=== PATIENT | female | born 1975 | race Caucasian/White ===

== ENCOUNTER 2018-08-19 15:42 | Emergency (ER) | payer SELFPAY ==
[2018-08-19 15:43] VITALS: BP 151/100; PULSE 71; RESP 18; TEMP 36.4; O2SAT 100; BMI 47.5
--- NOTE | 2018-08-19 16:13 | ED.VISSUMM ---
- ER Visit Summary Date of Service: 08/19/18 Chief Complaint: Left knee pain and chronic right ankle pain History of Present Illness: The patient is a 43 F no significant past medical history. Currently on no medications. Patient recently moved about a month ago from [place] to [place] she now lives in the [facility]. She states she tripped injuring her left knee about 2 weeks ago. She had a prior meniscal tear and thinks it is the same. He had a prior scope on her left knee done years ago. She also complains of chronic right ankle pain on the lateral malleolus is been going on for months to even a year along with her. She denies any recent fall or trauma on the right ankle. He attempted to go to follow start some clinic today and they told her they did not take walk-ins. Currently she is uninsured and did not think she get in with a local orthopedic physician. Physical Examination: Vital signs are stable. Afebrile. Middle-age female no acute distress. HEENT exam unremarkable. Neck nontender. Lungs clear to auscultation bilaterally. Heart regular rhythm no murmur. Abdomen soft nontender. Obese. Moving all 4 extremities. Neurovascular intact. Left hip, left ankle and foot nontender neurovascular intact. Full range of motion in the left lower extremity. The left knee she has mild joint line tenderness. There is no effusion or significant swelling. No redness or warmth. No signs of septic joint. The ACL, PCL, MCL and LCL are all intact. Quadriceps patella and inferior patella tendon are both intact. Right hip and knee are nontender with full range of motion. She has normal dorsi and plantar flexion of the right ankle. There is mild swelling to the right lateral malleolus. No gross bony deformity. Dorsi and plantar flexion is intact. No effusion. DP pulse intact. Right foot neurovascularly intact. Achilles tendon is intact. Neurologic exam is unremarkable. Test Results: Patient and I discussed she really does not need x-rays at this time. This is a chronic right ankle problem that she needs to see the international sales manager physician for. The left knee if it is a meniscal tear she would need an MRI. I do not feel there is any acute bony abnormality and I do not feel any pain x-rays will be of benefit. Patient is comfortable with that plan. Emergency Department Course and Treatment: Follow-up with outpatient either orthopedics or pie crust mixer of the right ankle. Treatment Plan: Naprosyn for pain. Ice and elevate. Follow-up with local orthopedic surgeon. Also pie crust mixer if needed. Disposition: Discharge Impression: Left knee pain of uncertain etiology History of prior left knee meniscal tear with prior surgery Acute on chronic right lateral ankle pain of uncertain etiology history of degenerative joint disease This note was generated with [employer] dictation software. It may contain incorrect words, spelling, and punctuation that were not noted in review of the chart prior to signing ED Disposition - Plan for ED Patient: Chief Complaint: Lower Extremity Injury Referrals: NOT,DEFINED [Primary Care Provider] -
--- NOTE | 2018-08-19 16:17 | ED.DEP ---
ED Disposition - Plan for ED Patient: Disposition: Home or Assisted Living Chief Complaint: Lower Extremity Injury Instructions: ED Meniscal Injury Knee Poss Prescriptions: Naproxen [Naprosyn] 500 mg PO BID PRN PRN #20 tab PRN Reason: Pain Referrals: Will Painting DO [STAFF PHYSICIAN] - 1-2 Weeks Additional Instructions: Ice and elevate both the right ankle and left knee. Activity as tolerated. Naprosyn for pain and inflammation. On follow-up with local orthopedic surgeon to evaluate your left knee for possible meniscal tear and/or also evaluate your right ankle which could also be seen by a local hospice care consultant.
--- NOTE | 2018-08-19 16:18 | ED.DCSUM_ITS ---
- ER Visit Summary Date of Service: 08/19/18 Chief Complaint: Left knee pain and chronic right ankle pain History of Present Illness: The patient is a 43 F no significant past medical history. Currently on no medications. Patient recently moved about a month ago from [place] to [place] she now lives in the [facility]. She states she tripped injuring her left knee about 2 weeks ago. She had a prior meniscal tear and thinks it is the same. He had a prior scope on her left knee done years ago. She also complains of chronic right ankle pain on the lateral malleolus is been going on for months to even a year along with her. She denies any recent fall or trauma on the right ankle. He attempted to go to follow start some clinic today and they told her they did not take walk-ins. Currently she is uninsured and did not think she get in with a local orthopedic physician. Physical Examination: Vital signs are stable. Afebrile. Middle-age female no acute distress. HEENT exam unremarkable. Neck nontender. Lungs clear to auscultation bilaterally. Heart regular rhythm no murmur. Abdomen soft nontender. Obese. Moving all 4 extremities. Neurovascular intact. Left hip, left ankle and foot nontender neurovascular intact. Full range of motion in the left lower extremity. The left knee she has mild joint line tenderness. There is no effusion or significant swelling. No redness or warmth. No signs of septic joint. The ACL, PCL, MCL and LCL are all intact. Quadriceps patella and inferior patella tendon are both intact. Right hip and knee are nontender with full range of motion. She has normal dorsi and plantar flexion of the right ankle. There is mild swelling to the right lateral malleolus. No gross bony deformity. Dorsi and plantar flexion is intact. No effusion. DP pulse intact. Right foot neurovascularly intact. Achilles tendon is intact. Neurologic exam is unremarkable. Test Results: Patient and I discussed she really does not need x-rays at this time. This is a chronic right ankle problem that she needs to see the rotor pilot physician for. The left knee if it is a meniscal tear she would need an MRI. I do not feel there is any acute bony abnormality and I do not feel any pain x-rays will be of benefit. Patient is comfortable with that plan. Emergency Department Course and Treatment: Follow-up with outpatient either orthopedics or teenage program director of the right ankle. Treatment Plan: Naprosyn for pain. Ice and elevate. Follow-up with local orthopedic surgeon. Also teenage program director if needed. Disposition: Discharge Impression: Left knee pain of uncertain etiology History of prior left knee meniscal tear with prior surgery Acute on chronic right lateral ankle pain of uncertain etiology history of degenerative joint disease This note was generated with [employer] dictation software. It may contain incorrect words, spelling, and punctuation that were not noted in review of the chart pr ior to signing ED Disposition - Plan for ED Patient: Chief Complaint: Lower Extremity Injury Referrals: NOT,DEFINED [Primary Care Provider] -
[2018-08-19 16:35] VITALS: PULSE 76; RESP 17; O2SAT 97
== END 2018-08-19 16:35 | disposition home or self-care (01) ==
PROVIDERS: Emergency Provider Emergency Medicine
DX: M25.562 Pain in left knee (principal); Z87.828 Personal history of other (healed) physical injury and trauma; Z98.890 Other specified postprocedural states; M25.571 Pain in right ankle and joints of right foot; G89.29 Other chronic pain
CPT/HCPCS: 99282

== ENCOUNTER → 2018-11-21 08:49 | Outpatient (CLI) | payer SELFPAY ==
--- NOTE | 2018-11-21 08:59 | RAD_ITS ---
HISTORY: PAIN COMPARISON: None FINDINGS: XR Knee Complete 4 Views with weightbearing No fracture or acute disease. Degenerative arthritis with mild narrowing of the tibiofemoral medial compartment. The lateral compartment and patellofemoral joint space appear preserved. No bony erosions. Mild spurring of the anterior patella. No joint effusion. RAD/Knee 4 or More Views IMPRESSION: 1. Mild osteoarthritis, medial compartment, left knee. 2. No acute disease. at 0413 Reported and signed by: Dejuan Cope MD Electronically Signed: Dejuan Cope, at 4:12 EST Tel , Service support ,
--- NOTE | 2018-11-21 08:59 | RAD_ITS ---
HISTORY: PAIN COMPARISON: None FINDINGS: XR right Knee Complete 4 Views with weightbearing Large body habitus. No fracture or acute disease. Joint spaces appear preserved. No bony erosions. No joint effusion. RAD/Knee 4 or More Views IMPRESSION: Negative exam. No significant arthritis, right knee. at 0416 Reported and signed by: Dejuan Cope MD Electronically Signed: Dejuan Cope, at 4:14 EST Tel , Service support ,
== END ==
PROVIDERS: Referring Provider Physician Assistant; Visit Provider Physician Assistant
DX: M25.561 Pain in right knee (principal); M25.562 Pain in left knee
CPT/HCPCS: 73564

== ENCOUNTER 2019-01-03 08:30 | Outpatient (RCR) | payer OTHER, SELFPAY ==
--- NOTE | 2018-12-11 12:47 | HP.PTEVAL_ITS ---
Patient's Visit Information AMELIA DAVENPORT is a 43 year old F referred to Physical Therapy by RAHEL Roman with a diagnosis of BILATERAL PATELLAFEMORAL SYNDROME,POSSIBLE LEFT MENISCUS DERRANGEMENT. Date of Evaluation: 12/11/18 Physical Therapist: Rancho José PT, Cert MDT, OCS - Visit Plan Frequency: 2x /Week Duration: 4 Weeks Plan: ROM,PRES'S QUADS/HAMS/HIP,NUSTEP,MODALITIES - Subjective Findings: This 43 y/o female presents to physical therapy bilateral patefemoral syndrome,possible left meniscus. Patient fell going up stairs at churh landed on right knee heard a pop but has had progressive left knee pain for several months.Patient had h/o left kne arthroscopic menisectomy 2007. Seen DR x-rays. Patient aggravated stairs,unable squat/kneeling,progressive walking and standing increase symptoms. Patient uses knee brace. Patient clicking popping left knee. Denies parathesia/tingling. Patient symptoms interupt sleeping. Patient pain affects QOL and function. VOCATION: [employer]. SOCIAL: lives with sister - Pain Left Knee Pain Intensity (Out of 10): 9 Pain Intensity Range: 10 Right Knee Pain Intensity (Out of 10): 5 Pain Intensity Range: 10 - Objective POSTURE: mild foward posture knee valgus. GAIT: antalgic gait left -right side with decrease stance time. PALAPTION: tender medial-lateral joint line. EDEMA: mild edema knee. AROM: 0-110 supine knee flexion. MMT: quads/hams 4- /5,hip flexion 4-/5,hip abd 3+/5,hip extension 4-/5. QUAD SET : lateral deviation. STAIRS: alternate. PROPRIOCEPTION: poor - Special Tests R Knee Candy - Meniscus: Negative R Knee Apley - Meniscus: Positive R Knee Stefan - ACL: Negative R Knee Anterior Drawer - ACL: Negative R Knee Patellar Apprehension - PFS: Positive R Knee Patellar Grind - PFS: Positive R Knee Medial Patellar Plica - Plica Syndrome: Negative L Knee Candy - Meniscus: Positive L Knee Stefan - ACL: Negative L Knee Valgus - MCL: Negative L Knee Varus - LCL: Negative L Knee Patellar Apprehension - PFS: Positive L Knee Patellar Grind - PFS: Positive L Knee Medial Patellar Plica - Plica Syndrome: Negative - Goals Goal 1:: Indeoendant with HEP Goal Time Frame: 4-6 Weeks Goal 2:: Decrease knee pain by 50% or greater to improve function with ADL'S Goal Time Frame: 4-6 Weeks Goal 3:: Increase AROM by 5 degrees to improve function with stairs Goal Time Frame: 4-6 Weeks Goal 4:: Patient increase strength quads/hams/hip 4/5 to improve function. Goal Time Frame: 4-6 Weeks Goal 5:: Patient to improve LFES score by 5-10points to improve QOL. - Rehabilitation Potential Physical Therapy Diagnosis: This patient has bilateral knee pain with patellafemoral syndrome and h/o left menisectomy 2008 with decrease ROM,strength,gait and function thus beinfit from skilled PT Rehabilitation Potential: Good - Anticipated Interventions Patient/Client Instruction: Educate patient on: Condition, Plan of Care For the Purpose of:: To decrease pain, To increase ROM, To improve muscle performance and motor function, To improve ability to perform ADL's, To increase tolerance to activity/condition/position, To improve ability of physical actions for home/community/work/leisure, To improve gait and locomotor functions, To improve health of tissue, To decrease soft tissue restriction, To increase flexibility/ROM, To reduce risk of recurrence, To improve ability to perform tasks related to life management Therapeutic Exercise to Include: Strength training, Active ROM Comment: HIP/KNEE For the Purpose of:: To decrease pain, To increase ROM, To increase oxygenation perfusion, To improve ability to perform ADL's, To increase tolerance to activity/condition/position, To improve ability of physical actions for home/community/work/leisure, To improve health of tissue, To decrease soft tissue restriction, To increase flexibility/ROM, To improve endurance, To impr ove ability to perform tasks related to life management TENS: Yes IF ES: Yes Cryotherapy (ice pack, ice massage): Yes Thermo therapy (hot pack): Yes Ultrasound (thermal/non thermal): Yes For the Purpose of:: To decrease pain, To increase ROM, To improve health of tissue, To decrease soft tissue restriction, To reduce risk of recurrence, To improve ability to perform tasks related to life management Thank you for the opportunity to evaluate your patient. For Medicare and Medicare HMO plans, please review the plan of care and approve it. It will need to be FAXED BACK to us at [phone] for Medicare purposes. For Medicare only, by signing this I certify the plan of care. Please let me know if there are questions or concerns regarding this plan of care. Physician Signature: Date:
--- NOTE | 2019-05-14 15:55 | HP.PTDCNRP_ITS ---
HP - Discharge Summary (1) - Patient Information AMELIA DAVENPORT was seen in my office for initial evaluation on 12/11/18. The following Plan of Care was established for this patient: Initial Frequency: 2x /Week Initial Duration: 4 Weeks - Anticipated Interventions Patient/Client Instruction: Educate patient on: Condition, Plan of Care For the Purpose of:: To decrease pain, To increase ROM, To improve muscle pe rformance and motor function, To improve ability to perform ADL's, To increase tolerance to activity/condition/position, To improve ability of physical actions for home/community/work/leisure, To improve gait and locomotor functions, To improve health of tissue, To decrease soft tissue restriction, To increase flexibility/ROM, To reduce risk of recurrence, To improve ability to perform tasks related to life management Therapeutic Exercise to Include: Strength training, Active ROM For the Purpose of:: To decrease pain, To increase ROM, To increase oxygenation perfusion, To improve ability to perform ADL's, To increase tolerance to activity/condition/position, To improve ability of physical actions for home/community/work/leisure, To improve health of tissue, To decrease soft tissue restriction, To increase flexibility/ROM, To improve endurance, To improve ability to perform tasks related to life management TENS: Yes IF ES: Yes Cryotherapy (ice pack, ice massage): Yes Thermo therapy (hot pack): Yes Ultrasound (thermal/non thermal): Yes For the Purpose of:: To decrease pain, To increase ROM, To improve health of tissue, To decrease soft tissue restriction, To reduce risk of recurrence, To improve ability to perform tasks related to life management This patient was last seen in our office 01/13/19. Pertinent comments regarding their Physical therapy will appear below: Patient seen for PT for bilateral patella femoral syndome with possible,left knee meniscus tear. Pateint seen for 7 visits for ROM ,grade PRE'S quad/hams/hip ,nustep,modalties. Patienr reported min improvement with left knee pain. Pateint occassionally felt clicking in left knee. Patient wasnt seen for last visit for recheck. Thus is d/c ,recommend possible MRI per MD. At this point I will be discontinuing this patient from physical therapy. I would be happy to see this patient again in the future if found appropriate by the physician. Thank you! Rancho José, PT, Cert MDT, OCS
== END 2019-01-03 19:00 | disposition home or self-care (01) ==
LOC: PT 08:30
PROVIDERS: Referring Provider Physician Assistant; Visit Provider Physician Assistant
DX: M22.2X1 Patellofemoral disorders, right knee (principal); M22.2X2 Patellofemoral disorders, left knee
CPT/HCPCS: 97014; 97035; 97110; 97162; G0283

== ENCOUNTER → 2019-06-02 | Outpatient (CLI) | payer BC, SELFPAY ==
[2019-05-12 10:11] VITALS: BMI 47.5
--- NOTE | 2019-06-02 16:39 | MRI_ITS ---
HISTORY:fall 6 mons ago, c/o pain entire knee, popping,clicking MRI EXAMINATION OF THELeft KNEE COMPARISON: Radiographs left knee obtained on November 21, 2018 TECHNIQUE: Sagittal proton-density, fat-suppressed T2, coronal proton density and fat-suppressed T2 and thin section coronal T2 and axial fat-suppressed T2 # of images including paperwork:198 FINDINGS: Bones: No acute fracture or dislocation. Minimal subchondral edema and subchondral cyst formation is seen at the medial tibia. There are marginal osteophytes seen at the medial lateral compartments of the knee with joint space narrowing as well as a patellofemoral joint Ligaments and tendons: The anterior cruciate ligament is not visualized suspect for a chronic complete tear. The posterior cruciate ligament is mildly bowed The lateral collateral ligament demonstrates abnormal signal at its proximal attachment suggesting partial tear. The iliotibial band and the biceps femoris tendon are intact. The superficial portion of the medial collateral ligament is intact. There is a tear of the deep medial meniscal femoral portion. The popliteus tendon is intact Extensor mechanism: The quadriceps tendon and patellar tendon are intact. The medial lateral retinaculum are intact Knee joint: There is a small joint effusion. There is also a popliteal cyst as well as fluid within the semimembranosus tibial collateral ligament bursa. There is a small amount of fluid within the medial collateral ligament bursa. Suspect mild synovitis also Medial compartment: The middle one third of the medial meniscus is displaced medially. There is blunting of the free edge of the middle one third. A horizontal tear seen extending from the middle one third of the posterior one third with a complex tear and large radial tear involving the posterior third. Diffuse articular cartilage thinning at the medial compartment Lateral compartment: No evidence of a meniscal tear. No full-thickness articular cartilage loss Patellofemoral articulation: Subchondral cyst formation is seen at the lateral facet of the patella with near full thickness versus full-thickness overlying articular cartilage loss. This is seen at the superior aspect of the patella. The trochlear cartilage is thinned inferiorly but no full-thickness loss noted MRI/Lower Ext Joint Only (Routine) IMPRESSION: Osteoarthritis Complex tear of the medial meniscus with horizontal tear of the middle one third extending to the posterior one third and large radial tear at the posterior one third. The middle one third is displaced medially There is fluid in the medial collateral ligament bursa Joint effusion with suspected synovitis Popliteal cyst Fluid and the semimembranosus medial collateral ligament bursa Chronic ACL third Intrasubstance tear of the biceps lateral collateral ligament at its femoral attachment at 2114 Reported and signed by: Karley Coleman DO Electronically Signed: Karley Coleman DO at 21:12 EDT Tel , Service support ,
== END | disposition home or self-care (01) ==
LOC: MRI 16:38
PROVIDERS: Referring Provider Physician Assistant; Visit Provider Physician Assistant
DX: M23.92 Unspecified internal derangement of left knee (principal); M25.562 Pain in left knee
CPT/HCPCS: 73721

== ENCOUNTER 2019-06-19 06:44 | Day surgery (SDC) | payer BC, SELFPAY ==
[2019-06-09 07:55] VITALS: BMI 47.5
[2019-06-19] VITALS (7 sets, daily range): BP systolic 137–169; BP diastolic 79–112; PULSE 80–94; RESP 16–18; TEMP 36.1–36.7; O2SAT 92–100; BMI 51.5
[2019-06-19] MEDS: Lactated Ringers 1,000 ML 100 ML IV (07:47)
[2019-06-19] MEDS: Epinephrine (1 mg/ml) 1 MG/ML VIAL (08:14)
[2019-06-19] MEDS: Bupiv/Epi 0.5% Mpf 30 ML Vial (08:14)
--- NOTE | 2019-06-19 08:23 | HP.PCM_ITS ---
History and Physical Date of Admission: 06/19/19 Intake Vital Signs 06/09/19 Body Mass Index (BMI) 47.5 06/06/19 Body Mass Index (BMI) 47.5 Intake Visit Reasons: MRI results - KNEE Allergies Sulfa (Sulfonamide Antibiotics) Allergy (Verified 08/19/18 15:46) Unknown azithromycin [From Zithromax Z-Matt] Adverse Reaction (Verified 08/19/18 15:46) Rash bupropion [From Wellbutrin] Adverse Reaction (Verified 08/19/18 15:46) Rash celecoxib [From Celebrex] Adverse Reaction (Verified 08/19/18 15:46) Rash loratadine [From Claritin] Adverse Reaction (Verified 08/19/18 15:46) Rash PFSH Surgical History (Updated 11/21/18 @ 08:32 by Michelle Howell) History of left knee surgery (Acute) History of tubal ligation (Acute) Family History (Updated 11/21/18 @ 08:34 by Michelle Howell) Aunt Hypertension CVA (cerebral vascular accident) Father Heart disease Diabetes Cancer Parkinsons disease Aunt Myocardial infarction Social History (Updated 06/11/19 @ 11:01 by Vikas Alvarez DO) Smoking Status: Never smoker second hand exposure: Yes alcohol intake: never HPI MRI results - KNEE: Details: Parts of this documentation were recorded by a scribe, this document ation accurately reflects the service provided and the decisions made by me, Vikas Alvarez DO 06/09/19 1856. AMELIA DAVENPORT is a 44 year old F here today for F/U after having right knee MRI completed. Patient still c/o generalized left knee pain. Does have painful mechanical symptoms. Denies numbness, tingling or other associated symptoms. States the pain has become more intense. Denies use of blood thinners. ROS Const Reports system reviewed and no additional complaints, except as docu Eyes Reports system reviewed and no additional complaints, except as docu ENT Reports system reviewed and no additional complaints, except as docu Card Reports system reviewed and no additional complaints, except as docu Resp Reports system reviewed and no additional complaints, except as docu GI Reports system reviewed and no additional complaints, except as docu Musc Reports system reviewed and no additional complaints, except as docu, Reports as per HPI Skin/Breast Reports system reviewed and no additional complaints, except as docu Neuro Yes system reviewed and no additional complaints, except as docu Psych Reports system reviewed and no additional complaints, except as docu Endo Reports system reviewed and no additional complaints, except as docu Lan/Lymph Reports system reviewed and no additional complaints, except as docu Aller/Immun Reports system reviewed and no additional complaints, except as docu Ortho Exam Left Knee Skin/Wound: No ecchymosis, No erythema, No swelling Homans Sign: No Knee ROM: Yes ROM-Extension -20 to 0, Yes ROM-Flexion 0-140 (symmetric) Examination: Yes med jt line tenderness, Yes Lat jt line tenderness, No TTP inf pole patella, Yes Pain with flexion, Yes Candy's Test (Minor discomfort. No clicking/catching), No TTP Patellar tendon, No TTP Tibial tubercle, No TTP Pes Anserine Stability: NML: Anterior Drawer, NML: Posterior Drawer, NML: Valgus 30 (Discomfort but no laxity), NML: Varus 30 (Discomfort but no laxity) Apprehension with Lateral Translation: No Patella Grind: Yes KNEE: No acute abnormalities on inspection. No ecchymosis/bruising, erythema, or other skin changes. There is no evident generalized or localized swelling or effusion noted. Patient does have full range of motion symmetric to the right knee. She does have normal strength against resistance. She is reproduced with tenderness on palpation of the medial lateral joint line. She has some minor discomfort on both of these joint lines with Candy's test. Her ACL and PCL appear intact without any laxity or discomfort. She does not have any laxity of the collateral ligaments at the same time does have discomfort with varus and valgus stress. Supplemental Info 06/02/2019 MRI left knee: Complex tear medial meniscus with large radial component joint effusion chronic ACL tear , near full-thickness cartilage loss lateral patellar facet, diffuse cartilage thinning medial compartment 11/21/2018 x-ray left knee: Moderate patellofemoral spurring mild to moderate medial joint space narrowing. Assessment & Plan Problems 1. Acute medial meniscus tear of left knee, subsequent encounter S83.242D Plan Patient educated that she has a large medial meniscus tear of her left knee. Patient educated that she also has cartilage wear of the knee cap. Patient educated that option includes a partial medial meniscectomy with chondroplasty. Educated that she will be sore post op for about 4-6 weeks. Patient educated on some weight lose. Patient educated that she can have this surgery if she wishes. Reviewed the pre-operative plans with the patient. Risks and benefits of the procedure were fully explained, including but not limited to infection, neurovascular injury, continued pain, arthritis, stiffness, need for further surgery, re-injury, DVT, PE, general risks of anesthesia, and loss of limb or life. The patient understands all the risks and does wish to proceed with written consent. Patient educated to stop the use of Aleve and Ibuprofen. Follow up 2 weeks post op or sooner if pain, swelling, numbness or associated symptoms, or concerns develop. All questions answered. Patient in agreement of plan. Coding Level of Care Code Off vis,est,level 3 Diagnoses Acute medial meniscus tear of left knee, subsequent encounter S83.242D ??Encounter type: subsequent encounter I have re-examined the patient. There are no clinical changes since date of exam
[2019-06-19] MEDS: Cefazolin 2 GM in 0.9% Normal Saline 100 ML IV (08:26)
[2019-06-19] MEDS: MethylPREDNISolone Acetate 80 MG/ML Vial (09:10)
[2019-06-19] MEDS: Bupivacaine 0.5% PF 10 ML VIAL (09:10)
[2019-06-19] MEDS: Morphine 4 MG/ML Syringe (09:10)
--- NOTE | 2019-06-19 09:27 | PCM.DC.ORTHO ---
Discharge Diet: No Restrictions Discharge Activity: Return to Normal Activity Weight Bearing Status: Weight bearing as tolerated Call your doctor if you observe: Fever of 101 or Higher, Shortness of breath, Chest pain Additional Instructions: Ice and elevate next 72 hours .keep dressing on clean and dry for 48 hours then may remove begin showering daily but do not submerge in tub or pool. After shower may apply Band-Aids . Encourage knee range of motion weightbearing as tolerated, use crutches until confident in knee then may discontinue. No strenuous activity. When not ambulating keep iced and elevated next 72 hours. Allergies/Adverse Reactions: Allergies Sulfa (Sulfonamide Antibiotics) Allergy (Verified 06/19/19 07:36) Unknown azithromycin [From Zithromax Z-Matt] Adverse Reaction (Verified 06/19/19 07:36) Rash bupropion [From Wellbutrin] Adverse Reaction (Verified 06/19/19 07:36) Rash celecoxib [From Celebrex] Adverse Reaction (Verified 06/19/19 07:36) Rash loratadine [From Claritin] Adverse Reaction (Verified 06/19/19 07:36) Rash Medications to take at Discharge Naproxen [Naprosyn] 500 mg PO BID PRN PRN #20 tab 08/19/18 esomeprazole magnesium 40 mg capsule,delayed release 40 mg PO DAILY 11/21/18 folic acid 1 mg tablet 1 mg PO DAILY 11/21/18 ibuprofen 200 mg tablet 200 mg PO TID-QID PRN 11/21/18 multivitamin tablet 1 tab PO DAILY 11/21/18 Biotin 1 mg PO DAILY 06/16/19 Cholecalciferol (VIT D3) [Vitamin D] 1,000 unit PO DAILY 06/16/19 Magnesium 250 mg PO DAILY 06/16/19 Multivit-Min/Folic Acid/Biotin [Hair, Skin & Nails Caplet] 1 ea PO DAILY 06/16/19 Hydrocodone/Acetaminophen [[place] 5-325 Tablet] 1 each PO Q4H PRN PRN 5 Days #40 tablet 06/19/19 The following prescriptions were given: Hydrocodone/Acetaminophen [[place] 5-325 Tablet] 1 each PO Q4H PRN PRN 5 Days #40 tablet PRN Reason: Pain Transmission Status: Sent to [facility] Primary Care Physician: Care Physician,No Primary [Primary Care Provider] - Test Results: Test results from this visit will be discussed in further detail at your follow-up appointment, if applicable. Please Follow Up With: Vikas Alvarez DO - 2 weeks
--- NOTE | 2019-06-19 09:29 | OP.PCM_ITS ---
Report of Operation Date of Procedure: 06/19/19 Description of Surgical Findings:: Preop diagnosis: Left knee complex medial meniscus tear DJD bursal ACL tear Postoperative diagnosis: Same + loose body Procedure: Knee arthroscopic partial medial meniscectomy and chondroplasty removal of loose body Anesthesia: General Estimated blood loss: 5 mL Tourniquet time: 25 minutes 300 mmHg Complications: none Indication for procedure: This is a 44-year-old obese female with history of knee arthroscopy who had injury to left knee and sustained medial meniscus tear MRI showing. The patient did wish to proceed with an elective arthroscopic surgery to attempt to alleviate the symptoms. Risk benefits and alternatives of the procedure were reviewed including risk of bleeding infection nerve artery tissue damage need for further surgery continued pain and expected postoperative course. Procedure: The patient was met in the preoperative holding area. The operative extremity was identified by both patient and physician and family and marked. Patient was brought back to the operating room on a wheeled cart and transferred to the operating table in the supine position. Anesthesia was started. A well- padded tourniquet was placed on the operative extremity. A lower extremity leg hill was secured to the operative extremity. The contralateral extremity was well-padded and the end of the bed was flexed to 90 degrees. The patient was prepped and draped in the usual sterile fashion. A timeout was called to ensure the proper patient, procedure, and extremity were being contemplated. 0.5% Marcaine with epinephrine was injected into the planned incisional areas under the skin only. An Esmarch was used to exsanguinate the extremity and the tourniquet was inflated. An 11 blade scalpel was used to make a stab incision in the anterior lateral portal. The arthroscope was inserted into the intercondylar notch and inflow and outflow tubes were attached. Arthroscopic visualization began. The medial compartment was entered. An 18-gauge spinal needle was used to establish the placement for anterior medial portal. An 11 blade scalpel was used to make a stab incision. Blunt probe was inserted followed by a meniscal probe. Posterior horn and root meniscal tearing grade 3 cartilage wear throughout the medial femoral condyle loose cartilage flaps that required chondroplasty the ACL was partially torn with loose body partially fixed in the anterior joint recess this was removed. The lateral compartment was entered free of meniscal or cartilage pathology The arthroscope was switched to the medial portal to complete the procedure. The medial and lateral gutters were inspected and were free of loose bodies. The patellofemoral joint was inspected grade 2 with some areas of grade 3 cartilage wear. There was good patellar tracking. The knee was thoroughly irrigated and drained. An intra- articular injection with 5 cc 0.5% Marcaine plain 4 mg of morphine and 40 mg of Depo-Medrol was injected intra-articularly. The arthroscope was removed the portals were closed with 3-0 nylon arthroscopic stitches. Followed by Xeroform 4 x 4's ABDs web roll and an Samir wrap. The tourniquet was let down and the drapes were removed. All counts were correct. The patient was brought back to the PACU in stable condition.
[2019-06-19] MEDS: HYDROcodone Bitartrate/Apap 5/325 Tablet PO (10:52)
== END 2019-06-19 11:16 | disposition hospice, home (50) ==
LOC: SDC 06:46 → AC 06:47
PROVIDERS: Referring Provider Orthopaedic Surgery; Visit Provider Orthopaedic Surgery
PROC: (CPT 29870; principal; 2019-06-19 08:00)
DX: S83.232A Complex tear of medial meniscus, current injury, left knee, initial encounter (principal); M17.12 Unilateral primary osteoarthritis, left knee; S83.512A Sprain of anterior cruciate ligament of left knee, initial encounter; M94.262 Chondromalacia, left knee; X58.XXXA Exposure to other specified factors, initial encounter; Y93.9 Activity, unspecified; Y92.9 Unspecified place or not applicable; E66.9 Obesity, unspecified; Z68.42 Body mass index [BMI] 45.0-49.9, adult; M41.9 Scoliosis, unspecified; K21.9 Gastro-esophageal reflux disease without esophagitis; Z87.891 Personal history of nicotine dependence
CPT/HCPCS: 29881; J7120; J2405

== ENCOUNTER → 2019-07-29 14:17 | Outpatient (CLI) | payer BC, SELFPAY ==
[2019-07-28 09:46] VITALS: BMI 51.5
[2019-07-29 16:00] LABS: Absolute Lymphocyte Count 2.21 X10^3/uL (0.83-4.51); Absolute Neutrophil Count 8.4 X10^3/uL (2.0-7.7); Basophil# 0.05 X10^3/uL; Basophil% 0.4 % (0-1); Eosinophil# 0.06 X10^3/uL; Eosinophils% 0.5 % (0-5); Hematocrit 41.4 % (37-47); Lymphocyte # 2.21 X10^3/ul (4.0); Lymphocyte % 19.2 % (19-41); Mean Corp Hgb Conc 31.4 g/dL (32-36); Mean Corpuscular Hgb 29.4 pg (27.0-32.0); Mean Corpuscular Volume 93.7 fL (81-99); Monocyte# 0.74 X10^3/uL; Monocyte% 6.4 % (0-10); NRBC Flagged by Analyzer 0 % (0-5); Neutrophil # 8.38 X10^3/uL (2.7-7.7); Neutrophil % 72.6 % (47-70); Platelet Count 348 K/mm3 (150-450); RBC Distribution Width CV 12.1 % (11.6-14.6); RBC Distribution Width SD 41.9 fl (35.1-43.9); Red Blood Count 4.42 M/mm3 (4.2-5.4); White Blood Count 11.5 K/mm3 (4.4-11.0)
[2019-07-29 16:24] LABS: Vitamin D,25 Hydroxy 28.6 ng/mL (29.95-100.01)
[2019-07-29 16:42] LABS: ALB/GLOB Ratio 1.1 RATIO (0.9-2.4); AST(SGOT) 35 U/L (15-37); Alanine Aminotransfer ALT/SGPT 71 U/L (13-56); Alkaline Phosphatase 155 U/L (45-117); Anion Gap 11 (5-15); BUN 14 mg/dL (7-18); BUN/Creat Ratio 16.5 RATIO (10-20); Calcium,Total 9.1 mg/dL (8.5-10.1); Chloride 106 mmol/L (98-107); Cholesterol 175 mg/dL (200); Creatinine, Serum 0.85 mg/dL (0.55-1.02); EST Glomerular Filtration Rate 77 mL/min (>60); Est Glom Filt Rate - Afr Amer 93 mL/min (>60); Globulin 3.6 g/dL (2.2-4.2); Glucose 147 mg/dL (74-106); High Density Lipoprotein 53 mg/dL; Magnesium 2.1 mg/dL (1.6-2.6); Potassium 3.7 mmol/L (3.5-5.1); Protein, Total 7.6 g/dL (6.4-8.2); Sodium Level 145 mmol/L (136-145); Thyroid Stim Hormone (TSH) 1.93 uIU/mL (0.358-3.74); Triglycerides 156 mg/dL; Very Low Density Lipoprotein 31 mg/dL (5-40)
[2019-07-30 09:51] LABS: GGTP 78 U/L (5-55)
[2019-07-30 10:07] LABS: Hemoglobin A1c 7.1 % (4.2-6.3)
[2019-07-30 10:48] LABS: Hepatitis B Surface Antibody Non-Reactive; Hepatitis B Surface Antigen Non-Reactive (Nonreactive); Hepatitis C Antibody Non-Reactive (Nonreactive)
== END ==
LOC: MFPLAB 14:18
PROVIDERS: Family Provider Family Medicine; PCP Family Medicine; Referring Provider Family Medicine; Visit Provider Family Medicine
DX: R73.09 Other abnormal glucose (principal); R94.5 Abnormal results of liver function studies; R74.8 Abnormal levels of other serum enzymes; E55.9 Vitamin D deficiency, unspecified; E66.01 Morbid (severe) obesity due to excess calories; E83.42 Hypomagnesemia; E53.8 Deficiency of other specified B group vitamins
CPT/HCPCS: 36415; 80053; 80061; 82306; 82746; 82977; 83036; 83735; 84443; 85025; 86706; 86803; 87340

== ENCOUNTER 2019-08-29 09:00 | Outpatient (RCR) | payer BC, SELFPAY ==
[2019-07-02 07:48] VITALS: BMI 51.5
--- NOTE | 2019-07-08 07:42 | HP.PTEVAL_ITS ---
Patient's Visit Information AMELIA DAVENPORT is a 44 year old F referred to Physical Therapy by Vikas Alvarez DO with a diagnosis of L knee partial menisectomy/chondroplasty. Date of Evaluation: 07/07/19 Physical Therapist: Ayan Husain DPT - Visit Plan Frequency: 3x /Week Duration: 4-6 Weeks Plan: Start with quad/HS/glute med isometrics progressing with SLRs. Add in progressing knee ROM. May use ice/TENS for symptom management. In 10 days progress to more functional exercises, avoid deep squating and high steps ups. Progress as tolerated. Pt. hopeful to return to work on 07/28/19. 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 - Subjective Findings: Pt. is here today for her initial evaluation with diagnosis of L knee partial menisectomy/chondroplasty. DOS 8.22.19. Pt. reports that she believes she initially hurt her knee when she was living in [place] ~1 year ago. She reprots having a mild set back with having slight infection, now on antibiotics. Pt. has two anterior port holes, good healing, improved redness. Pt. works in [place] at [employer], which she works 10 hour shifts 5 days a week, with ~95% of her time is spent on her feet. Pt. is having some difficulty with sleep secondary to pain. Pt. reports increased pain with walking and iwth stair negotiation. Pt. denies NT, she is no longer having fever or chills. Pt. has not been doing exercises, but reports she did not have any to do. Pt. is hopeful to get back to work and recreational activties without limitations. She did have a previous L kne surgery years ago. - Pain L knee Pain Intensity (Out of 10): 2 Pain Intensity Range: 1, 5 - Objective POSTURE: Pt. is over wt. Pt. has slight increase in B knee valgus postioning in stance with slight lack of TKE on L knee during stance with R sided wt. shifting. PALAPTION: Pt. has 2 anterior port holes with good healing. Pt. slight redness, but improved from the pictures she showed me of previous. Negative homans sign. NEURO: pt. has normal sensation and DTR bilaterally. ROM: L knee 0-5-105deg mild increase in symptoms at end ranges, but empty end feel. Pt. has tight HS bilaterally. MMT: SLR on LLE ~8deg extensor lag with, decent quad set. LLE- ankle 5/5 throughout; HS 4+/5; hip- flexion 4/5, abd 4/5, ext 4/5. GAIT: Pt. ambulates with decreased R step length with L lateral lean during L stance phase. Pt. lacks slight TKE on LLE during stance phase and decreased knee flexion during swing phase. STAIRS: Step to pattern noted, loading RLE only. - Goals Goal 1:: Pt. to be I with HEP. Goal Time Frame: 4-6 Weeks Goal 2:: Pt. to have L knee ROM to 0-0-125deg without increase in symptoms. Goal Time Frame: 4-6 Weeks Goal 3:: Pt. to ambulate unlimited distances with 0-1/10 pain allowing increased community mobility. Goal Time Frame: 4-6 Weeks Goal 4:: Pt. to sleep throughout the night without increase in symptoms. Goal Time Frame: 4-6 Weeks Goal 5:: Pt. to have increased LLE strength by 1/2 grade throughout effected musculature. Goal Time Frame: 4-6 Weeks Goal 6:: Pt. to negotiate steps with 1 HR with reciprocal pattern without increase in symptoms. Goal Time Frame: 4-6 Weeks - Rehabilitation Potential Physical Therapy Diagnosis: Pt. has signs and symptoms consisnt with post surgical L knee menisectomy. Pt. has subsequent hypomobility, weakness and difficulty with walking. Pt. would benefit from PT with focus on ROM and estabilishing increased strength in order to get back to work and recreational activities without limitations. Rehabilitation Potential: Good - Anticipated Interventions Patient/Client Instruction: Educate patient on: Condition, Plan of Care, Risk Factors, Benefits of Fitness Program For the Purpose of:: To foster healthy habits, To improve decision making, To facilitate caregiver knowledge, To improve self management, To prevent re- injury, To improve ability to perform tasks related to life management, To improve tolerance to ADL's Therapeutic Exercise to Include: Strength training, Power training, Endurance training, Balance training, Postural training, Flexibilty training, Gait and locomotor training, Passive ROM, Active ROM, Dynamic Lumbar Stabilization For the Purpose of:: To decrease pain, To decrease swelling/inflammation, To increase ROM, To improve nutrient delivery to tissue, To increase oxygenation perfusion, To improve muscle performance and motor function, To improve ability to perform ADL's, To improve gait and locomotor functions, To improve health of tissue, To decrease soft tissue restriction, To increase flexibility/ROM, To improve endurance, To improve balance, To improve safety with gait TENS: Yes Cryotherapy (ice pack, ice massage): Yes For the Purpose of:: To decrease pain, To decrease swelling/inflammation, To increase ROM Thank you for the opportunity to evaluate your patient. For Medicare and Medicare HMO plans, please review the plan of care and approve it. It will need to be FAXED BACK to us at [phone] for Medicare purposes. For Medicare only, by signing this I certify the plan of care. Please let me know if there are questions or concerns regarding this plan of care. Physician Signature: Date:
== END 2019-08-29 17:00 | disposition home or self-care (01) ==
LOC: PT 09:00
PROVIDERS: Referring Provider Orthopaedic Surgery; Visit Provider Orthopaedic Surgery
DX: Z98.890 Other specified postprocedural states (principal)
CPT/HCPCS: 97014; 97110; 97161; G0283

== ENCOUNTER 2019-09-02 08:05 | Day surgery (SDC) | payer BC, SELFPAY ==
--- NOTE | 2019-08-19 04:15 | HP_ITS ---
Intake Vital Signs 08/19/19 Body Mass Index (BMI) 51.5 08/19/19 Height 5 ft 2 in 08/19/19 Weight: 285 lb 08/19/19 Body Mass Index (BMI) 52.1 08/19/19 Blood Pressure 138/87 H 08/19/19 Blood Pressure Location Rt brachial 08/19/19 Blood Pressure Position Sitting 08/19/19 Respiratory Rate 20 H 08/19/19 Pulse Rate 74 08/19/19 Pulse Source Monitor 08/19/19 Temperature 98.0 F 08/19/19 Temperature Source Oral 08/19/19 Pulse Ox 97 08/19/19 Oxygen Delivery Method room air Intake Visit Reasons: GERD/EGD Consult Ore Washer Required: No Is patient in pain?: No Allergies Sulfa (Sulfonamide Antibiotics) Allergy (Verified 08/19/19 14:24) Unknown azithromycin [From Zithromax Z-Matt] Adverse Reaction (Verified 08/19/19 14:24) Rash bupropion [From Wellbutrin] Adverse Reaction (Verified 08/19/19 14:24) Rash celecoxib [From Celebrex] Adverse Reaction (Verified 08/19/19 14:24) Rash loratadine [From Claritin] Adverse Reaction (Verified 08/19/19 14:24) Rash Medications Naproxen [Naprosyn] 500 mg PO BID PRN PRN #20 tab 08/19/18 [Rx Confirmed 08/19/19] folic acid 1 mg tablet 1 mg PO DAILY 11/21/18 [History Confirmed 08/19/19] ibuprofen 200 mg tablet 200 mg PO TID-QID PRN 11/21/18 [History Confirmed 08/19/19] multivitamin tablet 1 tab PO DAILY 11/21/18 [History Confirmed 08/19/19] Biotin 1 mg PO DAILY 06/16/19 [History Confirmed 08/19/19] Cholecalciferol (VIT D3) [Vitamin D] 1,000 unit PO DAILY 06/16/19 [History Confirmed 08/19/19] Magnesium 250 mg PO DAILY 06/16/19 [History Confirmed 08/19/19] famotidine 20 mg tablet 20 mg PO DAILY 08/19/19 [History Confirmed 08/19/19] melatonin 5 mg capsule mg PO DAILY cap 08/19/19 [History Confirmed 08/19/19] prazosin 1 mg capsule 1 mg PO QHS 08/19/19 [History Confirmed 08/19/19] sertraline 100 mg tablet 100 mg PO DAILY 08/19/19 [History Confirmed 08/19/19] [facility] Medical History (Updated 08/19/19 @ 16:13 by Travis Glez MD) Morbid obesity with body mass index (BMI) greater than or equal to 50 (Acute) GERD (gastroesophageal reflux disease) (Acute) Anxiety and depression (Acute) Arthritis (Acute) Dysphagia (Acute) GERD (gastroesophageal reflux disease) (Acute) History of back problems (Acute) Obesity (Acute) Surgical History History of left knee surgery (Acute) History of tubal ligation (Acute) Family History Aunt Hypertension CVA (cerebral vascular accident) Father Heart disease Diabetes Cancer Parkinsons disease Aunt Myocardial infarction Social History (Updated 08/19/19 @ 16:15 by Travis Glez MD) Smoking Status: Former smoker second hand exposure: Yes alcohol intake: never HPI HPI HPI: AMELIA DAVENPORT, is a 44 F who presents to the office today for HPI HPI Surgical H&P: Yes HPI: AMELIA DAVENPORT, is a 44 F who presents to the office today for surgical consultation regarding chronic gastroesophageal reflux disease and heartburn. The patient is referred by Dr. Fabricio Harry and a written surgical consult and recommendations will return to him. 44-year-old female. She states that for 15 to 20 years she has had intractable gastroesophageal reflux disease heartburn. She states initially as she was living in [place] all that time. That she was prescribed acid reducing medication but eventually could not afford the prescription so she then changed to [id number]-muzmvgd medicine. Dr Fabricio Harry has her listed as taking Pepcid but the patient seems completely unclear as to what medication she was actually taking [id number]. She thinks that she had an upper and lower endoscopy possibly 15 years ago. She complains the symptoms as a hot water brash retrosternally and burning of the throat. This will occur if she is not taking her medications. She just recently had left knee surgery performed arthroscopically per .. 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. She has been doing that for the past month. Body weight is approximately 285 pounds with a BMI of 51.5. She denies bright red blood per rectum or melena. Because of the knee problem she has been recently on naproxen 2 sgjf-qqy-tuljevr tablets twice daily. She denies current tobacco use but she was exposed to secondhand smoke while living in [place] because she lives with her sister. She has not had any abdominal surgery other than a NovaSure. Other surgery includes simple tonsillectomy adenoidectomy. Additionally states that she does not sleep well. She does not recall ever having been evaluated for sleep apnea ROS General General: Yes weight change and fatigue; no appetite, colon cancer, breast cancer or weakness HEENT HEENT: Yes difficulty swallowing and eye surgery; no eye injury, swollen glands or hoarseness Endo Endocrine: No thyroid disease, diabetes mellitus, thyroid cancer, Hair loss, heat intolerance or cold intolerance Skin Skin: Yes rash; no changing moles Breast Breast: No left breast lump, right breast lump, nipple discharge, breast pain, abnormal mammogram, abnormal US or breast enlargement Musc Musculoskeletal: Yes back problems and arthritis; no rheumatoid arthritis, gout or joint pain Cardio Cardiovascular: No murmur, pacemaker, heart disease, atrial fibrillation, high blood pressure, heart attack, heart stent, palpitations, shortness of breat with exertion or chest pain Psych Psychiatric: Yes depression and anxiety; no hearing voices Resp Respiratory: Yes shortness of breath, No sleep apnea, No cough, No COPD, No asthma, No emphysema, No wheezing Gastro Gastrointestinal: No abdominal pain, No nausea or vomiting, No diarrhea, No constipation, No blood in stool, Yes acid reflux, Yes hemorrhoids, No ulcers, No gallbladder problem, No black,tarry stools Lan Hematologic: No blood thinners, No blood disorders, No bleeding, No anemia, No blood clots Neuro Neurologic: No system reviewed and no additional complaints, except as docu, No as per HPI, No abnormal walking, No abnormal hearing, No abnormal movements, No abnormal speech, No behavioral changes, No burning sensations, No confusion, No seizure-like activity, No unsteadiness, No dizziness, No localized weakness, No frequent falls, No headache(s), No lack of coordination, No loss of vision, No memory loss, No numbness, No other visual disturbances, No radiating pain, No restless legs, No sensory deficit, No fainting, No tingling, No tremor(s), No weakness, No other Exam Const General: comfortable, no acute distress Nutritional Appearance: obese morbidly obese Orientation: alert, awake, oriented x3 HENMT Head: normal to inspection Chest Breast Palpation: No nipple discharge Resp Auscultation: clear to auscultation bilaterally Other: Diminished respiratory excursion, difficult to detect breath sounds in the bases Cardio Rate: regular rate Rhythm: regular rhythm Heart Sounds: no murmurs GI Other: Notably overweight. I cannot detect any internal organs, nontender, normal bowel sounds Extrem Other: Large bilateral lower extremities, recent arthroscopy sites left knee, diffuse bilateral lower extremity nonpitting swelling Psych Affect: normal affect Assessment & Plan Problems 1. Gastroesophageal reflux disease, esophagitis presence not specified K21.9 2. Morbid obesity with body mass index (BMI) greater than or equal to 50 E66.01 Plan I am recommending the patient a esophagogastroduodenoscopy for careful inspection of the duodenum stomach and esophagus. The patient has had long-term reflux disease and is at risk for the sequelae of chronic reflux with possible ulceration or stenosis or Lobo's. I have described the technique, benefits, risks and alternatives. Because of her sleep problems she may well indeed have sleep apnea. I will propose that we perform this upper endoscopy with monitored anesthesia care. I did briefly discuss with her the potential for future surgical treatment options for her reflux. Her BMI of 51.5 precludes typical approach. She would have the option of eventually losing weight with diet and exercise versus consulting with bariatric surgery for a combined reflux and weight reduction surgery like gastric bypass. She has had an opportunity to ask and have questions answered. I appreciate the opportunity of assisting with her surgical care. We will schedule and proceed with an upper endoscopy as noted. CC: Dr Fabricio Glez M.D., F.A.C.S. Coding Level of Care Code 79364 Diagnoses Gastroesophageal reflux disease, esophagitis presence not specified K21.9 ??Esophagitis presence: esophagitis presence not specified Morbid obesity with body mass index (BMI) greater than or equal to 50 E66.01 08/19/19 9417 <Electronically signed by Travis weaver MD> Date _ Travis CARLOS I have re-examined the patient. There are no clinical changes since date of exam.
[2019-08-19 14:32] VITALS: BMI 51.5
[2019-09-02] VITALS (7 sets, daily range): BP systolic 101–131; BP diastolic 56–109; PULSE 71–91; RESP 16–18; TEMP 36.1–36.6; O2SAT 96–98; BMI 51.7
[2019-09-02] MEDS: Lactated Ringers 1,000 ML 100 ML IV (09:02)
--- NOTE | 2019-09-02 09:15 | IMM_PTH ---
PATIENT: AMELIA DAVENPORT LOC: EN U#:[id number] AGE/SX: 44/F ROOM: RE09/02/[address]: Dr. Travis Glez MD : 1975 BED: DIS: 09/02/2019 SPEC #: [id number] RECD: 09/02/19 13:05 STATUS: GIA REAfia #: [id number] ZAINAB: 09/02/19 09:[address]: Travis Glez DEPT: IMMUNOHISTOCHEMISTRY RECD BY: Madhavi Martinez ENTERED: 09/02/19 13:05 SP TYPE: IMMUNO OTHR DR: Dr. Fabricio Harry MD Tissues: A - Stomach, NOS Procedures: H Pylori (initial) PHYSICIAN & INSTITUTION [place] [id number] SPECIMEN INFORMATION: Tissue Source: A - Antrum biopsy Clinical Info: GERD, esophagitis Specimen Number: [id number] CPT code: 05777 METHODOLOGY: Deparaffinized sections of prefer/formalin-fixed tissue or PAP/DQ stained slides are incubated with monoclonal/polyclonal antibodies/oligonucleotide probes. Localization is made via biotin free immunoperoxidase method. Appropriate controls are performed and reacted as expected. Results on target cell population are indicated in the following table: RESULTS: ANTIBODY / CLONE RESULT Block A H Pylori (polyclonal) negative These tests were developed and their performance characteristics determined by [facility]. They may not have been cleared or approved by the U.S. Food and Drug Administration. The FDA has determined that such clearance or approval is not necessary. INTERPRETATION: A. Antrum biopsy: Negative for Helicobacter pylori organisms. AM:aparna 09/03/19
--- NOTE | 2019-09-02 09:15 | EGD_PTH ---
PATIENT: AMELIA DAVENPORT LOC: EN U#:[id number] AGE/SX: 44/F ROOM: RE09/02/[address]: Dr. Travis Glez MD : 1975 BED: DIS: 09/02/2019 SPEC #: [id number] RECD: 09/02/19 11:35 STATUS: GIA ALDAIR #: [id number] ZAINAB: 09/02/19 09:[address]: Travis Glez DEPT: SURGICAL PATHOLOGY RECD BY: Umesh Eldridge ENTERED: 09/02/19 13:08 SP TYPE: EGD BIOPSY OT DR: Dr. Fabricio Harry MD Tissues: A - Gastric mucous membrane B - Gastric mucous membrane C - Esophageal mucous membrane D - Esophageal mucous membrane Procedures: Special Stain Group II Surgery Specimen Level IV Alcian Blue/PAS (control) [place]ER [place] [place] DIAGNOSIS: GERD, esophagitis TISSUE SUBMITTED: A - Antrum biopsy for H. pylori and histo, B - EG junction biopsy, C - Mid esophagus biopsy, D - Distal esophagus biopsy MICROSCOPIC DIAGNOSIS A. Gastric antrum, biopsy: Mild chronic gastritis. See comment. B. Gastroesophageal junction, biopsy: Consistent with reflux. Mild chronic inflammation. No evidence of intestinal metaplasia. See comment. C. Mid esophagus, biopsy: Strips of benign squamous mucosa. No evidence of inflammation. D. Distal esophagus, biopsy: Fragments of benign junctional mucosa with mild chronic inflammation. AM:aparna 09/03/19 COMMENT A. The results of immunohistochemistry for Helicobacter pylori will be reported separately ([id number]). B. Alcian blue/PAS stain with matched control supports the above diagnosis. MICROSCOPIC DESCRIPTION Slides are reviewed. GROSS DESCRIPTION A - Received in fixative is one container labeled with the patient's name and designated antral biopsy. The specimen consists of one irregular fragment of light contreras soft tissue that measures 0.3 x 0.3 x 0.1 cm. The specimen is totally submitted in one cassette. B - Received in fixative is one container labeled with the patient's name and designated EG junction biopsy. The specimen consists of multiple irregular fragments of light contreras soft tissue that in aggregate measure 0.5 x 0.5 x 0.1 cm. The specimen is totally submitted in one cassette. C - Received in fixative is one container labeled with the patient's name and designated mid esophagus biopsy. The specimen consists of multiple irregular fragments of light contreras soft tissue that in aggregate measure 1 x 0.3 x 0.1 cm. The specimen is totally submitted in one cassette. D - Received in fixative is one container labeled with the patient's name and designated distal esophagus biopsy. The specimen consists of one irregular fragment of light contreras soft tissue that measures 0.8 x 0.4 x 0.1 cm. The specimen is totally submitted in one cassette. / SJ:rg 09/02/19 TC:3 CPT: 69602 x4, 65316
[2019-09-02 09:21] LABS: Bedside Glucose 183 mg/dL (70-110)
--- NOTE | 2019-09-02 10:16 | OP.ENDO_ITS ---
09/02/2019 Fabricio Harry [address] [place] [address] Re : Upper GI endoscopy procedure for Larissa Guevara Dear Dr. Harry This procedure was performed on Monday, September 02, 2019. My impressions and recommendations are as follows: Impressions : - Esophageal mucosal changes suspicious for eosinophilic esophagitis. Biopsied mid and distal esophagus - Z-line variable, 38 cm from the incisors. Biopsied. - Small hiatal hernia. - Erythematous mucosa in the antrum. Biopsied. - Normal examined duodenum. Recommendations : - Discharge patient to home. - Resume previous diet. - Continue present medications. - Telephone my office for pathology results in 1 week. My findings are described in the full procedure note, which is enclosed. If I can be of further assistance, please feel free to contact me at Doctor phone number(s): Work: . Sincerely, Travis Glez MD 09/02/2019 10:16:15 AM This report has been signed electronically.
== END 2019-09-02 11:27 | disposition home or self-care (01) ==
LOC: EN 08:06 → AC 08:07
PROVIDERS: Family Provider Family Medicine; PCP Family Medicine; Referring Provider Family Medicine; Visit Provider Surgery
PROC: 0DJ08ZZ Inspection of Upper Intestinal Tract, Via Natural or Artificial Opening Endoscopic (ICD-10-PCS; CPT 43235; principal; 2019-09-02 09:10)
DX: K29.50 Unspecified chronic gastritis without bleeding (principal); K44.9 Diaphragmatic hernia without obstruction or gangrene; E66.01 Morbid (severe) obesity due to excess calories; Z68.43 Body mass index [BMI] 50.0-59.9, adult; K21.9 Gastro-esophageal reflux disease without esophagitis; F41.9 Anxiety disorder, unspecified; F32.9 Major depressive disorder, single episode, unspecified; M19.90 Unspecified osteoarthritis, unspecified site; Z79.84 Long term (current) use of oral hypoglycemic drugs; Z79.899 Other long term (current) drug therapy; Z87.891 Personal history of nicotine dependence
CPT/HCPCS: 43239; 82962; 88305; 88313; 88342; J7120; J2405

== ENCOUNTER → 2019-12-02 13:36 | Outpatient (CLI) | payer BC, SELFPAY ==
[2019-12-01 07:51] VITALS: BMI 51.7
[2019-12-02 15:40] LABS: Hemoglobin A1c 8.3 % (4.2-6.3)
[2019-12-02 15:43] LABS: Vitamin D,25 Hydroxy 34.2 ng/mL (29.95-100.01)
[2019-12-02 16:11] LABS: AST(SGOT) 28 U/L (15-37); Alanine Aminotransfer ALT/SGPT 43 U/L (13-56); Albumin, Serum 3.7 g/dL (3.2-5.0); Alkaline Phosphatase 154 U/L (45-117); Anion Gap 6 (5-15); BUN 9 mg/dL (7-18); BUN/Creat Ratio 12.3 RATIO (10-20); Calcium,Total 9.6 mg/dL (8.5-10.1); Chloride 104 mmol/L (98-107); Cholesterol 129 mg/dL (200); Creatinine, Serum 0.73 mg/dL (0.55-1.02); EST Glomerular Filtration Rate 91 mL/min (>60); Est Glom Filt Rate - Afr Amer 110 mL/min (>60); Globulin 3.7 g/dL (2.2-4.2); Glucose 167 mg/dL (74-106); High Density Lipoprotein 42 mg/dL; Potassium 3.6 mmol/L (3.5-5.1); Protein, Total 7.4 g/dL (6.4-8.2); Sodium Level 139 mmol/L (136-145); Triglycerides 203 mg/dL; Very Low Density Lipoprotein 41 mg/dL (5-40)
[2019-12-02 16:36] LABS: Microalbumin,Random Urine 15.6 mg/L (NO RANGE EST.); Microalbumin:Creatinine Ratio 17.1 mg/g CRE (<30 mg/g CRE)
== END ==
LOC: MFPLAB 13:37
PROVIDERS: PCP Family Medicine; Referring Provider Family Medicine; Visit Provider Family Medicine
DX: R94.5 Abnormal results of liver function studies (principal); E53.8 Deficiency of other specified B group vitamins; E11.9 Type 2 diabetes mellitus without complications; E55.9 Vitamin D deficiency, unspecified; E83.42 Hypomagnesemia
CPT/HCPCS: 36415; 80053; 80061; 82043; 82306; 82570; 82746; 83036; 83735

== ENCOUNTER → 2020-01-09 09:45 | Outpatient (CLI) | payer BC, SELFPAY ==
[2019-12-01 07:51] VITALS: BMI 51.7
--- NOTE | 2020-01-09 09:48 | US_ITS ---
STUDY: ABDOMINAL ULTRASOUND - RIGHT UPPER QUADRANT REASON FOR VISIT: Female, 44 years old RUQ PAIN 1-2 MONTHS TECHNIQUE: Ultrasound evaluation of the right upper quadrant was performed with real-time and static sainz-scale imaging. TECHNICAL QUALITY: Adequate. COMPARISON: None. FINDINGS: Liver: The liver measures 19.9 cm. There is increased echogenicity consistent with fatty infiltration. The bile ducts are within normal limits. There is hepatic color flow. The direction of portal flow is hepatopetal. There is no demonstrated mass lesion. Gallbladder: Normal distended gallbladder. The gallbladder wall measures 1.9 mm. There is a negative sonographic Coronado''s sign. There is no pericholecystic fluid. There are no gallstones. Common Bile Duct (C.B.D.): The common bile duct measures 2. mm. Pancreas: Normal size of the head, body and tail of the pancreas. There is normal echogenicity of the pancreas. There is no demonstrated pancreatic mass or cyst. Right Kidney: Normal size of the right kidney. The right kidney measures 10.6 x 6.1 x 4.3 cm. Normal renal cortex. The right cortex measures 1.2 cm. There is no demonstrated renal mass or cyst. There is no right hydronephrosis. US/Abdomen Limited IMPRESSION: Enlarged fatty infiltrated liver. No evidence of cholelithiasis or ultrasound evidence of cholecystitis. No evidence of hydronephrosis. Electronically Signed: Karley Justin MD at 17:59 EDT Tel , Service support ,
== END ==
LOC: US 09:46
PROVIDERS: PCP Family Medicine; Referring Provider Family Medicine; Visit Provider Family Medicine
DX: R10.11 Right upper quadrant pain (principal)
CPT/HCPCS: 76705

== ENCOUNTER → 2020-05-20 08:16 | Outpatient (CLI) | payer BC, SELFPAY ==
[2019-12-01 07:51] VITALS: BMI 51.7
[2020-05-20 10:12] LABS: Vitamin D,25 Hydroxy 55.9 ng/mL
[2020-05-20 10:22] LABS: Microalbumin:Creatinine Ratio 20.3 mg/g CRE (<30 mg/g CRE)
[2020-05-20 10:50] LABS: ALB/GLOB Ratio 0.9 RATIO (0.9-2.4); AST(SGOT) 11 U/L (15-37); Alanine Aminotransfer ALT/SGPT 33 U/L (13-56); Albumin, Serum 3.6 g/dL (3.2-5.0); Alkaline Phosphatase 181 U/L (45-117); Anion Gap 5 (5-15); BUN 14 mg/dL (7-18); BUN/Creat Ratio 20.4 RATIO (10-20); Calcium,Total 8.9 mg/dL (8.5-10.1); Chloride 103 mmol/L (98-107); Creatinine, Serum 0.68 mg/dL (0.55-1.02); EST Glomerular Filtration Rate 98 mL/min (>60); Est Glom Filt Rate - Afr Amer 118 mL/min (>60); Globulin 3.9 g/dL (2.2-4.2); Glucose 178 mg/dL (74-106); Magnesium 2.2 mg/dL (1.6-2.6); Potassium 3.6 mmol/L (3.5-5.1); Protein, Total 7.5 g/dL (6.4-8.2); Sodium Level 138 mmol/L (136-145)
== END ==
LOC: MFPLAB 08:17
PROVIDERS: PCP Family Medicine; Referring Provider Family Medicine; Visit Provider Family Medicine
DX: E55.9 Vitamin D deficiency, unspecified (principal); E53.8 Deficiency of other specified B group vitamins; E11.9 Type 2 diabetes mellitus without complications
CPT/HCPCS: 36415; 80053; 82043; 82306; 82570; 82746; 83036; 83735

== ENCOUNTER → 2020-06-21 14:38 | Outpatient (CLI) | payer BC, SELFPAY ==
[2020-06-21 08:02] VITALS: BMI 51.7
--- NOTE | 2020-06-21 14:39 | RAD_ITS ---
STUDY: X-RAY - LEFT KNEE REASON FOR EXAM: Female, 45 years old. CHRONIC PAIN TECHNIQUE: 4 view(s) of the knee. COMPARISON: None. FINDINGS: Normal visualized distal femur. Normal visualized proximal tibia and fibula. Normal proximal tibiofibular articulation. There is severe degenerative arthrosis of the medial femorotibial compartment with severe joint space narrowing. Normal lateral femorotibial compartment. There is mild degenerative arthrosis of the patellofemoral articulation. The soft tissue structures are unremarkable. RAD/Knee 4 or More Views IMPRESSION: Degenerative arthrosis. Electronically Signed: Paulo Delaney, at 15:03 EDT , Service support ,
== END ==
LOC: HPRAD 14:38
PROVIDERS: PCP Family Medicine; Referring Provider Orthopaedic Surgery; Visit Provider Orthopaedic Surgery
DX: M25.562 Pain in left knee (principal)
CPT/HCPCS: 73564

== ENCOUNTER → 2020-07-09 10:20 | Outpatient (CLI) | payer BC, SELFPAY ==
[2020-06-21 08:02] VITALS: BMI 51.7
--- NOTE | 2020-07-09 10:30 | MRI_ITS ---
STUDY: MRI RIGHT ANKLE WITHOUT CONTRAST REASON FOR EXAM: Right ankle pain, osteoarthritis, sprain 15 years ago. TECHNIQUE: Standardized fat and water weighted pulse sequences were obtained in all 3 orthogonal planes. COMPARISON: None. FINDINGS: There is mild edema in the lateral subcutis adipose space of the distal lower leg. There is a very small volume of fluid in the distal posterior tibialis tendon sheath (inversion recovery sagittal image 17). The posterior tibialis tendon is morphologically normal. Normal flexor digitorum longus tendon. Normal flexor hallucis longus tendon. There is a small volume of fluid in the retromalleolar and submalleolar peroneal tendon sheath (inversion recovery sagittal image 5). There is flattening of the retromalleolar peroneus brevis tendon without discrete tendon tear. The peroneus longus tendon is morphologically normal. Normal tibialis anterior tendon. Normal extensor hallucis longus tendon. Normal extensor digitorum longus tendons. Normal Achilles tendon and teno-osseous insertion. Normal plantar fascia. There is a small plantar calcaneal enthesophyte. Normal intrinsic muscles of the rearfoot. Normal distal tibiofibular syndesmotic ligamentous complex. There is thickening of the anterior talofibular ligament consistent with scarring and a small ossification in the ligament (T2 axial image 14). Normal posterior talofibular and calcaneofibular ligaments. Normal subtalar ligaments and sinus tarsi. Normal deltoid ligamentous complexes. Normal plantar calcaneonavicular (spring) ligament. Normal tibiotalar articulation. Normal talar dome. There is arthrosis of the posterior subtalar articulation with chondral thinning and subchondral cystic change (T1 sagittal images 12-14). There is bone edema the calcaneus, talus, navicular and proximal cuboid (inversion recovery sagittal images 7-15), a stress phenomenon. There is an os trigonum with mild bone edema (inversion recovery sagittal image 10). There is a very small talonavicular joint effusion (inversion recovery sagittal image 11). Normal calcaneocuboid articulation. Normal navicular-cuneiform articulations. MRI/Lower Ext Joint Only (Routine) IMPRESSION: Arthrosis of the posterior subtalar articulation. Bone edema of the talus, calcaneus, navicular and cuboid, a stress phenomenon. Scarring of the anterior talofibular ligament. Mild peroneal tenosynovitis. Very mild posterior tibialis tenosynovitis. Os trigonum with mild bone edema. Very small talonavicular joint effusion. Electronically Signed: William Luke MD at 11:51 EDT Tel , Service support ,
== END ==
LOC: MRI 10:22
PROVIDERS: PCP Family Medicine; Referring Provider Podiatrist Foot & Ankle Surgery; Visit Provider Podiatrist Foot & Ankle Surgery
DX: M19.071 Primary osteoarthritis, right ankle and foot (principal); M25.571 Pain in right ankle and joints of right foot
CPT/HCPCS: 73721

== ENCOUNTER → 2020-09-28 11:37 | Outpatient (CLI) | payer BC, SELFPAY ==
[2020-06-21 08:02] VITALS: BMI 51.7
[2020-09-28 16:28] LABS: AST(SGOT) 19 U/L (15-37); Alanine Aminotransfer ALT/SGPT 38 U/L (13-56); Albumin, Serum 3.8 g/dL (3.2-5.0); Alkaline Phosphatase 136 U/L (45-117); Anion Gap 3 (5-15); BUN 9 mg/dL (7-18); BUN/Creat Ratio 13.6 RATIO (10-20); Calcium,Total 9.1 mg/dL (8.5-10.1); Chloride 104 mmol/L (98-107); Cholesterol 121 mg/dL (200); Creatinine, Serum 0.66 mg/dL (0.55-1.02); EST Glomerular Filtration Rate 101 mL/min (>60); Est Glom Filt Rate - Afr Amer 122 mL/min (>60); Globulin 3.9 g/dL (2.2-4.2); Glucose 109 mg/dL (74-106); High Density Lipoprotein 50 mg/dL; Potassium 3.6 mmol/L (3.5-5.1); Protein, Total 7.7 g/dL (6.4-8.2); Sodium Level 139 mmol/L (136-145); Triglycerides 185 mg/dL; Very Low Density Lipoprotein 37 mg/dL (5-40)
== END ==
PROVIDERS: PCP Family Medicine; Visit Provider Family Medicine
DX: E11.9 Type 2 diabetes mellitus without complications (principal); E55.9 Vitamin D deficiency, unspecified
CPT/HCPCS: 36415; 80053; 80061; 82306; 83036

== ENCOUNTER → 2021-02-01 10:54 | Outpatient (CLI) | payer BC, SELFPAY ==
[2020-10-04 13:41] VITALS: BMI 50.5
[2021-02-01 12:22] LABS: AST(SGOT) 18 U/L (15-37); Alanine Aminotransfer ALT/SGPT 40 U/L (13-56); Albumin, Serum 3.7 g/dL (3.2-5.0); Alkaline Phosphatase 147 U/L (45-117); Anion Gap 1 (5-15); BUN 11 mg/dL (7-18); BUN/Creat Ratio 13.6 RATIO (10-20); Calcium,Total 9.3 mg/dL (8.5-10.1); Chloride 105 mmol/L (98-107); Cholesterol 114 mg/dL (200); Creatinine, Serum 0.81 mg/dL (0.55-1.02); EST Glomerular Filtration Rate 80 mL/min (>60); Est Glom Filt Rate - Afr Amer 97 mL/min (>60); Globulin 3.7 g/dL (2.2-4.2); Glucose 129 mg/dL (74-106); High Density Lipoprotein 47 mg/dL; Potassium 3.7 mmol/L (3.5-5.1); Protein, Total 7.4 g/dL (6.4-8.2); Sodium Level 140 mmol/L (136-145); Triglycerides 133 mg/dL; Very Low Density Lipoprotein 27 mg/dL (5-40)
[2021-02-01 12:23] LABS: Vitamin D,25 Hydroxy 42.9 ng/mL
[2021-02-01 12:41] LABS: Hemoglobin A1c 6.4 % (3.8-5.6)
[2021-02-01 13:00] LABS: Microalbumin,Random Urine 20.8 mg/L (NO RANGE EST.)
== END ==
PROVIDERS: PCP Family Medicine; Visit Provider Family Medicine
DX: E11.9 Type 2 diabetes mellitus without complications (principal); E55.9 Vitamin D deficiency, unspecified
CPT/HCPCS: 36415; 80053; 80061; 82043; 82306; 82570; 83036

== ENCOUNTER → 2021-05-31 08:03 | Outpatient (CLI) | payer BC, SELFPAY ==
[2020-10-04 13:41] VITALS: BMI 50.5
[2021-05-31 10:07] LABS: Absolute Lymphocyte Count 1.78 X10^3/uL (0.83-4.51); Absolute Neutrophil Count 6.2 X10^3/uL (2.0-7.7); Basophil# 0.06 X10^3/uL; Basophil% 0.7 % (0-1); Eosinophil# 0.26 X10^3/uL; Eosinophils% 2.9 % (0-5); Hematocrit 42.6 % (37-47); Hemoglobin 13.5 g/dL (12.0-15.0); Lymphocyte # 1.78 X10^3/ul (0.83-4.51); Lymphocyte % 20.1 % (19-41); Mean Corp Hgb Conc 31.7 g/dL (32-36); Mean Corpuscular Hgb 29.3 pg (27.0-32.0); Mean Corpuscular Volume 92.6 fL (81-99); Mean Platelet Vol. 11.1 fl (6.2-12.0); Monocyte# 0.52 X10^3/uL; Monocyte% 5.9 % (0-10); NRBC Flagged by Analyzer 0 % (0-5); Neutrophil # 6.17 X10^3/uL (2.7-7.7); Neutrophil % 69.5 % (47-70); Platelet Count 376 K/mm3 (150-450); RBC Distribution Width CV 12.6 % (11.6-14.6); RBC Distribution Width SD 42.6 fl (35.1-43.9); White Blood Count 8.9 K/mm3 (4.4-11.0)
[2021-05-31 10:23] LABS: Hemoglobin A1c 7.7 % (3.8-5.6)
[2021-05-31 10:49] LABS: ALB/GLOB Ratio 1.1 RATIO (0.9-2.4); AST(SGOT) 17 U/L (15-37); Alanine Aminotransfer ALT/SGPT 34 U/L (13-56); Alkaline Phosphatase 167 U/L (45-117); Anion Gap 9 (5-15); BUN 12 mg/dL (7-18); BUN/Creat Ratio 16.6 RATIO (10-20); Calcium,Total 9.1 mg/dL (8.5-10.1); Chloride 102 mmol/L (98-107); Cholesterol 163 mg/dL (200); Creatinine, Serum 0.72 mg/dL (0.55-1.02); EST Glomerular Filtration Rate 91 mL/min (>60); Est Glom Filt Rate - Afr Amer 110 mL/min (>60); Globulin 3.8 g/dL (2.2-4.2); Glucose 241 mg/dL (74-106); High Density Lipoprotein 51 mg/dL; Potassium 3.6 mmol/L (3.5-5.1); Protein, Total 7.8 g/dL (6.4-8.2); Sodium Level 139 mmol/L (136-145); Triglycerides 225 mg/dL; Very Low Density Lipoprotein 45 mg/dL (5-40)
[2021-05-31 11:04] LABS: Microalbumin:Creatinine Ratio 14.4 mg/g CRE (<30 mg/g CRE)
== END ==
LOC: MFPLAB 08:05
PROVIDERS: PCP Family Medicine; Referring Provider Family Medicine; Visit Provider Family Medicine
DX: E11.9 Type 2 diabetes mellitus without complications (principal); E55.9 Vitamin D deficiency, unspecified
CPT/HCPCS: 36415; 80053; 80061; 82043; 82306; 82570; 83036; 85025

== ENCOUNTER 2021-07-22 05:41 | Day surgery (SDC) | payer BC, SELFPAY ==
[2020-10-04 13:41] VITALS: BMI 50.5
[2021-07-22] VITALS (12 sets, daily range): BP systolic 112–144; BP diastolic 68–78; PULSE 72–90; RESP 14–16; TEMP 36.3–36.8; O2SAT 90–99; BMI 49.7
--- NOTE | 2021-07-22 | BON_PTH ---
PATIENT: AMELIA DAVENPORT LOC: [facility] U#:[id number] AGE/SX: 46/F ROOM: RE07/22/[address]: Dr. Eloisa Greenwood DPM : 1975 BED: DIS: 07/22/2021 SPEC #: [id number] RECD: 07/22/21 13:09 STATUS: GIA REQ #: [id number] ZAINAB: 07/22/21 00:[address]: Eloisa Greenwood DEPT: SURGICAL PATHOLOGY RECD BY: Davis Cardoza ENTERED: 07/22/21 13:09 SP TYPE: Bone OTHR DR: Dr. Fabricio Harry MD Tissues: Bone of foot, NOS Procedures: Decalcification bone/plaque Surgery Specimen Level III HEADER OPERATION: Right foot subtalar joint fusion with internal fixation PRE-OP DIAGNOSIS: Peroneal tendonitis; synovitis and tenosynovitis right ankle; arthritis right subtalar joint TISSUE SUBMITTED: Accessory bone right foot MICROSCOPIC DIAGNOSIS Accessory bone, right foot, excision: Bone with focal reparative and reactive change consistent with accessory bone. AM:aparna 07/27/2021 MICROSCOPIC DESCRIPTION Slides are reviewed. GROSS DESCRIPTION Received in fixative is one container labeled with the patient's name and designated accessory bone right foot. The specimen consists of a piece of bone measuring 2 x 1.2 x 0.7 cm. The specimen is sectioned and submitted entirely in one cassette after decalcification. / MIGUEL:aparna 07/22/21 TC:5 CPT: 29294, 97155
--- NOTE | 2021-07-22 06:03 | EKG12_ITS ---
Test Reason : PRE-OP Blood Pressure : / mmHG Vent. Rate : 074 BPM Atrial Rate : 074 BPM P-R Int : 194 ms QRS Dur : 084 ms QT Int : 412 ms P-R-T Axes : 064 051 040 degrees QTc Int : 457 ms Normal sinus rhythm Normal ECG No previous ECGs available Confirmed by MARILIA CARLOS, TARAN ([id number]), legal editor PARAG EDWARDS ([id number]) on 07/27/2021 11:20:24 AM Referred By: Eloisa Greenwood Confirmed By:TARAN CAPELLAN MD
[2021-07-22 06:28] LABS: Absolute Lymphocyte Count 1.34 X10^3/uL (0.83-4.51); Absolute Neutrophil Count 5.1 X10^3/uL (2.0-7.7); Basophil# 0.04 X10^3/uL; Basophil% 0.6 % (0-1); Eosinophil# 0.24 X10^3/uL; Eosinophils% 3.4 % (0-5); Hematocrit 41.8 % (37-47); Hemoglobin 13.3 g/dL (12.0-15.0); Lymphocyte # 1.34 X10^3/ul (0.83-4.51); Lymphocyte % 18.8 % (19-41); Mean Corp Hgb Conc 31.8 g/dL (32-36); Mean Corpuscular Hgb 29.2 pg (27.0-32.0); Mean Corpuscular Volume 91.9 fL (81-99); Mean Platelet Vol. 10.3 fl (6.2-12.0); Monocyte# 0.36 X10^3/uL; NRBC Flagged by Analyzer 0 % (0-5); Neutrophil # 5.13 X10^3/uL (2.7-7.7); Neutrophil % 71.8 % (47-70); Platelet Count 337 K/mm3 (150-450); RBC Distribution Width CV 11.9 % (11.6-14.6); RBC Distribution Width SD 40.1 fl (35.1-43.9); Red Blood Count 4.55 M/mm3 (4.2-5.4); White Blood Count 7.1 K/mm3 (4.4-11.0)
[2021-07-22] MEDS: Lactated Ringers 1,000 ML 100 ML IV ×2 (06:32→10:40)
[2021-07-22 06:41] LABS: Bedside Glucose 239 mg/dL (70-110)
[2021-07-22 06:58] LABS: ALB/GLOB Ratio 0.9 RATIO (0.9-2.4); AST(SGOT) 27 U/L (15-37); Alanine Aminotransfer ALT/SGPT 39 U/L (13-56); Albumin, Serum 3.5 g/dL (3.2-5.0); Alkaline Phosphatase 161 U/L (45-117); Anion Gap 6 (5-15); BUN 9 mg/dL (7-18); BUN/Creat Ratio 13.7 RATIO (10-20); Calcium,Total 8.9 mg/dL (8.5-10.1); Chloride 105 mmol/L (98-107); Creatinine, Serum 0.66 mg/dL (0.55-1.02); EST Glomerular Filtration Rate 102 mL/min (>60); Est Glom Filt Rate - Afr Amer 123 mL/min (>60); Estimated Creatinine Clearance 82.45 ml/min; Glucose 247 mg/dL (74-106); Potassium 3.5 mmol/L (3.5-5.1); Protein, Total 7.5 g/dL (6.4-8.2); Sodium Level 139 mmol/L (136-145)
--- NOTE | 2021-07-22 07:24 | RAD_ITS ---
STUDY: X-RAY - RIGHT FOOT CLINICAL: Female, 46 years old. Intraoperative digital documentation images of ORIF of subtalar joint. TECHNIQUE: 7 intraoperative digital documentation view(s) of the foot. COMPARISON: None. FINDINGS: 7 intraoperative digital documentation views show placement of 2 cancellous screws through the subtalar joint. The soft tissue structures are unremarkable. RAD/Foot 2 Views IMPRESSION: Intraoperative digital documentation views as described. Electronically Signed: Wil Art MD at 9:46 EDT , Service support ,
[2021-07-22 08:33] LABS: Vitamin D,25 Hydroxy 76.2 ng/mL
[2021-07-22] MEDS: Lidocaine 1% /Epi 1:100 (50ml) 50 ML VIAL (09:33)
[2021-07-22] MEDS: Bupivacaine Mpf 0.5% 30 ML VIAL (09:34)
--- NOTE | 2021-07-22 09:53 | OP.PCM_ITS ---
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 Right subtalar joint arthritis 2. Right os trigonum symptomatic 3. Right peroneal tenosynovitis Post-Operative Diagnosis: 1. Right subtalar joint arthritis 2. Right os trigonum symptomatic 3. Right peroneal tenosynovitis (longus more than brevis) Surgery/Procedure Performed:: 1. Right subtalar joint arthrodesis with internal fixation 2. Excision of os trigonum right 3. Peroneal tendon tenosynovectomy (longus and brevis) Description of Surgical Findings:: Hemostasis: Well-padded pneumatic right thigh tourniquet, 350 mmHg, 90 minutes Materials: 4-0 nylon, 2-0 and 3-0 Vicryl, two 7.0 Arthrex FT compression screws, cancellous bone chips Complications: None Specimen: Os trigonum accessory bone right foot The patient tolerated the procedure and anesthesia well. The patient was transported to the PACU with vital signs stable and vascular status intact to the surgical limb. To ice and elevate for pain and inflammation management. Postoperative x-rays were reviewed prior to leaving the operating room. Deformity correction at arthrodesis site is in improved position with hardware (screws) thin desired trajectory and position. No acute injuries noted. Excision of os trigonum is also noted. Improvement of the forefoot and hindfoot relationship is also noted. Postoperative orders were entered electronically. Surgeon: Eloisa Greenwood co founder and chief strategy officer: None (Ming Lyn DPM, PGY3) Type of Anesthesia: General/Regional and Local (Preoperative: One-to-one mixture of 1% lidocaine plain and 0.5% Marcaine plain administered in typical right high ankle block fashion, 19 cc. Postoperative same mixture administered and local infiltrative manner, 10 cc) Specimen's removed: Accessory bone right foot Drains: None Estimated Blood Loss (mL): < 100 mL Description of Procedure: Indications: This 46-year-old female with significant past medical history of diabetes GERD, anxiety, depression, obesity right lateral hindfoot pain is chronic progressive over the past several years. Denies recent traumatic accident. She has tried [id number] bracing, rest, activity modification custom bracing, injections, therapy. She has failed conservative care and her pain is affecting her ability to perform her daily activities and work functions. She elects to proceed with surgical intervention. Her neurovascular status is intact. Clinically, she has pain on palpation that is reproducible nature to the sinus tarsi, along peroneal tendons, and also with passive inversion and eversion of the hindfoot. She does not have any laxity with anterior drawer test. She also has pain to the posterior ankle palpation and with resisted and passive range of motion of hallux. She reports exacerbation when descending stairs and while walking on uneven surfaces. The spain block test reveals a slight varus hindfoot position that is resolved when the forefoot is hanging medially off of the [place] block. X-rays demonstrate degeneration and reduced posterior subtalar joint facet, large os trigonum, and stairstep deformity of the metatarsals. Her calcaneus is also in rectus to slight varus position in stance radiographically. MRI was also performed previously which demonstrated arthritis of the posterior facet of the subtalar joint, bone marrow edema to the talus, calcaneus and other hindfoot bones. She has an os trigonum with surrounding inflammation. There is also tenosynovitis of both peroneal tendons and at the ankle level. The preoperative indications, planned procedure, possible benefits, risks, complications, and anticipated healing time and management were discussed in detail with patient. She understands and elects to proceed with surgery at this time. No guarantees were made. She understands risks and complications may include but are not limited to the following: pain, swelling, scarring, non or delayed healing, over or under correction, chronic pain syndrome, hardware failure, need for further surgery, allergic reactions, blood clots, loss of limb, function, life. The patient also understands there is an inherent risk with being in the hospital and undergoing a procedure during the time of COVID- 19 pandemic. The patient understands precautions are being taken to prevent transmission. This patient understands the benefits and risks of having a procedure at this time versus waiting in which the benefits are reasonable at this time. I answered all of his questions. The informed surgical consent and surgical limbs were signed. Procedure in detail: The patient was transferred to the operating room via cart and placed on the operating table in the supine position. Final verification the patient, surgery, limb designation was performed via the time out procedure. IV antibiotics were administered preoperative as ordered. A bump was placed to allow good exposure to the surgical foot. Well-padded pneumatic right thigh tourniquet was placed. General anesthesia was initiated by the anesthesia team. I administered the local preoperative anesthetic block as noted. The right lower extremity was prepped and draped in the usual aseptic manner. Next, an Esmarch bandage was used to exsanguinate the right lower extremity and the tourniquet was inflated at this time. Surgery proceeded in the following manner: Attention was next directed to the lateral aspect of the hindfoot in which a curvilinear incision was made proximal posterior to the fibula extending to the dorsal lateral foot. Care was taken at this point and throughout the remainder of the surgery to identify, protect, and retract all neurovascular structures. Blunt dissection was performed down to the subtalar joint. The subtalar joint w as exposed and the posterior and middle facets were well visualized. The peroneal tendons were also carefully protected and retracted. The joint surface of the posterior facet of the subtalar joint was denuded with instrumentation and the subchondral bone was further prepared with fish scaling, bur debridement, and drilling to optimize bleeding and healing. Cancellous bone chips were applied to the arthrodesis site. During this process it is noted adjacent tissues were impeding the mobilization of the subtalar joint and the os trigonum was directly visualized posterior aspect of this facet. This was carefully mobilized with a freer elevator and removed in total. This was sent to pathology. The hallux was next moved and the flexor hallucis longus tendon was directly visualized in the deep wound bed without any tenosynovitis or visualized defect. Mobilization of the subtalar joint was improved and thus reduction was achieved better. Next the peroneal tendons were also visualized and there was a moderate amount of tenosynovitis along the peroneus longus tendon which was excised. There was minimal tenosynovitis along the peroneus brevis tendon which was also excised. No tears were noted and the peroneal tendons remaining appeared healthy and white. Saline irrigation was performed. Temporary fixation was next applied across the subtalar joint with the hindfoot in the desired corrected neutral to slight valgus position. Proper position was confirmed with flouroscopy images including ankle (ap, lateral) and foot (ap, lateral, calcaneal axial) views. Next, internal fixation was applied across the subtalar joint and good compression was achieved. Proper AO fixation technique was utilized with the placement of two FT compression screws. Compression was directly visutalized. The hardware was stable and the deformity reduction was noted clinically and radiographically. Next, her posterior leg flexibility was evaluated for equinus with the Silverskold test now that the hindfoot position was corrected. She had about 10 degrees of ankle joint dorsiflexion with the knee flexed and extended. Additional posterior tendon lengthening was not deemed necessary at this time. Next, the foot was evaluated to see if forefoot varus needed to be addressed as suggested by her preoperative clinical [place] block test or if this was inherently addressed with the subtalar joint arthrodesis medial hindfoot position and removal of the communicationg accessory bone. The metatarsal heads and heel demonstrated a tripod weightbearing position and plantarflexion of the medial column was not deemed necessary. Saline irrigation was performed and deep closure was next laced with Vicryl suture. The tourniquet was deflated at this time and brisk capillary refill time was noted to all digits of the right foot and there was no pulsatile bleeding noted. Minimal electrocauterization was required for hemostasis control and addition pressure was applied. The skin was reapproximated with horizontal and simple suture techniques. Brisk capillary refill time to the right lower extremity was noted at the end of the surgery and there was no evidence of pulsatile bleeding. Hemostasis was controlled. A dressing consisting of Betadine soaked Adaptic, gauze, abdominal pads, Kerlix, and webril were applied. A well-padded posterior mold was placed with the foot in a neutral position. After procedure: The patient tolerated the procedure and anesthesia well. She was transported to the PACU with vital signs stable and vascular status intact to the right extremity. Postoperative x-rays were obtained and reviewed as noted previously. She was advised to ice and elevate for pain and inflammation management. A pain medication prescription was provided and she was advised on safe and proper use. She was advised to maintain strict nonweightbearing status to the right lower extremity and to use a walker or knee roller for assistance. She was advised to keep her dressing clean, dry, and intact until follow-up next week. She will be discharged home later today. Additional postoperative orders were entered electronically. Grafts/Implants Used: Arthrex FT compression screws and cancellous bone chips Complications None Admit VTE Documentation VTE Present on Admission: No VTE Mechan Device Prophylaxis: SCD's VTE Pharm Prophylaxis ordered?: No Reason prophylaxis not ordered:: Procedure Not Indicated
--- NOTE | 2021-07-22 09:56 | EX.PCM.DISCH ---
Discharge Instructions Procedure Other (right foot subtalar joint arthrodesis with internal fixation, excision of os trigonum bone, tenosynovectomy of peroneal tendon) Diet Discharge Diet: Carb Control Diet Activity Discharge Activity: May Shower (only perform if shower bag and use of shower chair), Use Walker and - (use knee roller) Ice area for (Minutes): 15 Weight Bearing Status: No weight bearing Keep extremity elevated above heart level: Right Leg Dressing / Incision Call your doctor if your incision/area has: Continuous Slow Oozing, Sudden Increased Bleeding, Increased Pain/ Swelling, Increased Redness, Foul Smelling Discharge and Swelling at the incision site Call your doctor if you observe: Fever of 101 or Higher, Chest pain, Calf discomfort and Uncontrolled pain Change Dressing in: do not change dressing Cleanse incision/area with: Keep Dressing Clean & Dry Follow Up Care Please Follow Up With: Eloisa Greenwood DPM When: [facility]. Call [phone] sooner if questions or concerns. Test Results: Test results from this visit will be discussed in further detail at your follow-up appointment, if applicable. Discharge Plan Admission Attending Provider: Eloisa Greenwood Primary Care Provider: Fabricio Harry Discharge Orders/Prescriptions Prescriptions: New oxycodone-acetaminophen [Endocet] 7.5-325 mg tablet 1 tab PO Q6H PRN (Reason: pain) 7 Days Qty: 28 RF: 0 No Action multivitamin tablet 1 tab PO DAILY RF: 0 prazosin 1 mg capsule 1 mg PO QHS RF: 0 meloxicam 15 mg tablet 15 mg PO DAILY RF: 0 cinnamon bark [Cinnamon] 500 mg capsule 500 mg PO DAILY RF: 0 venlafaxine 75 mg capsule,extended release 24hr 75 mg PO DAILY RF: 0 pravastatin 40 MG tablet 40 mg PO QHS RF: 0 famotidine 20 MG tablet 20 mg PO DAILY RF: 0 melatonin 5 mg tablet 20 mg PO QHS RF: 0 cholecalciferol (vitamin D3) [Vitamin D3] 50 mcg (2,000 unit) Capsule 50 mcg PO DAILY RF: 0 Tradjenta 5 mg tablet 5 mg PO DAILY RF: 0 Jardiance 10 mg tablet 10 mg PO DAILY RF: 0 omeprazole 40 mg capsule,delayed release(DR/EC) 40 mg PO DAILY RF: 0 Referrals / Follow Up: Fabricio Harry MD [Primary Care Provider] - Disposition Disposition (needs filled in before D/C Order can be placed): Home, Self Care
[2021-07-22 10:11] LABS: Bedside Glucose 307 mg/dL (70-110)
--- NOTE | 2021-07-22 10:15 | RAD_ITS ---
STUDY: X-RAY - RIGHT FOOT CLINICAL: Female, 46 years old. Follow-up after subtalar joint arthrodesis. TECHNIQUE: 3 view(s) of the foot through casting material. COMPARISON: None. FINDINGS: Osteopenia. Subtalar joint arthrodesis identified. No complicating features. Superior calcaneal spur. Osteoarthritic changes of the midfoot and MTP and IP joints. The soft tissue structures are unremarkable. RAD/Foot min 3 Views IMPRESSION: Uncomplicated subtalar arthrodesis. Electronically Signed: Wil Art MD at 10:30 EDT , Service support ,
== END 2021-07-22 12:45 | disposition home or self-care (01) ==
LOC: SDC 05:43 → AC 05:44
PROVIDERS: PCP Family Medicine; Referring Provider Podiatrist; Visit Provider Podiatrist
PROC: (CPT 27626; principal; 2021-07-22 07:15)
DX: M65.871 Other synovitis and tenosynovitis, right ankle and foot (principal); M19.071 Primary osteoarthritis, right ankle and foot; Q68.8 Other specified congenital musculoskeletal deformities; M76.71 Peroneal tendinitis, right leg; E11.9 Type 2 diabetes mellitus without complications; E66.01 Morbid (severe) obesity due to excess calories; Z68.43 Body mass index [BMI] 50.0-59.9, adult; F32.9 Major depressive disorder, single episode, unspecified; K21.9 Gastro-esophageal reflux disease without esophagitis; E78.00 Pure hypercholesterolemia, unspecified; F43.10 Post-traumatic stress disorder, unspecified; M41.9 Scoliosis, unspecified; Z79.899 Other long term (current) drug therapy
CPT/HCPCS: 01480; 27626; 28120; 28725; 73620; 73630; 76000; 80053; 82306; 82962; 85025; 88304; 88311; 93005; C1713; J7120; J2405

== ENCOUNTER 2021-07-31 13:44 | Emergency (ER) | payer BC, SELFPAY ==
[2021-07-31 13:45] VITALS: BP 135/76; PULSE 96; RESP 16; TEMP 36.6; O2SAT 99; BMI 49.7
--- NOTE | 2021-07-31 14:05 | RAD_ITS ---
EXAM: XR RIGHT ANKLE COMPLETE, 3 OR MORE VIEWS : 1975 CLINICAL INDICATION: trauma post operative TECHNIQUE: Frontal, lateral and oblique views of the right ankle. This report was created using [employer] report generation technology. COMPARISON: None. FINDINGS: BONES/JOINTS: There are orthopedic screws from a fusion of the talus and calcaneus. No acute fracture. No subluxation. Normal alignment. Preservation of the joint space. No sclerotic or destructive changes observed. SOFT TISSUES: There is soft tissue swelling over the medial and lateral malleolus. No radiopaque foreign body. RAD/Ankle min 3 Views IMPRESSION: Orthopedic screws in stable position. There is soft tissue swelling. There is no acute abnormality. at 1445 Reported and signed by: German Craven MD Electronically Signed: German Craven MD at 14:44 EDT Tel , Service support ,
--- NOTE | 2021-07-31 15:26 | EDS_ITS ---
HPI History of Present Illness Chief Complaint: Lower Extremity Injury Informant: patient Onset/Context/Timing Onset: Today Current Severity: Mild Maximum Severity: Moderate Narrative Narrative: Patient presents with increased right ankle pain after a fall. Patient had right ankle surgery on July 22. She is supposed to be nonweightbearing. Today she fell and has increased pain to the right ankle. Dr. Greenwood did call in and ask us to check an x-ray. Patient is requesting something for pain stating that she only has 2 pills left. [facility] Medical History Anxiety and depression Arthritis Blackout Dysphagia Easy bruising Former smoker GERD (gastroesophageal reflux disease) GERD (gastroesophageal reflux disease) High cholesterol History of back problems History of stress test Morbid obesity with body mass index (BMI) greater than or equal to 50 Obesity PTSD (post-traumatic stress disorder) Scoliosis Shortness of breath on exertion Wears glasses Home Medications multivitamin 1 tab PO DAILY 11/21/18 [History Last Taken 06/14/19] prazosin 1 mg capsule 1 mg PO QHS 08/19/19 [History Last Taken Unknown] famotidine 20 mg PO DAILY 09/02/19 [History Last Taken Unknown] pravastatin 40 mg PO QHS 09/02/19 [History Last Taken Unknown] cinnamon bark 500 mg capsule 500 mg PO DAILY 10/04/20 [History Last Taken Unknown] melatonin 5 mg tablet 20 mg PO QHS tab 10/04/20 [History Last Taken Unknown] meloxicam 15 mg tablet 15 mg PO DAILY tab 10/04/20 [History Last Taken Unknown] venlafaxine 75 mg capsule,extended release 24 hr 75 mg PO DAILY cap 10/04/20 [History Last Taken Unknown] cholecalciferol (vitamin D3) [Vitamin D3] 50 mcg PO DAILY 07/15/21 [History Last Taken Unknown] empagliflozin [Jardiance] 10 mg PO DAILY 07/15/21 [History Last Taken Unknown] linagliptin [Tradjenta] 5 mg PO DAILY 07/15/21 [History Last Taken Unknown] omeprazole 40 mg PO DAILY 07/15/21 [History Last Taken Unknown] oxycodone-acetaminophen [Endocet] 1 tab PO Q6H PRN 7 Days #28 tab 07/20/21 [Rx Last Taken Unknown] oxycodone-acetaminophen [Endocet] 1 tab PO Q6H PRN 7 Days #28 tab 07/30/21 [Rx Last Taken Unknown] Allergy/AdvReac Type Severity Reaction Status Date / Time Sulfa (Sulfonamide Allergy Unknown Verified 07/31/21 13:46 Antibiotics) azithromycin AdvReac Rash Verified 07/31/21 13:46 [From Zithromax Z-Matt] bupropion [From Wellbutrin] AdvReac Rash Verified 07/31/21 13:46 celecoxib [From Celebrex] AdvReac Rash Verified 07/31/21 13:46 diclofenac [From Voltaren] AdvReac Rash Verified 07/31/21 13:46 loratadine [From Claritin] AdvReac Rash Verified 07/31/21 13:46 Family History Aunt Hypertension CVA (cerebral vascular accident) Father Heart disease Diabetes Cancer Parkinsons disease Aunt Myocardial infarction Surgical History History of colonoscopy History of left knee surgery History of tubal ligation Social History Smoking Status: Former smoker second hand exposure: Yes alcohol intake: never ROS ROS ED Constitutional Constitutional ED: Denies chills or fever(s) Eyes Eyes: Denies change in vision ENT ENT ED: Denies sore throat Cardiovascular Cardiovascular: Denies chest pain Respiratory/Chest Respiratory/Chest: Denies cough or dyspnea Gastrointestinal Gastrointestinal: Denies abdominal pain, diarrhea, nausea or vomiting Genitourinary Genitourinary ED: Denies dysuria Musculoskeletal Musculoskeletal: Reports arthralgias; Denies back pain Integumentary Denies rash Neurologic Neurologic: Denies headache(s) Allergic/Immunologic Allergic/Immunologic ED: Denies urticaria EXAM Physical Exam Const Vital Signs: 07/31/21 13:45 Temperature 97.8 F Temperature Source Temporal Pulse Rate 96 Respiratory Rate 16 Blood Pressure 135/76 H Blood Pressure Mean 95 Pulse Ox 99 Oxygen Delivery Method Room Air Positive obese Nutritional Appearance: obese Eyes PERRL and EOMs intact bilaterally Neck supple Chest Wall inspection of chest normal and palpation of chest normal Resp normal respiratory effort and clear to auscultation bilaterally Cardio regular rate and regular rhythm Extremity Extremity Narrative: Right lower extremity in posterior splint. Samir wrap is removed. Splint material is intact. Splint reapplied. Patient has good cap refill and sensation distally following splint application. Mild soft tissue tenderness noted with palpation throughout the right thigh and knee. Neuro oriented x3 Sensorium / Orientation: alert Skin no rashes or lesions noted MDM MDM MDM Narrative Medical decision making narrative: Right ankle x-ray obtained. Radiography Diagnostic Testing: Radiology Impression Ankle X-Ray 07/31/21 14:05 IMPRESSION: Orthopedic screws in stable position. There is soft tissue swelling. There is no acute abnormality. at 1445 Reported and signed by: German Craven MD Electronically Signed: German Craven MD at 14:44 EDT Tel , Service support , Treatment and Re-Evaluation Comments:: X-ray reveals typical postop changes with no acute findings. I spoke with Dr. Greenwood. Patient is to keep her scheduled follow-up appointment this week. Dr. Greenwood did send a refill of her pain medication to the pharmacy yesterday for her. This is waiting to be picked up. Discharge Plan Triage Chief Complaint: Lower Extremity Injury ED Provider: Shena Hackett Dx/Rx/DC Orders Clinical Impression: Fall, Contusion of ankle, right Instructions: ED Contusion, Lower Extremity Prescriptions: No Action multivitamin tablet 1 tab PO DAILY RF: 0 prazosin 1 mg capsule 1 mg PO QHS RF: 0 meloxicam 15 mg tablet 15 mg PO DAILY RF: 0 cinnamon bark [Cinnamon] 500 mg capsule 500 mg PO DAILY RF: 0 venlafaxine 75 mg capsule,extended release 24hr 75 mg PO DAILY RF: 0 pravastatin 40 MG tablet 40 mg PO QHS RF: 0 famotidine 20 MG tablet 20 mg PO DAILY RF: 0 melatonin 5 mg tablet 20 mg PO QHS RF: 0 cholecalciferol (vitamin D3) [Vitamin D3] 50 mcg (2,000 unit) Capsule 50 mcg PO DAILY RF: 0 Tradjenta 5 mg tablet 5 mg PO DAILY RF: 0 Jardiance 10 mg tablet 10 mg PO DAILY RF: 0 omeprazole 40 mg capsule,delayed release(DR/EC) 40 mg PO DAILY RF: 0 oxycodone-acetaminophen [Endocet] 7.5-325 mg tablet 1 tab PO Q6H PRN (Reason: pain) 7 Days Qty: 28 RF: 0 oxycodone-acetaminophen [Endocet] 7.5-325 mg tablet 1 tab PO Q6H PRN (Reason: pain) 7 Days Qty: 28 RF: 0 Primary Care Provider: Fabricio Harry Referrals: Eloisa Greenwood DPM [STAFF PHYSICIAN] - Keep Sanjay appointment Fabricio Harry MD [Primary Care Provider] - Disposition Disposition: Home, Self Care
[2021-07-31 15:34] VITALS: BP 148/75; PULSE 69; RESP 15; O2SAT 98
[2021-07-31] MEDS: oxyCODONE 5 MG Tablet PO (15:34)
== END 2021-07-31 15:40 | disposition home or self-care (01) ==
PROVIDERS: Emergency Provider Emergency Medicine; PCP Family Medicine
DX: S90.01XA Contusion of right ankle, initial encounter (principal); W19.XXXA Unspecified fall, initial encounter; Y93.9 Activity, unspecified; Y92.9 Unspecified place or not applicable; E66.01 Morbid (severe) obesity due to excess calories; Z68.42 Body mass index [BMI] 45.0-49.9, adult; E78.00 Pure hypercholesterolemia, unspecified; F32.A Depression, unspecified; F43.10 Post-traumatic stress disorder, unspecified; K21.9 Gastro-esophageal reflux disease without esophagitis; M41.9 Scoliosis, unspecified; M19.90 Unspecified osteoarthritis, unspecified site; Z79.84 Long term (current) use of oral hypoglycemic drugs; Z79.899 Other long term (current) drug therapy; Z87.891 Personal history of nicotine dependence
CPT/HCPCS: 73610; 99283

== ENCOUNTER → 2021-08-08 | Outpatient (CLI) | payer BC, SELFPAY ==
[2021-08-08 19:33] LABS: M R Staph aureus DNA By PCR Negative (Negative); Probe Check PASS; Staph aureus DNA By PCR NEGATIVE (Negative)
== END | disposition home or self-care (01) ==
LOC: LABSPEC 08-16 16:38
PROVIDERS: PCP Family Medicine; Referring Provider Podiatrist; Visit Provider Podiatrist
DX: L03.90 Cellulitis, unspecified (principal)
CPT/HCPCS: 87070; 87075; 87077; 87186; 87205; 87640

== ENCOUNTER 2021-09-02 13:26 | Inpatient (IN) | payer BC, SELFPAY ==
--- NOTE | 2021-09-02 13:19 | PCS.PANDOC ---
PANDEMIC DOCUMENTATION INITIATED: Date: 06/13/2021 Time: 190
[2021-09-02 13:20] VITALS: BP 156/88; PULSE 88; RESP 16; TEMP 37.1; O2SAT 97; BMI 48.7
--- NOTE | 2021-09-02 13:36 | ART_ITS ---
Reason For Study: Ulcer Procedure A bilateral lower extremity continuous wave Doppler with analog waveform analysis,segmental pressures,and ankle brachial indexes without exercise. Left Segmental Pressures Left posterior tibial artery = 173mmHg. Left dorsalis pedis artery = 151mmHg. Left digit = 153 mmHg. The left dorsalis pedis waveforms are triphasic. The left posterior tibial artery waveforms are triphasic. Right Segmental Pressures Right brachial= 154mmHg. Right posterior tibial artery = 166mmHg. Right dorsalis pedis artery = 152mmHg. Right digit = 143 mmHg. The right dorsalis pedis waveforms are triphasic. The right posterior tibial artery waveforms are triphasic. Indices The right ankle brachial index by the dorsalis pedis is 0.99. The right ankle brachial index by the posterior tibial artery is 1.08. The right digital-brachial index is 0.93. The left ankle brachial index by the dorsalis pedis is 0.98. The left ankle brachial index by the posterior tibial artery is 1.12. The left digital-brachial index is 0.99. VL/Lower Ext Art Exam w/o Exercis Interpretation Summary Triphasic Doppler waveforms are noted at ankle level bilaterally. Pulse-volume recordings appear satisfactory at all levels bilaterally. Resting ankle-brachial indices are norm al bilaterally. Digital-brachial indices are normal bilaterally. There is no evidence of significant arterial occlusive disease in the lower ext remities bilaterally. Ordering Physician: Eloisa Greenwood Referring Physician: Fabricio Harry Performed By: Jayna Montgomery RVT
--- NOTE | 2021-09-02 13:46 | HP.PCM_ITS ---
[facility] - General General Date of Admission: 09/02/21 Chief Complaint: right foot infection, falling [facility] Narrative AMELIA DAVENPORT, is a 46 F with significant past medical history of diabetes, GERD, depression, and morbid obesity was admitted for right foot infection. She had surgery performed on 07-22-21 including arthrodesis of the subtalar joint and removal of an accessory painful bone. She fell at home and soiled her surgical splint with fecal matter about one month ago. She was seen in the ER and acute injuries were ruled out. She then developed cellulitis and was started on an oral antibiotic, Augmentin. Since that time, she has failed to follow-up as ad vised for approximately one month. This did not resolve her infectious condition in outpatient setting and she was unable to care properly for herself at home. Additional antibiotics and care were recommended and she was unable to do so. Help with facility placement was offered / encouraged, however she did not proceed due to her desire to care for her cats. She has also lost her anticipated support network to return to clinic, obtain antibiotics, or maintain a nonweightbearing status. She reports her surgical site was looking much better the past couple of weeks each time she was contacted via phone. However, she was seen in clinic earlier today with new purulence, worsening pain, and swelling. [facility] Medical History (Updated 09/02/21 @ 13:[address] Eloisa Greenwood, FAWAD) Anxiety Anxiety and depression Arthritis Blackout Depression Diabetes Dysphagia Easy bruising Former smoker GERD (gastroesophageal reflux disease) GERD (gastroesophageal reflux disease) High cholesterol History of back problems History of stress test Morbid obesity with body mass index (BMI) greater than or equal to 50 Obesity PTSD (post-traumatic stress disorder) Scoliosis Shortness of breath on exertion Wears glasses Home Medications multivitamin 1 tab PO DAILY 11/21/18 [History Last Taken 06/14/19] prazosin 1 mg capsule 2 mg PO QHS 08/19/19 [History Last Taken 08/31/21] famotidine 20 mg PO DAILY 09/02/19 [History Last Taken Unknown] pravastatin 40 mg PO QHS 09/02/19 [History Last Taken 08/31/21] cinnamon bark 500 mg capsule 500 mg PO DAILY 10/04/20 [History Last Taken Unknown] melatonin 5 mg tablet 20 mg PO QHS tab 10/04/20 [History Last Taken Unknown] meloxicam 15 mg tablet 15 mg PO DAILY tab 10/04/20 [History Last Taken 08/31/21] venlafaxine 75 mg capsule,extended release 24 hr 75 mg PO DAILY cap 10/04/20 [History Last Taken Unknown] cholecalciferol (vitamin D3) [Vitamin D3] 50 mcg PO DAILY 07/15/21 [History Last Taken 08/31/21] empagliflozin [Jardiance] 10 mg PO DAILY 07/15/21 [History Last Taken 08/31/21] linagliptin [Tradjenta] 10 mg PO DAILY 07/15/21 [History Last Taken 08/31/21] omeprazole 40 mg PO DAILY 07/15/21 [History Last Taken Unknown] oxycodone-acetaminophen [Endocet] 1 tab PO Q6H PRN 7 Days #28 tab 07/20/21 [Rx Last Taken Unknown] oxycodone-acetaminophen [Endocet] 1 tab PO Q6H PRN 7 Days #28 tab 07/30/21 [Rx Last Taken Unknown] amoxicillin-pot clavulanate [Augmentin] 1 tab PO BID 7 Days #14 tab 08/08/21 [Rx Last Taken Unknown] oxycodone-acetaminophen [Endocet] 1 tab PO Q6H PRN 7 Days #28 tab 08/08/21 [Rx Last Taken Unknown] Allergy/AdvReac Type Severity Reaction Status Date / Time Sulfa (Sulfonamide Allergy Itching, Verified 09/02/21 13:20 Antibiotics) RASH azithromycin AdvReac Rash Verified 07/31/21 13:46 [From Zithromax Z-Matt] bupropion [From Wellbutrin] AdvReac Rash Verified 07/31/21 13:46 celecoxib [From Celebrex] AdvReac Rash Verified 07/31/21 13:46 diclofenac [From Voltaren] AdvReac Rash Verified 07/31/21 13:46 loratadine [From Claritin] AdvReac Rash Verified 07/31/21 13:46 Family History Aunt Hypertension CVA (cerebral vascular accident) Father Heart disease Diabetes Cancer Parkinsons disease Aunt Myocardial infarction Surgical History History of colonoscopy History of left knee surgery History of tubal ligation Social History Smoking Status: Former smoker second hand exposure: Yes alcohol intake: never ROS Constitutional Constitutional: Reports frequent falls; Denies chills, fatigue or fever(s) Cardiovascular Cardiovascular: Reports leg edema; Denies claudication, nausea or vomiting Respiratory/Chest Respiratory/Chest: Denies cough or dyspnea Gastrointestinal Gastrointestinal: Reports constipation and diarrhea; Denies nausea Musculoskeletal Musculoskeletal: Denies numbness Integumentary Integumentary: Reports skin pain and skin ulcer; Denies unusual bruising Neurologic Neurologic: Denies paresthesias Psychiatric Psychiatric: Reports anxiety Allergic/Immunologic Allergic/Immunologic: Denies wheezing Physical Exam Const alert and oriented x3 General Appearance: cooperative and anxious HEENT normocephalic and moist oral mucous membranes Eyes EOMs intact bilaterally Neck full ROM Chest Chest: symmetrical chest wall rise Resp clear to auscultation bilaterally Auscultation: Negative for wheezes Cardio regular rate and regular rhythm Extremity normal capillary refill Extremity Narrative: Palpable DP PT pulse. Hair to foot right. Edema to hindfoot. Compartments remain soft. There is no fluctuance or bogginess on palpation. Her plantar posterior heel incision is very painful to touch and upon suture removal there was 4 cc of purulence expressed with the remaining hyper granular base and excessive peripheral callus. The lateral hindfoot incision upon suture removal did have granular fibrous base at the central aspect which has delayed healing. There is no odor however there is faint adjacent erythema and increased edema in this purulence which supports infection diagnosis. No probing directly to bone however there is deep tissue exposed/probable. Active range of motion digits and ankle noted with pain to the surgical site. Negative Shazia and Martínez sign bilateral Skin no petechiae Neuro Sensory Exam: extremities light-touch: normal Psych cooperative Psych Narrative: upset and tearful Mood & Affect: depressed Assessment & Plan Assessment/Plan (1) Diabetes: (2) Cellulitis of right lower limb: (3) Walking difficulty due to ankle and foot: (4) Morbid obesity with body mass index (BMI) greater than or equal to 50: PLAN: She was admitted for infection management of the right lower extremity. She had semi recent surgical intervention on 07-22-21. She has failed to appropriately care for herself at home including missing multiple postoperative follow-ups, wound care compliance, maintaining a nonweightbearing status, and concurrent lack of infection resolution with oral antibiotics. She was able to make it to the clinical setting today with a friend and had her sutures removed. Upon removal of the sutures, there was copious purulent drainage was noted from the plantar heel. She is very resistant to get admitted and to ask for help because she is caring for multiple cats at home. She is able to ask a different friend for help and has presented for infection management and facility placement. Culture was obtained in the clinical setting and sent for aerobic, anaerobic, and MRSA PCR. Prior multi organism growth was noted from culture several weeks ago. She was started on IV Unasyn. She was taking previous oral Augmentin and additional antibiotics were recommended however she was not able to proceed forward with fully completing these recommendations. Additional labs were ordered today including CBC, CMP, ESR, CRP. Surgical intervention is not planned at this time. Additional purulence was not noted after office debridement and irrigation. Three right foot x-rays were obtained while at [facility] which did not demonstrate soft tissue emphysema, acute fracture dislocation, or foreign body. There is evidence of os trigonum excision and subtalar joint arthrodesis without osseous bridging at the arthrodesis site confirmed. There is no rosamaria fragmentation or visualized osseous destruction. The hardware maintains its initial position without visualized loosening or failure. To change dressing daily with Dakin wet-to-dry. The dressing was reapplied in the clinical setting already today. To maintain a strict nonweightbearing status. To use assistive device. I recommend she continues to work with physical and occupational therapy. She has struggled with this. She has fallen also at home. Her uncontrolled diabetes is noted and I will request hospitalist medical management. Additional input would be appreciated. Discussed case with Dr. Ag. I recommend retirement facility placement due to inability to care for self at home, gait impairment, recurrent falls, and infection status. Please do not hesitate to call if you have any questions. Eloisa Greenwood DPM, [facility]
[2021-09-02 14:22] LABS: Erythrocyte Sedimentation Rate 45 mm/hr (0-30)
--- NOTE | 2021-09-02 14:46 | PN.HOSP_ITS ---
Documented by User: CHANNING Weinstein 09/02/21 15:16 Subjective Subjective Patient seen and examined. Patient sitting in bed eating lunch and watching TV, no distress noted. Objective Data Objective Data Vital Signs: Vital Signs Temp Pulse Resp BP Pulse Ox 98.8 F 88 16 156/88 H 97 09/02/21 13:20 09/02/21 13:20 09/02/21 13:20 09/02/21 13:20 09/02/21 13:20 Oxygen Delivery Method Room Air Weight: 266 lb 8.622 oz Body Mass Index (BMI) 48.7 Lab / Micro Data Result Diagrams: 09/02/21 16:18 09/02/21 14:05 Labs: Laboratory Results - last 24 hr 09/02/21 14:05: ESR 45 H 09/02/21 14:05: C-React Prot Ext Range 19.70 H Physical Exam Const alert, oriented x3 and no apparent distress HEENT head/scalp atraumatic Head and Scalp: normocephalic Eyes conjunctivae normal and no scleral icterus Neck full ROM and supple Resp normal respiratory effort, normal air movement and clear to auscultation bilaterally Effort and Inspection: able to speak in complete sentences and symmetric chest movement Cardio regular rate, regular rhythm, S1 normal heart sound, S2 normal heart sound and peripheral pulses 2+ throughout GI normal to inspection, nondistended, normoactive bowel sounds, soft to palpation and non-tender Extremity normal to inspection, full ROM and no clubbing, cyanosis or edema Peripheral Pulses: Yes pulses 2+ throughout Skin no rashes or lesions noted and skin turgor normal Wounds: wounds noted Wound Narrative: Right heel wound not visualized, dressing intact Neuro oriented x3, moves all extremities, no focal motor deficits and no sensory deficits noted Speech: speech normal Psych affect normal Assessment & Plan Assessment/Plan (1) Diabetes: QUALIFIERS: Diabetes mellitus complication status: with other specified complication Diabetes mellitus street cleaner insulin use: without care home use Diabetes mellitus type: type 2 Qualified Code(s): E11.69 - Type 2 diabetes mellitus with other specified complication (2) Morbid obesity with body mass index (BMI) greater than or equal to 50: (3) Cellulitis of right lower limb: PLAN: 1. Cellulitis right lower limb -Patient underwent a surgical intervention on 07/22/2021. Patient has been noncompliant with wound care compliance, follow-ups, following nonweightbearing status. -Patient has daily dressing changes with Dakin solution wet-to-dry ordered to right heel wound and will be managed per Dr. Greenwood. Wound culture performed by Dr. French in office today. -Nonweightbearing -PT and OT to follow -Continue IV Unasyn -Will obtain CBC, CMP, magnesium as well as blood cultures x2. 2. Diabetes mellitus type 2 -Patient is prescribed Tradjenta and Jardiance however patient states that she has not been taking the Jardiance due to it causing recurrent yeast infections and that her Plays with her Tradjenta bottle because it makes a funny noise and she does not know where it is. Patient also states that she is noncompliant with blood sugar checks and has not checked her blood sugar for at least a couple days -Will hold p.o. antidiabetic medications at this time -AC at bedtime blood sugars with sliding scale insulin ordered -Hemoglobin A1c 9.6 3. Morbid obesity BMI 45.0-49.9 -Encourage lifestyle modifications including diet and exercise and adherence to diabetic regimen Patient is noncompliant with medication regimen and is unable to tell us what medication she is supposed to be taking and what dosages and how frequent. At this time we will hold off on whole home medications until they can be verified. DVT prophylaxis-SCDs This patient was seen by CHANNING Weinstein under the supervision of Dr. Ag. Documented by User: Dr. Pattie Ag MD 09/02/21 17:03 Objective Data Lab / Micro Data Result Diagrams: 09/02/21 16:18 09/02/21 14:05
[2021-09-02 15:05] LABS: Hemoglobin A1c 9.6 % (3.8-5.6)
[2021-09-02 16:01] LABS: ALB/GLOB Ratio 0.8 RATIO (0.9-2.4); AST(SGOT) 12 U/L (15-37); Alanine Aminotransfer ALT/SGPT 25 U/L (13-56); Albumin, Serum 3.1 g/dL (3.2-5.0); Alkaline Phosphatase 152 U/L (45-117); Anion Gap 7 (5-15); BUN 10 mg/dL (7-18); BUN/Creat Ratio 14.1 RATIO (10-20); Chloride 105 mmol/L (98-107); Creatinine, Serum 0.71 mg/dL (0.55-1.02); EST Glomerular Filtration Rate 93 mL/min (>60); Est Glom Filt Rate - Afr Amer 113 mL/min (>60); Estimated Creatinine Clearance 76.64 ml/min; Glucose 240 mg/dL (74-106); Magnesium 1.8 mg/dL (1.6-2.6); Potassium 3.6 mmol/L (3.5-5.1); Protein, Total 7.1 g/dL (6.4-8.2); Sodium Level 140 mmol/L (136-145)
[2021-09-02] MEDS: oxyCODONE 5 MG Tablet PO ×2 (16:18→23:09)
[2021-09-02 16:38] LABS: Absolute Lymphocyte Count 1.58 X10^3/uL (0.83-4.51); Absolute Neutrophil Count 7.3 X10^3/uL (2.0-7.7); Basophil# 0.06 X10^3/uL; Basophil% 0.6 % (0-1); Eosinophil# 0.29 X10^3/uL; Eosinophils% 2.9 % (0-5); Hematocrit 39.4 % (37-47); Hemoglobin 12.3 g/dL (12.0-15.0); Lymphocyte # 1.58 X10^3/ul (0.83-4.51); Lymphocyte % 15.9 % (19-41); Mean Corp Hgb Conc 31.2 g/dL (32-36); Mean Corpuscular Hgb 27.7 pg (27.0-32.0); Mean Corpuscular Volume 88.7 fL (81-99); Mean Platelet Vol. 10.1 fl (6.2-12.0); Monocyte# 0.66 X10^3/uL; Monocyte% 6.7 % (0-10); NRBC Flagged by Analyzer 0 % (0-5); Neutrophil # 7.27 X10^3/uL (2.7-7.7); Neutrophil % 73.3 % (47-70); Platelet Count 475 K/mm3 (150-450); RBC Distribution Width SD 41.3 fl (35.1-43.9); Red Blood Count 4.44 M/mm3 (4.2-5.4); White Blood Count 9.9 K/mm3 (4.4-11.0)
[2021-09-02] MEDS: Juven (unflavored) Packet 1 PACKET PO (16:54)
[2021-09-02] MEDS: Insulin Lispro 100 UNIT/ML INSULN.PEN SC ×2 (16:54→23:26)
--- NOTE | 2021-09-02 17:19 | PCM.RX.CS ---
Consult Pharmacy has been consulted to manage selected antiobiotic: Vancomycin Suspected Infection: Skin/Soft tissue Labs: Sodium 140 mmol/L (136-145) 09/02/21 14:05 Potassium 3.6 mmol/L (3.5-5.1) 09/02/21 14:05 Chloride 105 mmol/L (98-107) 09/02/21 14:05 Carbon Dioxide 28.0 mmol/L (21.0-32.0) 09/02/21 14:05 Anion Gap 7 (5-15) 09/02/21 14:05 BUN 10 mg/dL (7-18) 09/02/21 14:05 Creatinine 0.71 mg/dL (0.55-1.02) 09/02/21 14:05 Est GFR (MDRD) Af Amer 113 mL/min (>60) 09/02/21 14:05 Est GFR (MDRD) Non-Af 93 mL/min (>60) 09/02/21 14:05 BUN/Creatinine Ratio 14.1 RATIO (10-20) 09/02/21 14:05 Glucose 240 mg/dL (74-106) H 09/02/21 14:05 Pharmacy Plan for Drug Dosing: NEW START IV VANCOMYCIN Consulting Physician: LOS TORRES Indication: CELLULITIS Goal Trough: 15-20 MG/DL SrCr: 0.71 MG/DL (09/02) CrCl: 76.6 ML/MIN Comments: GIVEN 2000MG LOADING DOSE 09/02 @ 1642 Vancomycin Dose: START 1750MG Q12H (09/03 @ 0500) PER POLICY AND GET A TROUGH PRIOR TO 4TH TOTAL DOSE OF REGIMEN. Pending Level: 09/04 @ 5390 Pharmacy Service will continue to monitor and adjust dosing as required.
[2021-09-02 17:41] LABS: Bedside Glucose 281 mg/dL (70-110)
[2021-09-02] MEDS: DiphenhydrAMINE 50 MG/ML Syringe IV (18:44)
--- NOTE | 2021-09-02 18:59 | PCM.HOSP.N ---
Hospitalist Note Patient notes onset of redness following initiation of IV vancomycin. This was discontinued and patient was administered IV Solu-Medrol. She did initially complain of feeling as though her mouth may be swollen but evaluation of the patient yielded unchanged oropharynx with no concern for airway involvement. Patient speech was appropriate. Upon re-discussion she said she felt fine as far swelling, no specific tongue swelling, only pruritus.
--- NOTE | 2021-09-02 19:43 | NURSING ---
1830-PT C/O ITCHING AND FEELING LIKE LIP IS SWELLING. LS-CTA, NO RASH NOTED. VANCOMYCIN INFUSING, MED STOPPED. INFORMED ALFONSO TORRES NP- RECEIVED ORDER FOR BENADRYL, REGLAN AND SOLUMEDROL. ALFONSO STATES SHE WILL HAVE DR JACKSON COME EVALUATE PT. DR JACKSON PHONES THIS NURSE AND ORDERS ONLY BENADRYL TO BE GIVEN. REGLAN AND SOLUMEDROL D/C'D. DR JACKSON CAME TO FLOOR AND EVALUATED PT. BENADRYL GIVEN. DR JACKSON D/C'D VANCOMYCIN. 1900-PT STATES BENADRYL IS HELPING THE ITCHING. WILL CONTINUE TO MONITOR.
[2021-09-02 23:00] VITALS: BP 132/80; PULSE 88; RESP 18; TEMP 36.7; O2SAT 97
[2021-09-02] MEDS: Doxazosin 1 MG Tablet 1.5 MG PO (23:22)
[2021-09-02] MEDS: Pravastatin 40 MG Tablet PO (23:23)
[2021-09-03] MEDS: 0.9% Saline Lock 10 ML Syringe IV ×6 (00:49→22:56)
[2021-09-03 00:56] LABS: Bedside Glucose 241 mg/dL (70-110)
[2021-09-03 02:12] VITALS: BP 122/64; PULSE 85; RESP 18; TEMP 36.7; O2SAT 95
[2021-09-03] MEDS: oxyCODONE 5 MG Tablet PO ×4 (04:12→23:08)
[2021-09-03 06:22] LABS: Absolute Lymphocyte Count 1.58 X10^3/uL (0.83-4.51); Absolute Neutrophil Count 4.6 X10^3/uL (2.0-7.7); Basophil# 0.06 X10^3/uL; Basophil% 0.8 % (0-1); Eosinophil# 0.41 X10^3/uL; Eosinophils% 5.7 % (0-5); Hematocrit 35.4 % (37-47); Lymphocyte # 1.58 X10^3/ul (0.83-4.51); Lymphocyte % 22.1 % (19-41); Mean Corp Hgb Conc 31.1 g/dL (32-36); Mean Corpuscular Hgb 27.8 pg (27.0-32.0); Mean Corpuscular Volume 89.4 fL (81-99); Mean Platelet Vol. 10.1 fl (6.2-12.0); Monocyte# 0.51 X10^3/uL; Monocyte% 7.1 % (0-10); NRBC Flagged by Analyzer 0 % (0-5); Neutrophil # 4.57 X10^3/uL (2.7-7.7); Neutrophil % 63.9 % (47-70); Platelet Count 394 K/mm3 (150-450); RBC Distribution Width CV 13.2 % (11.6-14.6); RBC Distribution Width SD 42.5 fl (35.1-43.9); Red Blood Count 3.96 M/mm3 (4.2-5.4); White Blood Count 7.2 K/mm3 (4.4-11.0)
[2021-09-03 06:50] LABS: ALB/GLOB Ratio 0.8 RATIO (0.9-2.4); AST(SGOT) 12 U/L (15-37); Alanine Aminotransfer ALT/SGPT 21 U/L (13-56); Albumin, Serum 2.8 g/dL (3.2-5.0); Alkaline Phosphatase 136 U/L (45-117); Anion Gap 7 (5-15); BUN 13 mg/dL (7-18); BUN/Creat Ratio 20.5 RATIO (10-20); Calcium,Total 8.5 mg/dL (8.5-10.1); Chloride 104 mmol/L (98-107); Creatinine, Serum 0.63 mg/dL (0.55-1.02); EST Glomerular Filtration Rate 106 mL/min (>60); Est Glom Filt Rate - Afr Amer 129 mL/min (>60); Estimated Creatinine Clearance 86.37 ml/min; Globulin 3.7 g/dL (2.2-4.2); Glucose 225 mg/dL (74-106); Potassium 3.6 mmol/L (3.5-5.1); Protein, Total 6.5 g/dL (6.4-8.2); Sodium Level 139 mmol/L (136-145)
[2021-09-03] MEDS: Insulin Lispro 100 UNIT/ML INSULN.PEN SC ×4 (06:52→22:53)
[2021-09-03 07:50] VITALS: BP 134/74; PULSE 80; RESP 16; TEMP 36.7; O2SAT 96
--- NOTE | 2021-09-03 09:02 | PN_ITS ---
Subjective Subjective This 46-year-old female with now uncontrolled diabetes was seen bedside for right foot infection. She had surgery about a month and a half ago for painful arthritis and symptomatic accessory bone. She has been able to care for herself at home. She denies fever, chill, nausea, vomiting this morning. She has foot itching. She denies chest pain, shortness of breath or calf pain. She reports she has a yeast infection. Objective Data Objective Data Vital Signs: Vital Signs Temp Pulse Resp BP Pulse Ox 98.1 F 80 16 134/74 H 96 09/03/21 07:50 09/03/21 07:50 09/03/21 07:50 09/03/21 07:50 09/03/21 07:50 Oxygen Delivery Method Room Air Weight: 120.9 kg Body Mass Index (BMI) 48.7 Intake & Output: Intake and Output for Last 24 Hours 09/01/21 09/02/21 09/03/21 23:59 23:59 23:59 Intake Total 749 / 749 224 / 224 Balance 749 / 749 224 / 224 Lab / Micro Data Result Diagrams: 09/03/21 05:41 09/03/21 05:41 Labs: Laboratory Results - last 24 hr 09/02/21 14:05: ESR 45 H 09/02/21 14:05: C-React Prot Ext Range 19.70 H 09/02/21 14:05: Hemoglobin A1c 9.6 H 09/02/21 14:05: Sodium 140, Potassium 3.6, Chloride 105, Carbon Dioxide 28.0, Anion Gap 7, BUN 10, Creatinine 0.71, Estim Creat Clear Calc 76.64, Est GFR (MDRD) Af Amer 113, Est GFR (MDRD) Non-Af 93, BUN/Creatinine Ratio 14.1, Glucose 240 H, Calcium 9.0, Magnesium 1.8, Total Bilirubin 0.70, AST 12 L, ALT 25, Alkaline Phosphatase 152 H, Total Protein 7.1, Albumin 3.1 L, Globulin 4.0, Albumin/Globulin Ratio 0.8 L 09/02/21 16:18: WBC 9.9, RBC 4.44, Hgb 12.3, Hct 39.4, MCV 88.7, MCH 27.7, MCHC 31.2 L, RDW Std Deviation 41.3, RDW Coeff of Juliet 13.0, Plt Count 475 H, MPV 10.1, Immature Gran % (Auto) 0.600, Neut % (Auto) 73.3 H, Lymph % (Auto) 15.9 L, [place] % (Auto) 6.7, Eos % (Auto) 2.9, Baso % (Auto) 0.6, Absolute Neuts (auto) 7.3, Absolute Lymphs (auto) 1.58, Nucleated RBC % 0 09/02/21 16:47: POC Glucose 281 H 09/02/21 23:25: POC Glucose 241 H 09/03/21 05:41: WBC 7.2, RBC 3.96 L, Hgb 11.0 L, Hct 35.4 L, MCV 89.4, MCH 27.8, MCHC 31.1 L, RDW Std Deviation 42.5, RDW Coeff of Juliet 13.2, Plt Count 394, MPV 10.1, Immature Gran % (Auto) 0.400, Neut % (Auto) 63.9, Lymph % (Auto) 22.1, Mon o % (Auto) 7.1, Eos % (Auto) 5.7 H, Baso % (Auto) 0.8, Absolute Neuts (auto) 4.6, Absolute Lymphs (auto) 1.58, Nucleated RBC % 0 09/03/21 05:41: Sodium 139, Potassium 3.6, Chloride 104, Carbon Dioxide 28.0, Anion Gap 7, BUN 13, Creatinine 0.63, Estim Creat Clear Calc 86.37, Est GFR (MDRD) Af Amer 129, Est GFR (MDRD) Non-Af 106, BUN/Creatinine Ratio 20.5 H, Glucose 225 H, Calcium 8.5, Total Bilirubin 0.60, AST 12 L, ALT 21, Alkaline Phosphatase 136 H, Total Protein 6.5, Albumin 2.8 L, Globulin 3.7, Albumin/Globulin Ratio 0.8 L Physical Exam Const alert and oriented x3 General Appearance: cooperative Extremity normal capillary refill Extremity Narrative: Palpable DP PT pulse. Hair to foot right. Edema to hindfoot decreasing. Compartments remain soft. There is no fluctuance or bogginess on palpation. Her plantar posterior heel incision is very painful to touch and there is resolution of purulent drainage on expression today. The lateral hindfoot incision has two small areas of granular tissue without purulence on expression. There is no odor and erythema has also resolved. No probing directly to bone. Active range of motion digits and ankle noted with pain to the surgical site. Negative Shazia and Martínez sign bilateral Neuro Sensory Exam: extremities light-touch: normal Assessment & Plan Assessment/Plan (1) Diabetes: QUALIFIERS: Diabetes mellitus complication status: with other specified complication Diabetes mellitus superintendent container terminal insulin use: without penitentiary use Diabetes mellitus type: type 2 Qualified Code(s): E11.69 - Type 2 diabetes mellitus with other specified complication (2) Cellulitis of right lower limb: (3) Walking difficulty due to ankle and foot: (4) Morbid obesity with body mass index (BMI) greater than or equal to 50: PLAN: She was admitted for infection management of the right lower extremity. She had semi recent surgical intervention on 07-22-21. She has failed to appropriately care for herself at home including missing multiple postoperative follow-ups, wound care compliance, maintaining a nonweightbearing status, and concurrent lack of infection resolution with oral antibiotics. Culture was obtained in the clinical setting and sent for aerobic, anaerobic, and MRSA PCR on 09/02. She was started on IV Unasyn. She had a dose of vancymycin with reaction. MRSA PCR is negative so vanc can be discontinued. Other cultures from yesterday pending. Blood cultures neg so far. Labs reviewed with WBC 7.2, ESR 45, CRP 17.9. Concern is the adjacent hardware at this site. Prior multi organism growth was noted from culture on 08/08 (proteus, Klebsiella, enterococcus faecalis, strep anginosus, bacteroides fragilis, anaerobic cocci, and prevotella). Three right foot x-rays were obtained while at the [facility] on [facility]/02 which did not demonstrate soft tissue emphysema, acute fracture disl ocation, or foreign body. There is evidence of os trigonum excision and subtalar joint arthrodesis without osseous bridging at the arthrodesis site confirmed. There is no rosamaria fragmentation or visualized osseous destruction. The hardware maintains its initial position without visualized loosening or failure. Non invasive vascular studies with normal waveforms and ABIs. To change dressing daily with Dakin wet-to-dry. The dressing was reapplied this morning. Purulence and erythema resolved. Surgical debridement, drainage, or hardware removal is not planned at this time. To maintain a strict nonweightbearing status. To use assistive device. I recommend she continues to work with physical and occupational therapy. She has fallen also at home. Her uncontrolled diabetes is noted. Her A1C has significantly increased from 7 range to now 9.6%. Medical management per hospitalist is appreciated. DVT prophylaxis with SCDs. I recommend senior living facility placement due to inability to care for self at home, gait impairment, recurrent falls, and infection status. Social work pending. Please do not hesitate to call if you have any questions. Eloisa Greenwood DPM, FACFAS [facility]
[2021-09-03] MEDS: Juven (unflavored) Packet 1 PACKET PO ×2 (09:35→17:00)
[2021-09-03] MEDS: Meloxicam 15 MG Tablet PO (09:36)
[2021-09-03] MEDS: Multivitamins,Therapeutic Tablet 1 TABLET PO (09:37)
[2021-09-03] MEDS: Venlafaxine XR 75 MG Capsule PO (09:37)
[2021-09-03] MEDS: Cholecalciferol (VIT D3) 25 MCG TABLET (1,000 UNITS) 50 MCG PO (09:37)
[2021-09-03] MEDS: Pantoprazole Sodium 40 MG Tablet PO (09:37)
[2021-09-03 11:35] LABS: Bedside Glucose 224 mg/dL (70-110)
--- NOTE | 2021-09-03 11:41 | PCM.PN.HOSP ---
Documented by User: sAhley Stokes NP-C 09/03/21 11:58 Subjective Subjective Patient seen and examined. Patient reports right foot pain 5 out of 10. Patient states that pain medication regimen has been effective at controlling pain and making it tolerable. Objective Data Objective Data Vital Signs: Vital Signs Temp Pulse Resp BP Pulse Ox 98.1 F 80 16 134/74 H 96 09/03/21 07:50 09/03/21 07:50 09/03/21 07:50 09/03/21 07:50 09/03/21 07:50 Oxygen Delivery Method Room Air Weight: 266 lb 8.622 oz Body Mass Index (BMI) 48.7 Intake & Output: Intake and Output for Last 24 Hours 09/01/21 09/02/21 09/03/21 23:59 23:59 23:59 Intake Total 749 / 749 224 / 224 Balance 749 / 749 224 / 224 Lab / Micro Data Result Diagrams: 09/03/21 05:41 09/03/21 05:41 Labs: Laboratory Results - last 24 hr 09/02/21 14:05: ESR 45 H 09/02/21 14:05: C-React Prot Ext Range 19.70 H 09/02/21 14:05: Hemoglobin A1c 9.6 H 09/02/21 14:05: Sodium 140, Potassium 3.6, Chloride 105, Carbon Dioxide 28.0, Anion Gap 7, BUN 10, Creatinine 0.71, Estim Creat Clear Calc 76.64, Est GFR (MDRD) Af Amer 113, Est GFR (MDRD) Non-Af 93, BUN/Creatinine Ratio 14.1, Glucose 240 H, Calcium 9.0, Magnesium 1.8, Total Bilirubin 0.70, AST 12 L, ALT 25, Alkaline Phosphatase 152 H, Total Protein 7.1, Albumin 3.1 L, Globulin 4.0, Albumin/Globulin Ratio 0.8 L 09/02/21 16:18: WBC 9.9, RBC 4.44, Hgb 12.3, Hct 39.4, MCV 88.7, MCH 27.7, MCHC 31.2 L, RDW Std Deviation 41.3, RDW Coeff of Juliet 13.0, Plt Count 475 H, MPV 10.1, Immature Gran % (Auto) 0.600, Neut % (Auto) 73.3 H, Lymph % (Auto) 15.9 L, [place] % (Auto) 6.7, Eos % (Auto) 2.9, Baso % (Auto) 0.6, Absolute Neuts (auto) 7.3, Absolute Lymphs (auto) 1.58, Nucleated RBC % 0 09/02/21 16:47: POC Glucose 281 H 09/02/21 23:25: POC Glucose 241 H 09/03/21 05:41: WBC 7.2, RBC 3.96 L, Hgb 11.0 L, Hct 35.4 L, MCV 89.4, MCH 27.8, MCHC 31.1 L, RDW Std Deviation 42.5, RDW Coeff of Juliet 13.2, Plt Count 394, MPV 10.1, Immature Gran % (Auto) 0.400, Neut % (Auto) 63.9, Lymph % (Auto) 22.1, [place] % (Auto) 7.1, Eos % (Auto) 5.7 H, Baso % (Auto) 0.8, Absolute Neuts (auto) 4.6, Absolute Lymphs (auto) 1.58, Nucleated RBC % 0 09/03/21 05:41: Sodium 139, Potassium 3.6, Chloride 104, Carbon Dioxide 28.0, Anion Gap 7, BUN 13, Creatinine 0.63, Estim Creat Clear Calc 86.37, Est GFR (MDRD) Af Amer 129, Est GFR (MDRD) Non-Af 106, BUN/Creatinine Ratio 20.5 H, Glucose 225 H, Calcium 8.5, Total Bilirubin 0.60, AST 12 L, ALT 21, Alkaline Phosphatase 136 H, Total Protein 6.5, Albumin 2.8 L, Globulin 3.7, Albumin/Globulin Ratio 0.8 L 09/03/21 06:50: POC Glucose 224 H Physical Exam Const alert, oriented x3 and no apparent distress HEENT head/scalp atraumatic Head and Scalp: normocephalic Eyes conjunctivae normal and no scleral icterus Neck full ROM and supple Resp normal respiratory effort, normal air movement and clear to auscultation bilaterally Effort and Inspection: able to speak in complete sentences and symmetric chest movement Cardio regular rate, regular rhythm, S1 normal heart sound, S2 normal heart sound and peripheral pulses 2+ throughout GI normal to inspection, nondistended, normoactive bowel sounds, soft to palpation and non-tender Extremity normal to inspection, full ROM and no clubbing, cyanosis or edema Skin no rashes or lesions noted and skin turgor normal Skin Narrative: Right heel wound not visualized, dressing intact. Wounds: wounds noted Wound Narrative: Right heel wound not visualized, dressing intact Neuro oriented x3, moves all extremities, no focal motor deficits and no sensory deficits noted Speech: speech normal Psych affect normal Assessment & Plan Assessment/Plan (1) Cellulitis of right lower limb: (2) Diabetes: QUALIFIERS: Diabetes mellitus complication status: with other specified complication Diabetes mellitus director long term care insulin use: without retirement use Diabetes mellitus type: type 2 Qualified Code(s): E11.69 - Type 2 diabetes mellitus with other specified complication (3) Yeast infection of the vagina: PLAN: 1. Cellulitis right lower limb -Patient underwent a surgical intervention on 07/22/2021. Patient has been noncompliant with wound care compliance, follow-ups, following nonweightbearing status. -Patient has daily dressing changes with Dakin solution wet-to-dry ordered to right heel wound and will be managed per Dr. Greenwood. Wound culture performed by Dr. French in office today. -Nonweightbearing -PT and OT to follow -Continue IV Unasyn -Will obtain CBC, CMP, magnesium as well as blood cultures x2. 2. Diabetes mellitus type 2 -Patient is prescribed Tradjenta and Jardiance however patient states that she has not been taking the Jardiance due to it causing recurrent yeast infections and that her Plays with her Tradjenta bottle because it makes a funny noise and she does not know where it is. Patient also states that she is noncompliant with blood sugar checks and has not checked her blood sugar for at least a couple days -Will hold p.o. antidiabetic medications at this time -AC at bedtime blood sugars with sliding scale insulin ordered -Hemoglobin A1c 9.6 3. Morbid obesity BMI 45.0-49.9 -Encourage lifestyle modifications including diet and exercise and adherence to diabetic regimen 4. Yeast infection of the vagina -Likely secondary to use of Jardiance -miconazole 2% QHS x7 days ordered Patient is noncompliant with medication regimen and is unable to tell us what medication she is supposed to be taking and what dosages and how frequent. At this time we will hold off on whole home medications until they can be verified. Discharge planning-recommendation from toggle press operator for patient to discharge to SNF due to noncompliance and inability to take care of herself at home. DVT prophylaxis-SCDs This patient was seen by Ashley Stokes NP-C under the supervision of Dr. Ag. Documented by User: Dr. Bryant Bernstein MD 09/03/21 14:16 Subjective Subjective Seen and examined. Patient complain of right foot pain. Dressing is being changed by toggle press operator Dr. Greenwood. Patient complain of vaginal itching suggestive of vaginal candidiasis. Patient never had vaginal candidiasis but started after she was started on Jardiance by PCP which is discontinued. Objective Data Lab / Micro Data Result Diagrams: 09/03/21 05:41 09/03/21 05:41 Physical Exam Narrative General: Alert, Oriented x3, Cooperative HEENT: Atraumatic, PERRLA, EOMI, Normocephalic Oral: No Gingival or Mucosal Lesions/ Ulcerations Neck: Supple, No JVD, Negative Carotid Bruits Lungs: Air entry diminished in bilateral lung bases. No crepitation/rhonchi Cardiovascular: Regular rate, Regular Rhythm, Normal S1, Normal S2, No murmurs Abdomen: Bowel Sounds Present, Soft, Non Tender, Non-Distended : No renal angle tenderness. No suprapubic tenderness. Extremities: No edema, Capillary Refill Less than 3 Seconds Skin: Right foot: Reevaluation of purulent drainage. Lateral hindfoot has 2 small areas of ulcers with granular tissue. Musculoskeletal: No Tenderness to Palpation of Joints or Extremities Neurological: Cranial nerves II-XII grossly intact, DTR 2+/4 and Symmetrical, Neuro grossly intact Psych/Mental Status: Normal Affect, Appropriate. Assessment & Plan Assessment/Plan (1) Cellulitis of right lower limb: PLAN: This patient was seen in conjunction with ESVIN Ramirez. I have independently interviewed and examined the patient and reviewed pertinent history, examination findings, laboratory and plan of management. I have reviewed the note and agree with the documented findings with the few additional points. In brief, patient is admitted for cellulitis of right foot with recent surgical intervention on 07/22/2021. The purulence found in surgical wound resolved with granular tissue. Discussed with toggle press operator. MRSA PCR negative so vancomycin is discontinued. ESR 45, CRP 70.9. Multiple prior microorganism growth including Proteus Klebsiella Enterococcus faecalis and strep pendulous, Bacteroides fragilis and anaerobic cocci. Patient also complained of vaginal candidiasis with itching probably due to empagliflozin which is discontinued. On topical miconazole. I have discussed my assessment with ESVIN Ramirez and orders have been reviewed.
[2021-09-03 12:06] LABS: Bedside Glucose 320 mg/dL (70-110)
--- NOTE | 2021-09-03 13:00 | CASEMGMT ---
RN TATIANA PIPELINE DISPATCHER CM to room to meet with patient for initial transition planning/care coordination assessment. ALICIA SIMPSON introduced self and role at [facility]. Pt voices understanding and consents to assessment at this time. Pt sitting up in chair in room in no distress at this time. Pt is A/O at this time and answers all questions appropriately. Care providers, pharmacy, and demographics verified/updated at this time. PCP: Dr Fabricio Harry Specialists: Dr Greenwood-ligia Preferred Pharmacy: [facility] Retail Insurance: [employer] Prescription Benefit: Yes Living Will/HPOA: Pt does not currently have LW/HCPOA and would like to talk w/SW to complete. Paulo GUSMAN, made aware. LNOK: 2 adult children. Son: Fabricio Guevara (lives in [place]) Daughter: Virgen Ibarra (lives in [facility] Sister, Janice (lives in [place]) Living Arrangements: Lives alone in mobile home w/7 steps total to enter. Has 4 cats. Friend, Randy, has a smith to pt's home and is helping to take care of them while pt is away. Randy was also helping w/QOD drsg changes. She had someone arranged to stay w/her after her surgery 21/05 but states they backed out and it has been difficult for her to care for herself. She has been sponge-bathing in her kitchen, orders meals thru [employer] and orders supplies on-line. Pt manages her own medications. Transportation: Pt unable to drive since surgery in June. Friend, Randy, helps at times. DME: has the following DME: crutches, walker, functioning glucometer w/supplies, knee scooter. She has a shower chair but her shower is too small for it to fit in. Pt would like medical alert information--same provided at this time. Pt states no need for further DME at this time. HHC/SNF: No hx of either. Pt states she did not initially want to go to a SNF but she feels it would be best for her at this time, as she has been having difficulty caring for self at home. She is agreeable to SNF and states would like to go to one near [place], if possible. Paulo GUSMAN, made aware. PLAN: SW to meet w/pt for SNF placement and AD. Augustus ROSA RN, CM
[2021-09-03] MEDS: Miconazole-7 Nitrate Cream 1 APPLIC VAGINAL ×2 (14:34→22:50)
[2021-09-03 14:35] VITALS: BP 143/69; PULSE 85; RESP 16; TEMP 36.9; O2SAT 95
--- NOTE | 2021-09-03 16:15 | NURSING ---
Addendum entered by Rima Branch 09/04/21 18:10: reviewed documentation by Rayo Harris, student RN Original Note: reviewed documentation by Rayo Harris, student RN
[2021-09-03 17:10] LABS: Bedside Glucose 218 mg/dL (70-110)
--- NOTE | 2021-09-03 19:30 | CASEMGMT ---
SOCIAL WORK Referral Source: CM Reason for Consult: Anticipate SNF and patient wishes to complete Advanced Directives Met with patient in room. Patient provided with list for SNFs in [facility] and [facility] to review. SW to follow up Sunday. Advanced Directives completed with patient. Patient named son, Fabricio Guevara as HPOA. Copy of forms added to chart, originals given to patient. Plan: SW to follow up Sunday, anticipate SNF Laura Short, WATERPROOFING MACHINE OPERATOR, AUTOMAT CAR ATTENDANT
--- NOTE | 2021-09-03 19:36 | NURSING ---
Patient requests four side rails to be up.
[2021-09-03 22:36] VITALS: BP 131/77; PULSE 86; RESP 18; TEMP 36.5; O2SAT 95
[2021-09-03] MEDS: Doxazosin 1 MG Tablet 1.5 MG PO (22:43)
[2021-09-03] MEDS: Pravastatin 40 MG Tablet PO (22:44)
[2021-09-03 23:16] LABS: Bedside Glucose 236 mg/dL (70-110)
[2021-09-04 04:54] VITALS: BP 114/69; PULSE 74; RESP 18; TEMP 36.6; O2SAT 96
[2021-09-04] MEDS: Insulin Lispro 100 UNIT/ML INSULN.PEN SC ×4 (06:47→22:54)
[2021-09-04 06:59] LABS: Absolute Lymphocyte Count 1.22 X10^3/uL (0.83-4.51); Absolute Neutrophil Count 3.9 X10^3/uL (2.0-7.7); Basophil# 0.04 X10^3/uL; Basophil% 0.7 % (0-1); Eosinophil# 0.36 X10^3/uL; Hematocrit 37.2 % (37-47); Hemoglobin 11.1 g/dL (12.0-15.0); Lymphocyte # 1.22 X10^3/ul (0.83-4.51); Lymphocyte % 20.4 % (19-41); Mean Corp Hgb Conc 29.8 g/dL (32-36); Mean Corpuscular Hgb 27.1 pg (27.0-32.0); Mean Corpuscular Volume 90.7 fL (81-99); Mean Platelet Vol. 10.4 fl (6.2-12.0); Monocyte# 0.43 X10^3/uL; Monocyte% 7.2 % (0-10); NRBC Flagged by Analyzer 0 % (0-5); Neutrophil # 3.88 X10^3/uL (2.7-7.7); Platelet Count 378 K/mm3 (150-450); RBC Distribution Width CV 13.1 % (11.6-14.6); RBC Distribution Width SD 42.5 fl (35.1-43.9)
[2021-09-04 07:01] LABS: Bedside Glucose 203 mg/dL (70-110)
[2021-09-04 07:18] LABS: Anion Gap 7 (5-15); BUN 16 mg/dL (7-18); BUN/Creat Ratio 24.9 RATIO (10-20); Calcium,Total 8.8 mg/dL (8.5-10.1); Chloride 104 mmol/L (98-107); Creatinine, Serum 0.64 mg/dL (0.55-1.02); EST Glomerular Filtration Rate 105 mL/min (>60); Est Glom Filt Rate - Afr Amer 127 mL/min (>60); Estimated Creatinine Clearance 85.02 ml/min; Glucose 197 mg/dL (74-106); Potassium 3.7 mmol/L (3.5-5.1); Sodium Level 140 mmol/L (136-145)
--- NOTE | 2021-09-04 08:15 | PCM.PROGNOTE ---
Subjective Subjective This 46-year-old female with now uncontrolled diabetes was seen bedside for right foot infection. She had surgery about a month and a half ago for painful arthritis and symptomatic accessory bone. She has been able to care for herself at home. She denies fever, chill, nausea, vomiting, chest pain, shortness of breath, calf pain. Her pain is mainly localized to the bottom back of her heel and has been decreasing since she has been able to stay off of it in the hospital. She is amendable to go for long-term facility placement and admits she is unable to properly take care of herself at home. Objective Data Objective Data Vital Signs: Vital Signs Temp Pulse Resp BP Pulse Ox 97.9 F 74 18 114/69 96 09/04/21 04:54 09/04/21 04:54 09/04/21 04:54 09/04/21 04:54 09/04/21 04:54 Oxygen Delivery Method Room Air Weight: 120.9 kg Body Mass Index (BMI) 48.7 Intake & Output: Intake and Output for Last 24 Hours 09/02/21 09/03/21 09/04/21 23:59 23:59 22:59 Intake Total 749 / 749 1148 / 1260 224 / 224 Balance 749 / 749 1148 / 1260 224 / 224 Lab / Micro Data Result Diagrams: 09/04/21 06:46 09/04/21 06:46 Labs: Laboratory Results - last 24 hr 09/03/21 06:50: POC Glucose 224 H 09/03/21 11:54: POC Glucose 320 H 09/03/21 16:56: POC Glucose 218 H 09/03/21 22:52: POC Glucose 236 H 09/04/21 06:44: POC Glucose 203 H 09/04/21 06:46: WBC 6.0, RBC 4.10 L, Hgb 11.1 L, Hct 37.2, MCV 90.7, MCH 27.1, MCHC 29.8 L, RDW Std Deviation 42.5, RDW Coeff of Juliet 13.1, Plt Count 378, MPV 10.4, Immature Gran % (Auto) 0.700, Neut % (Auto) 65.0, Lymph % (Auto) 20.4, [place] % (Auto) 7.2, Eos % (Auto) 6.0 H, Baso % (Auto) 0.7, Absolute Neuts (auto) 3.9, Absolute Lymphs (auto) 1.22, Nucleated RBC % 0 09/04/21 06:46: Sodium 140, Potassium 3.7, Chloride 104, Carbon Dioxide 29.0, Anion Gap 7, BUN 16, Creatinine 0.64, Estim Creat Clear Calc 85.02, Est GFR (MDRD) Af Amer 127, Est GFR (MDRD) Non-Af 105, BUN/Creatinine Ratio 24.9 H, Glucose 197 H, Calcium 8.8 Physical Exam Const alert and oriented x3 General Appearance: cooperative Extremity normal capillary refill Extremity Narrative: Palpable DP and PT pulse. Hair to foot right. Edema to hindfoot decreased. Compartments remain soft. There is no fluctuance or bogginess on palpation. Her plantar posterior heel incision is very painful to touch and there is resolution of purulent drainage on expression today. Ulcer measures 2.7 x 0.8 x 1.3 cm. There is deep probing in near proximity to the hindfoot screws placed. She is able to tolerate this type of evaluation better today. The lateral hindfoot incision has two small areas of granular tissue without purulence on expression. There is no odor and erythema has also resolved. Active range of motion digits and ankle noted with pain to the surgical site. 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 She had semi recent surgical intervention on 07-22-21. She has failed to appropriately care for herself at home including missing multiple postoperative follow-ups, wound care compliance, maintaining a nonweightbearing status, and concurrent lack of infection resolution with oral antibiotics. Culture was obtained in the clinical setting and sent for aerobic, anaerobic, and MRSA PCR on 09/02. She was started on IV Unasyn. She had a dose of vancymycin with reaction. MRSA PCR is negative so vanc was discontinued. Other cultures from this admission have gram neg connor growth so far and the final is pending. Blood cultures neg so far. Labs reviewed with WBC 6.0, ESR 45, CRP 17.9. There is a moderate concern for the adjacent hardware at this site with probing communication and pain localized at this site. Prior multi organism growth was noted from culture on 08/08 (proteus, Klebsiella, enterococcus faecalis, strep anginosus, bacteroides fragilis, anaerobic cocci, and prevotella). The arthrodesis site is not healed or stable so I do not recommend removal at this time. Will consult with ID specialist in regards to longer antibiotic care for this suspected hardware infection. Three right foot x-rays were obtained while at the [facility] on 09/02 which did not demonstrate soft tissue emphysema, acute fracture dislocation, or foreign body. There is evidence of os trigonum excision and subtalar joint arthrodesis without osseous bridging at the arthrodesis site confirmed. There is no rosamaria fragmentation or visualized osseous destruction. The hardware maintains its initial position without visualized loosening or failure. To change dressing daily with Dakin wet-to-dry. The dressing was reapplied this morning. Purulence and erythema resolved. Surgical debridement, drainage, or hardware removal is not planned at this time. To maintain a strict nonweightbearing status. To use assistive device. I recommend she continues to work with physical and occupational therapy. She has fallen also at home. SNF placement was recommended. Surgical shoe to heel weightbear for occasional transfer will be ordered. Her uncontrolled diabetes is noted. Her A1C has significantly increased from 7 range to now 9.6%. Medical management per hospitalist is appreciated. It is noted she has not been able to take her medication or prepare appropriate foot at home to maintain ideal glucose levels. DVT prophylaxis with SCDs. I recommend long-term facility placement due to inability to care for self at home, gait impairment, recurrent falls, and infection status. Social work assistance is appreciated and SNF availability will be revisted on Sunday. Please do not hesitate to call if you have any questions. Will follow while in house. Full code status confirmed. Eloisa Greenwood DPM, [facility] [phone]
[2021-09-04] MEDS: Meloxicam 15 MG Tablet PO (08:21)
[2021-09-04] MEDS: Multivitamins,Therapeutic Tablet 1 TABLET PO (08:21)
[2021-09-04] MEDS: Juven (unflavored) Packet 1 PACKET PO ×2 (08:21→16:51)
[2021-09-04] MEDS: Venlafaxine XR 75 MG Capsule PO (08:22)
[2021-09-04] MEDS: Pantoprazole Sodium 40 MG Tablet PO (08:22)
[2021-09-04] MEDS: Cholecalciferol (VIT D3) 25 MCG TABLET (1,000 UNITS) 50 MCG PO (08:22)
[2021-09-04] MEDS: Docusate Sodium 100 MG Capsule 200 MG PO (08:25)
[2021-09-04 09:00] VITALS: BP 124/70; PULSE 92; RESP 16; TEMP 37.1; O2SAT 96
[2021-09-04 11:15] LABS: Bedside Glucose 249 mg/dL (70-110)
--- NOTE | 2021-09-04 12:08 | PCM.PN.HOSP ---
Documented by User: Ashley Stokes NP-C 09/04/21 12:12 Subjective Subjective Patient seen and examined. Patient states that she is having increased pain in her foot due to Dr. Greenwood on just changing the dressing to her foot. Patient states she has requested pain medication for the pain. Otherwise patient has no complaints at this time Objective Data Objective Data Vital Signs: Vital Signs Temp Pulse Resp BP Pulse Ox 98.7 F 92 16 124/70 H 96 09/04/21 09:00 09/04/21 09:00 09/04/21 09:00 09/04/21 09:00 09/04/21 09:00 Oxygen Delivery Method Room Air Weight: 266 lb 8.622 oz Body Mass Index (BMI) 48.7 Intake & Output: Intake and Output for Last 24 Hours 09/02/21 09/03/21 09/04/21 23:59 23:59 22:59 Intake Total 749 / 749 1148 / 1260 224 / 224 Balance 749 / 749 1148 / 1260 224 / 224 Lab / Micro Data Result Diagrams: 09/04/21 06:46 09/04/21 06:46 Labs: Laboratory Results - last 24 hr 09/03/21 16:56: POC Glucose 218 H 09/03/21 22:52: POC Glucose 236 H 09/04/21 06:44: POC Glucose 203 H 09/04/21 06:46: WBC 6.0, RBC 4.10 L, Hgb 11.1 L, Hct 37.2, MCV 90.7, MCH 27.1, MCHC 29.8 L, RDW Std Deviation 42.5, RDW Coeff of Juliet 13.1, Plt Count 378, MPV 10.4, Immature Gran % (Auto) 0.700, Neut % (Auto) 65.0, Lymph % (Auto) 20.4, [place] % (Auto) 7.2, Eos % (Auto) 6.0 H, Baso % (Auto) 0.7, Absolute Neuts (auto) 3.9, Absolute Lymphs (auto) 1.22, Nucleated RBC % 0 09/04/21 06:46: Sodium 140, Potassium 3.7, Chloride 104, Carbon Dioxide 29.0, Anion Gap 7, BUN 16, Creatinine 0.64, Estim Creat Clear Calc 85.02, Est GFR (MDRD) Af Amer 127, Est GFR (MDRD) Non-Af 105, BUN/Creatinine Ratio 24.9 H, Glucose 197 H, Calcium 8.8 09/04/21 11:08: POC Glucose 249 H Physical Exam Const alert, oriented x3 and no apparent distress HEENT head/scalp atraumatic Eyes conjunctivae normal and no scleral icterus Neck full ROM and supple Resp normal respiratory effort, normal air movement and clear to auscultation bilaterally Effort and Inspection: able to speak in complete sentences and symmetric chest movement Cardio regular rate, regular rhythm, S1 normal heart sound, S2 normal heart sound and peripheral pulses 2+ throughout GI normal to inspection, nondistended, normoactive bowel sounds, soft to palpation and non-tender Extremity normal to inspection, full ROM and no clubbing, cyanosis or edema Skin no rashes or lesions noted and skin turgor normal Wounds: wounds noted Neuro oriented x3, moves all extremities, no focal motor deficits and no sensory deficits noted Speech: speech normal Psych affect normal Assessment & Plan Assessment/Plan (1) Cellulitis of right lower limb: PLAN: 1. Cellulitis right lower limb -Patient underwent a surgical intervention on 07/22/2021. Patient has been noncompliant with wound care compliance, follow-ups, following nonweightbearing status. -Patient has daily dressing changes with Dakin solution wet-to-dry ordered to right heel wound and will be managed per Dr. Greenwood. -Wound culture pending -Nonweightbearing -PT and OT to follow -Continue IV Unasyn, to proximity to patient's hardware infectious disease will be consulted -Daily CBC ordered 2. Diabetes mellitus type 2 -Patient is prescribed Tradjenta and Jardiance however patient states that she has not been taking the Jardiance due to it causing recurrent yeast infections and that her Plays with her Tradjenta bottle because it makes a funny noise and she does not know where it is. Patient also states that she is noncompliant with blood sugar checks and has not checked her blood sugar for at least a couple days -Continue hold p.o. antidiabetic medications at this time -AC at bedtime blood sugars with sliding scale insulin ordered -Hemoglobin A1c 9.6 3. Morbid obesity BMI 45.0-49.9 -Encourage lifestyle modifications including diet and exercise and adherence to diabetic regimen 4. Yeast infection of the vagina -Likely secondary to use of Jardiance -miconazole 2% QHS x7 days ordered Patient is noncompliant with medication regimen and is unable to tell us what medication she is supposed to be taking and what dosages and how frequent. At this time we will hold off on whole home medications until they can be verified. Discharge planning-recommendation from final inspector motorcyles for patient to discharge to SNF due to noncompliance and inability to take care of herself at home. DVT prophylaxis-SCDs This patient was seen by Ashley Stokes NP-C under the supervision of Dr. Bernstein. Documented by User: Dr. Bryant Bernstein MD 09/04/21 14:29 Subjective Subjective Seen and examined. Patient right foot has been dressed by final inspector motorcyles. Vaginal itching is better. Objective Data Lab / Micro Data Result Diagrams: 09/04/21 06:46 09/04/21 06:46 Physical Exam Narrative General: Alert, Oriented x3, Cooperative HEENT: Atraumatic, PERRLA, EOMI, Normocephalic Oral: No Gingival or Mucosal Lesions/ Ulcerations Neck: Supple, No JVD, Negative Carotid Bruits Lungs: Air entry diminished in bilateral lung bases. No crepitation/rhonchi Cardiovascular: Regular rate, Regular Rhythm, Normal S1, Normal S2, No murmurs Abdomen: Bowel Sounds Present, Soft, Non Tender, Non-Distended : No renal angle tenderness. No suprapubic tenderness. Extremities: No edema, Capillary Refill Less than 3 Seconds Skin: Right foot: Surgical dressing is dry. No discharge or hematoma. Musculoskeletal: No Tenderness to Palpation of Joints or Extremities Neurological: Cranial nerves II-XII grossly intact, DT Assessment & Plan Assessment/Plan (1) Cellulitis of right lower limb: PLAN: This patient was seen in conjunction with ESVIN Ramirez. I have independently interviewed and examined the patient and reviewed pertinent history, examination findings, laboratory and plan of management. I have reviewed the note and agree with the documented findings with the few additional points. In brief, patient is admitted for cellulitis of right foot with recent surgical intervention on 07/22/2021. The purulence found in surgical wound resolved with granular tissue. Discussed with final inspector motorcyles. MRSA PCR negative so vancomycin is discontinued. IV Unasyn. ESR 45, CRP 70.9. Multiple prior microorganism growth including Proteus Klebsiella Enterococcus faecalis and strep pendulous, Bacteroides fragilis and anaerobic cocci. Patient also complained of vaginal candidiasis with itching probably due to empagliflozin which is discontinued. On topical miconazole. Diabetes mellitus type 2: Glucose average about 235- 250. Lantus increased to 20 units/mL twice daily and started on scheduled Humalog 10 subcutaneous 3 times daily AC along with sliding scale coverage I have discussed my assessment with ESVIN Ramirez and orders have been reviewed. Charges/Coding Visit Charges Inpatient E&M: 64180 Subs Hosp L2
[2021-09-04] MEDS: 0.9% Saline Lock 10 ML Syringe IV ×4 (12:16→23:02)
[2021-09-04] MEDS: oxyCODONE 5 MG Tablet PO (14:43)
[2021-09-04 16:56] LABS: Bedside Glucose 218 mg/dL (70-110)
[2021-09-04] MEDS: Insulin Lispro 100 UNIT/ML INSULN.PEN 10 UNIT SC (17:48)
[2021-09-04 22:47] VITALS: BP 131/63; PULSE 75; RESP 18; TEMP 36.5; O2SAT 96
[2021-09-04] MEDS: Doxazosin 1 MG Tablet 1.5 MG PO (22:50)
[2021-09-04] MEDS: Pravastatin 40 MG Tablet PO (22:50)
[2021-09-04] MEDS: Miconazole-7 Nitrate Cream 1 APPLIC VAGINAL (22:52)
[2021-09-04 23:46] LABS: Bedside Glucose 209 mg/dL (70-110)
[2021-09-05 05:14] VITALS: BP 105/59; PULSE 77; RESP 18; TEMP 36.5; O2SAT 97
--- NOTE | 2021-09-05 05:46 | NURSING ---
Attempted to call consult to Dr. Rodriguez's answering service. This RN was informed that they do not take consults from [place] over the weekend and to please call his office Sunday.
[2021-09-05 06:35] LABS: Absolute Lymphocyte Count 1.23 X10^3/uL (0.83-4.51); Absolute Neutrophil Count 3.5 X10^3/uL (2.0-7.7); Basophil# 0.03 X10^3/uL; Basophil% 0.5 % (0-1); Eosinophil# 0.34 X10^3/uL; Hematocrit 38.7 % (37-47); Hemoglobin 11.8 g/dL (12.0-15.0); Lymphocyte # 1.23 X10^3/ul (0.83-4.51); Lymphocyte % 21.6 % (19-41); Mean Corp Hgb Conc 30.5 g/dL (32-36); Mean Corpuscular Hgb 27.5 pg (27.0-32.0); Mean Corpuscular Volume 90.2 fL (81-99); Mean Platelet Vol. 10.2 fl (6.2-12.0); Monocyte# 0.57 X10^3/uL; NRBC Flagged by Analyzer 0 % (0-5); Neutrophil # 3.49 X10^3/uL (2.7-7.7); Neutrophil % 61.4 % (47-70); Platelet Count 399 K/mm3 (150-450); RBC Distribution Width CV 13.2 % (11.6-14.6); RBC Distribution Width SD 43.1 fl (35.1-43.9); Red Blood Count 4.29 M/mm3 (4.2-5.4); White Blood Count 5.7 K/mm3 (4.4-11.0)
[2021-09-05 06:54] LABS: Anion Gap 6 (5-15); BUN 19 mg/dL (7-18); BUN/Creat Ratio 29.6 RATIO (10-20); Calcium,Total 9.1 mg/dL (8.5-10.1); Chloride 104 mmol/L (98-107); Creatinine, Serum 0.64 mg/dL (0.55-1.02); EST Glomerular Filtration Rate 105 mL/min (>60); Est Glom Filt Rate - Afr Amer 127 mL/min (>60); Estimated Creatinine Clearance 85.02 ml/min; Glucose 184 mg/dL (74-106); Potassium 3.7 mmol/L (3.5-5.1); Sodium Level 140 mmol/L (136-145)
[2021-09-05 08:06] LABS: Bedside Glucose 225 mg/dL (70-110)
[2021-09-05 08:08] VITALS: BP 118/51; PULSE 89; RESP 18; TEMP 36.6; O2SAT 97
--- NOTE | 2021-09-05 08:10 | PCM.PROGNOTE ---
Subjective Subjective Patient was seen this morning for follow up on right foot. No overnight events. No fever, chills, nausea, vomiting. She relates to some pain to the right heel but otherwise appears to be doing well. Objective Data Objective Data Vital Signs: Vital Signs Temp Pulse Resp BP Pulse Ox 97.7 F L 77 18 105/59 L 97 09/05/21 05:14 09/05/21 05:14 09/05/21 05:14 09/05/21 05:14 09/05/21 05:14 Oxygen Delivery Method Room Air Weight: 120.9 kg Body Mass Index (BMI) 48.7 Intake & Output: Intake and Output for Last 24 Hours 09/04/21 09/04/21 09/05/21 00:59 23:59 23:59 Intake Total 224 / 224 Balance 224 / 224 Lab / Micro Data Result Diagrams: 09/05/21 05:40 09/05/21 05:40 Labs: Laboratory Results - last 24 hr 09/04/21 11:08: POC Glucose 249 H 09/04/21 16:52: POC Glucose 218 H 09/04/21 22:44: POC Glucose 209 H 09/05/21 05:40: WBC 5.7, RBC 4.29, Hgb 11.8 L, Hct 38.7, MCV 90.2, MCH 27.5, MCHC 30.5 L, RDW Std Deviation 43.1, RDW Coeff of Juliet 13.2, Plt Count 399, MPV 10.2, Immature Gran % (Auto) 0.500, Neut % (Auto) 61.4, Lymph % (Auto) 21.6, [place] % (Auto) 10.0, Eos % (Auto) 6.0 H, Baso % (Auto) 0.5, Absolute Neuts (auto) 3.5, Absolute Lymphs (auto) 1.23, Nucleated RBC % 0 09/05/21 05:40: Sodium 140, Potassium 3.7, Chloride 104, Carbon Dioxide 30.0, Anion Gap 6, BUN 19 H, Creatinine 0.64, Estim Creat Clear Calc 85.02, Est GFR (MDRD) Af Amer 127, Est GFR (MDRD) Non-Af 105, BUN/Creatinine Ratio 29.6 H, Glucose 184 H, Calcium 9.1 09/05/21 08:03: POC Glucose 225 H Radiography Diagnostic Testing: Radiology Impression Extremity Arterial Study 09/02/21 13:36 Interpretation Summary Triphasic Doppler waveforms are noted at ankle level bilaterally. Pulse-volume recordings appear satisfactory at all levels bilaterally. Resting ankle-brachial indices are normal bilaterally. Digital-brachial indices are normal bilaterally. There is no evidence of significant arterial occlusive disease in the lower extremities bilaterally. Ordering Physician: Eloisa Greenwood Referring Physician: Fabricio Harry Performed By: Jayna Montgomery RVT Physical Exam Const alert and oriented x3 General Appearance: cooperative HEENT normocephalic and moist oral mucous membranes Eyes EOMs intact bilaterally Neck full ROM Chest Chest: symmetrical chest wall rise Resp clear to auscultation bilaterally Auscultation: Negative for wheezes Cardio regular rate and regular rhythm Extremity normal capillary refill Extremity Narrative: Ulcer noted to the plantar posterior heel - there is no fluctuance or bogginess on palpation, there is no cellulitis, no maloder, no crepitus, the tissues are viable and granular with intact margins - the hardware is not visibly exposed, the ulcer appears to be down to the subcutanous tissue. There are no other open lesions noted to the right foot or ankle. There is some mild edema to the foot, calf is soft and supple, no complaints of calf pain with no calf edema noted. Skin no petechiae Neuro Sensory Exam: extremities light-touch: normal Psych cooperative Psych Narrative: Mood & Affect: depressed Assessment & Plan Assessment/Plan (1) Diabetes: QUALIFIERS: Diabetes mellitus complication status: with other specified complication Diabetes mellitus intermediate project manager insulin use: without shelter use Diabetes mellitus type: type 2 Qualified Code(s): E11.69 - Type 2 diabetes mellitus with other specified complication (2) Cellulitis of right lower limb: (3) Walking difficulty due to ankle and foot: (4) Morbid obesity with body mass index (BMI) greater than or equal to 50: PLAN: She was admitted for infection management of the right lower extremity. She had semi recent surgical intervention on 07-22-21. She has failed to appropriately care for herself at home including missing multiple postoperative follow-ups, wound care compliance, maintaining a nonweightbearing status, and concurrent lack of infection resolution with oral antibiotics. Culture was obtained and growing proteus - She is on IV Unasyn. Blood cultures neg so far. There has been clinical improvement to the heel/foot. The arthrodesis site is not healed or stable so hardware removal is not recommended at this time. ID consult placed to Dr. Rodriguez. Three right foot x-rays were obtained while at the [facility] clinic on 09/02 which did not demonstrate soft tissue emphysema, acute fracture dislocation, or foreign body. There is evidence of os trigonum excision and subtalar joint arthrodesis without osseous bridging at the arthrodesis site confirmed. There is no rosamaria fragmentation or visualized osseous destruction. The hardware maintains its initial position without visualized loosening or failure. To change dressing daily with Dakin wet-to-dry. The dressing was changed this morning. Purulence and erythema resolved. Surgical debridement, drainage, or hardware removal is not planned at this time. To maintain a strict nonweightbearing status. To use assistive device. I recommend she continues to work with physical and occupational therapy. She has fallen also at home. SNF placement was recommended. Her uncontrolled diabetes is noted. Her A1C has significantly increased from 7 range to now 9.6%. Medical management per hospitalist is appreciated. It is noted she has not been able to take her medication or prepare appropriate foot at home to maintain ideal glucose levels. DVT prophylaxis with SCDs. senior living facility placement is recommended due to inability to care for self at home, gait impairment, recurrent falls, and infection status. Social work assistance is appreciated and SNF availability. Please do not hesitate to call if you have any questions. Will follow while in house. Medicine team on consult - appreciate assistance.
[2021-09-05] MEDS: oxyCODONE 5 MG Tablet PO ×2 (08:22→19:56)
[2021-09-05] MEDS: Juven (unflavored) Packet 1 PACKET PO ×2 (08:22→17:18)
[2021-09-05] MEDS: Multivitamins,Therapeutic Tablet 1 TABLET PO (08:22)
[2021-09-05] MEDS: Cholecalciferol (VIT D3) 25 MCG TABLET (1,000 UNITS) 50 MCG PO (08:23)
[2021-09-05] MEDS: DAKIN'S SOL HALF STRENGTH (=0.25%) 1 APPLIC TOPICAL (08:23)
[2021-09-05] MEDS: Insulin Lispro 100 UNIT/ML INSULN.PEN 10 UNIT SC ×3 (08:24→17:27)
[2021-09-05] MEDS: Insulin Lispro 100 UNIT/ML INSULN.PEN SC ×4 (08:25→22:04)
[2021-09-05] MEDS: Pantoprazole Sodium 40 MG Tablet PO (08:31)
--- NOTE | 2021-09-05 09:20 | WOUNDNOTE ---
wound photo: right heel
--- NOTE | 2021-09-05 09:46 | PN.HOSP_ITS ---
Documented by User: Ashley Stokes NP-C 09/05/21 09:54 Subjective Subjective Patient seen and examined. Patient states that Dr. boudreaux was in this morning and change dressing so she is having increased back pain currently, nurse at bedside administering pain medication. Patient states otherwise she has no complaints at this time. Objective Data Objective Data Vital Signs: Vital Signs Temp Pulse Resp BP Pulse Ox 97.8 F 89 18 118/51 L 97 09/05/21 08:08 09/05/21 08:08 09/05/21 08:08 09/05/21 08:08 09/05/21 08:08 Oxygen Flow Rate (L/min) 98 Oxygen Delivery Method Room Air Weight: 266 lb 8.622 oz Body Mass Index (BMI) 48.7 Intake & Output: Intake and Output for Last 24 Hours 09/04/21 09/04/21 09/05/21 00:59 23:59 23:59 Intake Total 224 / 224 Balance 224 / 224 Lab / Micro Data Result Diagrams: 09/05/21 05:40 09/05/21 05:40 Labs: Laboratory Results - last 24 hr 09/04/21 11:08: POC Glucose 249 H 09/04/21 16:52: POC Glucose 218 H 09/04/21 22:44: POC Glucose 209 H 09/05/21 05:40: WBC 5.7, RBC 4.29, Hgb 11.8 L, Hct 38.7, MCV 90.2, MCH 27.5, MCHC 30.5 L, RDW Std Deviation 43.1, RDW Coeff of Juliet 13.2, Plt Count 399, MPV 10.2, Immature Gran % (Auto) 0.500, Neut % (Auto) 61.4, Lymph % (Auto) 21.6, [place] % (Auto) 10.0, Eos % (Auto) 6.0 H, Baso % (Auto) 0.5, Absolute Neuts (auto) 3.5, Absolute Lymphs (auto) 1.23, Nucleated RBC % 0 09/05/21 05:40: Sodium 140, Potassium 3.7, Chloride 104, Carbon Dioxide 30.0, Anion Gap 6, BUN 19 H, Creatinine 0.64, Estim Creat Clear Calc 85.02, Est GFR (MDRD) Af Amer 127, Est GFR (MDRD) Non-Af 105, BUN/Creatinine Ratio 29.6 H, Glucose 184 H, Calcium 9.1 09/05/21 08:03: POC Glucose 225 H Micro: Microbiology 09/02/21 16:18 Blood Culture (Wb) - Right Forearm Blood Culture - Preliminary No growth in 48 hours. 09/02/21 16:18 Blood Culture (Wb) - Anticubital Right Blood Culture - Preliminary No growth in 48 hours. Radiography Diagnostic Testing: Radiology Impression Extremity Arterial Study 09/02/21 13:36 Interpretation Summary Triphasic Doppler waveforms are noted at ankle level bilaterally. Pulse-volume recordings appear satisfactory at all levels bilaterally. Resting ankle-brachial indices are normal bilaterally. Digital-brachial indices are normal bilaterally. There is no evidence of significant arterial occlusive disease in the lower extremities bilaterally. Ordering Physician: Eloisa Greenwood Referring Physician: Fabricio Harry Performed By: Jayna Montgomery RVT Physical Exam Const alert, oriented x3 and no apparent distress HEENT head/scalp atraumatic Eyes conjunctivae normal and no scleral icterus Neck full ROM and supple Resp normal respiratory effort, normal air movement and clear to auscultation bilaterally Effort and Inspection: able to speak in complete sentences and symmetric chest movement Cardio regular rate, regular rhythm, S1 normal heart sound, S2 normal heart sound and peripheral pulses 2+ throughout GI normal to inspection, nondistended, normoactive bowel sounds, soft to palpation and non-tender Extremity normal to inspection, full ROM and no clubbing, cyanosis or edema Skin no rashes or lesions noted and skin turgor normal Wounds: wounds noted Neuro oriented x3, moves all extremities, no focal motor deficits and no sensory deficits noted Speech: speech normal Psych affect normal Assessment & Plan Assessment/Plan (1) Infected hardware in right lower extremity: (2) Yeast infection of the vagina: (3) Diabetes: QUALIFIERS: Diabetes mellitus complication status: with other specified complication Diabetes mellitus longterm insulin use: without buttermaker continuous churn use Diabetes mellitus type: type 2 Qualified Code(s): E11.69 - Type 2 diabetes mellitus with other specified complication (4) Morbid obesity with body mass index (BMI) greater than or equal to 50: PLAN: 1. Cellulitis right lower limb -Patient underwent a surgical intervention on 07/22/2021. Patient has been noncompliant with wound care compliance, follow-ups, following nonweightbearing status. -Patient has daily dressing changes with Dakin solution wet-to-dry ordered to right heel wound and will be managed per Dr. Greenwood. -Wound culture pending -Nonweightbearing -PT and OT to follow -Continue IV Unasyn, to proximity to patient's hardware infectious disease consulted -Daily CBC ordered 2. Diabetes mellitus type 2 -Patient is prescribed Tradjenta and Jardiance however patient states that she has not been taking the Jardiance due to it causing recurrent yeast infections and that her Plays with her Tradjenta bottle because it makes a funny noise and she does not know where it is. Patient also states that she is noncompliant with blood sugar checks and has not checked her blood sugar for at least a couple days -Continue hold p.o. antidiabetic medications at this time -AC at bedtime blood sugars with sliding scale insulin ordered, blood sugars improved from admission -Hemoglobin A1c 9.6 3. Morbid obesity BMI 45.0-49.9 -Encourage lifestyle modifications including diet and exercise and adherence to diabetic regimen 4. Yeast infection of the vagina -Likely secondary to use of Jardiance -miconazole 2% QHS x7 days ordered on 09/03/2021 Patient is noncompliant with medication regimen and is unable to tell us what medication she is supposed to be taking and what dosages and how frequent. At this time we will hold off on whole home medications until they can be verified. Discharge planning-recommendation from study coordinator for patient to discharge to SNF due to noncompliance and inability to take care of herself at home. DVT prophylaxis-SCDs This patient was seen by CHANNING Weinstein under the supervision of Dr. Bernstein. Documented by User: Dr. Bryant Bernstein MD 09/05/21 16:52 Subjective Subjective Patient was seen and dressing was done by study coordinator. She is pain in the back and the right foot. Objective Data Lab / Micro Data Result Diagrams: 09/05/21 05:40 09/05/21 05:40 Physical Exam Narrative General: Alert, Oriented x3, Cooperative HEENT: Atraumatic, PERRLA, EOMI, Normocephalic Oral: No Gingival or Mucosal Lesions/ Ulcerations Neck: Supple, No JVD, Negative Carotid Bruits Lungs: Air entry diminished in bilateral lung bases. No crepitation/rhonchi Cardiovascular: Regular rate, Regular Rhythm, Normal S1, Normal S2, No murmurs Abdomen: Bowel Sounds Present, Soft, Non Tender, Non-Distended : No renal angle tenderness. No suprapubic tenderness. Extremities: No edema, Capillary Refill Less than 3 Seconds Skin: Right foot: Surgical dressing is dry. No discharge or hematoma. Musculoskeletal: No Tenderness to Palpation of Joints or Extremities Neurological: Cranial nerves II-XII grossly intact, DT Assessment & Plan Assessment/Plan (1) Cellulitis of right lower limb: PLAN: This patient was seen in conjunction with ESVIN Ramirez. I have independently interviewed and examined the patient and reviewed pertinent history, examination findings, laboratory and plan of management. I have reviewed the note and agree with the documented findings with the few additional points. In brief, patient is admitted for cellulitis of right foot with recent surgical intervention on 07/22/2021. The purulence found in surgical wound resolved with granular tissue. Discussed with study coordinator. MRSA PCR negative so vancomycin is discontinued. IV Unasyn. ESR 45, CRP 70.9. Multiple prior microorganism growth including Proteus Klebsiella Enterococcus faecalis and strep pendulous, Bacteroides fragilis and anaerobic cocci. This time, wound culture shows Proteus. On Unasyn. PICC line is ordered by ID and plan for 6 weeks course of Unasyn and then possible suppressive course of p.o. antibiotic given suspected hardware infection. She is Covid vaccinated Patient also complained of vaginal candidiasis with itching probably due to empagliflozin which is discontinued. On topical miconazole. Diabetes mellitus type 2: Glucose is better controlled. Lantus 20 units/mL twice daily and started on scheduled Humalog 10 subcutaneous 3 times daily AC along with sliding scale coverage I have discussed my assessment with ESVIN Ramirez and orders have been reviewed. Charges/Coding Visit Charges Inpatient E&M: 82021 Subs Hosp L2
[2021-09-05] MEDS: Meloxicam 15 MG Tablet PO (10:03)
[2021-09-05] MEDS: Venlafaxine XR 75 MG Capsule PO (10:03)
[2021-09-05 12:20] LABS: Bedside Glucose 237 mg/dL (70-110)
--- NOTE | 2021-09-05 13:32 | CASEMGMT ---
Social Work Note SW in to speak with pt regarding SNF placement. SW introduced self and role at [facility]. SW spoke with pt regarding SNF options. Pt states preferred provider is [facility]. SW informed pt that this worker can call [facility] to check on bed availability but informed pt that [facility] is usually pretty full. UZMA asked pt if [facility] has a bed available if this worker could go ahead and fax referral to [facility] and pt gave this worker permission to do so. UZMA placed a call to [facility] and spoke with Christina in admissions. Christina states she is not sure about bed availability, request referral be sent. UZMA faxed referral to [facility]. Plan: [facility] pending acceptance and pre-cert Jayna Hernandes [employer] FINISH[employer], [employer]
--- NOTE | 2021-09-05 14:44 | PCM.CONS.GEN ---
Assessment & Plan Assessment/Plan (1) Infected hardware in right lower extremity: PLAN: Wound cx with proteus. Wound cx 08/08/21 with klebs, proteus, enterococcus, strep, and anaerobes. On unasyn here. Prior klebs was I to unasyn but may have represented surface contamination. She is covid vaccinated. will order picc and plan on 6 weeks total course of unasyn, then likely long supressive course of po abx given suspected hardware involvement. She is covid vaccinated. will follow, thank you (2) Diabetes: QUALIFIERS: Diabetes mellitus type: type 2 Diabetes mellitus [facility] insulin use: without petroleum terminal plant operator use Diabetes mellitus complication status: with other specified complication Qualified Code(s): E11.69 - Type 2 diabetes mellitus with other specified complication HPI Consult Data Date of Consult: 09/05/21 HPI Narrative HPI Narrative: AMELIA DAVENPORT, is a 46 F who had R foot surgery 07/22, complicated by poor followup afterwards, wound contamination, and fall. Worsened over several days, went to wound center with new pain/purulence/swelling. No fever or chills. Has completed covid series. On unasyn here, foot feeling better. Plan is for ECF. Full ROS performed and neg except as noted above. [facility] Medical History Anxiety Anxiety and depression Arthritis Blackout Depression Diabetes Dysphagia Easy bruising Former smoker GERD (gastroesophageal reflux disease) GERD (gastroesophageal reflux disease) High cholesterol History of back problems History of stress test Morbid obesity with body mass index (BMI) greater than or equal to 50 Obesity PTSD (post-traumatic stress disorder) Scoliosis Shortness of breath on exertion Wears glasses Home Medications multivitamin 1 tab PO DAILY 11/21/18 [History Last Taken 08/31/21] prazosin 1 mg capsule 2 mg PO QHS 08/19/19 [History Last Taken 08/31/21] famotidine 20 mg PO DAILY 09/02/19 [History Last Taken 08/31/21] pravastatin 40 mg PO QHS 09/02/19 [History Last Taken 08/31/21] cinnamon bark 500 mg capsule 500 mg PO DAILY 10/04/20 [History Last Taken 08/31/21] melatonin 5 mg tablet 20 mg PO QHS tab 10/04/20 [History Last Taken 08/31/21] meloxicam 15 mg tablet 15 mg PO DAILY tab 10/04/20 [History Last Taken 08/31/21] venlafaxine 75 mg capsule,extended release 24 hr 75 mg PO DAILY cap 10/04/20 [History Last Taken 08/31/21] cholecalciferol (vitamin D3) [Vitamin D3] 50 mcg PO DAILY 07/15/21 [History Last Taken 08/31/21] empagliflozin [Jardiance] 10 mg PO DAILY 07/15/21 [History Last Taken 08/31/21] linagliptin [Tradjenta] 10 mg PO DAILY 07/15/21 [History Last Taken 08/31/21] omeprazole 40 mg PO DAILY 07/15/21 [History Last Taken 09/01/21] Allergy/AdvReac Type Severity Reaction Status Date / Time azithromycin Allergy Rash Verified 09/02/21 15:47 [From Zithromax Z-Matt] bupropion [From Wellbutrin] Allergy Rash Verified 09/02/21 15:47 celecoxib [From Celebrex] Allergy Rash Verified 09/02/21 15:47 diclofenac [From Voltaren] Allergy Rash Verified 09/02/21 15:47 loratadine [From Claritin] Allergy Rash Verified 09/02/21 15:47 Sulfa (Sulfonamide Allergy Itching, Verified 09/02/21 13:20 Antibiotics) RASH Family History Aunt Hypertension CVA (cerebral vascular accident) Father Heart disease Diabetes Cancer Parkinsons disease Aunt Myocardial infarction Surgical History History of colonoscopy History of left knee surgery History of tubal ligation Social History Smoking Status: Former smoker second hand exposure: Yes alcohol intake: never Physical Exam Const alert, oriented x3 and no apparent distress General Appearance: cooperative Exam Limitations: no limitations HEENT head/scalp atraumatic Eyes PERRL and EOMs intact bilaterally Neck supple and No nodes Resp normal air movement and clear to auscultation bilaterally Cardio regular rate and regular rhythm GI normal to inspection, nondistended, normoactive bowel sounds Skin Skin Narrative: reviewed photo R foot Neuro CN's II-XII intact bilaterally Lab / Micro Data Result Diagrams: 09/05/21 05:40 09/05/21 05:40 Labs: Laboratory Results - last 24 hr 09/04/21 16:52: POC Glucose 218 H 09/04/21 22:44: POC Glucose 209 H 09/05/21 05:40: WBC 5.7, RBC 4.29, Hgb 11.8 L, Hct 38.7, MCV 90.2, MCH 27.5, MCHC 30.5 L, RDW Std Deviation 43.1, RDW Coeff of Juliet 13.2, Plt Count 399, MPV 10.2, Immature Gran % (Auto) 0.500, Neut % (Auto) 61.4, Lymph % (Auto) 21.6, [place] % (Auto) 10.0, Eos % (Auto) 6.0 H, Baso % (Auto) 0.5, Absolute Neuts (auto) 3.5, Absolute Lymphs (auto) 1.23, Nucleated RBC % 0 09/05/21 05:40: Sodium 140, Potassium 3.7, Chloride 104, Carbon Dioxide 30.0, Anion Gap 6, BUN 19 H, Creatinine 0.64, Estim Creat Clear Calc 85.02, Est GFR (MDRD) Af Amer 127, Est GFR (MDRD) Non-Af 105, BUN/Creatinine Ratio 29.6 H, Glucose 184 H, Calcium 9.1 09/05/21 08:03: POC Glucose 225 H 09/05/21 12:03: POC Glucose 237 H Micro: Microbiology 09/02/21 16:18 Blood Culture (Wb) - Right Forearm Blood Culture - Preliminary No growth in 48 hours. 09/02/21 16:18 Blood Culture (Wb) - Anticubital Right Blood Culture - Preliminary No growth in 48 hours. Radiology Impression Extremity Arterial Study 09/02/21 13:36 Interpretation Summary Triphasic Doppler waveforms are noted at ankle level bilaterally. Pulse-volume recordings appear satisfactory at all levels bilaterally. Resting ankle-brachial indices are normal bilaterally. Digital-brachial indices are normal bilaterally. There is no evidence of significant arterial occlusive disease in the lower extremities bilaterally. Ordering Physician: Eloisa Greenwood Referring Physician: Fabricio Harry Performed By: Jayna Montgomery RVT
--- NOTE | 2021-09-05 15:30 | CASEMGMT ---
Social Work Note SW received call from [facility] stating they are not able to accept pt due to no bed availability. SW in to speak with pt. Pt states she prefers to stay in [place], [facility] Pt states she has no preference between the two facilities, agreeable to this worker calling either facility to check on bed availability. UZMA placed a call to Laura at [facility] [place] and left message regarding referral. UZMA faxed referral to [facility] [place]. Plan: SNF pending acceptance and pre-cert Jayna Hernnades BIOMEDICAL ENGINEER, PROCESS IMPROVEMENT ANALYST
[2021-09-05 16:12] VITALS: BP 122/77; PULSE 85; RESP 18; TEMP 36.9; O2SAT 97
[2021-09-05 16:25] LABS: Bedside Glucose 155 mg/dL (70-110)
[2021-09-05] MEDS: 0.9% Saline Lock 10 ML Syringe IV ×2 (17:17→23:16)
[2021-09-05 20:42] VITALS: BP 123/64; PULSE 84; RESP 18; TEMP 36.7; O2SAT 97
--- NOTE | 2021-09-05 21:04 | NURSING ---
This RN assisted animal park code enforcement officer in obtaining H&P and allergy information for this pt as primary RN is assisting another pt at this time.
[2021-09-05] MEDS: Doxazosin 1 MG Tablet 1.5 MG PO (22:03)
[2021-09-05] MEDS: Pravastatin 40 MG Tablet PO (22:06)
[2021-09-05] MEDS: Miconazole-7 Nitrate Cream 1 APPLIC VAGINAL (22:07)
[2021-09-05 22:31] LABS: Bedside Glucose 156 mg/dL (70-110)
[2021-09-06 03:30] VITALS: BP 123/56; PULSE 93; RESP 18; TEMP 36.3; O2SAT 96
[2021-09-06 06:21] LABS: Absolute Lymphocyte Count 1.43 X10^3/uL (0.83-4.51); Absolute Neutrophil Count 3.6 X10^3/uL (2.0-7.7); Basophil# 0.05 X10^3/uL; Basophil% 0.8 % (0-1); Eosinophil# 0.36 X10^3/uL; Eosinophils% 5.9 % (0-5); Hematocrit 37.4 % (37-47); Hemoglobin 11.5 g/dL (12.0-15.0); Lymphocyte # 1.43 X10^3/ul (0.83-4.51); Lymphocyte % 23.4 % (19-41); Mean Corp Hgb Conc 30.7 g/dL (32-36); Mean Corpuscular Hgb 27.6 pg (27.0-32.0); Mean Corpuscular Volume 89.9 fL (81-99); Mean Platelet Vol. 9.9 fl (6.2-12.0); Monocyte# 0.62 X10^3/uL; Monocyte% 10.2 % (0-10); NRBC Flagged by Analyzer 0 % (0-5); Neutrophil # 3.59 X10^3/uL (2.7-7.7); Neutrophil % 58.9 % (47-70); Platelet Count 355 K/mm3 (150-450); RBC Distribution Width CV 13.2 % (11.6-14.6); RBC Distribution Width SD 43.3 fl (35.1-43.9); Red Blood Count 4.16 M/mm3 (4.2-5.4); White Blood Count 6.1 K/mm3 (4.4-11.0)
[2021-09-06 06:43] LABS: Anion Gap 6 (5-15); BUN 20 mg/dL (7-18); BUN/Creat Ratio 30.8 RATIO (10-20); Calcium,Total 8.8 mg/dL (8.5-10.1); Chloride 104 mmol/L (98-107); Creatinine, Serum 0.65 mg/dL (0.55-1.02); EST Glomerular Filtration Rate 103 mL/min (>60); Est Glom Filt Rate - Afr Amer 125 mL/min (>60); Estimated Creatinine Clearance 83.71 ml/min; Glucose 152 mg/dL (74-106); Potassium 3.8 mmol/L (3.5-5.1); Sodium Level 141 mmol/L (136-145)
--- NOTE | 2021-09-06 07:01 | PCM.PROGNOTE ---
Subjective Subjective Patient was seen this morning. She has no new complaints. She does not have any fever, chills, nausea or vomiting. No acute events. She is awaiting nursing facility placement. Objective Data Objective Data Vital Signs: Vital Signs Temp Pulse Resp BP Pulse Ox 97.4 F L 93 18 123/56 H 96 09/06/21 03:30 09/06/21 03:30 09/06/21 03:30 09/06/21 03:30 09/06/21 03:30 Oxygen Flow Rate (L/min) 98 Oxygen Delivery Method Room Air Weight: 120.9 kg Body Mass Index (BMI) 48.7 Intake & Output: Intake and Output for Last 24 Hours 09/04/21 09/05/21 09/06/21 23:59 23:59 23:59 Intake Total 1258 / 1258 724 / 724 Balance 1258 / 1258 724 / 724 Lab / Micro Data Result Diagrams: 09/06/21 05:54 09/06/21 05:54 Labs: Laboratory Results - last 24 hr 09/05/21 08:03: POC Glucose 225 H 09/05/21 12:03: POC Glucose 237 H 09/05/21 16:18: POC Glucose 155 H 09/05/21 22:01: POC Glucose 156 H 09/06/21 05:54: WBC 6.1, RBC 4.16 L, Hgb 11.5 L, Hct 37.4, MCV 89.9, MCH 27.6, MCHC 30.7 L, RDW Std Deviation 43.3, RDW Coeff of Juliet 13.2, Plt Count 355, MPV 9.9, Immature Gran % (Auto) 0.800, Neut % (Auto) 58.9, Lymph % (Auto) 23.4, [place] % (Auto) 10.2 H, Eos % (Auto) 5.9 H, Baso % (Auto) 0.8, Absolute Neuts (auto) 3.6, Absolute Lymphs (auto) 1.43, Nucleated RBC % 0 09/06/21 05:54: Sodium 141, Potassium 3.8, Chloride 104, Carbon Dioxide 31.0, Anion Gap 6, BUN 20 H, Creatinine 0.65, Estim Creat Clear Calc 83.71, Est GFR (MDRD) Af Amer 125, Est GFR (MDRD) Non-Af 103, BUN/Creatinine Ratio 30.8 H, Glucose 152 H, Calcium 8.8 Micro: Microbiology 09/02/21 16:18 Blood Culture (Wb) - Right Forearm Blood Culture - Preliminary No growth in 48 hours. 09/02/21 16:18 Blood Culture (Wb) - Anticubital Right Blood Culture - Preliminary No growth in 48 hours. Physical Exam Const alert and oriented x3 General Appearance: cooperative HEENT normocephalic and moist oral mucous membranes Eyes EOMs intact bilaterally Neck full ROM Chest Chest: symmetrical chest wall rise Resp clear to auscultation bilaterally Auscultation: Negative for wheezes Cardio regular rate and regular rhythm Extremity normal capillary refill Extremity Narrative: Ulcer noted to the plantar posterior heel - there is no fluctuance or bogginess on palpation, there is no cellulitis, no maloder, no crepitus, the tissues are viable and granular with intact margins - the ulcer is healing - the hardware is not visibly exposed, the ulcer appears to be down to the subcutaneous tissue. There are no other open lesions noted to the right foot or ankle. There is some mild edema to the foot, calf is soft and supple, no complaints of calf pain with no calf edema noted. Skin no petechiae Neuro Sensory Exam: extremities light-touch: normal Psych cooperative Psych Narrative: Mood & Affect: depressed Assessment & Plan Assessment/Plan (1) Diabetes: QUALIFIERS: Diabetes mellitus type: type 2 Diabetes mellitus superintendent terminal insulin use: without superintendent terminal use Diabetes mellitus complication status: with other specified complication Qualified Code(s): E11.69 - Type 2 diabetes mellitus with other specified complication (2) Cellulitis of right lower limb: (3) Walking difficulty due to ankle and foot: (4) Morbid obesity with body mass index (BMI) greater than or equal to 50: PLAN: She was admitted for infection management of the right lower extremity. She had semi recent surgical intervention on 07-22-21. She has failed to appropriately care for herself at home including missing multiple postoperative follow-ups, wound care compliance, maintaining a nonweightbearing status, and concurrent lack of infection resolution with oral antibiotics. Culture was obtained and growing proteus - She is on IV Unasyn. Blood cultures neg so far. There has been clinical improvement to the heel/foot. The arthrodesis site is not healed or stable so hardware removal is not recommended at this time. ID consult placed to Dr. Rodriguez - who saw patient yesterday - reviewed his note - appreciate assistance. Three right foot x-rays were obtained while at the [facility] on [facility]02 which did not demonstrate soft tissue emphysema, acute fracture dislocation, or foreign body. There is evidence of os trigonum excision and subtalar joint arthrodesis without osseous bridging at the arthrodesis site confirmed. There is no rosamaria fragmentation or visualized osseous destruction. The hardware maintains its initial position without visualized loosening or failure. To change dressing daily with Dakin wet-to-dry. The dressing was changed this morning. Purulence and erythema resolved. Surgical debridement, drainage, or hardware removal is not planned at this time. To maintain a strict nonweightbearing status. To use assistive device. I recommend she continues to work with physical and occupational therapy. She has fallen also at home. SNF placement was recommended. Her uncontrolled diabetes is noted. Her A1C has significantly increased from 7 range to now 9.6%. Medical management per hospitalist is appreciated. It is noted she has not been able to take her medication or prepare appropriate foot at home to maintain ideal glucose levels. DVT prophylaxis with SCDs. senior care facility placement is recommended due to inability to care for self at home, gait impairment, recurrent falls, and infection status. Social work assistance is appreciated and SNF availability. Please do not hesitate to call if you have any questions. Will follow while in house. Medicine team on consult - appreciate assistance.
[2021-09-06 07:43] VITALS: BP 106/63; PULSE 87; RESP 18; TEMP 36.8; O2SAT 94
[2021-09-06 07:46] LABS: Bedside Glucose 177 mg/dL (70-110)
[2021-09-06] MEDS: Juven (unflavored) Packet 1 PACKET PO ×2 (07:50→17:18)
[2021-09-06] MEDS: Insulin Lispro 100 UNIT/ML INSULN.PEN 10 UNIT SC ×3 (07:50→17:16)
[2021-09-06] MEDS: Cholecalciferol (VIT D3) 25 MCG TABLET (1,000 UNITS) 50 MCG PO (07:50)
[2021-09-06] MEDS: Multivitamins,Therapeutic Tablet 1 TABLET PO (07:50)
[2021-09-06] MEDS: Insulin Lispro 100 UNIT/ML INSULN.PEN SC ×2 (07:51→13:27)
--- NOTE | 2021-09-06 10:22 | PN.HOSP_ITS ---
Documented by User: CHANNING Weinstein 09/06/21 11:24 Subjective Subjective Patient seen and examined. Patient had PICC line inserted for extended antibiotics upon discharge. Patient has been seen by Dr. Jefferson and Dr. Rodriguez, awaiting SNF placement. Objective Data Objective Data Vital Signs: Vital Signs Temp Pulse Resp BP Pulse Ox 98.2 F 87 18 106/63 94 09/06/21 07:43 09/06/21 07:43 09/06/21 07:43 09/06/21 07:43 09/06/21 07:43 Oxygen Flow Rate (L/min) 98 Oxygen Delivery Method Room Air Weight: 266 lb 8.622 oz Body Mass Index (BMI) 48.7 Intake & Output: Intake and Output for Last 24 Hours 09/04/21 09/05/21 09/06/21 23:59 23:59 23:59 Intake Total 1258 / 1258 724 / 724 Balance 1258 / 1258 724 / 724 Lab / Micro Data Result Diagrams: 09/06/21 05:54 09/06/21 05:54 Labs: Laboratory Results - last 24 hr 09/05/21 12:03: POC Glucose 237 H 09/05/21 16:18: POC Glucose 155 H 09/05/21 22:01: POC Glucose 156 H 09/06/21 05:54: WBC 6.1, RBC 4.16 L, Hgb 11.5 L, Hct 37.4, MCV 89.9, MCH 27.6, MCHC 30.7 L, RDW Std Deviation 43.3, RDW Coeff of Juliet 13.2, Plt Count 355, MPV 9.9, Immature Gran % (Auto) 0.800, Neut % (Auto) 58.9, Lymph % (Auto) 23.4, [place] % (Auto) 10.2 H, Eos % (Auto) 5.9 H, Baso % (Auto) 0.8, Absolute Neuts (auto) 3.6, Absolute Lymphs (auto) 1.43, Nucleated RBC % 0 09/06/21 05:54: Sodium 141, Potassium 3.8, Chloride 104, Carbon Dioxide 31.0, Anion Gap 6, BUN 20 H, Creatinine 0.65, Estim Creat Clear Calc 83.71, Est GFR (MDRD) Af Amer 125, Est GFR (MDRD) Non-Af 103, BUN/Creatinine Ratio 30.8 H, Glucose 152 H, Calcium 8.8 09/06/21 07:40: POC Glucose 177 H Micro: Microbiology 09/02/21 16:18 Blood Culture (Wb) - Right Forearm Blood Culture - Preliminary No growth in 48 hours. 09/02/21 16:18 Blood Culture (Wb) - Anticubital Right Blood Culture - Preliminary No growth in 48 hours. Physical Exam Const alert, oriented x3 and no apparent distress HEENT head/scalp atraumatic Eyes conjunctivae normal and no scleral icterus Neck full ROM and supple Resp normal respiratory effort, normal air movement and clear to auscultation bilaterally Effort and Inspection: able to speak in complete sentences and symmetric chest movement Cardio regular rate, regular rhythm, S1 normal heart sound, S2 normal heart sound and peripheral pulses 2+ throughout GI normal to inspection, nondistended, normoactive bowel sounds, soft to palpation and non-tender Extremity normal to inspection, full ROM and no clubbing, cyanosis or edema Skin no rashes or lesions noted and skin turgor normal Wounds: wounds noted Neuro oriented x3, moves all extremities, no focal motor deficits and no sensory deficits noted Speech: speech normal Psych affect normal Assessment & Plan Assessment/Plan (1) Infected hardware in right lower extremity: QUALIFIERS: Encounter type: initial encounter Qualified Code(s): T84.7XXA - Infection and inflammatory reaction due to other internal orthopedic prosthetic devices, implants and grafts, initial encounter (2) Yeast infection of the vagina: (3) Diabetes: QUALIFIERS: Diabetes mellitus complication status: with other specified complication Diabetes mellitus intermediate frame tender insulin use: without intermediate frame tender use Diabetes mellitus type: type 2 Qualified Code(s): E11.69 - Type 2 diabetes mellitus with other specified complication PLAN: 1. Cellulitis right lower limb -Patient underwent a surgical intervention on 07/22/2021. Patient has been noncompliant with wound care compliance, follow-ups, following nonweightbearing status. -Patient has daily dressing changes with Dakin solution wet-to-dry ordered to right heel wound and will be managed per Dr. Greenwood/janusz. -Wound culture pending -Nonweightbearing -PT and OT to follow -Continue IV Unasyn, will continue for 6 weeks outpatient, PICC line placed 09/05/2021 -Daily CBC ordered 2. Diabetes mellitus type 2 -Patient is prescribed Tradjenta and Jardiance however patient states that she has not been taking the Jardiance due to it causing recurrent yeast infections and that her Plays with her Tradjenta bottle because it makes a funny noise and she does not know where it is. Patient also states that she is noncompliant with blood sugar checks and has not checked her blood sugar for at least a couple days -Continue hold p.o. antidiabetic medications at this time -AC at bedtime blood sugars with sliding scale insulin ordered, blood sugars improved from admission -Hemoglobin A1c 9.6 3. Morbid obesity BMI 45.0-49.9 -Encourage lifestyle modifications including diet and exercise and adherence to diabetic regimen 4. Yeast infection of the vagina -Likely secondary to use of Jardiance -miconazole 2% QHS x7 days ordered on 09/03/2021 Patient is noncompliant with medication regimen and is unable to tell us what medication she is supposed to be taking and what dosages and how frequent. At this time we will hold off on whole home medications until they can be verified. Discharge planning-recommendation from extract mixer for patient to discharge to SNF due to noncompliance and inability to take care of herself at home. DVT prophylaxis-SCDs This patient was seen by Ashley Stokes NP-C under the supervision of Dr. Bernstein. Documented by User: Dr. Bryant Bernstein MD 09/06/21 12:56 Subjective Subjective Patient on IV antibiotic. Has right arm PICC line. Waiting for SNF placement. Objective Data Lab / Micro Data Result Diagrams: 09/06/21 05:54 09/06/21 05:54 Physical Exam Narrative General: Alert, Oriented x3, Cooperative HEENT: Atraumatic, PERRLA, EOMI, Normocephalic Oral: No Gingival or Mucosal Lesions/ Ulcerations Neck: Supple, No JVD, Negative Carotid Bruits Lungs: Air entry diminished in bilateral lung bases. No crepitation/rhonchi Cardiovascular: Regular rate, Regular Rhythm, Normal S1, Normal S2, No murmurs Abdomen: Bowel Sounds Present, Soft, Non Tender, Non-Distended : No renal angle tenderness. No suprapubic tenderness. Extremities: No edema, Capillary Refill Less than 3 Seconds Skin: Right foot: Surgical dressing is dry. Healthy granulation tissue seen on the picture. Musculoskeletal: No Tenderness to Palpation of Joints or Extremities Neurological: Cranial nerves II-XII grossly intact, DT Assessment & Plan Assessment/Plan (1) Infected hardware in right lower extremity: QUALIFIERS: Encounter type: initial encounter Qualified Code(s): T84.7XXA - Infection and inflammatory reaction due to other internal orthopedic prosthetic devices, implants and grafts, initial encounter PLAN: This patient was seen in conjunction with ESVIN Ramirez. I have independently interviewed and examined the patient and reviewed pertinent history, examination findings, laboratory and plan of management. I have reviewed the note and agree with the documented findings with the few additional points. In brief, patient is admitted for cellulitis of right foot with recent surgical intervention on 07/22/2021. The purulence found in surgical wound resolved with granular tissue. Discussed with extract mixer. MRSA PCR negative so vancomycin is discontinued. IV Unasyn. ESR 45, CRP 70.9. Multiple prior microorganism growth including Proteus Klebsiella Enterococcus faecalis and strep pendulous, Bacteroides fragilis and anaerobic cocci. This time, wound culture shows Proteus. On Unasyn. Patient has ulcer in the foot near the hardware. Needs prolonged IV antibiotic.PICC line on right arm and plan for 6 weeks course of Unasyn and then possible suppressive course of p.o. antibiotic given suspected hardware infection, recommended by ID She is Covid vaccinated Patient also complained of vaginal candidiasis with itching probably due to empagliflozin which is discontinued. On topical miconazole. Diabetes mellitus type 2: Glucose is better controlled, less than 180 mg/dL. Lantus 20 units/mL twice daily and started on scheduled Humalog 10 subcutaneous 3 times daily AC along with sliding scale coverage I have discussed my assessment with ESVIN Ramirez and orders have been reviewed. Charges/Coding Visit Charges Inpatient E&M: 33243 Subs Hosp L2
[2021-09-06] MEDS: Venlafaxine XR 75 MG Capsule PO (10:32)
[2021-09-06] MEDS: Meloxicam 15 MG Tablet PO (10:32)
[2021-09-06] MEDS: Pantoprazole Sodium 40 MG Tablet PO (10:34)
[2021-09-06] MEDS: DAKIN'S SOL HALF STRENGTH (=0.25%) 1 APPLIC TOPICAL (10:34)
--- NOTE | 2021-09-06 11:04 | CASEMGMT ---
Addendum entered by Jyana Hernandes 09/06/21 16:07: SW received message from Laura at [facility] stating they are able to accept pt and will submit for pre-cert. SW in to speak with pt. SW informed pt that [facility] has accepted pt pending pre-cert. Pt states understanding. Plan: [facility] pending pre-cert Original Note: Social Work Note SW received message from Laura at [facility] with many questions regarding referral. SW placed a call to [facility] and left message, answered questions. UZMA faxed additional clinicals to [facility] including IV antibiotic script. Plan: SNF pending acceptance and pre-cert Jayna Hernandes SENIOR IT SPECIALIST, SUBSEA ENGINEER
--- NOTE | 2021-09-06 11:27 | PCM.PN.ID ---
Physical Exam Narrative Foot feeling better, no fever, no n/v/d. Const alert General Appearance: cooperative Resp normal air movement and clear to auscultation bilaterally Cardio regular rate and regular rhythm GI normal to inspection, nondistended, normoactive bowel sounds Skin Skin Narrative: foot wrapped ID ID: Route of nutrition/ use of supplements: [] Nutritional Intake: [] IV Site: [] Sanchez Catheter: [] Assessment & Plan Assessment/Plan (1) Infected hardware in right lower extremity: PLAN: Wound cx with proteus. Wound cx 08/08/21 with klebs, proteus, enterococcus, strep, and anaerobes. On unasyn here. Prior klebs was I to unasyn but may have represented surface contamination. She is covid vaccinated. Picc in, plan on 6 weeks total course of unasyn with stop date 10/14/21, then likely long supressive course of po abx given suspected hardware involvement. She is covid vaccinated. will follow, ID followup in 2 weeks. (2) Diabetes: QUALIFIERS: Diabetes mellitus type: type 2 Diabetes mellitus long-term insulin use: without director long term care use Diabetes mellitus complication status: with other specified complication Qualified Code(s): E11.69 - Type 2 diabetes mellitus with other specified complication
[2021-09-06 13:36] LABS: Bedside Glucose 188 mg/dL (70-110)
[2021-09-06 14:08] VITALS: O2SAT 93
[2021-09-06 14:14] VITALS: BP 118/61; PULSE 99; RESP 16; TEMP 36.7; O2SAT 96
--- NOTE | 2021-09-06 17:09 | CASEMGMT ---
ALICIA CM: (late entry for 09/06/21 1100) Phone call [facility] De[facility] stating she is available to assist with discharge planning needs as identified. She can be reached at [phone]. This ALICIA SIMPSON requested Deisy facilitate the precert for a SNF level of care. Deisy stated she would notify the precert team. Tod Melgar RN CM
[2021-09-06 17:15] LABS: Bedside Glucose 140 mg/dL (70-110)
[2021-09-06 20:50] VITALS: BP 121/59; PULSE 87; RESP 18; TEMP 36.6; O2SAT 97
[2021-09-06] MEDS: Doxazosin 1 MG Tablet 1.5 MG PO (20:54)
[2021-09-06] MEDS: Pravastatin 40 MG Tablet PO (20:55)
[2021-09-06] MEDS: oxyCODONE 5 MG Tablet PO (20:55)
[2021-09-06] MEDS: Miconazole-7 Nitrate Cream 1 APPLIC VAGINAL (20:56)
[2021-09-06] MEDS: 0.9% Saline Lock 10 ML Syringe IV ×2 (20:57→21:13)
[2021-09-06 22:50] LABS: Bedside Glucose 144 mg/dL (70-110)
[2021-09-07 04:03] VITALS: BP 125/69; PULSE 76; RESP 16; TEMP 36.5; O2SAT 98
--- NOTE | 2021-09-07 07:02 | PCM.PROGNOTE ---
Subjective Subjective Pt seen this morning, no new complaints. Objective Data Objective Data Vital Signs: Vital Signs Temp Pulse Resp BP Pulse Ox 97.7 F L 76 16 125/69 H 98 09/07/21 04:03 09/07/21 04:03 09/07/21 04:03 09/07/21 04:03 09/07/21 04:03 Oxygen Flow Rate (L/min) 98 Oxygen Delivery Method Room Air Weight: 120.9 kg Body Mass Index (BMI) 48.7 Intake & Output: Intake and Output for Last 24 Hours 09/05/21 09/06/21 09/07/21 23:59 23:59 23:59 Intake Total 1258 / 1258 2208.0 / 2208.0 112 / 112 Balance 1258 / 1258 2208.0 / 2208.0 112 / 112 Lab / Micro Data Result Diagrams: 09/06/21 05:54 09/06/21 05:54 Labs: Laboratory Results - last 24 hr 09/06/21 07:40: POC Glucose 177 H 09/06/21 13:25: POC Glucose 188 H 09/06/21 17:10: POC Glucose 140 H 09/06/21 20:59: POC Glucose 144 H Micro: Microbiology 09/02/21 16:18 Blood Culture (Wb) - Right Forearm Blood Culture - Preliminary No growth in 48 hours. 09/02/21 16:18 Blood Culture (Wb) - Anticubital Right Blood Culture - Preliminary No growth in 48 hours. Physical Exam Const alert and oriented x3 General Appearance: cooperative HEENT normocephalic and moist oral mucous membranes Eyes EOMs intact bilaterally Neck full ROM Chest Chest: symmetrical chest wall rise Resp clear to auscultation bilaterally Auscultation: Negative for wheezes Cardio regular rate and regular rhythm Extremity normal capillary refill Extremity Narrative: Ulcer noted to the plantar posterior heel - there is no fluctuance or bogginess on palpation, there is no cellulitis, no maloder, no crepitus, the tissues are viable and granular with intact margins - the ulcer is healing - the hardware is not visibly exposed, the ulcer appears to be down to the subcutaneous tissue. There are no other open lesions noted to the right foot or ankle. There is some mild edema to the foot, calf is soft and supple, no complaints of calf pain with no calf edema noted. Skin no petechiae Neuro Sensory Exam: extremities light-touch: normal Psych cooperative Psych Narrative: Mood & Affect: depressed Assessment & Plan Assessment/Plan (1) Diabetes: QUALIFIERS: Diabetes mellitus type: type 2 Diabetes mellitus intermodal customer service insulin use: without nursing home use Diabetes mellitus complication status: with other specified complication Qualified Code(s): E11.69 - Type 2 diabetes mellitus with other specified complication (2) Cellulitis of right lower limb: (3) Walking difficulty due to ankle and foot: (4) Morbid obesity with body mass index (BMI) greater than or equal to 50: PLAN: She was admitted for infection management of the right lower extremity. She had semi recent surgical intervention on 07-22-21. She has failed to appropriately care for herself at home including missing multiple postoperative follow-ups, wound care compliance, maintaining a nonweightbearing status, and concurrent lack of infection resolution with oral antibiotics. Culture was obtained and growing proteus - She is on IV Unasyn. Blood cultures neg so far. There has been clinical improvement to the heel/foot. The arthrodesis site is not healed or stable so hardware removal is not recommended at this time. ID consult placed to Dr. Rodriguez - who saw patient yesterday - reviewed his note - appreciate assistance. Three right foot x-rays were obtained while at the [facility] on [facility]/02 which did not demonstrate soft tissue emphysema, acute fracture dislocation, or foreign body. There is evidence of os trigonum excision and subtalar joint arthrodesis without osseous bridging at the arthrodesis site confirmed. There is no rosamaria fragmentation or visualized osseous destruction. The hardware maintains its initial position without visualized loosening or failure. To change dressing daily with Dakin wet-to-dry. The dressing was changed this morning. Purulence and erythema resolved. Surgical debridement, drainage, or hardware removal is not planned at this time. To maintain a strict nonweightbearing status. To use assistive device. I recommend she continues to work with physical and occupational therapy. She has fallen also at home. SNF placement was recommended. Her uncontrolled diabetes is noted. Her A1C has significantly increased from 7 range to now 9.6%. Medical management per hospitalist is appreciated. It is noted she has not been able to take her medication or prepare appropriate foot at home to maintain ideal glucose levels. DVT prophylaxis with SCDs. prison facility placement is recommended due to inability to care for self at home, gait impairment, recurrent falls, and infection status. Social work assistance is appreciated and SNF availability. Please do not hesitate to call if you have any questions. Will follow while in house. Medicine team on consult - appreciate assistance.
[2021-09-07 07:20] LABS: Absolute Lymphocyte Count 1.57 X10^3/uL (0.83-4.51); Basophil# 0.04 X10^3/uL; Basophil% 0.6 % (0-1); Eosinophils% 6.1 % (0-5); Hematocrit 39.3 % (37-47); Hemoglobin 12.1 g/dL (12.0-15.0); Lymphocyte # 1.57 X10^3/ul (0.83-4.51); Lymphocyte % 23.9 % (19-41); Mean Corp Hgb Conc 30.8 g/dL (32-36); Mean Corpuscular Hgb 27.9 pg (27.0-32.0); Mean Corpuscular Volume 90.8 fL (81-99); Mean Platelet Vol. 10.2 fl (6.2-12.0); Monocyte# 0.56 X10^3/uL; Monocyte% 8.5 % (0-10); NRBC Flagged by Analyzer 0 % (0-5); Neutrophil # 3.97 X10^3/uL (2.7-7.7); Neutrophil % 60.3 % (47-70); Platelet Count 363 K/mm3 (150-450); RBC Distribution Width CV 13.2 % (11.6-14.6); RBC Distribution Width SD 43.8 fl (35.1-43.9); Red Blood Count 4.33 M/mm3 (4.2-5.4); White Blood Count 6.6 K/mm3 (4.4-11.0)
[2021-09-07 07:42] LABS: Anion Gap 4 (5-15); BUN 18 mg/dL (7-18); BUN/Creat Ratio 24.2 RATIO (10-20); Calcium,Total 9.2 mg/dL (8.5-10.1); Chloride 104 mmol/L (98-107); Creatinine, Serum 0.74 mg/dL (0.55-1.02); EST Glomerular Filtration Rate 88 mL/min (>60); Est Glom Filt Rate - Afr Amer 107 mL/min (>60); Estimated Creatinine Clearance 73.53 ml/min; Glucose 159 mg/dL (74-106); Potassium 4.1 mmol/L (3.5-5.1); Sodium Level 140 mmol/L (136-145)
[2021-09-07 08:02] VITALS: BP 128/66; PULSE 82; RESP 18; TEMP 36.8; O2SAT 96
[2021-09-07] MEDS: Juven (unflavored) Packet 1 PACKET PO ×2 (08:06→16:39)
[2021-09-07] MEDS: oxyCODONE 5 MG Tablet PO ×2 (08:12→21:44)
[2021-09-07] MEDS: Docusate Sodium 100 MG Capsule 200 MG PO (08:14)
[2021-09-07] MEDS: Venlafaxine XR 75 MG Capsule PO (08:14)
[2021-09-07] MEDS: Cholecalciferol (VIT D3) 25 MCG TABLET (1,000 UNITS) 50 MCG PO (08:15)
[2021-09-07] MEDS: Meloxicam 15 MG Tablet PO (08:15)
[2021-09-07] MEDS: Pantoprazole Sodium 40 MG Tablet PO (08:15)
[2021-09-07] MEDS: Multivitamins,Therapeutic Tablet 1 TABLET PO (08:15)
[2021-09-07] MEDS: Insulin Lispro 100 UNIT/ML INSULN.PEN SC ×6 (08:17→21:49)
[2021-09-07] MEDS: Insulin Lispro 100 UNIT/ML INSULN.PEN 10 UNIT SC (08:18)
[2021-09-07] MEDS: DAKIN'S SOL HALF STRENGTH (=0.25%) 1 APPLIC TOPICAL (08:20)
[2021-09-07 08:26] LABS: Bedside Glucose 184 mg/dL (70-110)
--- NOTE | 2021-09-07 09:50 | PN.HOSP_ITS ---
Documented by User: CHANNING Weinstein 09/07/21 10:06 Subjective Subjective Seen and examined. Patient sitting in bed no distress noted. Patient states that she is awaiting confirmation of facility patient will be discharged to. Objective Data Objective Data Vital Signs: Vital Signs Temp Pulse Resp BP Pulse Ox 98.2 F 82 18 128/66 H 96 09/07/21 08:02 09/07/21 08:02 09/07/21 08:02 09/07/21 08:02 09/07/21 08:02 Oxygen Flow Rate (L/min) 98 Oxygen Delivery Method Room Air Weight: 266 lb 8.622 oz Body Mass Index (BMI) 48.7 Intake & Output: Intake and Output for Last 24 Hours 09/05/21 09/06/21 09/07/21 23:59 23:59 23:59 Intake Total 1258 / 1258 2208.0 / 2208.0 224 / 224 Balance 1258 / 1258 2208.0 / 2208.0 224 / 224 Lab / Micro Data Result Diagrams: 09/07/21 06:30 09/07/21 06:30 Labs: Laboratory Results - last 24 hr 09/06/21 13:25: POC Glucose 188 H 09/06/21 17:10: POC Glucose 140 H 09/06/21 20:59: POC Glucose 144 H 09/07/21 06:30: WBC 6.6, RBC 4.33, Hgb 12.1, Hct 39.3, MCV 90.8, MCH 27.9, MCHC 30.8 L, RDW Std Deviation 43.8, RDW Coeff of Juliet 13.2, Plt Count 363, MPV 10.2, Immature Gran % (Auto) 0.600, Neut % (Auto) 60.3, Lymph % (Auto) 23.9, [place] % (Auto) 8.5, Eos % (Auto) 6.1 H, Baso % (Auto) 0.6, Absolute Neuts (auto) 4.0, Absolute Lymphs (auto) 1.57, Nucleated RBC % 0 09/07/21 06:30: Sodium 140, Potassium 4.1, Chloride 104, Carbon Dioxide 32.0, Anion Gap 4 L, BUN 18, Creatinine 0.74, Estim Creat Clear Calc 73.53, Est GFR (MDRD) Af Amer 107, Est GFR (MDRD) Non-Af 88, BUN/Creatinine Ratio 24.2 H, Gluc ose 159 H, Calcium 9.2 09/07/21 08:14: POC Glucose 184 H Micro: Microbiology 09/02/21 16:18 Blood Culture (Wb) - Right Forearm Blood Culture - Preliminary No growth in 48 hours. 09/02/21 16:18 Blood Culture (Wb) - Anticubital Right Blood Culture - Preliminary No growth in 48 hours. Physical Exam Const alert, oriented x3 and no apparent distress HEENT head/scalp atraumatic Eyes conjunctivae normal and no scleral icterus Neck full ROM and supple Resp normal respiratory effort, normal air movement and clear to auscultation bilaterally Effort and Inspection: able to speak in complete sentences and symmetric chest movement Cardio regular rate, regular rhythm, S1 normal heart sound, S2 normal heart sound and peripheral pulses 2+ throughout GI normal to inspection, nondistended, normoactive bowel sounds, soft to palpation and non-tender Extremity normal to inspection, full ROM and no clubbing, cyanosis or edema Skin no rashes or lesions noted and skin turgor normal Wounds: wounds noted Neuro oriented x3, moves all extremities, no focal motor deficits and no sensory d eficits noted Speech: speech normal Psych affect normal Assessment & Plan Assessment/Plan (1) Infected hardware in right lower extremity: QUALIFIERS: Encounter type: initial encounter Qualified Code(s): T84.7XXA - Infection and inflammatory reaction due to other internal orthopedic prosthetic devices, implants and grafts, initial encounter (2) Yeast infection of the vagina: (3) Diabetes: QUALIFIERS: Diabetes mellitus complication status: with other specified complication Diabetes mellitus senior living insulin use: without senior living use Diabetes mellitus type: type 2 Qualified Code(s): E11.69 - Type 2 diabetes mellitus with other specified complication PLAN: 1. Cellulitis right lower limb -Patient underwent a surgical intervention on 07/22/2021. Patient has been noncompliant with wound care compliance, follow-ups, following nonweightbearing status. -Patient has daily dressing changes with Dakin solution wet-to-dry ordered to r ight heel wound and will be managed per Dr. Greenwood/Li. -Wound culture pending -Nonweightbearing -PT and OT to follow -Continue IV Unasyn, will continue for 6 weeks outpatient, PICC line placed 09/05/2021 -Daily CBC ordered 2. Diabetes mellitus type 2 -Patient is prescribed Tradjenta and Jardiance however patient states that she has not been taking the Jardiance due to it causing recurrent yeast infections and that her Plays with her Tradjenta bottle because it makes a funny noise and she does not know where it is. Patient also states that she is noncompliant with blood sugar checks and has not checked her blood sugar for at least a couple days -AC at bedtime blood sugars with sliding scale insulin ordered, blood sugars improved from admission -Continue Lantus -Hemoglobin A1c 9.6 3. Morbid obesity BMI 45.0-49.9 -Encourage lifestyle modifications including diet and exercise and adherence to diabetic regimen 4. Yeast infection of the vagina -Likely secondary to use of Jardiance -miconazole 2% QHS x7 days ordered on 09/03/2021 Patient is noncompliant with medication regimen and is unable to tell us what medication she is supposed to be taking and what dosages and how frequent. At this time we will hold off on whole home medications until they can be verified. Discharge planning -Recommendation patient to discharge to SNF due to noncompliance and inability to take care of herself at home. -Recommend patient be discharged on Ozempic 0.25 mg subcu weekly, Lantus 20 units subcu twice daily as well as sliding scale Humalog ACHS. Would also recommend patient follow-up with endocrinology for further follow-up. DVT prophylaxis-SCDs This patient was seen by CHANNING Weinstein under the supervision of Dr. Sims. Documented by User: Dr. Jose Juan Sims MD 09/07/21 11:51 Objective Data Lab / Micro Data Result Diagrams: 09/07/21 06:30 09/07/21 06:30 Charges/Coding Addendum Addendum: Dr. Sims: I personally reviewed the chart and examined the patient, and agree with the above findings. 46-year-old female with a history of type 2 diabetes presents to the hospital with cellulitis of her right lower limb. She had had surgical intervention on 07/22/2021 but has been noncompliant with her wound care and there was concern for infected hardware. She was admitted by podiatry and this is being managed between them and infectious disease. Medicine was consulted for assistance in managing her diabetes. She is on Tradjenta and Jardiance however she states that the Jardiance has been causing his infection. Will plan to place her back on Ozempic on discharge as she has difficulty with Metformin due to diarrhea and she states has been on it before. Would also recommend Lantus twice daily dosing as she is getting here in the hospital 20 units as well as a sliding scale insulin at the SNF. Do recommend that she follow-up with endocrinology as an outpatient for medication adjustment. We will plan to follow peripherally. Visit Charges Inpatient E&M: 86159 Subs Hosp L2
[2021-09-07 12:45] LABS: Bedside Glucose 191 mg/dL (70-110)
[2021-09-07 14:39] VITALS: BP 133/74; PULSE 92; RESP 16; TEMP 37.1; O2SAT 98
[2021-09-07 17:01] LABS: Bedside Glucose 206 mg/dL (70-110)
--- NOTE | 2021-09-07 17:37 | CASEMGMT ---
Social Work Note UZMA updated that pt is wondering if she will have a private room or semi private room. UZMA placed a call to Laura at [facility], pt will have private room. Laura states pre-cert is still pending. SW in to speak with pt. UZMA updated pt that she will have a private room at [facility]. SW informed pt that pre-cert is still pending. Pt states understanding. Plan: [facility] pending pre-cert Jayna Hernandes [employer], CHIEF METER READER
[2021-09-07 21:30] VITALS: BP 121/56; PULSE 81; RESP 16; TEMP 37.2; O2SAT 98
[2021-09-07] MEDS: Doxazosin 1 MG Tablet 1.5 MG PO (21:45)
[2021-09-07] MEDS: Pravastatin 40 MG Tablet PO (21:46)
[2021-09-07] MEDS: Miconazole-7 Nitrate Cream 1 APPLIC VAGINAL (21:49)
[2021-09-07 22:15] LABS: Bedside Glucose 226 mg/dL (70-110)
[2021-09-07] MEDS: 0.9% Saline Lock 10 ML Syringe IV (23:49)
[2021-09-08 02:50] VITALS: BP 120/52; PULSE 80; RESP 16; TEMP 36.9; O2SAT 97
[2021-09-08 02:53] VITALS: PULSE 82
[2021-09-08] MEDS: 0.9% Saline Lock 10 ML Syringe IV (05:48)
[2021-09-08 07:01] LABS: Absolute Lymphocyte Count 1.93 X10^3/uL (0.83-4.51); Absolute Neutrophil Count 4.1 X10^3/uL (2.0-7.7); Basophil# 0.05 X10^3/uL; Basophil% 0.7 % (0-1); Eosinophil# 0.39 X10^3/uL; Eosinophils% 5.6 % (0-5); Hematocrit 39.6 % (37-47); Lymphocyte # 1.93 X10^3/ul (0.83-4.51); Lymphocyte % 27.7 % (19-41); Mean Corp Hgb Conc 30.3 g/dL (32-36); Mean Corpuscular Hgb 27.3 pg (27.0-32.0); Monocyte# 0.47 X10^3/uL; Monocyte% 6.7 % (0-10); NRBC Flagged by Analyzer 0 % (0-5); Neutrophil # 4.09 X10^3/uL (2.7-7.7); Neutrophil % 58.7 % (47-70); Platelet Count 352 K/mm3 (150-450); RBC Distribution Width CV 13.2 % (11.6-14.6)
[2021-09-08 07:28] LABS: Anion Gap 4 (5-15); BUN 19 mg/dL (7-18); BUN/Creat Ratio 24.5 RATIO (10-20); Calcium,Total 9.3 mg/dL (8.5-10.1); Chloride 104 mmol/L (98-107); Creatinine, Serum 0.78 mg/dL (0.55-1.02); EST Glomerular Filtration Rate 84 mL/min (>60); Est Glom Filt Rate - Afr Amer 102 mL/min (>60); Estimated Creatinine Clearance 69.76 ml/min; Glucose 176 mg/dL (74-106); Potassium 4.2 mmol/L (3.5-5.1); Sodium Level 139 mmol/L (136-145)
--- NOTE | 2021-09-08 07:57 | PCM.PROGNOTE ---
Subjective Subjective Patient was seen this morning for follow up on foot, she relates she is doing well. No new complaints, just awaiting nursing facility approval. Objective Data Objective Data Vital Signs: Vital Signs Temp Pulse Resp BP Pulse Ox 98.5 F 82 16 120/52 L 97 09/08/21 02:50 09/08/21 02:53 09/08/21 02:50 09/08/21 02:50 09/08/21 02:50 Oxygen Flow Rate (L/min) 98 Oxygen Delivery Method Room Air Weight: 120.9 kg Body Mass Index (BMI) 48.7 Intake & Output: Intake and Output for Last 24 Hours 09/06/21 09/07/21 09/08/21 23:59 23:59 23:59 Intake Total 2208.0 / 2208.0 1438.5 / 1538.5 379.75 / 379.75 Balance 2208.0 / 2208.0 1438.5 / 1538.5 379.75 / 379.75 Lab / Micro Data Result Diagrams: 09/08/21 06:45 09/08/21 06:45 Labs: Laboratory Results - last 24 hr 09/07/21 08:14: POC Glucose 184 H 09/07/21 12:29: POC Glucose 191 H 09/07/21 16:46: POC Glucose 206 H 09/07/21 21:45: POC Glucose 226 H 09/08/21 06:45: WBC 7.0, RBC 4.40, Hgb 12.0, Hct 39.6, MCV 90.0, MCH 27.3, MCHC 30.3 L, RDW Std Deviation 43.0, RDW Coeff of Juliet 13.2, Plt Count 352, MPV 10.0, Immature Gran % (Auto) 0.600, Neut % (Auto) 58.7, Lymph % (Auto) 27.7, [place] % (Auto) 6.7, Eos % (Auto) 5.6 H, Baso % (Auto) 0.7, Absolute Neuts (auto) 4.1, Absolute Lymphs (auto) 1.93, Nucleated RBC % 0 09/08/21 06:45: Sodium 139, Potassium 4.2, Chloride 104, Carbon Dioxide 31.0, Anion Gap 4 L, BUN 19 H, Creatinine 0.78, Estim Creat Clear Calc 69.76, Est GFR (MDRD) Af Amer 102, Est GFR (MDRD) Non-Af 84, BUN/Creatinine Ratio 24.5 H, Glucose 176 H, Calcium 9.3 Micro: Microbiology 09/02/21 16:18 Blood Culture (Wb) - Right Forearm Blood Culture - Preliminary No growth in 48 hours. 09/02/21 16:18 Blood Culture (Wb) - Anticubital Right Blood Culture - Preliminary No growth in 48 hours. Physical Exam Const alert and oriented x3 General Appearance: cooperative HEENT normocephalic and moist oral mucous membranes Eyes EOMs intact bilaterally Neck full ROM Chest Chest: symmetrical chest wall rise Resp clear to auscultation bilaterally Auscultation: Negative for wheezes Cardio regular rate and regular rhythm Extremity normal capillary refill Extremity Narrative: Ulcer noted to the plantar posterior heel - there is no fluctuance or bogginess on palpation, there is no cellulitis, no maloder, no crepitus, the tissues are viable and granular with intact margins - the ulcer continues to improve and is healing - the hardware is not visibly exposed, the ulcer appears to be down to the subcutaneous tissue. There are no other open lesions noted to the right foot or ankle. There is some mild edema to the foot, calf is soft and supple, no complaints of calf pain with no calf edema noted. Skin no petechiae Neuro Sensory Exam: extremities light-touch: normal Psych cooperative Psych Narrative: Mood & Affect: depressed Assessment & Plan Assessment/Plan (1) Diabetes: QUALIFIERS: Diabetes mellitus complication status: with other specified complication Diabetes mellitus rodent exterminator insulin use: without rodent exterminator use Diabetes mellitus type: type 2 Qualified Code(s): E11.69 - Type 2 diabetes mellitus with other specified complication (2) Cellulitis of right lower limb: (3) Walking difficulty due to ankle and foot: (4) Morbid obesity with body mass index (BMI) greater than or equal to 50: PLAN: She was admitted for infection management of the right lower extremity. She had semi recent surgical intervention on 07-22-21. She has failed to appropriately care for herself at home including missing multiple postoperative follow-ups, wound care compliance, maintaining a nonweightbearing status, and concurrent lack of infection resolution with oral antibiotics. Culture was obtained and growing proteus - She is on IV Unasyn. Blood cultures neg so far. There has been continued clinical improvement to the heel/foot. The arthrodesis site is not healed or stable so hardware removal is not recommended at this time. ID consult placed to Dr. Rodriguez - who saw patient yesterday - reviewed his note - appreciate assistance. Three right foot x-rays were obtained while at the [facility] on [facility]/02 which did not demonstrate soft tissue emphysema, acute fracture dislocation, or foreign body. There is evidence of os trigonum excision and subtalar joint arthrodesis without osseous bridging at the arthrodesis site confirmed. There is no rosamaria fragmentation or visualized osseous destruction. The hardware maintains its initial position without visualized loosening or failure. To change dressing daily with Dakin wet-to-dry. The dressing was changed this morning. Purulence and erythema resolved. Surgical debridement, drainage, or hardware removal is not planned at this time. To maintain a strict nonweightbearing status. To use assistive device. I recommend she continues to work with physical and occupational therapy. She has fallen also at home. SNF placement was recommended. Her uncontrolled diabetes is noted. Her A1C has significantly increased from 7 range to now 9.6%. Medical management per hospitalist is appreciated. It is noted she has not been able to take her medication or prepare appropriate foot at home to maintain ideal glucose levels. DVT prophylaxis with SCDs. nursing home facility placement is recommended due to inability to care for self at home, gait impairment, recurrent falls, and infection status. Social work assistance is appreciated and SNF availability. Please do not hesitate to call if you have any questions. Will follow while in house. Medicine team on consult - appreciate assistance.
[2021-09-08] MEDS: Insulin Lispro 100 UNIT/ML INSULN.PEN SC ×6 (07:58→21:09)
[2021-09-08] MEDS: Cholecalciferol (VIT D3) 25 MCG TABLET (1,000 UNITS) 50 MCG PO (07:59)
[2021-09-08] MEDS: Juven (unflavored) Packet 1 PACKET PO ×2 (07:59→16:34)
[2021-09-08] MEDS: Multivitamins,Therapeutic Tablet 1 TABLET PO (07:59)
[2021-09-08 08:22] VITALS: BP 124/61; PULSE 87; RESP 18; TEMP 36.6; O2SAT 98
[2021-09-08] MEDS: Docusate Sodium 100 MG Capsule 200 MG PO (09:50)
[2021-09-08] MEDS: Pantoprazole Sodium 40 MG Tablet PO (09:55)
[2021-09-08] MEDS: Venlafaxine XR 75 MG Capsule PO (09:55)
[2021-09-08] MEDS: Meloxicam 15 MG Tablet PO (09:55)
[2021-09-08] MEDS: Nystatin Powder 15gm Bottle 1 APPLIC TOPICAL ×2 (10:02→20:59)
--- NOTE | 2021-09-08 10:06 | CASEMGMT ---
Addendum entered by Jayna Hernandes 09/08/21 15:10: UZMA placed a call to Laura at [facility] and left message asking for update on pre-cert. Addendum entered by Jayna Hernandes 09/08/21 12:21: SW updated that pt is requesting to speak to SW, wants to know when the SW will be in. SW in to speak with pt. SW informed pt that this worker is still waiting to hear from insurance and that this worker will update pt when pre-cert is obtained. Pt states understanding. Original Note: Social Work Note UZMA faxed updated clinicals to Laura at [facility]. UZMA wrote on fax coversheet that pt is medically ready for discharge once pre-cert is obtained. Plan: [facility] pending pre-cert Jayna Hernandes [employer], LIVESTOCK COUNTER
[2021-09-08] MEDS: DAKIN'S SOL HALF STRENGTH (=0.25%) 1 APPLIC TOPICAL (10:31)
[2021-09-08 11:35] LABS: Bedside Glucose 318 mg/dL (70-110)
[2021-09-08 13:58] VITALS: BP 126/59; PULSE 92; RESP 18; TEMP 36.8; O2SAT 98
[2021-09-08] MEDS: oxyCODONE 5 MG Tablet PO (17:09)
[2021-09-08 20:00] VITALS: O2SAT 95
[2021-09-08 20:24] VITALS: BP 116/58; PULSE 88; RESP 20; TEMP 36.6; O2SAT 95
[2021-09-08] MEDS: Doxazosin 1 MG Tablet 1.5 MG PO (20:55)
[2021-09-08] MEDS: Pravastatin 40 MG Tablet PO (20:57)
[2021-09-08] MEDS: Miconazole-7 Nitrate Cream 1 APPLIC VAGINAL (21:00)
[2021-09-08 21:25] LABS: Bedside Glucose 270 mg/dL (70-110)
[2021-09-09] MEDS: 0.9% Saline Lock 10 ML Syringe IV ×3 (00:01→12:48)
[2021-09-09 03:15] VITALS: BP 132/67; PULSE 84; RESP 16; TEMP 36.6; O2SAT 98
--- NOTE | 2021-09-09 06:50 | PN_ITS ---
Subjective Subjective Patient was seen this morning for follow up, no new complaints. She is resting comfortably in bed, no complaints. Patient afebrile. Objective Data Objective Data Vital Signs: Vital Signs Temp Pulse Resp BP Pulse Ox 97.9 F 84 16 132/67 H 98 09/09/21 03:15 09/09/21 03:15 09/09/21 03:15 09/09/21 03:15 09/09/21 03:15 Oxygen Flow Rate (L/min) 98 Oxygen Delivery Method Room Air Weight: 120.9 kg Body Mass Index (BMI) 48.7 Intake & Output: Intake and Output for Last 24 Hours 09/07/21 09/08/21 09/09/21 23:59 23:59 23:59 Intake Total 1438.5 / 1538.5 2775.50 / 2775.50 418.25 / 418.25 Balance 1438.5 / 1538.5 2775.50 / 2775.50 418.25 / 418.25 Lab / Micro Data Result Diagrams: 09/08/21 06:45 09/08/21 06:45 Labs: Laboratory Results - last 24 hr 09/08/21 06:45: WBC 7.0, RBC 4.40, Hgb 12.0, Hct 39.6, MCV 90.0, MCH 27.3, MCHC 30.3 L, RDW Std Deviation 43.0, RDW Coeff of Juliet 13.2, Plt Count 352, MPV 10.0, Immature Gran % (Auto) 0.600, Neut % (Auto) 58.7, Lymph % (Auto) 27.7, [place] % (Auto) 6.7, Eos % (Auto) 5.6 H, Baso % (Auto) 0.7, Absolute Neuts (auto) 4.1, Absolute Lymphs (auto) 1.93, Nucleated RBC % 0 09/08/21 06:45: Sodium 139, Potassium 4.2, Chloride 104, Carbon Dioxide 31.0, Anion Gap 4 L, BUN 19 H, Creatinine 0.78, Estim Creat Clear Calc 69.76, Est GFR (MDRD) Af Amer 102, Est GFR (MDRD) Non-Af 84, BUN/Creatinine Ratio 24.5 H, Gluc ose 176 H, Calcium 9.3 09/08/21 11:26: POC Glucose 318 H 09/08/21 21:07: POC Glucose 270 H Micro: Microbiology 09/02/21 16:18 Blood Culture (Wb) - Anticubital Right Blood Culture - Final No growth in 5 days. 09/02/21 16:18 Blood Culture (Wb) - Right Forearm Blood Culture - Final No growth in 5 days. Physical Exam Const alert and oriented x3 General Appearance: cooperative HEENT normocephalic and moist oral mucous membranes Eyes EOMs intact bilaterally Neck full ROM Chest Chest: symmetrical chest wall rise Resp clear to auscultation bilaterally Auscultation: Negative for wheezes Cardio regular rate and regular rhythm Extremity normal capillary refill Extremity Narrative: Ulcer noted to the plantar posterior heel - there is no fluctuance or bogginess on palpation, there is no cellulitis, no maloder, no crepitus, the tissues are viable and granular with intact margins - the ulcer continues to improve and is healing - the hardware is not visibly exposed, the ulcer appears to be down to the subcutaneous tissue. There are no other open lesions noted to the right foot or ankle. There is some mild edema to the foot, calf is soft and supple, no complaints of calf pain with no calf edema noted. Skin no petechiae Neuro Sensory Exam: extremities light-touch: normal Psych cooperative Psych Narrative: Mood & Affect: depressed Assessment & Plan Assessment/Plan (1) Diabetes: QUALIFIERS: Diabetes mellitus complication status: with other specified complication Diabetes mellitus watermaster insulin use: without senior living use Diabetes mellitus type: type 2 Qualified Code(s): E11.69 - Type 2 diabetes mellitus with other specified complication (2) Cellulitis of right lower limb: (3) Walking difficulty due to ankle and foot: (4) Morbid obesity with body mass index (BMI) greater than or equal to 50: PLAN: She was admitted for infection management of the right lower extremity. She had semi recent surgical intervention on 07-22-21. She has failed to appropriately care for herself at home including missing multiple postoperative follow-ups, wound care compliance, maintaining a nonweightbearing status, and concurrent lack of infection resolution with oral antibiotics. Culture was obtained and growing proteus - She is on IV Unasyn. Blood cultures neg so far. There has been continued clinical improvement to the heel/foot. The arthrodesis site is not healed or stable so hardware removal is not recommended at this time. ID consult placed to Dr. Rodriguez - who saw patient yesterday - reviewed his note - appreciate assistance. Three right foot x-rays were obtained while at the [facility] on [facility]/02 which did not demonstrate soft tissue emphysema, acute fracture dislocation, or foreign body. There is evidence of os trigonum excision and subtalar joint arthrodesis without osseous bridging at the arthrodesis site confirmed. There is no rosamaria fragmentation or visualized osseous destruction. The hardware maintains its initial position without visualized loosening or failure. To change dressing daily with Dakin wet-to-dry. The dressing was changed this morning. Purulence and erythema resolved. Surgical debridement, drainage, or hardware removal is not planned at this time. To maintain a strict nonweightbearing status. To use assistive device. I recommend she continues to work with physical and occupational therapy. She has fallen also at home. SNF placement was recommended. Her uncontrolled diabetes is noted. Her A1C has significantly increased from 7 range to now 9.6%. Medical management per hospitalist is appreciated. It is noted she has not been able to take her medication or prepare appropriate foot at home to maintain ideal glucose levels. DVT prophylaxis with SCDs. intermediate facility placement is recommended due to inability to care for self at home, gait impairment, recurrent falls, and infection status. Social work assistance is appreciated and SNF availability. Please do not hesitate to call if you have any questions. Will follow while in house. Medicine team on consult - appreciate assistance.
[2021-09-09 07:25] LABS: Bedside Glucose 139 mg/dL (70-110)
[2021-09-09 07:40] LABS: Bedside Glucose 194 mg/dL (70-110)
[2021-09-09] MEDS: Juven (unflavored) Packet 1 PACKET PO ×2 (07:40→16:39)
[2021-09-09] MEDS: Insulin Lispro 100 UNIT/ML INSULN.PEN SC ×6 (07:41→16:38)
[2021-09-09] MEDS: Multivitamins,Therapeutic Tablet 1 TABLET PO (07:42)
[2021-09-09] MEDS: Cholecalciferol (VIT D3) 25 MCG TABLET (1,000 UNITS) 50 MCG PO (07:42)
[2021-09-09 07:49] VITALS: BP 133/58; PULSE 77; RESP 18; TEMP 36.8; O2SAT 98
[2021-09-09 09:00] VITALS: RESP 18
[2021-09-09] MEDS: Docusate Sodium 100 MG Capsule 200 MG PO (09:50)
[2021-09-09] MEDS: Venlafaxine XR 75 MG Capsule PO (09:51)
[2021-09-09] MEDS: Nystatin Powder 15gm Bottle 1 APPLIC TOPICAL (09:51)
[2021-09-09] MEDS: Meloxicam 15 MG Tablet PO (09:51)
[2021-09-09] MEDS: Pantoprazole Sodium 40 MG Tablet PO (09:51)
[2021-09-09] MEDS: DAKIN'S SOL HALF STRENGTH (=0.25%) 1 APPLIC TOPICAL (09:52)
[2021-09-09 11:40] LABS: Bedside Glucose 323 mg/dL (70-110)
--- NOTE | 2021-09-09 12:16 | CASEMGMT ---
Addendum entered by Jayna Hernandes 09/09/21 15:35: UZMA received call from Laura at [facility] stating pre-cert has been obtained and pt can discharge today. SW updated physician. UZMA faxed discharge paperwork to [facility] including transfer to extended care facility, signed medication list, any scripts, COVID test/tool, and Convalescent 7000. Original in SNF folder and copy on pt's chart. UZMA completed convalescent 7000 in [facility]. Original in SNF folder and copy on pt's chart. UZMA spoke with RN, pt to transport via wheelchair van. SW accessed trip assist and arranged transportation via wheelchair van for 5:00pm. Transportation form completed and placed on SNF folder and copy on pt's chart. SW updated RN. UZMA placed a call to Laura at [facility] and left message updating her on transportation time. SW in to speak with pt. SW updated pt on discharge and transportation time to [facility]. UZMA informed pt that she will get a bill for transport. Pt states understanding. Plan: [facility] skilled under convalescent stay with Physician's transporting pt via wheelchair van at 5:00pm ELIEZER Linn Original Note: Social Work Note SW received message from Laura at [facility] stating they are anticipating getting pre-cert today, requests pt get COVID test today. Laura states she has spoken to CM assigned to pt's pre-cert case and CM is also anticipating getting pre-cert today. SW waiting for pre-cert to be obtained. Plan: [facility] pending pre-cert ELIEZER [facility]
--- NOTE | 2021-09-09 14:03 | PCM.TXEXTCAR ---
Diet 09/02/21 13:27 Diet: Carbohydrate Controlled Food consistency:: Regular Liquid Consistency:: Regular/Thin Dietary Modifications:: Cardiac / Heart Healthy Is pt able to select menu?: Yes Wound(s) RT FOOT: Wound Type: foot infection right heel: Wound Type: healing surgical wound Dressing Change: Adaptic and Hysept moistened gauze (Cleanse with normal saline solution, apply adaptic with overyling 0.25% Hysept solution moistened gauze, cover with kerlix and choco dressing. Change daily.) Therapies Weight Bearing: Non weight bearing Problem/Diagnosis (1) Diabetes: Status: Acute Comment: No weightbearing to right foot. (2) Cellulitis of right lower limb: Status: Acute (3) Walking difficulty due to ankle and foot: Status: Acute (4) Morbid obesity with body mass index (BMI) greater than or equal to 50: Status: Acute Allergies/Procedures Done in Hospital Allergies azithromycin [From Zithromax Z-Matt] Allergy (Verified 09/02/21 15:47) Rash bupropion [From Wellbutrin] Allergy (Verified 09/02/21 15:47) Rash celecoxib [From Celebrex] Allergy (Verified 09/02/21 15:47) Rash diclofenac [From Voltaren] Allergy (Verified 09/02/21 15:47) Rash loratadine [From Claritin] Allergy (Verified 09/02/21 15:47) Rash Sulfa (Sulfonamide Antibiotics) Allergy (Verified 09/02/21 13:20) Itching, RASH Type of Care/Length of Stay Estimated LOS: Convalescent Care Less Than 30 days Type of Care Needed: Skilled Rehab Potential: Good Prognosis: Good Additional Orders/Day of Discharge Day of Discharge: 09/09/21 Dietary and Speech Recommendations Dietitian Recommendations/Changes: Will continue diet as ordered. Discharge Plan Admission Admit Date/Time: 09/02/21 13:26 Attending Provider: Jose Juan Sims Primary Care Provider: Fabricio Harry Consulting Providers: Pattie Ag ; Travis Rodriguez Discharge Orders/Prescriptions Prescriptions: New ampicillin-sulbactam 3 gram recon soln 3 g IV Q8H 37 Days Qty: 111 RF: 0 miconazole nitrate 2 % Cream 1 applic vaginal QHS Qty: 0 RF: 0 insulin lispro [Humalog KwikPen Insulin] 100 unit/mL Insulin Pen See Protocol unit subcut ACHS Qty: 0 RF: 0 insulin lispro [Humalog KwikPen Insulin] 100 unit/mL Insulin Pen 5 unit subcut TIDAC Qty: 0 RF: 0 Lantus Solostar U-100 Insulin 100 unit/mL (3 mL) Insulin Pen 20 units subcut BID Qty: 0 RF: 0 Rayo (with collagen) 7-7-1.5 gram Powder In Packet 1 packet PO BIDCM Qty: 0 RF: 0 oxycodone 5 mg Tablet 5 mg PO Q12H PRN PRN (Reason: Pain Score 4-10) Qty: 0 RF: 0 HySept 0.25 % Solution 1 applic topical DAILY Qty: 0 RF: 0 Continued multivitamin tablet 1 tab PO DAILY RF: 0 prazosin 1 mg capsule 2 mg PO QHS RF: 0 meloxicam 15 mg tablet 15 mg PO DAILY RF: 0 cinnamon bark [Cinnamon] 500 mg capsule 500 mg PO DAILY RF: 0 venlafaxine 75 mg capsule,extended release 24hr 75 mg PO DAILY RF: 0 pravastatin 40 MG tablet 40 mg PO QHS RF: 0 famotidine 20 MG tablet 20 mg PO DAILY RF: 0 melatonin 5 mg tablet 20 mg PO QHS RF: 0 cholecalciferol (vitamin D3) [Vitamin D3] 50 mcg (2,000 unit) Capsule 50 mcg PO DAILY RF: 0 Tradjenta 5 mg tablet 10 mg PO DAILY RF: 0 omeprazole 40 mg capsule,delayed release(DR/EC) 40 mg PO DAILY RF: 0 Discontinued Jardiance 10 mg tablet 10 mg PO DAILY RF: 0 Referrals / Follow Up: Fabricio Harry MD [Primary Care Provider] -
--- NOTE | 2021-09-09 14:28 | DCINST_ITS ---
Discharge Instructions Activity Weight Bearing Status: No weight bearing (No weightbearing right foot) Keep extremity elevated above heart level: Right Leg Dressing / Incision Call your doctor if your incision/area has: Continuous Slow Oozing, Sudden In creased Bleeding, Increased Redness and Foul Smelling Discharge Call your doctor if you observe: Fever of 101 or Higher, Shortness of breath, Chest pain, Calf discomfort and Uncontrolled pain Change Dressing in: Daily (Cleanse with normal saline solution, apply adaptic with overyling 0.25% Hysept solution moistened gauze, cover with kerlix and choco dressing. Change daily.) Follow Up Care Please Follow Up With: Eloisa Greenwood DPM When: in 1 week, sooner if needed. Call [facility] to schedule appointment. Test Results: Test results from this visit will be discussed in further detail at your follow-up appointment, if applicable. Discharge Plan Admission Admit Date/Time: 09/02/21 13:26 Attending Provider: Jose Juan Sims Primary Care Provider: Fabricio Harry Consulting Providers: Pattie Ag ; Travis Rodriguez Discharge Orders/Prescriptions Prescriptions: New ampicillin-sulbactam 3 gram recon soln 3 g IV Q8H 37 Days Qty: 111 RF: 0 miconazole nitrate 2 % Cream 1 applic vaginal QHS Qty: 0 RF: 0 insulin lispro [Humalog KwikPen Insulin] 100 unit/mL Insulin Pen See Protocol unit subcut ACHS Qty: 0 RF: 0 insulin lispro [Humalog KwikPen Insulin] 100 unit/mL Insulin Pen 5 unit subcut TIDAC Qty: 0 RF: 0 Lantus Solostar U-100 Insulin 100 unit/mL (3 mL) Insulin Pen 20 units subcut BID Qty: 0 RF: 0 Rayo (with collagen) 7-7-1.5 gram Powder In Packet 1 packet PO BIDCM Qty: 0 RF: 0 oxycodone 5 mg Tablet 5 mg PO Q12H PRN PRN (Reason: Pain Score 4-10) Qty: 0 RF: 0 HySept 0.25 % Solution 1 applic topical DAILY Qty: 0 RF: 0 Continued multivitamin tablet 1 tab PO DAILY RF: 0 prazosin 1 mg capsule 2 mg PO QHS RF: 0 meloxicam 15 mg tablet 15 mg PO DAILY RF: 0 cinnamon bark [Cinnamon] 500 mg capsule 500 mg PO DAILY RF: 0 venlafaxine 75 mg capsule,extended release 24hr 75 mg PO DAILY RF: 0 pravastatin 40 MG tablet 40 mg PO QHS RF: 0 famotidine 20 MG tablet 20 mg PO DAILY RF: 0 melatonin 5 mg tablet 20 mg PO QHS RF: 0 cholecalciferol (vitamin D3) [Vitamin D3] 50 mcg (2,000 unit) Capsule 50 mcg PO DAILY RF: 0 Tradjenta 5 mg tablet 10 mg PO DAILY RF: 0 omeprazole 40 mg capsule,delayed release(DR/EC) 40 mg PO DAILY RF: 0 Discontinued Jardiance 10 mg tablet 10 mg PO DAILY RF: 0 Referrals / Follow Up: Fabricio Harry MD [Primary Care Provider] -
[2021-09-09 15:00] VITALS: RESP 18
[2021-09-09] MEDS: oxyCODONE 5 MG Tablet PO (16:37)
[2021-09-09 16:46] LABS: Bedside Glucose 165 mg/dL (70-110)
[2021-09-09 16:56] VITALS: BP 127/77; PULSE 66; RESP 18; TEMP 36.6; O2SAT 98
--- NOTE | 2021-09-15 07:50 | DS.PCM_ITS ---
Providers Date of Admission: 09/02/21 Primary Care Physician: Dr. Fabricio Harry MD Consultations 09/02/21 14:21 Consult: Hospitalist Routine Consulting Provider: Pattie Ag Reason for Consult: diabetes EMERGENT Consult: No MD Notified: Yes Date Notified: 09/02/21 Time Notified: 14:22 Method of Notification: Verbal 09/05/21 07:18 Consult: Infectious Disease Routine Consulting Provider: Travis Rodriguez Reason for Consult: infected hardware EMERGENT Consult: No Notified: Yes Date Notified: 09/04/21 Time Notified: 07:58 Method of Notification: Answering Service Method of Consult:: In-Person Comments:: answering service will make dr aware of consult 09/05/21 08:43 Consult: Onc/Wound/offset press assistant Routine Comment: Reason for Consult:: right foot Reason For Visit: R FOOT INFECTION Diagnosis Discharge Diagnosis (1) Diabetes: Status: Acute Code(s): E11.9 - Type 2 diabetes mellitus without complications Qualifiers: Diabetes mellitus complication status: with other specified complication Diabetes mellitus terminal superintendent insulin use: without terminal superintendent use Diabetes lacy litus type: type 2 Qualified Code(s): E11.69 - Type 2 diabetes mellitus with other specified complication (2) Cellulitis of right lower limb: Status: Acute Code(s): L03.115 - Cellulitis of right lower limb Plan: see plan as outlined in Dr. Jefferson's 09/09/2021 progress note (3) Walking difficulty due to ankle and foot: Status: Acute Code(s): R26.2 - Difficulty in walking, not elsewhere classified (4) Morbid obesity with body mass index (BMI) greater than or equal to 50: Status: Acute Code(s): E66.01 - Morbid (severe) obesity due to excess calories Medications at Discharge Home Medications multivitamin 1 tab PO DAILY 11/21/18 prazosin 1 mg capsule 2 mg PO QHS 08/19/19 famotidine 20 mg PO DAILY 09/02/19 pravastatin 40 mg PO QHS 09/02/19 cinnamon bark 500 mg capsule 500 mg PO DAILY 10/04/20 melatonin 5 mg tablet 20 mg PO QHS tab 10/04/20 meloxicam 15 mg tablet 15 mg PO DAILY tab 10/04/20 venlafaxine 75 mg capsule,extended release 24 hr 75 mg PO DAILY cap 10/04/20 Tradjenta 10 mg PO DAILY 07/15/21 cholecalciferol (vitamin D3) [Vitamin D3] 50 mcg PO DAILY 07/15/21 omeprazole 40 mg PO DAILY 07/15/21 ampicillin-sulbactam 3 g IV Q8H 37 Days #111 ea 09/06/21 [id number] [Rayo (with collagen)] 1 packet PO BIDCM #0 ea 09/09/21 insulin glargine [Lantus Solostar U-100 Insulin] 20 units SUBCUT BID #0 ml 09/09/21 insulin lispro [Humalog KwikPen Insulin] 5 unit SUBCUT TIDAC #0 ml 09/09/21 insulin lispro [Humalog KwikPen Insulin] See Protocol SUBCUT ACHS #0 ml 09/09/21 miconazole nitrate 1 applic VAGINAL QHS #0 g 09/09/21 oxycodone 5 mg PO Q12H PRN PRN #0 tab 09/09/21 sodium hypochlorite [HySept] 1 applic TOPICAL DAILY #0 ml 09/09/21 Hospital Course Summary of Care Provided Hospital Course: Patient was admited due to right foot infection, hardware infection. Patient received antibiotic therapy, and local wound care. Significant improvement noted throughout hospital course. Infectious disease and hospitalist services were consulted. Patient was discharged to nursing facility on IV antibiotics, and for wound care, as well as nonweightbearing right foot. Physical Exam Narrative see physicial exam as noted in Dr. Jefferson's 09/09/2021 progress note Const alert, oriented x3 and no apparent distress Weight / BMI Weight Weight: 120.9 kg Body Mass Index (BMI) 48.7 ABG / Lab / Microbiology Data Result Diagrams: 09/08/21 06:45 09/08/21 06:45 Microbiology: Microbiology 09/09/21 13:00 Nasal Secretion SARS-CoV-2 Antigen (Rapid) - Final 09/02/21 16:18 Blood Culture (Wb) - Anticubital Right Blood Culture - Final No growth in 5 days. 09/02/21 16:18 Blood Culture (Wb) - Right Forearm Blood Culture - Final No growth in 5 days. D/C Instructions Weight Bearing Status: No weight bearing (No weightbearing right foot) Keep extremity elevated above heart level: Right Leg Call your doctor if your incision/area has: Continuous Slow Oozing, Sudden Increased Bleeding, Increased Redness and Foul Smelling Discharge Call your doctor if you observe: Fever of 101 or Higher, Shortness of breath, Chest pain, Calf discomfort and Uncontrolled pain Please Follow Up With: Eloisa Greenwood DPM When: in 1 week, sooner if needed. Call [facility] to schedule appointment. Meaningful Use Info Meaningful Use Diagnoses (Choose all that apply): None applicable Discharge Plan Admission Admit Date/Time: 09/02/21 13:26 Attending Provider: Jose Juan Sims Primary Care Provider: Fabricio Harry Consulting Providers: Pattie Ag ; Travis Rodriguez Discharge Orders/Prescriptions Prescriptions: New ampicillin-sulbactam 3 gram recon soln 3 g IV Q8H 37 Days Qty: 111 RF: 0 miconazole nitrate 2 % Cream 1 applic vaginal QHS Qty: 0 RF: 0 insulin lispro [Humalog KwikPen Insulin] 100 unit/mL Insulin Pen See Protocol unit subcut ACHS Qty: 0 RF: 0 insulin lispro [Humalog KwikPen Insulin] 100 unit/mL Insulin Pen 5 unit subcut TIDAC Qty: 0 RF: 0 Lantus Solostar U-100 Insulin 100 unit/mL (3 mL) Insulin Pen 20 units subcut BID Qty: 0 RF: 0 Rayo (with collagen) 7-7-1.5 gram Powder In Packet 1 packet PO BIDCM Qty: 0 RF: 0 oxycodone 5 mg Tablet 5 mg PO Q12H PRN PRN (Reason: Pain Score 4-10) Qty: 0 RF: 0 HySept 0.25 % Solution 1 applic topical DAILY Qty: 0 RF: 0 Continued multivitamin tablet 1 tab PO DAILY RF: 0 prazosin 1 mg capsule 2 mg PO QHS RF: 0 meloxicam 15 mg tablet 15 mg PO DAILY RF: 0 cinnamon bark [Cinnamon] 500 mg capsule 500 mg PO DAILY RF: 0 venlafaxine 75 mg capsule,extended release 24hr 75 mg PO DAILY RF: 0 pravastatin 40 MG tablet 40 mg PO QHS RF: 0 famotidine 20 MG tablet 20 mg PO DAILY RF: 0 melatonin 5 mg tablet 20 mg PO QHS RF: 0 cholecalciferol (vitamin D3) [Vitamin D3] 50 mcg (2,000 unit) Capsule 50 mcg PO DAILY RF: 0 Tradjenta 5 mg tablet 10 mg PO DAILY RF: 0 omeprazole 40 mg capsule,delayed release(DR/EC) 40 mg PO DAILY RF: 0 Discontinued Jardiance 10 mg tablet 10 mg PO DAILY RF: 0 Referrals / Follow Up: Fabricio Harry MD [Primary Care Provider] - Disposition Disposition (needs filled in before D/C Order can be placed): Intermediate Facility
== END 2021-09-09 17:15 | DRG 560 ==
PROVIDERS: Family Medicine; Nurse Practitioner Family; Admitting Provider Podiatrist; PCP Family Medicine; Visit Provider Family Medicine
DX: T84.69XA Infection and inflammatory reaction due to internal fixation device of other site, initial encounter (principal); L03.115 Cellulitis of right lower limb; Z68.42 Body mass index [BMI] 45.0-49.9, adult; B96.4 Proteus (mirabilis) (morganii) as the cause of diseases classified elsewhere; E11.65 Type 2 diabetes mellitus with hyperglycemia; B37.3 Candidiasis of vulva and vagina; T38.3X5A Adverse effect of insulin and oral hypoglycemic [antidiabetic] drugs, initial encounter; Y83.8 Other surgical procedures as the cause of abnormal reaction of the patient, or of later complication, without mention of misadventure at the time of the procedure; Y92.9 Unspecified place or not applicable; E11.69 Type 2 diabetes mellitus with other specified complication; E66.01 Morbid (severe) obesity due to excess calories; E78.00 Pure hypercholesterolemia, unspecified; E78.5 Hyperlipidemia, unspecified; F32.A Depression, unspecified; F43.10 Post-traumatic stress disorder, unspecified; M41.9 Scoliosis, unspecified; K21.9 Gastro-esophageal reflux disease without esophagitis; M19.90 Unspecified osteoarthritis, unspecified site; R29.6 Repeated falls; Z23 Encounter for immunization; Z91.19 Patient's noncompliance with other medical treatment and regimen; Z91.14 Patient's other noncompliance with medication regimen; Z79.4 Long term (current) use of insulin; Z79.899 Other long term (current) drug therapy; Z87.891 Personal history of nicotine dependence
CPT/HCPCS: 36415; 36569; 80048; 80053; 82962; 83036; 83735; 85025; 85652; 86140; 87040; 87426; 93923; 97110; 97162; 97166; 97530; 97535; 97802; 99251; J7040; J7050; 90686; A4216; G0463; J0295

== ENCOUNTER → 2021-09-02 | Outpatient (CLI) | payer BC, SELFPAY ==
[2021-09-02 19:49] LABS: M R Staph aureus DNA By PCR Negative (Negative); Probe Check PASS; Specimen Processing Control PASS; Staph aureus DNA By PCR NEGATIVE (Negative)
== END | disposition home or self-care (01) ==
LOC: LABSPEC 13:54
PROVIDERS: PCP Family Medicine; Visit Provider Podiatrist
DX: L03.90 Cellulitis, unspecified (principal)
CPT/HCPCS: 87070; 87075; 87077; 87186; 87205; 87640

== ENCOUNTER → 2021-10-03 12:33 | Outpatient (CLI) | payer BC, SELFPAY ==
[2020-10-04 13:41] VITALS: BMI 50.5
--- NOTE | 2021-10-03 14:59 | NEURO ---
NCS and/or EMG Patient Report Ordering Doctor: Fabricio Harry DATE OF SERVICE: 10/03/21 Indication: Numbness and tingling in both hands. Pain in the left thumb. Symptoms worsen upon awakening from sleep and while driving. No localized or radicular neck pain. Patient has a history of diabetes. More recently found to be bacteremic from a foot wound and is not treated with IV antibiotics (PICC in right arm). Findings: Nerve conduction studies were performed in the left and, to a limited extent, right upper extremities. The right median motor study recording the abductor pollicis brevis showed a borderline amplitude and prolonged distal latency. Right median-ulnar lumbrical / interosseous motor latencies showed a prolonged median latency compared to the ulnar. The right median sensory response recording digit two showed an absent response. The right median sensory response recording digit three showed an absent response. The right radial sensory response recording over the extensor snuff box showed a normal amplitude, latency and conduction velocity. The left median motor study recording the abductor pollicis brevis showed a borderline amplitude, prolonged distal latency and borderline conduction velocity. The left ulnar motor study recording the abductor digiti minimi showed a normal amplitude, normal distal latency and normal conduction velocity. No conduction block or focal slowing was present across the elbow. Left median-ulnar lumbrical / interosseous motor latencies showed a normal median latency compared to the ulnar. The left median sensory response recording digit two showed a normal amplitude, latency and conduction velocity. The left ulnar sensory response recording digit five showed a normal amplitude, latency and conduction velocity. The left radial sensory response recording over the extensor snuff box showed a normal amplitude, latency and conduction velocity. Needle EMG was omitted due to the patient current bacteremia. Impression: This is an abnormal study. 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 These findings would be compatible with the clinical diagnosis of carpal tunnel syndrome. Please note: a superimposed radiculopathy cannot be entirely excluded by this study due to the absence of a needle examination. If there is a strong clinical suspicion for cervical radiculopathy a repeat study is recommended once the patient's infection has cleared. Bhupinder Trent D.O. Multi Select Codes Neurology Neurology Interp Codes: 15771-72 [facility] test 11-12 studies (interp)
== END ==
PROVIDERS: PCP Family Medicine; Referring Provider Family Medicine; Visit Provider Family Medicine
DX: G56.03 Carpal tunnel syndrome, bilateral upper limbs (principal)
CPT/HCPCS: 95913

== ENCOUNTER 2022-01-03 12:00 | Outpatient (RCR) | payer BC, SELFPAY ==
--- NOTE | 2021-12-16 13:27 | HP.PTEVAL_ITS ---
Patient's Visit Information AMELIA DAVENPORT is a 46 year old F referred to Physical Therapy by Dr. Eloisa Greenwood, DPM with a diagnosis of RIGHT S/P SUBTALAR JOINT ARTHRODESIS MOS TRIGONUM,EXCSION, PERNONEAL REPAIR. Date of Evaluation: 12/16/21 Physical Therapist: [facility] PT, Cert MDT, OCS - Visit Plan Frequency: 2x /Week Duration: 8 weeks Plan: S/P ANKLE ARTHRODESIS AND REPAIR OF PERONEAL TENDON 06/2021. 50 %-70% RIGHT ANKLE WITH BOOT. PT INTERVETIONS PROGRESSION OF WBAT WITH GAIT TRAINING,BALANCE,GRADED PROPROPROCEPTION,ROM/FLEXABLITY EX'S ,STRENGTHENING ANKLE ,FUNCTIONAL STRENGTHENING AND VASO NEEDED - Subjective This 46 female presents to physical therapy with s/p subtalar arthrodesis ,OS trigonum excision and peroneal tendon repair on Jul 07 2021 done at [facility] by DR Greenwood. Patient was d/c to WB with knee walker splint with choco bandage. Patient return to [facility] due to infection with infectious ulcer had IV antibiotics Sep 02 2021 then transferred to [place] for 5 weeks then d/c to home. Patient had few visits of [facility] PT. Patient was NWB Oct 2021 with NWB RLE then progress to 70% and progress as dennise but has difficulty with CAM boot due to being too big. Thus uses post op shoe. Currently with fww with 70% WB RLE. Seen DR chahal PT . Denies paresthesia/tingling. Edema is getting better ,but end of day can increase. Patient has difficulty with ADLS and housework tasks . Lives with sister 2 story with garage entrance 1 steps and 5 steps to 2 nd floor. Stay on main floor with with walking shower with shower chair. Patient is able to bath and dress self. Sister does mostly the cooking and cleaning. Patient surgery affects QOL. - Pain Right Ankle Pain Intensity (Out of 10): 5 Pain Intensity Range: 10 - Objective POSTURE: pes planus. EDEMA: trimalleor joint line 53.4 cm. NEURO: denies paresthesia/tingling. BALANCE: FAIR + WITH FWW. GAIT: ambulates with 70% WB with fww and post op shoe. AROM: dorsiflexion 10 degrees from 0 ,plantarflexion 50 degrees , inversion 2 degrees ,eversion 3 degrees. MMT: anteriortibilas 4- /5,plantarflexion 2+/5 ,posteriortibilas ,.peroneus 4-/5 in available ROM. P ROPRIOCEPTION: unable. G-S FLEXABLITY: mod tight. STAIRS: one steps at time with rails 4 steps - Balance/Special Test Scores Lower Extremity Functional Score: 20 - Goals Goal 1:: I with HEP FOR ankle surgery Goal Time Frame: 2-4 Weeks Goal 2:: Patient to ambulate with/without cane with improve gait pattern with stance time heel strike to toe off community distances Goal Time Frame: 8-12 Weeks Goal 3:: Patient to demonstrate 50% improvement with pain and function Goal Time Frame: 8-12 Weeks Goal 4:: Patient improve ankle dorsiflexion to 0 degrees and plantarflexion to 60 degrees ,inversion/eversion WFL as dennise Goal Time Frame: 8-12 Weeks Goal 5:: Patient to improve ankle strength 4/5 except G-S 3+/5 to improve gait Goal Time Frame: 8-12 Weeks Goal 6:: Patient to improve LFES score by 10 points or > to improve gait and QOL Goal Time Frame: 8-12 Weeks - Rehabilitation Potential Physical Therapy Diagnosis: This patient had ankle surgery 2020 in Jun with initially NWB using kneeling walker developed infection progressed to 50% -70% with decrease gait with fww ,ROM ,strengthening thus impairs function and ADLS' thus will benefit from skilled PT Rehabilitation Potential: Good - Anticipated Interventions Patient/Client Instruction: Educate patient on: Condition, Plan of Care For the Purpose of:: To decrease pain, To decrease swelling/inflammation, To increase ROM, To improve muscle performance and motor function, To improve ability to perform ADL's, To increase tolerance to activity/condition/position, To improve ability of physical actions for home/community/work/leisure, To improve gait and locomotor functions, To improve health of tissue, To decrease soft tissue restriction, To increase flexibility/ROM, To improve health and function Therapeutic Exercise to Include: Strength training, Endurance training, Balance training, Flexibilty training, Passive ROM, Active ROM Comment: ANKLE For the Purpose of:: To decrease pain, To increase ROM, To improve muscle performance and motor function, To improve ability to perform ADL's, To increase tolerance to activity/condition/position, To improve ability of physical actions for home/community/work/leisure, To improve gait and locomotor functions, To improve health of tissue, To decrease soft tissue restriction, To increase flexibility/ROM, To improve endurance, To improve balance, To improve safety with gait TENS: Yes IF ES: Yes Cryotherapy (ice pack, ice massage): Yes Vasopneumatic device: Yes For the Purpose of:: To decrease pain, To decrease swelling/inflammation, To increase ROM, To improve nutrient delivery to tissue, To increase oxygenation perfusion Thank you for the opportunity to evaluate your patient. For Medicare and Medicare HMO plans, please review the plan of care and approve it. It will need to be FAXED BACK to us at [phone] for Medicare purposes. For Medicare only, by signing this I certify the plan of care. Please let me know if there are questions or concerns regarding this plan of care. Physician Signature: Date:
--- NOTE | 2022-06-02 11:28 | HP.PT.NRP ---
AMELIA DAVENPORT was seen in my office for initial evaluation on 12/16/21. The following Plan of Care was established for this patient: Initial Frequency: 2x /Week Initial Duration: 8 weeks Patient/Client Instruction: Educate patient on: Condition, Plan of Care For the Purpose of:: To decrease pain, To decrease swelling/inflammation, To increase ROM, To improve muscle performance and motor function, To improve ability to perform ADL's, To increase tolerance to activity/condition/position, To improve ability of physical actions for home/community/work/leisure, To improve gait and locomotor functions, To improve health of tissue, To decrease soft tissue restriction, To increase flexibility/ROM, To improve health and function Therapeutic Exercise to Include: Strength training, Endurance training, Balance training, Flexibilty training, Passive ROM, Active ROM For the Purpose of:: To decrease pain, To increase ROM, To improve muscle performance and motor function, To improve ability to perform ADL's, To increase tolerance to activity/condition/position, To improve ability of physical actions for home/community/work/leisure, To improve gait and locomotor functions, To improve health of tissue, To decrease soft tissue restriction, To increase flexibility/ROM, To improve endurance, To improve balance, To improve safety with gait TENS: Yes IF ES: Yes Cryotherapy (ice pack, ice massage): Yes Vasopneumatic device: Yes For the Purpose of:: To decrease pain, To decrease swelling/inflammation, To increase ROM, To improve nutrient delivery to tissue, To increase oxygenation perfusion This patient was last seen in our office . Pertinent comments regarding their Physical therapy will appear below: Patient seen for PT for right ankle arthrodesis with ROM ,strength balance and gait ,thus d/c RTW At this point I will be discontinuing this patient from physical therapy. I would be happy to see this patient again in the future if found appropriate by the physician. Thank you! Rancho José, PT, Cert MDT, OCS Balance/Gait/Functional tests - Balance/Special Test Scores Lower Extremity Functional Score: 56
== END 2022-01-03 19:00 | disposition home or self-care (01) ==
LOC: PT 12:00
PROVIDERS: PCP Family Medicine; Referring Provider Podiatrist; Visit Provider Podiatrist
DX: Z98.890 Other specified postprocedural states (principal)
CPT/HCPCS: 97110; 97162

== ENCOUNTER → 2022-02-17 | Outpatient (CLI) | payer BC, SELFPAY ==
--- NOTE | 2022-02-17 11:13 | NEURO ---
NCS and/or EMG Patient Report Ordering Doctor: Vikas Alvarez DATE OF SERVICE: 02/17/22 Indication: The patient previously had nerve conduction studies performed which revealed electrophysiologic evidence of mild median neuropathy across the wrist. The needle examination at that time was omitted as the patient was bacteremic and receiving IV antibiotics. The infection is now cleared and she represented for completion of her EMG. Findings: Nerve conduction studies were not repeated as the patient's symptoms have not evolved. Needle EMG of the left upper extremity muscles was performed. No denervation was seen in any muscle. All motor unit morphology, activation and recruitment patterns were normal in the sampled muscles. Impression: This is a normal, but limited study (see nerve conductions from prior visit). There is no electrophysiologic evidence of cervical radiculopathy in the left upper extremity. In addition, there was no active denervation within the abductor pollicis brevis muscle to suggest secondary axonal injury from the patient's known median neuropathy across the wrist. Bhupinder Trent D.O. Multi Select Codes Neurology Neurology Interp Codes: 43594-64 EMG Only, 1 Extremity
== END | disposition home or self-care (01) ==
LOC: PSN 09:51
PROVIDERS: PCP Internal Medicine; Referring Provider Orthopaedic Surgery; Visit Provider Orthopaedic Surgery
DX: G56.02 Carpal tunnel syndrome, left upper limb (principal)
CPT/HCPCS: 95860

== ENCOUNTER 2022-07-11 06:04 | Day surgery (SDC) | payer BC, SELFPAY ==
[2022-07-11] VITALS (8 sets, daily range): BP systolic 108–144; BP diastolic 57–91; PULSE 70–92; RESP 16–18; TEMP 36.2–36.7; O2SAT 92–100; BMI 53.2
[2022-07-11] MEDS: Lactated Ringers 1,000 ML 15 ML IV (06:52)
[2022-07-11 07:25] LABS: Bedside Glucose 193 mg/dL (74-106)
--- NOTE | 2022-07-11 07:28 | PCM.HP.BLA ---
History and Physical Date of Admission: 07/11/22 [facility] [address] [facility] [address] [place] [address] OFFICE VISIT Date of Service:? 05/29/22 MR#: [id number] Acct: [id number] Name:AMELIA AYALA Rep #: [id number] : 1975 ? ? Provider: Dr. Vikas Alvarez, DO Age/Sex:? 47/F ? ? Location: [facility] [place] Status: Signed Intake Vital Signs ? 09/05/2113:55 Height 5 ft 2 in Intake Visit Reasons:?LEFT WRIST Chief Complaint: left hand Allergies azithromycin [From Zithromax Z-Matt] Allergy (Verified 09/02/21 15:47) Rashbupropion [From Wellbutrin] Allergy (Verified 09/02/21 15:47) Rashcelecoxib [From Celebrex] Allergy (Verified 09/02/21 15:47) Rashdiclofenac [From Voltaren] Allergy (Verified 09/02/21 15:47) Rashloratadine [From Claritin] Allergy (Verified 09/02/21 15:47) RashSulfa (Sulfonamide Antibiotics) Allergy (Verified 09/02/21 13:20) Itching, RASH Medications multivitamin 1 tab PO DAILY supplement 11/21/18 [History Confirmed 05/29/22] prazosin 1 mg capsule 2 mg PO QHS sleep 08/19/19 [History Confirmed 05/29/22] famotidine 20 mg tablet 20 mg PO DAILY GERD 09/02/19 [History Confirmed 05/29/22] pravastatin 40 mg tablet 40 mg PO QHS cholesterol 09/02/19 [History Confirmed 05/29/22] melatonin 5 mg tablet 20 mg PO QHS sleep 10/04/20 [History Confirmed 05/29/22] venlafaxine 75 mg capsule,extended release 24 hr 75 mg PO DAILY depression 10/04/20 [History Confirmed 05/29/22] cholecalciferol (vitamin D3) 50 mcg (2,000 unit) capsule (Vitamin D3) 50 mcg PO DAILY supplement 07/15/21 [History Confirmed 05/29/22] insulin glargine 100 unit/mL (3 mL) subcutaneous pen (Lantus Solostar U-100 Insulin) 20 units (0.2 mL) subcut BID #0 mL 09/09/21 [Rx Confirmed 05/29/22] insulin lispro 100 unit/mL subcutaneous pen (Humalog KwikPen (U-100) Insulin) 5 unit (0.05 mL) subcut TIDAC #0 mL 09/09/21 [Rx Confirmed 05/29/22] insulin lispro 100 unit/mL subcutaneous pen (Humalog KwikPen (U-100) Insulin) See Protocol subcut ACHS #0 mL 09/09/21 [Rx Confirmed 05/29/22] trazodone 100 mg tablet 100 mg PO 12/23/21 [History Confirmed 05/29/22] cetirizine 10 mg capsule (Zyrtec) 10 mg PO DAILY PRN 05/29/22 [History Confirmed 05/29/22] magnesium 30 mg tablet 30 mg PO DAILY 05/29/22 [History Confirmed 05/29/22] meloxicam 7.5 mg tablet 7.5 mg PO 05/29/22 [History Confirmed 05/29/22] PFSH Medical History? Anxiety Anxiety and depression Arthritis Blackout Depression Diabetes Dysphagia Easy bruising Former smoker GERD (gastroesophageal reflux disease) GERD (gastroesophageal reflux disease) High cholesterol History of back problems History of stress test Morbid obesity with body mass index (BMI) greater than or equal to 50 Obesity PTSD (post-traumatic stress disorder) Scoliosis Shortness of breath on exertion Wears glasses Surgical History? History of colonoscopy History of left knee surgery History of tubal ligation Family History? Aunt Hypertension CVA (cerebral vascular accident)Father Heart disease Diabetes Cancer Parkinsons diseaseAunt Myocardial infarction Social History? Smoking Status:? Former smoker second hand exposure:? Yes alcohol intake:? never HPI LEFT WRIST Details: Parts of this documentation were recorded by a scribe, this documentation accurately reflects the service provided and the decisions made by me, Dr. Vikas Alvarez, DO 05/29/22 1336. AMELIA DAVENPORT is a 47 year old F here today for? F/U on left wrist after having EMG completed. She continues to have BL hand pains. She states that the right hand is now worse than the left. She is right handed but is ambidextrous. She has numbness and tingling into all her fingers. She states that she did wear a left wrist brace at night for about 2 months which was somewhat helpful. Ortho Exam General General: Yes no acute distress Neurologic: Yes alert and Yes oriented x3 Psychologic: Yes reasonable and appropriate Right Wrist/Hand Skin/Wound: No Swelling, No Ecchymosis and Yes capillary refill normal Right Wrist: Yes Durken's Test and Phalen's; No Tinel's WRIST: able to make a fist and abduction fingers Left Wrist/Hand Skin/Wound: No Swelling, No Ecchymosis and No erythema Left Wrist: Yes Tinel's and Yes Phalen's Supplemental Info 02/17/2022 EMG NCV:This is a normal, but limited study (see nerve conductions from prior visit). There is no electrophysiologic evidence of cervical radiculopathy in the left upper extremity. In addition, there was no active denervation within the abductor pollicis brevis muscle to suggest secondary axonal injury from the patient's known median neuropathy across the wrist. 10/03/21 EMG NCV This is an abnormal study. 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 These findings would be compatible with the clinical diagnosis of carpal tunnel syndrome. Please note: a superimposed radiculopathy cannot be entirely excluded by this study due to the absence of a needle examination. If there is a strong clinical suspicion for cervical radiculopathy a repeat study is recommended once the patient's infection has cleared. Coding Level of Care Code Off vis,est,level 3 Diagnoses Carpal tunnel syndrome, bilateral? G56.03 Assessment and Plan Assessment and Plan (1) Carpal tunnel syndrome, bilateral: ?Status:?Acute Plan Patient educated that she does have BL carpal tunnel syndrome. Treatment options are do nothing or bracing or carpal tunnel injection or Carpal tunnel release. Reviewed the pre-operative plans with the patient. Risks and benefits of the procedure were fully explained, including but not limited to infection, neurovascular injury, continued pain, arthritis, stiffness, need for further surgery, re-injury, DVT, PE, general risks of anesthesia, and loss of limb or life, incisional hypersensitivity and pillar pain. The patient understands all the risks and does wish to proceed with written consent for RIGHT carpal tunnel release. She will stop Meloxicam for 1 week prior to surgery. Follow up 2 weeks post op or sooner if pain, swelling, numbness or associated symptoms, or concerns develop.? All questions answered. Patient in agreement of plan. 05/29/22 1435 <Electronically signed by Vikas Alvarez DO> Date Vikas Pascual Signature: Date (if applicable) ? CC: ? ~I have re-examined the patient. There are no clinical changes since date of exam
--- NOTE | 2022-07-11 07:56 | DCINST_ITS ---
Discharge Instructions Dressing / Incision Call your doctor if you observe: Shortness of breath and Chest pain Additional Dressing/Incision Instructions:: Ice and elevate operative extremity next 72 hours. Keep dressing on clean and dry for 48 hours then may remove and allow warm soapy water to rinse over incision but do not submerge until sutures are out. Then apply bandaid over incision and change daily. encourage finger range of motion. Not lift more than 1/2 pound. Minimize narcotic use only as needed and directed, may use OTC NSAID and Tylenol to supplement/substitute for pain control. Follow Up Care Please Follow Up With: Vikas Alvarez DO When: 2 weeks Test Results: Test results from this visit will be discussed in further detail at your follow- up appointment, if applicable. Discharge Plan Admission Attending Provider: Vikas Alvarez Primary Care Provider: Rd Velez Discharge Orders/Prescriptions Prescriptions: New oxycodone 5 mg tablet 5 - 10 mg PO Q4H PRN (Reason: pain) 5 Days Qty: 15 0RF No Action multivitamin tablet 1 tab PO DAILY prazosin 1 mg capsule 2 mg PO QHS venlafaxine 75 mg capsule,extended release 24hr 75 mg PO DAILY Label Comments: TAKE 1 CAPSULE BY MOUTH EVERY MORNING trazodone 100 mg tablet 100 mg PO QHS magnesium 30 mg tablet 30 mg PO DAILY Zyrtec 10 mg capsule 10 mg PO DAILY PRN (Reason: seasonal allergies) pravastatin 40 MG tablet 40 mg PO QHS famotidine 20 MG tablet 20 mg PO DAILY melatonin 5 mg tablet 20 mg PO QHS cholecalciferol (vitamin D3) [Vitamin D3] 50 mcg (2,000 unit) Capsule 50 mcg PO DAILY insulin lispro [Humalog KwikPen Insulin] 100 unit/mL Insulin Pen See Protocol subcut ACHS Qty: 0 0RF Protocol: 3. Sliding Scale Insulin Med Dosing Condition: 150-189 mg/dl = 1 unit Condition: 190-229 mg/dl = 2 units Condition: 230-269 mg/dl = 3 units Condition: 270-309 mg/dl = 4 units Condition: 310-349 mg/dl = 5 units Condition: 350-399 mg/dl = 6 units Condition: 400-449 mg/dl = 7 units Condition: Greater than 449 call physician Protocol Text: - Use for Total Daily Dose of Insulin 37-55 units - Obsese, infected, or steroid patients MEDIUM DOSING ALGORITHIM insulin lispro [Humalog KwikPen Insulin] 100 unit/mL Insulin Pen 5 unit subcut TIDAC Qty: 0 0RF insulin glargine [Lantus Solostar U-100 Insulin] 100 unit/mL (3 mL) Insulin Pen 20 units subcut BID Qty: 0 0RF Referrals / Follow Up: Rd Velez MD [Primary Care Provider] - Disposition Disposition (needs filled in before D/C Order can be placed): Home, Self Care
--- NOTE | 2022-07-11 07:59 | OP.PCM_ITS ---
Operative Report Date of Procedure: 07/11/22 Preoperative diagnosis; right carpal tunnel syndrome Postoperative diagnosis; same Procedure: Right open carpal tunnel release Anesthesia: Local with MAC Tourniquet time; 10 minutes 250 mm Hg Complications: None Indication for procedure; This is a 47-year-old female with long-standing s ymptoms consistent with carpal tunnel syndrome the patient did have electrodiagnostic evidence of this and has failed conservative treatment. Risks benefits and alternatives were reviewed including risks of bleeding infection nerve artery tissue damage need for further surgery and continued pain and symptoms, hypersensitivity to scar and Pillar pain. Procedure; The patient was met in the preoperative holding area the operative extremity was identified by both patient and physician and was marked the patient was met by anesthesia and brought back to the operating room and transferred to the operating table in the supine position. Anesthesia was started. A well-padded tourniquet was placed on the operative upper extremity. The patient was prepped and draped in the usual sterile fashion. A timeout was called to ensure the proper patient procedure and extremity were being contemplated. 1 percent lidocaine with epinephrine was injected into the incisional area. An Esmarch was used to exsanguinate the extremity. The tourniquet was inflated to 250 mmHg. A midline incision was made with a 15 blade scalpel between the thenar and hypothenar eminence. This was carried down through the skin and subcutaneous tissue. Pedro retractors were then used, a deep blade scalpel was used to make a deep incision in the palmar aponeurosis. The pedro retractors were then placed deep to this and the transverse carpal ligament was identified a perforation was made with a scalpel and a Littler scissors were used to complete the release of the transverse carpal ligament distally under direct visualization with the tips facing ulnarly until the perivascular fat was reached. Then turning our attention proximally using a tension slide technique the proximal extent of the transverse carpal ligament was released . There was noted to be hourglass configuration to the median nerve and hypertrophy of the transverse carpal ligament without other findings. The wound was thoroughly irrigated and was closed with 4-0 nylon vertical mattress stitches. Dressing was applied in the form of xeroform 4 x 4, web roll and an choco wrap. Tourniquet was let down there is no intraoperative complications patient tolerated the procedure well and was transferred to the PACU. All counts were correct.
== END 2022-07-11 09:28 | disposition home or self-care (01) ==
LOC: SDC 06:05 → AC 06:06
PROVIDERS: PCP Internal Medicine; Referring Provider Orthopaedic Surgery; Visit Provider Orthopaedic Surgery
PROC: (CPT 64721; principal; 2022-07-11 07:15)
DX: G56.03 Carpal tunnel syndrome, bilateral upper limbs (principal); E66.01 Morbid (severe) obesity due to excess calories; E11.9 Type 2 diabetes mellitus without complications; Z79.4 Long term (current) use of insulin; Z87.891 Personal history of nicotine dependence; F41.9 Anxiety disorder, unspecified; F32.A Depression, unspecified; K21.9 Gastro-esophageal reflux disease without esophagitis; E78.00 Pure hypercholesterolemia, unspecified; F43.10 Post-traumatic stress disorder, unspecified; M41.9 Scoliosis, unspecified; Z79.899 Other long term (current) drug therapy
CPT/HCPCS: 64721; 01810; 82962; J7120; J2405

== ENCOUNTER → 2022-08-31 | Outpatient (CLI) | payer BC, SELFPAY ==
--- NOTE | 2022-08-31 15:50 | CT_ITS ---
STUDY: CT RIGHT ANKLE WITHOUT CONTRAST REASON FOR EXAM: Female, 47 years old. NONUNION R SUBTALAR JOINT RADIATION DOSAGE (If Supplied By Facility): CTDIvol = ( 15.35 ) mGy, DLP = ( 308.93 ) mGycm TECHNIQUE: Thin section transaxial imaging of the ankle was obtained, with sagittal and coronal reconstructed images. Individualized dose optimization techniques were used for this CT. COMPARISON: None. FINDINGS: Normal visualized distal tibia and fibula. Normal tibiotalar articulation and talar dome. Normal talus, calcaneus, navicular and cuboid tarsal bones. The patient is status post arthrodesis of the subtalar joint utilizing 2 screws. There is lucency surrounding both screws more prominently the longer screw. The longer screw extends to the dome of the talus. A lucency is seen at the dome of the talus with a break in the overlying cortex. There is evidence of a spur at the insertion of the Achilles tendon. Normal navicular-cuneiform, cuneiform tarsal bones and intercuneiform articulations. Normal tarsometatarsal articulations and visualized metatarsi. The soft tissue structures are grossly normal. CT/Extremity Lower without Contra IMPRESSION: Status post arthrodesis of the talocalcaneal joint with evidence of lucency surrounding both screws. There is also lucencies within the calcaneus. There is evidence of cortical break. Electronically Signed: Paulo Delaney MD at 15:27 EDT ,
== END | disposition home or self-care (01) ==
LOC: CT 15:48
PROVIDERS: PCP Internal Medicine; Referring Provider Podiatrist; Visit Provider Podiatrist
DX: T85.79XA Infection and inflammatory reaction due to other internal prosthetic devices, implants and grafts, initial encounter (principal)
CPT/HCPCS: 73700

== ENCOUNTER → 2022-12-27 | Outpatient (CLI) | payer BC, SELFPAY | END | disposition home or self-care (01) | PROVIDERS: PCP Internal Medicine; Visit Provider Podiatrist | DX: L97.519 Non-pressure chronic ulcer of other part of right foot with unspecified severity (principal) | CPT/HCPCS: 87070; 87077; 87186; 87205 ==

== ENCOUNTER 2023-02-16 11:54 | Inpatient (IN) | payer BC, SELFPAY ==
[2023-01-26 17:36] LABS: Absolute Neutrophil Count 5.8 X10^3/uL (2.0-7.7); Basophil# 0.05 X10^3/uL; Basophil% 0.6 % (0-1); Eosinophil# 0.15 X10^3/uL; Eosinophils% 1.7 % (0-5); Hematocrit 42.5 % (37-47); Hemoglobin 13.2 g/dL (12.0-15.0); Lymphocyte % 23.3 % (19-41); Mean Corp Hgb Conc 31.1 g/dL (32-36); Mean Corpuscular Hgb 27.9 pg (27.0-32.0); Mean Corpuscular Volume 89.9 fL (81-99); Mean Platelet Vol. 11.5 fl (6.2-12.0); Monocyte# 0.56 X10^3/uL; Monocyte% 6.5 % (0-10); NRBC Flagged by Analyzer 0 % (0-5); Neutrophil # 5.81 X10^3/uL (2.7-7.7); Neutrophil % 67.6 % (47-70); Platelet Count 457 K/mm3 (150-450); RBC Distribution Width CV 12.4 % (11.6-14.6); RBC Distribution Width SD 40.7 fl (35.1-43.9); Red Blood Count 4.73 M/mm3 (4.2-5.4); White Blood Count 8.6 K/mm3 (4.4-11.0)
[2023-01-26 17:45] LABS: ALB/GLOB Ratio 0.9 RATIO (0.9-2.4); AST(SGOT) 21 U/L (15-37); Alanine Aminotransfer ALT/SGPT 34 U/L (13-56); Albumin, Serum 3.4 g/dL (3.2-5.0); Alkaline Phosphatase 161 U/L (45-117); Anion Gap 6 (5-15); BUN 11 mg/dL (7-18); BUN/Creat Ratio 15.5 RATIO (10-20); Calcium,Total 9.3 mg/dL (8.5-10.1); Chloride 107 mmol/L (98-107); Creatinine, Serum 0.71 mg/dL (0.55-1.02); EST Glomerular Filtration Rate 93 mL/min (>60); Est Glom Filt Rate - Afr Amer 112 mL/min (>60); Globulin 3.8 g/dL (2.2-4.2); Glucose 104 mg/dL (74-106); Potassium 3.9 mmol/L (3.5-5.1); Protein, Total 7.2 g/dL (6.4-8.2); Sodium Level 141 mmol/L (136-145)
[2023-02-16] VITALS (11 sets, daily range): BP systolic 123–155; BP diastolic 61–106; PULSE 77–98; RESP 16–18; TEMP 36.1–37.3; O2SAT 92–98; BMI 52.0
--- NOTE | 2023-02-16 09:45 | RAD_ITS ---
STUDY: X-RAY - RIGHT FOOT CLINICAL: Female, 48 years old. The removal and bone biopsy of the foot TECHNIQUE: 25 interoperative view(s) of the foot. COMPARISON: Right foot, July 22, 2021 FINDINGS: Multiple intraoperative images demonstrate removal of the metallic screws transfixing the subtalar articulation. Subsequent images demonstrate questionable rodding of the forefoot. Please refer to the operative report for further details. RAD/Foot min 3 Views IMPRESSION: Hardware removal and bone biopsy of the right foot in the OR. Electronically Signed: Arthur Kaye DO at 17:02 EDT ,
[2023-02-16] MEDS: Lactated Ringers 1,000 ML 15 ML IV ×2 (09:56→12:00)
[2023-02-16 10:25] LABS: Bedside Glucose 161 mg/dL (74-106)
--- NOTE | 2023-02-16 10:50 | BONBX_PTH ---
PATIENT: AMELIA DAVENPORT LOC: MS3 U#:[id number] AGE/SX: 48/F ROOM: [facility] RE02/16/[address]: Dr. Andrew Jefferson DPM : 1975 BED: 1 DIS: 02/21/2023 SPEC #: [id number] RECD: 02/16/23 13:01 STATUS: GIA REAfia #: [id number] ZAINAB: 02/16/23 10:[address]: Andrew Jefferson DEPT: SURGICAL PATHOLOGY RECD BY: Babita Fan ENTERED: 02/19/23 07:23 SP TYPE: Bone OTHR DR: MD Dr. Mela Solorzano Dr., MD Dr. Douglas R Brown, DO Dr. Efewongbe Oleghe, MD Dr. John E Schinner, MD Dr. Loren Kirchner, MD Dr. Prakash Chand, MD Dr. Robert Leininger, MD Barbara Tickton, CHANNING Soliz PA Rachael McGoron, PA Tissues: A - Foot, NOS B - Foot, NOS Procedures: Decalcification bone/plaque Surgery Specimen Level IV HEADER OPERATION: Hardware removal (screw) and bone biopsy of foot PRE-OP DIAGNOSIS: Right foot and ankle pain TISSUE SUBMITTED: A ? Right foot calcaneus, B ? Right foot subtalar joint nonunion MICROSCOPIC DIAGNOSIS A. Right foot calcaneus, excision: Osseocartilaginous and fibrous tissue with focal chronic inflammation and reactive change. B. Right foot subtalar joint union bone, biopsy: Reparative and reactive change. AM:aparna 02/20/2023 MICROSCOPIC DESCRIPTION Slides are reviewed. GROSS DESCRIPTION A - Received in fixative is one container labeled with the patient's name and designated right foot calcaneus. The specimen consists of firm, contreras-white bony tissue measuring 1.3 x 0.5 x 0.3 cm. The specimen is totally submitted in one cassette after decalcification. B - Received in fixative is one container labeled with the patient's name and designated right foot subtalar joint. The specimen consists of multiple irregular fragments of contreras-white bony tissue that in aggregate measure 1.8 x 0.5 x 0.2 cm. The specimen is totally submitted in one cassette after decalcification. / AM:aparna 02/19/2023 TC:3 CPT: 31583 x2, 11891 x2
[2023-02-16] MEDS: Bupivacaine Mpf 0.5% 30 ML VIAL (11:15)
[2023-02-16] MEDS: Cefazolin 2 GM in 0.9% Normal Saline 100 ML IV (11:34)
--- NOTE | 2023-02-16 12:00 | PCM.HP.STD ---
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 Patient has history if osteomyelitis from subtalar joint fusion surgery. Patient has pain and symptoms with activity. She had ulceration, ulceration is healed now. She was brought in for removal of hardware and bone biopsy for further evaluation. She underwent this surgery this morning and did well with no complications. She is being admitted post operatively. [facility] Medical History (Updated 02/16/23 @ 12:[address] Andrew Jefferson, DPM) Ambulates with cane Anxiety Anxiety and depression Arthritis Blackout Depression Diabetes Dysphagia Easy bruising Former smoker Gastric reflux GERD (gastroesophageal reflux disease) High cholesterol History of back problems History of stress test Injury of back Insulin dependent diabetes mellitus Morbid obesity with body mass index (BMI) greater than or equal to 50 Obesity PTSD (post-traumatic stress disorder) Scoliosis Seasonal allergies Shortness of breath on exertion Wears glasses Home Medications multivitamin 1 tab PO DAILY supplement 11/21/18 [History Last Taken 02/15/23] prazosin 1 mg capsule 2 mg PO QHS sleep 08/19/19 [History Last Taken 02/15/23] famotidine 20 mg tablet 20 mg PO DAILY GERD 09/02/19 [History Last Taken 02/16/23] pravastatin 40 mg tablet 40 mg PO QHS cholesterol 09/02/19 [History Last Taken 02/15/23] melatonin 5 mg tablet 20 mg PO QHS sleep 10/04/20 [History Last Taken 02/15/23] venlafaxine 75 mg capsule,extended release 24 hr 75 mg PO DAILY depression 10/04/20 [History Last Taken 02/15/23] cholecalciferol (vitamin D3) 50 mcg (2,000 unit) capsule (Vitamin D3) 50 mcg PO DAILY supplement 07/15/21 [History Last Taken 02/15/23] insulin glargine 100 unit/mL (3 mL) subcutaneous pen (Lantus Solostar U-100 Insulin) 20 units (0.2 mL) subcut BID #0 mL 09/09/21 [Rx Last Taken 02/15/23 22:00 10] insulin lispro 100 unit/mL subcutaneous pen (Humalog KwikPen (U-100) Insulin) 5 unit (0.05 mL) subcut TIDAC #0 mL 09/09/21 [Rx Last Taken 02/15/23] insulin lispro 100 unit/mL subcutaneous pen (Humalog KwikPen (U-100) Insulin) See Protocol subcut ACHS #0 mL 09/09/21 [Rx Last Taken 02/15/23] trazodone 100 mg tablet 100 mg PO QHS 12/23/21 [History Last Taken 02/15/23] cetirizine 10 mg capsule (Zyrtec) 10 mg PO DAILY PRN seasonal allergies 05/29/22 [History Last Taken 02/15/23] Allergy/AdvReac Type Severity Reaction Status Date / Time azithromycin Allergy Rash Verified 02/16/23 09:54 [From Zithromax Z-Matt] bupropion [From Wellbutrin] Allergy Rash Verified 02/16/23 09:54 celecoxib [From Celebrex] Allergy Rash Verified 02/16/23 09:54 diclofenac [From Voltaren] Allergy Rash Verified 02/16/23 09:54 loratadine [From Claritin] Allergy Rash Verified 02/16/23 09:54 Sulfa (Sulfonamide Allergy Itching, Verified 02/16/23 09:54 Antibiotics) RASH Family History Aunt Hypertension CVA (cerebral vascular accident) Father Heart disease Diabetes Cancer Parkinsons disease Aunt Myocardial infarction Surgical History (Updated 02/09/23 @ 13:09 by Marga Lebron) History of ankle surgery History of carpal tunnel surgery of right wrist History of colonoscopy History of left knee surgery History of surgery of uterus History of tubal ligation Social History Smoking Status: Former smoker second hand exposure: Yes alcohol intake: never Vital Signs Vital Signs Vital Signs: 02/16/23 09:56 02/16/23 09:56 Temperature 99 F Temperature Source Temporal Pulse Rate 84 Respiratory Rate 18 Respiratory Pattern Normal Blood Pressure 152/77 H Blood Pressure Mean 102 Blood Pressure Source Monitor Blood Pressure Position Semi-Fowlers Blood Pressure Location Right Arm Pulse Ox 98 Oxygen Delivery Method Room Air Weight Weight: 129.092 kg Body Mass Index (BMI) 52.0 Physical Exam Narrative Dressing right foot is clean, dry and intact, no complications, CFT < 2 seconds to all toes. 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 Awaiting bone biopsy results. Will await results for antibiotics, and possible ID consultation. Right now there is no evidence of acute infection. No weightbearing right foot. Keep right foot elevated. Keep dressing clean, dry and intact. Pain management - tylenol and oxyir. DVT Prophylaxis - Lovenox 40mg subc once daily starting tomorrow. Diabetes and other chronic medical problems - consult placed to hospital medicine team - appreciate assistance. Patient would like to go to nursing rehab if possible.
--- NOTE | 2023-02-16 12:11 | PCM.OPRPT ---
Report of Operation Date of Procedure: 02/16/23 Pre-Operative Diagnosis: Right subtalar joint fusion nonunion, chronic osteomyelitis Post-Operative Diagnosis: Same Surgery/Procedure Performed:: Removal of hardware right subtalar joint, bone biopsy of right calcaneus and subtalar joint nonunion Surgeon: Andrew Jefferson caddie supervisor: Type of Anesthesia: General and Local Specimen's removed: 1. Bone from right calcaneus sent to pathology and microbiology 2. Subtalar joint fusion nonunion bone / tissue sent to pathology and microbiology 3. Removed subtalar fusion screws sent to microbiology Estimated Blood Loss (mL): 10mL Description of Procedure: Indictions: This is a 48 year old female who has nonunion of the right subtalar joint with history of osteomyelitis. She has pain and continued symptoms, the screws have radiolucency around them. She had has ulcerations which is healed at this time. There is no evidence of acute infection. We discussed the options to treat the this. Reviewed each in detail, reviewing the possible benefits vs risks, and all possible complications. She would like to proceed with hardware removal and bone biopsy. We discussed possible revision subtalar joint arthrodesis pending results. She was advised the risks and potential complications include but are not limited to pain, reinfection, continued infection, worsening infection, bleeding, nonhealing, dehiscence, drainage, swelling, transfer lesion(s), need for further surgery, need for further procedures, never damage, complex regional pain syndrome, poor cosmetic result, scarring, deformity, charcot foot, ulcerations, weakness, loss of function, problems walking, problems with shoes, arthritis, fracture, delayed healing, loss of limb, loss of life. She expressed understanding and was able to repeat these back. He understands she is at high risk of further foot problems, ulcerations, infections, loss of limb. He elected to proceed with amputation at this time. Goals and expectations reviewed with her. No guarantees were given nor implied. No warranties were given. The consent form was reviewed with her and she freely signed it. All of her questions were answered. Operative report: The patient was brought back into the operating room and was placed on the operating room in supine position. Patient was carefully secured to the operating room table with a safely belt around her waist. A time out was performed and the patient was properly identified and the surgical plan was confirmed. The patient received general anesthesia per the anesthesiologist. After the overlying skin was cleansed with 70% isopropyl alcohol a total of 10mL of 0.25% bupivacaine was given as a regional infiltrative to the right heel. A well padded pneumatic tourniquet was applied around the right ankle but was not inflated. The right foot was scrubbed, prepped, and draped using the usual aseptic technique. An incision was made overlying the posterior heel ad level of the screw heads. Dissection was completed down to the screw heads and the screws from the subtalar fusion site were removed without incident, they were sent to microbiology as culture. It was noted the bone was softer than normal. There was no purulence, no necrosis noted. Using a Mobile Location, IP bone biopsy kit a bone biopsy was obtained from the calcaneus and sent to microbiology and pathology. A small incision was made overlying the sinus tarsi and dissection was completed down to the subtalar joint nonunion. Using a Mobile Location, IP bone biopsy kit a bone biopsy was obtained from the subtalar joint nonunion and sent to microbiology and pathology. The site was flushed with copious amounts of normal saline solution. The skin edges were reapproximated using 3-0 Nylon. A dressing was applied which consisted of Betadine soaked adaptic, 4 x 4 gauze, kerlix and choco bandage. Intraop flouro was used to guide screw removal and bone biopsy. The patient tolerated the above operative procedure well and the anesthesia well with no complications. She was transported from the operating room to the recovery room with vital signs stable and in good condition. Post op orders were placed. Post op instructions were reviewed with her, no weightbearing to the toes on the foot, keep dressing clean, dry and intact. Keep foot elevated. She will be admitted and se will be followed as an inpatient. Grafts/Implants Used: None Complications None
[2023-02-16 12:46] LABS: Bedside Glucose 128 mg/dL (74-106)
--- NOTE | 2023-02-16 14:22 | PCM.CONS.GEN ---
Assessment & Plan Assessment/Plan (1) Chronic osteomyelitis of right foot: PLAN: Plan This is a 48-year-old female is being admitted after elective surgery of removal of hardware right subtalar joint, bone biopsy of right calcaneus and subtalar joint nonunion for chronic osteomyelitis. 1. 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 Operative cultures were sent today. Patient not having fever and no acute indication for antibiotic. We will consult ID Dr. Rodriguez on 02/19/2023 once operative cultures have results. Surgical dressing. PT OT and pain control. Nonweightbearing. 2. Diabetes mellitus type 2: Her last A1c was 9.6% in August 2021 when she was admitted for cellulitis. Accu-Chek ACHS and cover with Humalog sliding scale. Her glucose is reasonably controlled 161 and 128. A1c ordered for tomorrow AM. Continue Lantus 20 units subcutaneous twice daily. Increase lispro insulin 8 units subcutaneous 3 times daily with meals. 3. Hypertension: Systolic blood pressure 152 mmHg. She is on prazosin but she states she takes it for insomnia not for hypertension. Fasting profile tomorrow a.m. ordered. 3. Anxiety and depression: Patient on venlafaxine and trazodone and melatonin for anxiety depression and insomnia. 4. Morbid obesity: BMI 52.1 kg/m?. Weight loss counseling done. Brief Writer consult. 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 I was asked to see for perioperative management and control of glucose/diabetes mellitus type 2. Patient has history of chronic right foot infection. She was admitted in October 2020 after a fall and soiled her surgical splint with fecal matter about a month ago. She had arthrodesis of subtalar joint and removal of accessory painful bone on 07/22/2021. In November this year her left foot heel had abscess with yellow discoloration. The patient showed me the photo of the foot in her phone. This auto drained itself the patient to get antibiotic at that time. This time patient is being admitted for removal of hardware of right subtalar joint bone biopsy of right calcaneus and subtalar nonunion. Chronic osteomyelitis. She has mild pain over operative region. She states her glucose is only between 1 50-1 60 sometimes goes beyond 200 when she drinks sweet beverages. Denies any chest pain shortness of breath, dizziness or headache. Denies any chronic heart disease or lung disease. No stroke history. She has been treated with antibiotics in the past by Dr. Rodriguez. Social history: Denies history of chronic smoking cigarette or nicotine usage, substance use or chronic alcohol use disorder. [facility] Medical History Ambulates with cane Anxiety Anxiety and depression Arthritis Blackout Depression Diabetes Dysphagia Easy bruising Former smoker Gastric reflux GERD (gastroesophageal reflux disease) High cholesterol History of back problems History of stress test Injury of back Insulin dependent diabetes mellitus Morbid obesity with body mass index (BMI) greater than or equal to 50 Obesity PTSD (post-traumatic stress disorder) Scoliosis Seasonal allergies Shortness of breath on exertion Wears glasses Home Medications multivitamin 1 tab PO DAILY supplement 11/21/18 [History Last Taken 02/15/23] prazosin 1 mg capsule 2 mg PO QHS sleep 08/19/19 [History Last Taken 02/15/23] famotidine 20 mg tablet 20 mg PO DAILY GERD 09/02/19 [History Last Taken 02/16/23] pravastatin 40 mg tablet 40 mg PO QHS cholesterol 09/02/19 [History Last Taken 02/15/23] melatonin 5 mg tablet 20 mg PO QHS sleep 10/04/20 [History Last Taken 02/15/23] venlafaxine 75 mg capsule,extended release 24 hr 75 mg PO DAILY depression 10/04/20 [History Last Taken 02/15/23] cholecalciferol (vitamin D3) 50 mcg (2,000 unit) capsule (Vitamin D3) 50 mcg PO DAILY supplement 07/15/21 [History Last Taken 02/15/23] insulin glargine 100 unit/mL (3 mL) subcutaneous pen (Lantus Solostar U-100 Insulin) 20 units (0.2 mL) subcut BID #0 mL 09/09/21 [Rx Last Taken 02/15/23 22:00 10] insulin lispro 100 unit/mL subcutaneous pen (Humalog KwikPen (U-100) Insulin) 5 unit (0.05 mL) subcut TIDAC #0 mL 09/09/21 [Rx Last Taken 02/15/23] insulin lispro 100 unit/mL subcutaneous pen (Humalog KwikPen (U-100) Insulin) See Protocol subcut ACHS #0 mL 09/09/21 [Rx Last Taken 02/15/23] trazodone 100 mg tablet 100 mg PO QHS 12/23/21 [History Last Taken 02/15/23] cetirizine 10 mg capsule (Zyrtec) 10 mg PO DAILY PRN seasonal allergies 05/29/22 [History Last Taken 02/15/23] Allergy/AdvReac Type Severity Reaction Status Date / Time azithromycin Allergy Rash Verified 02/16/23 09:54 [From Zithromax Z-Matt] bupropion [From Wellbutrin] Allergy Rash Verified 02/16/23 09:54 celecoxib [From Celebrex] Allergy Rash Verified 02/16/23 09:54 diclofenac [From Voltaren] Allergy Rash Verified 02/16/23 09:54 loratadine [From Claritin] Allergy Rash Verified 02/16/23 09:54 Sulfa (Sulfonamide Allergy Itching, Verified 02/16/23 09:54 Antibiotics) RASH Family History Aunt Hypertension CVA (cerebral vascular accident) Father Heart disease Diabetes Cancer Parkinsons disease Aunt Myocardial infarction Surgical History History of ankle surgery History of carpal tunnel surgery of right wrist History of colonoscopy History of left knee surgery History of surgery of uterus History of tubal ligation Social History Smoking Status: Former smoker second hand exposure: Yes alcohol intake: never ROS ROS Narrative Constitutional: Denies fever or chills. Denies acute fatigue.. Obesity HEENT: Reports systems reviewed and no addt'l complaints, except as documented Respiratory/Chest: Denies chest pain, shortness of breath at rest . She states she she could not sleep for long/has insomnia. Does not wake up in middle of night for shortness of breath/choking or suffocation. Denies history of NIKOLE but has never been tested for. CVS: Denies history of [place] coronary artery disease/stent. Denies A-fib. Denies valvular heart disease. Gastrointestinal: Denies coffee ground emesis, hematemesis or vomiting Genitourinary: Denies burning urination or new urinary tract symptoms Musculoskeletal: Reports joint pain and limited range of motion especially of right foot. Neurologic: Denies seizure-like activity. No stroke. skin: Chronic osteomyelitis of right calcaneum. She has a screw sticking out right heel for long time. Nonunion of right calcaneus. Endocrinology: Reports systems reviewed and no addt'l complaints, except as documented Hematologic/Lymphatic: Reports systems reviewed and no addt'l complaints, except as documented Rest 14 ROS are negative except as mentioned in HPI Physical Exam Narrative Physical exam General: Alert, Oriented x3, Cooperative HEENT: Atraumatic, PERRLA, EOMI, Normocephalic Oral: Oral mucosa moist. No Gingival or Mucosal Lesions/ Ulcerations Neck: Supple, No JVD, Negative Carotid Bruits Lungs: Air entry diminished in bilateral lung bases. No crepitation/rhonchi Cardiovascular: Regular rate, Regular Rhythm, Normal S1, Normal S2, No murmurs Abdomen: Bowel Sounds Present, Soft, Non Tender, Non-Distended : Denies dysuria. No renal angle tenderness. No suprapubic tenderness. Extremities: No edema, Capillary Refill Less than 3 Seconds Skin: Right foot dressing. Status post surgery. Musculoskeletal: Removal of hardware in right foot. Right rod mill tender with Samir wrap bandage. No Tenderness to Palpation of other joints and extremities. Neurological: Cranial nerves II-XII grossly intact, DTR 2+/4 and Symmetrical, Neuro grossly intact Psych/Mental Status: Normal Affect, Appropriate. Lab / Micro Data Result Diagrams: 01/26/23 14:27 01/26/23 14:27 Labs: Laboratory Results - last 24 hr 02/16/23 09:47: POC Glucose 161 H 02/16/23 12:26: POC Glucose 128 H Charges/Coding Visit Charges Office Visits / Consults: [id number] IP Consult L4
[2023-02-16] MEDS: Acetaminophen 325 MG Tablet 650 MG PO (15:18)
--- NOTE | 2023-02-16 15:47 | CASEMGMT ---
Reviewed pt status with and .
[2023-02-16 18:40] LABS: Bedside Glucose 339 mg/dL (74-106)
[2023-02-16] MEDS: oxyCODONE 5 MG Tablet PO (19:42)
[2023-02-16] MEDS: Doxazosin 1 MG Tablet 1.5 MG PO (22:56)
[2023-02-16] MEDS: Pravastatin 40 MG Tablet PO (22:56)
[2023-02-16] MEDS: traZODone 100 MG Tablet PO (22:57)
[2023-02-16] MEDS: Insulin Lispro 100 UNIT/ML INSULN.PEN SC (22:58)
[2023-02-16] MEDS: Insulin Glargine-YFGN 100 UNIT/ML Pen 20 UNIT SC (22:58)
[2023-02-16] MEDS: MELATONIN 10 MG TABLET 20 MG PO (23:05)
[2023-02-16] MEDS: 0.9% Saline Lock 10 ML Syringe IV (23:11)
[2023-02-16 23:35] LABS: Bedside Glucose 233 mg/dL (74-106)
[2023-02-17 06:32] LABS: Absolute Lymphocyte Count 1.49 X10^3/uL (0.83-4.51); Absolute Neutrophil Count 11.2 X10^3/uL (2.0-7.7); Basophil# 0.03 X10^3/uL; Basophil% 0.2 % (0-1); Eosinophil# 0.01 X10^3/uL; Eosinophils% 0.1 % (0-5); Hematocrit 36.7 % (37-47); Hemoglobin 11.6 g/dL (12.0-15.0); Lymphocyte # 1.49 X10^3/ul (0.83-4.51); Mean Corp Hgb Conc 31.6 g/dL (32-36); Mean Corpuscular Hgb 28.7 pg (27.0-32.0); Mean Corpuscular Volume 90.8 fL (81-99); Mean Platelet Vol. 10.3 fl (6.2-12.0); Monocyte# 0.75 X10^3/uL; Monocyte% 5.6 % (0-10); NRBC Flagged by Analyzer 0 % (0-5); Neutrophil # 11.18 X10^3/uL (2.7-7.7); Neutrophil % 82.7 % (47-70); Platelet Count 356 K/mm3 (150-450); RBC Distribution Width CV 12.9 % (11.6-14.6); RBC Distribution Width SD 42.5 fl (35.1-43.9); Red Blood Count 4.04 M/mm3 (4.2-5.4); White Blood Count 13.5 K/mm3 (4.4-11.0)
[2023-02-17 06:42] VITALS: BP 135/76; PULSE 72; RESP 18; TEMP 36.6; O2SAT 98
[2023-02-17] MEDS: Acetaminophen 325 MG Tablet 650 MG PO ×2 (06:48→16:26)
[2023-02-17] MEDS: oxyCODONE 5 MG Tablet PO ×2 (06:48→16:25)
[2023-02-17 06:58] LABS: ALB/GLOB Ratio 0.8 RATIO (0.9-2.4); AST(SGOT) 13 U/L (15-37); Alanine Aminotransfer ALT/SGPT 28 U/L (13-56); Alkaline Phosphatase 140 U/L (45-117); Anion Gap 4 (5-15); BUN 15 mg/dL (7-18); BUN/Creat Ratio 20.3 RATIO (10-20); Chloride 105 mmol/L (98-107); Cholesterol 129 mg/dL (200); Creatinine, Serum 0.74 mg/dL (0.55-1.02); EST Glomerular Filtration Rate 88 mL/min (>60); Est Glom Filt Rate - Afr Amer 107 mL/min (>60); Estimated Creatinine Clearance 71.93 ml/min; Globulin 3.6 g/dL (2.2-4.2); Glucose 208 mg/dL (74-106); High Density Lipoprotein 50 mg/dL; Potassium 3.9 mmol/L (3.5-5.1); Protein, Total 6.6 g/dL (6.4-8.2); Sodium Level 138 mmol/L (136-145); Triglycerides 124 mg/dL; Very Low Density Lipoprotein 25 mg/dL (5-40)
[2023-02-17] MEDS: Insulin Lispro 100 UNIT/ML INSULN.PEN 8 UNIT SC (08:02)
[2023-02-17] MEDS: Insulin Lispro 100 UNIT/ML INSULN.PEN SC ×4 (08:02→20:28)
[2023-02-17] MEDS: Famotidine 20 MG Tablet PO (09:29)
[2023-02-17] MEDS: Enoxaparin 40 MG/0.4 ML Syringe SC (09:29)
[2023-02-17] MEDS: Venlafaxine XR 75 MG Capsule PO (09:29)
--- NOTE | 2023-02-17 09:50 | PCM.PROGNOTE ---
Subjective Subjective Patient was seen this morning for follow up on right foot. She relates she is doing well, no complaints of f/cn/v or any other complaints at this time, she relates pain is controlled. Objective Data Objective Data Vital Signs: Vital Signs Temp Pulse Resp BP Pulse Ox O2 Del Method 97.8 F 72 18 135/76 H 98 Room Air 02/17/23 06:42 02/17/23 06:42 02/17/23 06:42 02/17/23 06:42 02/17/23 06:42 02/17/23 06:42 Oxygen Delivery Method Room Air Weight: 129.092 kg Body Mass Index (BMI) 52.0 Intake & Output: Intake and Output for Last 24 Hours 02/15/23 02/16/23 02/17/23 23:59 23:59 23:59 Intake Total 1540 / 1540 200 / 200 Balance 1540 / 1540 200 / 200 Lab / Micro Data Result Diagrams: 02/17/23 05:44 02/17/23 05:44 Labs: Laboratory Results - last 24 hr 02/16/23 09:47: POC Glucose 161 H 02/16/23 12:26: POC Glucose 128 H 02/16/23 18:19: POC Glucose 339 H 02/16/23 22:47: POC Glucose 233 H 02/17/23 05:44: WBC 13.5 H, RBC 4.04 L, Hgb 11.6 L, Hct 36.7 L, MCV 90.8, MCH 28.7, MCHC 31.6 L, RDW Std Deviation 42.5, RDW Coeff of Juliet 12.9, Plt Count 356, MPV 10.3, Immature Gran % (Auto) 0.400, Neut % (Auto) 82.7 H, Lymph % (Auto) 11.0 L, [place] % (Auto) 5.6, Eos % (Auto) 0.1, Baso % (Auto) 0.2, Absolute Neuts (auto) 11.2 H, Absolute Lymphs (auto) 1.49, Nucleated RBC % 0 02/17/23 05:44: Sodium 138, Potassium 3.9, Chloride 105, Carbon Dioxide 29.0, Anion Gap 4 L, BUN 15, Creatinine 0.74, Estim Creat Clear Calc 71.93, Est GFR (MDRD) Af Amer 107, Est GFR (MDRD) Non-Af 88, BUN/Creatinine Ratio 20.3 H, Glucose 208 H, Calcium 9.0, Total Bilirubin 0.60, AST 13 L, ALT 28, Alkaline Phosphatase 140 H, Total Protein 6.6, Albumin 3.0 L, Globulin 3.6, Albumin/Globulin Ratio 0.8 L, Triglycerides 124, Cholesterol 129, LDL Cholesterol 54, VLDL Cholesterol 25, HDL Cholesterol 50 02/17/23 05:44: Hemoglobin A1c 8.0 H Micro: Microbiology 02/16/23 11:29 Tissue - Right Foot Gram Stain - Final 02/16/23 11:26 Bone - Other Gram Stain - Final Radiography Diagnostic Testing: Radiology Impression Foot X-Ray 02/16/23 09:45 IMPRESSION: Hardware removal and bone biopsy of the right foot in the OR. Electronically Signed: Arthur Kaye DO at 17:02 EDT Reading Location ID and State: [address] [place] [address] Tel [phone], Service support , Physical Exam Narrative Right foot dressing is clean, dry and intact, no strikethrough present, CFT <2 seconds to all toes, sensation intact to toes and she is able to dorsiflex and plantarflex toes. Const alert, oriented x3 and no apparent distress Assessment & Plan Assessment/Plan (1) Pseudarthrosis after fusion or arthrodesis: (2) Chronic osteomyelitis of right foot: (3) Diabetes: QUALIFIERS: Diabetes mellitus type: type 2 Diabetes mellitus [facility] insulin use: without termite treater helper use Diabetes mellitus complication status: with other specified complication Qualified Code(s): E11.69 - Type 2 diabetes mellitus with other specified complication PLAN: Plan s/p right subtalar joint fusion hardware removal and bone biopsy on 02/16/23. Awaiting bone biopsy results. Will await results for antibiotics, and possible ID consultation. Right now there is no evidence of acute infection. No weightbearing right foot. Keep right foot elevated. Keep dressing clean, dry and intact. Pain management - tylenol and oxyir. DVT Prophylaxis - Lovenox 40mg subc once daily. Diabetes and other chronic medical problems - consult placed to hospital medicine team - appreciate assistance. Patient would like to go to nursing rehab if possible.
--- NOTE | 2023-02-17 10:10 | PCM.PN.HOSP ---
Reason for Visit Reason for Visit: Diagnoses Type 2 diabetes mellitus with other specified complication (02/16/23) Other chronic osteomyelitis, right ankle and foot (02/16/23) Pseudarthrosis after fusion or arthrodesis (02/16/23) Subjective Subjective Follow-up perioperative and glycemic control. Patient pain is better. She has mild numbness over the operative site. Objective Data Objective Data Vital Signs: Vital Signs Temp Pulse Resp BP Pulse Ox O2 Del Method 97.8 F 72 18 135/76 H 98 Room Air 02/17/23 06:42 02/17/23 06:42 02/17/23 06:42 02/17/23 06:42 02/17/23 06:42 02/17/23 06:42 Oxygen Delivery Method Room Air Weight: 284 lb 9.6 oz Body Mass Index (BMI) 52.0 Intake & Output: Intake and Output for Last 24 Hours 02/15/23 02/16/23 02/17/23 23:59 23:59 23:59 Intake Total 1540 / 1540 200 / 200 Balance 1540 / 1540 200 / 200 Lab / Micro Data Result Diagrams: 02/17/23 05:44 02/17/23 05:44 Labs: Laboratory Results - last 24 hr 02/16/23 09:47: POC Glucose 161 H 02/16/23 12:26: POC Glucose 128 H 02/16/23 18:19: POC Glucose 339 H 02/16/23 22:47: POC Glucose 233 H 02/17/23 05:44: WBC 13.5 H, RBC 4.04 L, Hgb 11.6 L, Hct 36.7 L, MCV 90.8, MCH 28.7, MCHC 31.6 L, RDW Std Deviation 42.5, RDW Coeff of Juliet 12.9, Plt Count 356, MPV 10.3, Immature Gran % (Auto) 0.400, Neut % (Auto) 82.7 H, Lymph % (Auto) 11.0 L, [place] % (Auto) 5.6, Eos % (Auto) 0.1, Baso % (Auto) 0.2, Absolute Neuts (auto) 11.2 H, Absolute Lymphs (auto) 1.49, Nucleated RBC % 0 02/17/23 05:44: Sodium 138, Potassium 3.9, Chloride 105, Carbon Dioxide 29.0, Anion Gap 4 L, BUN 15, Creatinine 0.74, Estim Creat Clear Calc 71.93, Est GFR (MDRD) Af Amer 107, Est GFR (MDRD) Non-Af 88, BUN/Creatinine Ratio 20.3 H, Glucose 208 H, Calcium 9.0, Total Bilirubin 0.60, AST 13 L, ALT 28, Alkaline Phosphatase 140 H, Total Protein 6.6, Albumin 3.0 L, Globulin 3.6, Albumin/Globulin Ratio 0.8 L, Triglycerides 124, Cholesterol 129, LDL Cholesterol 54, VLDL Cholesterol 25, HDL Cholesterol 50 02/17/23 05:44: Hemoglobin A1c 8.0 H Micro: Microbiology 02/16/23 11:29 Tissue - Right Foot Gram Stain - Final 02/16/23 11:29 Tissue - Right Foot Wound Culture - Preliminary GNR non appeals officer 02/16/23 11:26 Bone - Other Gram Stain - Final 02/16/23 11:26 Bone - Other Wound Culture - Preliminary GNR non appeals officer Radiography Diagnostic Testing: Radiology Impression Foot X-Ray 02/16/23 09:45 IMPRESSION: Hardware removal and bone biopsy of the right foot in the OR. Physical Exam Narrative Physical exam General: Alert, Oriented x3, Cooperative HEENT: Atraumatic, PERRLA, EOMI, Normocephalic Oral: Oral mucosa moist. No Gingival or Mucosal Lesions/ Ulcerations Neck: Supple, No JVD, Negative Carotid Bruits Lungs: Air entry diminished in bilateral lung bases. No crepitation/rhonchi Cardiovascular: Regular rate, Regular Rhythm, Normal S1, Normal S2, No murmurs Abdomen: Bowel Sounds Present, Soft, Non Tender, Non-Distended : Denies dysuria. No renal angle tenderness. No suprapubic tenderness. Extremities: No edema, Capillary Refill Less than 3 Seconds Skin: Right foot dressing. Status post surgery. Musculoskeletal: Removal of hardware in right foot. Right foot Samir wrap bandage. Tenderness over operative site is better. No Tenderness to Palpation of other joints and extremities. Neurological: Cranial nerves II-XII grossly intact, DTR 2+/4 and Symmetrical, Neuro grossly intact Psych/Mental Status: Normal Affect, Appropriate. Assessment & Plan Assessment/Plan (1) Chronic osteomyelitis of right foot: PLAN: Plan This is a 48-year-old female is being admitted after elective surgery of removal of hardware right subtalar joint, bone biopsy of right calcaneus and subtalar joint nonunion for chronic osteomyelitis. 1. 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 Operative cultures were sent today. Patient not having fever and no acute indication for antibiotic. We will consult ID Dr. Rodriguez on 02/19/2023 once operative cultures have results. Surgical dressing. PT OT and pain control. Nonweightbearing. 02/17: Prelim operative culture shows GNR nonfermenting 3+ probable Proteus species. Started empirically on IV ceftriaxone. 2. Diabetes mellitus type 2: Her last A1c was 9.6% in August 2021 when she was admitted for cellulitis. Accu-Chek ACHS and cover with Humalog sliding scale. Her glucose is reasonably controlled 161 and 128. Continue Lantus 20 units subcutaneous twice daily. Increase lispro insulin 8 units subcutaneous 3 times daily with meals. 02/17: Glucose control is better. A1c 8.0. Glucose 208. Humalog Insulin increased to 15 units 3 times daily AC and Lantus increased to 25 units subcutaneous twice daily with holding parameters. Monitor Accu-Cheks. Avoid hypoglycemia. 3. Hypertension: Systolic blood pressure 152 mmHg. She is on prazosin but she states she takes it for insomnia not for hypertension. Fasting profile tomorrow a.m. ordered. 02/17 blood pressure control is better. Fasting profile shows LDL 54, HDL 50 TG 124 in normal range. Continue pravastatin 40 mg daily 3. Anxiety and depression: Patient on venlafaxine and trazodone and melatonin for anxiety depression and insomnia. 4. Morbid obesity: BMI 52.1 kg/m?. Weight loss counseling done. 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 02/16/23 09:47: POC Glucose 161 H 02/16/23 12:26: POC Glucose 128 H 02/16/23 18:19: POC Glucose 339 H 02/16/23 22:47: POC Glucose 233 H 02/17/23 05:44: WBC 13.5 H, RBC 4.04 L, Hgb 11.6 L, Hct 36.7 L, MCV 90.8, MCH 28.7, MCHC 31.6 L, RDW Std Deviation 42.5, RDW Coeff of Juliet 12.9, Plt Count 356, MPV 10.3, Immature Gran % (Auto) 0.400, Neut % (Auto) 82.7 H, Lymph % (Auto) 11.0 L, [place] % (Auto) 5.6, Eos % (Auto) 0.1, Baso % (Auto) 0.2, Absolute Neuts (auto) 11.2 H, Absolute Lymphs (auto) 1.49, Nucleated RBC % 0 02/17/23 05:44: Sodium 138, Potassium 3.9, Chloride 105, Carbon Dioxide 29.0, Anion Gap 4 L, BUN 15, Creatinine 0.74, Estim Creat Clear Calc 71.93, Est GFR (MDRD) Af Amer 107, Est GFR (MDRD) Non-Af 88, BUN/Creatinine Ratio 20.3 H, Glucose 208 H, Calcium 9.0, Total Bilirubin 0.60, AST 13 L, ALT 28, Alkaline Phosphatase 140 H, Total Protein 6.6, Albumin 3.0 L, Globulin 3.6, Albumin/Globulin Ratio 0.8 L, Triglycerides 124, Cholesterol 129, LDL Cholesterol 54, VLDL Cholesterol 25, HDL Cholesterol 50 02/17/23 05:44: Hemoglobin A1c 8.0 H Charges/Coding Visit Charges Inpatient E&M: 97720 Subs Hosp L2
[2023-02-17 11:00] VITALS: BP 134/59; PULSE 87; RESP 19; TEMP 36.6; O2SAT 98
[2023-02-17] MEDS: Insulin Lispro 100 UNIT/ML INSULN.PEN 15 UNIT SC ×2 (11:27→16:32)
[2023-02-17] MEDS: Insulin Glargine-YFGN 100 UNIT/ML Pen 25 UNIT SC ×2 (11:28→20:28)
[2023-02-17 11:55] LABS: Bedside Glucose 176 mg/dL (74-106)
--- NOTE | 2023-02-17 13:33 | CASEMGMT ---
Social Work SW met w/pt in room, spoke w/her about prior level of functioning and anticipated discharge plan. PCP: Dr. Harry Specialists: Dr. Jefferson--podiatry, Dr. Shirley--orthopedics, Nathanael--for mental health Insurance: [facility]: [facility] [address], or [facility] LNOK: son(in [place]), daughter(in [place]), half sister(in [place]) Living arrangements/prior level of function: Pt lives with her best friend Paula in a 3 story townhouse. Pt just moved to [place] recently. Pt is supposed to use a rolling or knee walker but often just furniture walks while putting little weight on her ankle. Pt is independent with ADLs, cooks, cleans, drives, does her own personal ADLs, manages her own medications. Pt helps her roommate at times who has bad back issues. Pt stays on the first floor, no bathroom on this floor. Pt tells SW I pee in a cup when she needs to use restroom at night. DME: Pt has a rolling and knee walker, uses them intermittently. Pt has a shower chair also. SNF: Pt has been to [facility] in the past Mental Health: Pt states has PTSD, anxiety, night terrors. Pt also shared lost her mom and sister when she was 8. Pt was in a psychiatric hospital in 2021. Pt states she has no intent to harm herself at this time, feels safe with herself. Pt states she needs a refill of her medication, could not pick it up from the pharmacy as she was waiting to get paid, and the pharmacy would not pay for it. SW explained will see if the doctor can prescribe it while she is here, she is to call Nathanael Sunday to find out the name of the medication as she cannot remember it. Plan: Pt would like to go to a long-term for rehab, pt does not think she can manage at home at present, given the nonweightbearing status and the setup of the home. UZMA provided to pt a list of penitentiary facilities in pt's preferred geographic area, in pt's insurance network, complete with quality and resource use data. Pt would like referrals sent to [facility]. [facility]. [facility] and 3. [facility]. SW did explain to pt it is uncertain if [facility] or [facility] will take pt due to her insurance, but we can make the referrals. Pt states understanding. SW explained that SW Sunday will follow up w/her. SW left a message for TCU. SW also checked w/RN, pt is getting her antidepressant medication here. SW let pt know. Plan: SNF, SW to follow up. SARAH Dawson
[2023-02-17 15:00] VITALS: BP 140/68; PULSE 90; RESP 18; TEMP 36.9; O2SAT 96
--- NOTE | 2023-02-17 15:45 | CASEMGMT ---
Social Work LW/Healthcare POA on file, pt's son Fabricio listed as Healthcare POA. SARAH Dawson
[2023-02-17 16:55] LABS: Bedside Glucose 187 mg/dL (74-106)
[2023-02-17] MEDS: Ceftriaxone 1 GM/50 mL Premix Q24 IV (17:44)
[2023-02-17 20:21] VITALS: BP 135/60; PULSE 80; RESP 16; TEMP 36.5; O2SAT 97
[2023-02-17] MEDS: BENZOCAINE/MENTHOL 1 LOZENGE MUCOUS MEM (20:33)
[2023-02-17] MEDS: Pravastatin 40 MG Tablet PO (21:08)
[2023-02-17] MEDS: traZODone 100 MG Tablet PO (21:08)
[2023-02-17] MEDS: Doxazosin 1 MG Tablet 1.5 MG PO (21:09)
[2023-02-17] MEDS: MELATONIN 10 MG TABLET 20 MG PO (21:09)
[2023-02-17 21:36] LABS: Bedside Glucose 176 mg/dL (74-106)
[2023-02-18 04:22] VITALS: BP 133/81; PULSE 80; RESP 16; TEMP 36.4; O2SAT 97
[2023-02-18] MEDS: oxyCODONE 5 MG Tablet PO ×3 (04:27→20:12)
[2023-02-18] MEDS: Acetaminophen 325 MG Tablet 650 MG PO ×3 (04:27→20:12)
[2023-02-18 04:46] LABS: Bedside Glucose 118 mg/dL (74-106)
[2023-02-18] MEDS: Insulin Lispro 100 UNIT/ML INSULN.PEN 15 UNIT SC ×3 (08:06→16:21)
--- NOTE | 2023-02-18 10:12 | PN.HOSP_ITS ---
Reason for Visit Reason for Visit: Diagnoses Type 2 diabetes mellitus with other specified complication (02/16/23) Other chronic osteomyelitis, right ankle and foot (02/16/23) Pseudarthrosis after fusion or arthrodesis (02/16/23) Subjective Subjective Follow-up for perioperative after right calcaneal chronic osteomyelitis status post hardware removal Objective Data Objective Data Vital Signs: Vital Signs Temp Pulse Resp BP Pulse Ox O2 Del Method 97.6 F L 80 16 133/81 H 97 Room Air 02/18/23 04:22 02/18/23 04:22 02/18/23 04:22 02/18/23 04:22 02/18/23 04:22 02/18/23 04:22 Oxygen Delivery Method Room Air Weight: 284 lb 9.6 oz Body Mass Index (BMI) 52.0 Intake & Output: Intake and Output for Last 24 Hours 02/16/23 02/17/23 02/18/23 23:59 23:59 23:59 Intake Total 1540 / 1540 935.5 / 935.5 Balance 1540 / 1540 935.5 / 935.5 Lab / Micro Data Result Diagrams: 02/17/23 05:44 02/17/23 05:44 Labs: Laboratory Results - last 24 hr 02/17/23 11:22: POC Glucose 176 H 02/17/23 16:30: POC Glucose 187 H 02/17/23 20:24: POC Glucose 176 H 02/18/23 04:26: POC Glucose 118 H Micro: Microbiology 02/16/23 11:36 Implant - Other Wound Culture - Preliminary GNR non home sales consultant GPC Poss Enterococcus sp 02/16/23 11:29 Tissue - Right Foot Gram Stain - Final 02/16/23 11:29 Tissue - Right Foot Wound Culture - Preliminary Proteus mirabilis GPC Poss Enterococcus sp 02/16/23 11:26 Bone - Other Gram Stain - Final 02/16/23 11:26 Bone - Other Wound Culture - Preliminary Proteus mirabilis GPC Poss Enterococcus sp Physical Exam Narrative No acute complaint. Voiding urine bowel movement. Denies any pain over operative region. Physical exam General: Alert, Oriented x3, Cooperative HEENT: Atraumatic, PERRLA, EOMI, Normocephalic Oral: Oral mucosa moist. No Gingival or Mucosal Lesions/ Ulcerations Neck: Supple, No JVD, Negative Carotid Bruits Lungs: Air entry diminished in bilateral lung bases. No crepitation/rhonchi Cardiovascular: Regular rate, Regular Rhythm, Normal S1, Normal S2, No murmurs Abdomen: Bowel Sounds Present, Soft, Non Tender, Non-Distended : Denies dysuria. No renal angle tenderness. No suprapubic tenderness. Extremities: No edema, Capillary Refill Less than 3 Seconds Skin: Right foot dressing. Status post surgery. Musculoskeletal: Removal of hardware in right foot. Right foot Samir wrap bandage. No Tenderness to Palpation of other joints and extremities. Neurological: Cranial nerves II-XII grossly intact, DTR 2+/4 and Symmetrical, N euro grossly intact Psych/Mental Status: Normal Affect, Appropriate. Assessment & Plan Assessment/Plan (1) Chronic osteomyelitis of right foot: PLAN: Plan This is a 48-year-old female is being admitted after elective surgery of removal of hardware right subtalar joint, bone biopsy of right calcaneus and subtalar joint nonunion for chronic osteomyelitis. 1. 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 Operative cultures were sent today. Patient not having fever and no acute indication for antibiotic. We will consult ID Dr. Rodriguez on 02/19/2023 once operative cultures have results. Surgical dressing. PT OT and pain control. Nonweightbearing. 02/17: Prelim operative culture shows GNR nonfermenting 3+ probable Proteus species. Started empirically on IV ceftriaxone. 02/18: Prelim culture is growing Proteus mirabilis, GPC possible Enterococcus. IV ampicillin started to cover Enterococcus. Anaerobic culture to finalize will take 3 to 5 days therefore Unasyn empirically ordered to cover Enterococcus and anaerobes. ID consult tomorrow am requested. 2. Diabetes mellitus type 2: Her last A1c was 9.6% in August 2021 when she was admitted for cellulitis. Accu-Chek ACHS and cover with Humalog sliding scale. Her glucose is reasonably controlled 161 and 128. Continue Lantus 20 units subcutaneous twice daily. Increase lispro insulin 8 units subcutaneous 3 times daily with meals. 02/17: Glucose control is better. A1c 8.0. Glucose 208. Humalog Insulin increased to 15 units 3 times daily AC and Lantus increased to 25 units subcutaneous twice daily with holding parameters. Monitor Accu-Cheks. Avoid hypoglycemia. 02/18: Glucose profile is much improved in 100s after increasing the dose of insulin yesterday. Continue same dose. 3. Hypertension: Systolic blood pressure 152 mmHg. She is on prazosin but she states she takes it for insomnia not for hypertension. Fasting profile tomorrow a.m. ordered. 02/17 blood pressure control is better. Fasting profile shows LDL 54, HDL 50 TG 124 in normal range. Continue pravastatin 40 mg daily 3. Anxiety and depression: Patient on venlafaxine and trazodone and melatonin for anxiety depression and insomnia. 4. Morbid obesity: BMI 52.1 kg/m?. Weight loss counseling done. Retail Loan Originator Assistant consult. Microbiology Past 72 Hours 02/16/23 11:36 Implant - Other Wound Culture - Preliminary GNR non home sales consultant GPC Poss Enterococcus sp 02/16/23 11:29 Tissue - Right Foot Gram Stain - Final 02/16/23 11:29 Tissue - Right Foot Wound Culture - Preliminary Proteus mirabilis GPC Poss Enterococcus sp 02/16/23 11:26 Bone - Other Gram Stain - Final 02/16/23 11:26 Bone - Other Wound Culture - Preliminary Proteus mirabilis GPC Poss Enterococcus sp Laboratory Results 02/17/23 11:22: POC Glucose 176 H 02/17/23 16:30: POC Glucose 187 H 02/17/23 20:24: POC Glucose 176 H 02/18/23 04:26: POC Glucose 118 H Charges/Coding Multi Select Codes Visit Charges Visit Charges: 46771 Subs Hosp L2
[2023-02-18 10:30] VITALS: BP 128/58; PULSE 81; RESP 18; TEMP 36.3; O2SAT 98
[2023-02-18] MEDS: Enoxaparin 40 MG/0.4 ML Syringe SC (10:45)
[2023-02-18] MEDS: Famotidine 20 MG Tablet PO (10:45)
[2023-02-18] MEDS: Venlafaxine XR 75 MG Capsule PO (10:46)
[2023-02-18] MEDS: 0.9% Saline Lock 10 ML Syringe IV ×2 (10:55→18:08)
[2023-02-18] MEDS: Insulin Glargine-YFGN 100 UNIT/ML Pen 25 UNIT SC ×2 (11:09→21:31)
[2023-02-18 11:20] LABS: Bedside Glucose 147 mg/dL (74-106)
--- NOTE | 2023-02-18 11:22 | PN_ITS ---
Subjective Subjective Patient was seen this morning for follow up on right foot. She is sitting in chair with foot up. No complaints of pain at this time. No f/c/n/v or any other complaints. Objective Data Objective Data Vital Signs: Vital Signs Temp Pulse Resp BP Pulse Ox O2 Del Method 97.4 F L 81 18 128/58 H 98 Room Air 02/18/23 10:30 02/18/23 10:30 02/18/23 10:30 02/18/23 10:30 02/18/23 10:30 02/18/23 04:22 Oxygen Delivery Method Room Air Weight: 129.092 kg Body Mass Index (BMI) 52.0 Intake & Output: Intake and Output for Last 24 Hours 02/16/23 02/17/23 02/18/23 23:59 23:59 23:59 Intake Total 1540 / 1540 935.5 / 935.5 Balance 1540 / 1540 935.5 / 935.5 Lab / Micro Data Result Diagrams: 02/17/23 05:44 02/17/23 05:44 Labs: Laboratory Results - last 24 hr 02/17/23 11:22: POC Glucose 176 H 02/17/23 16:30: POC Glucose 187 H 02/17/23 20:24: POC Glucose 176 H 02/18/23 04:26: POC Glucose 118 H 02/18/23 08:00: POC Glucose 147 H Micro: Microbiology 02/16/23 11:36 Implant - Other Wound Culture - Preliminary GNR non instrumentation fitter GPC Poss Enterococcus sp 02/16/23 11:29 Tissue - Right Foot Gram Stain - Final 02/16/23 11:29 Tissue - Right Foot Wound Culture - Preliminary Proteus mirabilis GPC Poss Enterococcus sp 02/16/23 11:26 Bone - Other Gram Stain - Final 02/16/23 11:26 Bone - Other Wound Culture - Preliminary Proteus mirabilis GPC Poss Enterococcus sp Physical Exam Narrative Right foot dressing is clean, dry and intact, no strikethrough present, CFT <2 seconds to all toes, sensation intact to toes and she is able to dorsiflex and plantarflex toes. Removed dressing - incision sites well coapted, sutures intact, no dehiscence, no cellulitis, no visible abscess, no fluctuance, no crep itus, no necrosis, no evidence of acute infection right foot. No evidence of DVT. Const alert, oriented x3 and no apparent distress Assessment & Plan Assessment/Plan (1) Pseudarthrosis after fusion or arthrodesis: (2) Chronic osteomyelitis of right foot: (3) Diabetes: QUALIFIERS: Diabetes mellitus complication status: with other specified complication Diabetes mellitus bootmaker hand insulin use: without bootmaker hand use Diabetes mellitus type: type 2 Qualified Code(s): E11.69 - Type 2 diabetes mellitus with other specified complication PLAN: Plan s/p right subtalar joint fusion hardware removal and bone biopsy on 02/16/23. Noted positive bone cultures - proteus mirabilis, and GPC poss enterococcus sp, Unasyn has been started and ID consultation placed. Right now there is no evidence of acute infection. No weightbearing right foot. Keep right foot elevated. Keep dressing clean, dry and intact. Pain management - tylenol and oxyir. DVT Prophylaxis - Lovenox 40mg subc once daily. Diabetes and other chronic medical problems - consult placed to hospital medicine team - appreciate assistance. Patient would like to go to nursing rehab if possible.
[2023-02-18 11:35] LABS: Bedside Glucose 137 mg/dL (74-106)
[2023-02-18 16:23] VITALS: BP 131/84; PULSE 80; RESP 18; TEMP 36.4; O2SAT 98
[2023-02-18 17:25] LABS: Bedside Glucose 141 mg/dL (74-106)
[2023-02-18 20:19] VITALS: BP 129/53; PULSE 84; RESP 16; TEMP 36.8; O2SAT 97
[2023-02-18] MEDS: Insulin Lispro 100 UNIT/ML INSULN.PEN SC (21:30)
[2023-02-18 21:55] LABS: Bedside Glucose 166 mg/dL (74-106)
[2023-02-18] MEDS: Pravastatin 40 MG Tablet PO (22:14)
[2023-02-18] MEDS: MELATONIN 10 MG TABLET 20 MG PO (22:14)
[2023-02-18] MEDS: traZODone 100 MG Tablet PO (22:14)
[2023-02-18] MEDS: Doxazosin 1 MG Tablet 1.5 MG PO (22:15)
[2023-02-19 03:29] VITALS: BP 151/91; PULSE 90; RESP 18; TEMP 36.6; O2SAT 97
[2023-02-19] MEDS: 0.9% Saline Lock 10 ML Syringe IV ×3 (04:55→18:22)
[2023-02-19] MEDS: Venlafaxine XR 75 MG Capsule PO (07:55)
[2023-02-19] MEDS: Famotidine 20 MG Tablet PO (07:55)
[2023-02-19] MEDS: Enoxaparin 40 MG/0.4 ML Syringe SC (07:55)
[2023-02-19] MEDS: Insulin Lispro 100 UNIT/ML INSULN.PEN SC ×3 (07:56→21:57)
[2023-02-19] MEDS: Insulin Lispro 100 UNIT/ML INSULN.PEN 15 UNIT SC ×2 (07:56→16:26)
[2023-02-19 08:40] LABS: Bedside Glucose 159 mg/dL (74-106)
--- NOTE | 2023-02-19 09:00 | CASEMGMT ---
Social Work SW checked with [facility] on referral made to TCU over the weekend. [facility] unable to accept pt do to complexity of pt case. SW in to speak with pt. Introduced self and confirmed plan of next choices for SNF. Pt stated [place] choice would be [place]. SW shared intent to send referral to [facility] but also prepared pt for possible denial as [facility] typically does not take pt's under 55 years of age. SW also shared [facility] has not been accepting pt's with [employer] insurance as frequently these past few months. Pt shared if [facility] unable to accept then referral should be sent to the three remaining SNFs in [place] ([facility], [facility], and [facility]). Pt does not have preference between these three at this time. SW updated d/c clinical trials assistant, Kmi naranjo. Kim to send referral to [facility]. PLAN: [facility], pending acceptance and precert ELIEZER Berrios
--- NOTE | 2023-02-19 09:04 | CASEMGMT ---
Discharge Planning Referral sent to [facility] Kim Bishop
--- NOTE | 2023-02-19 09:06 | CASEMGMT ---
Discharge Planning Referral sent to [facility] Kim Bishop
[2023-02-19 09:30] VITALS: BP 133/71; PULSE 83; RESP 18; TEMP 36.5; O2SAT 97
--- NOTE | 2023-02-19 11:04 | CASEMGMT ---
Discharge Planning [facility] has accepted. Kim Bishop
--- NOTE | 2023-02-19 11:06 | PN.HOSP_ITS ---
Reason for Visit Reason for Visit: Diagnoses Type 2 diabetes mellitus with other specified complication (02/16/23) Other chronic osteomyelitis, right ankle and foot (02/16/23) Pseudarthrosis after fusion or arthrodesis (02/16/23) Follow-up perioperative course for chronic osteomyelitis and type 2 diabetes melitis Objective Data Objective Data Vital Signs: Vital Signs Temp Pulse Resp BP Pulse Ox O2 Del Method 97.7 F L 83 18 133/71 H 97 Room Air 02/19/23 09:30 02/19/23 09:30 02/19/23 09:30 02/19/23 09:30 02/19/23 09:30 02/19/23 09:30 Oxygen Delivery Method Room Air Weight: 284 lb 9.6 oz Body Mass Index (BMI) 52.0 Intake & Output: Intake and Output for Last 24 Hours 02/17/23 02/18/23 02/19/23 23:59 23:59 23:59 Intake Total 935.5 / 935.5 961.5 / 961.5 285.75 / 285.75 Balance 935.5 / 935.5 961.5 / 961.5 285.75 / 285.75 Lab / Micro Data Result Diagrams: 02/17/23 05:44 02/17/23 05:44 Labs: Laboratory Results - last 24 hr 02/18/23 08:00: POC Glucose 147 H 02/18/23 11:06: POC Glucose 137 H 02/18/23 16:18: POC Glucose 141 H 02/18/23 21:29: POC Glucose 166 H 02/19/23 07:52: POC Glucose 159 H Micro: Microbiology 02/16/23 11:36 Implant - Other Wound Culture - Preliminary Proteus mirabilis Strep anginosus 02/16/23 11:29 Tissue - Right Foot Gram Stain - Final 02/16/23 11:29 Tissue - Right Foot Wound Culture - Preliminary Proteus mirabilis Strep anginosus 02/16/23 11:29 Tissue - Right Foot Anaerobic Culture - Preliminary Checking for anaerobes, further studies to follow. 02/16/23 11:26 Bone - Other Gram Stain - Final 02/16/23 11:26 Bone - Other Wound Culture - Preliminary Proteus mirabilis Strep anginosus 02/16/23 11:26 Bone - Other Anaerobic Culture - Preliminary Checking for anaerobes, further studies to follow. Physical Exam Narrative No acute complaint. Voiding urine and bowel movement. Denies any pain over operative region. Physical exam General: Alert, Oriented x3, Cooperative HEENT: Atraumatic, PERRLA, EOMI, Normocephalic Oral: Oral mucosa moist. No Gingival or Mucosal Lesions/ Ulcerations Neck: Supple, No JVD, Negative Carotid Bruits Lungs: Air entry diminished in bilateral lung bases. No crepitation/rhonchi Cardiovascular: Regular rate, Regular Rhythm, Normal S1, Normal S2, No murmurs Abdomen: Bowel Sounds Present, Soft, Non Tender, Non-Distended : Denies dysuria. No renal angle tenderness. No suprapubic tenderness. Extremities: No edema, Capillary Refill Less than 3 Seconds Skin: Right foot dressing. Status post surgery. Musculoskeletal: Removal of hardware in right foot. Right foot Samir wrap bandage. No Tenderness to Palpation of other joints and extremities. Neurological: Cranial nerves II-XII grossly intact, DTR 2+/4 and Symmetrical, Neuro grossly intact Psych/Mental Status: Normal Affect, Appropriate. Assessment & Plan Assessment/Plan (1) Chronic osteomyelitis of right foot: PLAN: Plan This is a 48-year-old female is being admitted after elective surgery of removal of hardware right subtalar joint, bone biopsy of right calcaneus and subtalar joint nonunion for chronic osteomyelitis. 1. 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 Operative cultures were sent today. Patient not having fever and no acute indication for antibiotic. We will consult ID Dr. Rodriguez on 02/19/2023 once operative cultures have results. Surgical dressing. PT OT and pain control. Nonweightbearing. 02/17: Prelim operative culture shows GNR nonfermenting 3+ probable Proteus species. Started empirically on IV ceftriaxone. 02/18: Prelim culture is growing Proteus mirabilis, GPC possible Enterococcus. IV ampicillin started to cover Enterococcus. Anaerobic culture to finalize will take 3 to 5 days therefore Unasyn empirically ordered to cover Enterococcus and anaerobes. ID consult tomorrow am requested. 02/19: Prelim tissue culture growing Proteus mirabilis and strep anginosus. It seems GPC's Enterococcus changed to strep anginous. Continue IV Unasyn. ID follow-up. Otherwise patient is medically stable for discharge 2. Diabetes mellitus type 2: Her last A1c was 9.6% in August 2021 when she was admitted for cellulitis. Accu-Chek ACHS and cover with Humalog sliding scale. Her glucose is reasonably controlled 161 and 128. Continue Lantus 20 units subcutaneous twice daily. Increase lispro insulin 8 units subcutaneous 3 times daily with meals. 02/17: Glucose control is better. A1c 8.0. Glucose 208. Humalog Insulin increased to 15 units 3 times daily AC and Lantus increased to 25 units subcutaneous twice daily with holding parameters. Monitor Accu-Cheks. Avoid hypoglycemia. 02/18: Glucose profile is much improved in 100s after increasing the dose of insulin yesterday. Continue same dose. 02/19: Glucoses reasonably controlled. 3. Hypertension: Systolic blood pressure 152 mmHg. She is on prazosin but she states she takes it for insomnia not for hypertension. Fasting profile tomorrow a.m. ordered. 02/17 blood pressure control is better. Fasting profile shows LDL 54, HDL 50 TG 124 in normal range. Continue pravastatin 40 mg daily 3. Anxiety and depression: Patient on venlafaxine and trazodone and melatonin for anxiety depression and insomnia. 4. Morbid obesity: BMI 52.1 kg/m?. Weight loss counseling done. Auto Care Center Manager consult. Charges/Coding Visit Charges Inpatient E&M: 09699 Subs Hosp L2
--- NOTE | 2023-02-19 12:03 | CASEMGMT ---
Social Work ?Chinmay white informed that pt benefits are $0 ded. $3000 OOP (192.95 met as of today). Pt has a $450 copay per admission to SNF.?UZMA provided this information to pt. Pt shared has no money and not able to pay upfront for co-pay. Chinmay White shared copay would not be due up front. Pt would be able to set up a payment plan. Pt made aware of this and pt agreeable. UZMA did also call [facility] to confirm if pt had medicaid as pt shared has a [facility] insurance card. Mela Mcgee at [facility] shared pt does not have active medicaid. UZMA shared this with pt and gave pt a medicaid application to resume medicaid service. Pt to fill out the application. UZMA made Chinmay White aware pt is willing to work on a payment plan. PLAN: [facility], pending precert ELIEZER Berrios
[2023-02-19 12:10] LABS: Bedside Glucose 129 mg/dL (74-106)
--- NOTE | 2023-02-19 14:05 | PCM.CONS.GEN ---
Assessment & Plan Assessment/Plan (1) Chronic osteomyelitis of right foot: PLAN: Hardware removed 02/16/[address] Jefferson. Surg cx with proteus and strep. On unasyn. Feeling well. Plan now that hardware is out is for 6 weeks (start date 02/16) of abx with po augmentin 875mg bid at discharge. ID followup in 3 weeks. Will follow, thank you HPI Consult Data Date of Consult: 02/19/23 HPI Narrative Reason for Consultation: osteo HPI Narrative: AMELIA DAVENPORT, is a 48 F with chronic infected R ankle hardware. Last course of abx was about 2 months ago. Reports several weeks progressive pain, redness, purulent drainage, not feeling well. No fever or chills. Pain was moderate, worse with walking. Admitted here, taken to OR 02/[address] Jefferson for hardware removal. Pain improved. Full ROS performed and neg except as noted above. [facility] Medical History Ambulates with cane Anxiety Anxiety and depression Arthritis Blackout Depression Diabetes Dysphagia Easy bruising Former smoker Gastric reflux GERD (gastroesophageal reflux disease) High cholesterol History of back problems History of stress test Injury of back Insulin dependent diabetes mellitus Morbid obesity with body mass index (BMI) greater than or equal to 50 Obesity PTSD (post-traumatic stress disorder) Scoliosis Seasonal allergies Shortness of breath on exertion Wears glasses Home Medications multivitamin 1 tab PO DAILY supplement 11/21/18 [History Last Taken 02/15/23] prazosin 1 mg capsule 2 mg PO QHS sleep 08/19/19 [History Last Taken 02/15/23] famotidine 20 mg tablet 20 mg PO DAILY GERD 09/02/19 [History Last Taken 02/16/23] pravastatin 40 mg tablet 40 mg PO QHS cholesterol 09/02/19 [History Last Taken 02/15/23] melatonin 5 mg tablet 20 mg PO QHS sleep 10/04/20 [History Last Taken 02/15/23] venlafaxine 75 mg capsule,extended release 24 hr 75 mg PO DAILY depression 10/04/20 [History Last Taken 02/15/23] cholecalciferol (vitamin D3) 50 mcg (2,000 unit) capsule (Vitamin D3) 50 mcg PO DAILY supplement 07/15/21 [History Last Taken 02/15/23] insulin glargine 100 unit/mL (3 mL) subcutaneous pen (Lantus Solostar U-100 Insulin) 20 units (0.2 mL) subcut BID #0 mL 09/09/21 [Rx Last Taken 02/15/23 22:00 10] insulin lispro 100 unit/mL subcutaneous pen (Humalog KwikPen (U-100) Insulin) 5 unit (0.05 mL) subcut TIDAC #0 mL 09/09/21 [Rx Last Taken 02/15/23] insulin lispro 100 unit/mL subcutaneous pen (Humalog KwikPen (U-100) Insulin) See Protocol subcut ACHS #0 mL 09/09/21 [Rx Last Taken 02/15/23] trazodone 100 mg tablet 100 mg PO QHS 12/23/21 [History Last Taken 02/15/23] cetirizine 10 mg capsule (Zyrtec) 10 mg PO DAILY PRN seasonal allergies 05/29/22 [History Last Taken 02/15/23] Allergy/AdvReac Type Severity Reaction Status Date / Time azithromycin Allergy Rash Verified 02/16/23 09:54 [From Zithromax Z-Matt] bupropion [From Wellbutrin] Allergy Rash Verified 02/16/23 09:54 celecoxib [From Celebrex] Allergy Rash Verified 02/16/23 09:54 diclofenac [From Voltaren] Allergy Rash Verified 02/16/23 09:54 loratadine [From Claritin] Allergy Rash Verified 02/16/23 09:54 Sulfa (Sulfonamide Allergy Itching, Verified 02/16/23 09:54 Antibiotics) RASH Family History Aunt Hypertension CVA (cerebral vascular accident) Father Heart disease Diabetes Cancer Parkinsons disease Aunt Myocardial infarction Surgical History History of ankle surgery History of carpal tunnel surgery of right wrist History of colonoscopy History of left knee surgery History of surgery of uterus History of tubal ligation Social History Smoking Status: Former smoker second hand exposure: Yes alcohol intake: never Physical Exam Const alert, oriented x3 and no apparent distress General Appearance: cooperative HEENT normocephalic and head/scalp atraumatic Eyes PERRL and EOMs intact bilaterally Neck supple and No nodes Resp normal air movement and clear to auscultation bilaterally Cardio regular rate and regular rhythm GI soft to palpation, non-tender and non-distended Extremity General Extremity: Negative for edema Skin Skin Narrative: Reviewed photo. R foot wrapped. Neuro CN's II-XII intact bilaterally Lab / Micro Data Attestation: I reviewed the patient's lab results. Result Diagrams: 02/17/23 05:44 02/17/23 05:44 Labs: Laboratory Results - last 24 hr 02/18/23 16:18: POC Glucose 141 H 02/18/23 21:29: POC Glucose 166 H 02/19/23 07:52: POC Glucose 159 H 02/19/23 11:44: POC Glucose 129 H Micro: Microbiology 02/16/23 11:36 Implant - Other Gram Stain - Final 02/16/23 11:36 Implant - Other Wound Culture - Preliminary Proteus mirabilis Strep anginosus 02/16/23 11:29 Tissue - Right Foot Gram Stain - Final 02/16/23 11:29 Tissue - Right Foot Wound Culture - Preliminary Proteus mirabilis Strep anginosus 02/16/23 11:29 Tissue - Right Foot Anaerobic Culture - Preliminary Checking for anaerobes, further studies to follow. 02/16/23 11:26 Bone - Other Gram Stain - Final 02/16/23 11:26 Bone - Other Wound Culture - Preliminary Proteus mirabilis Strep anginosus 02/16/23 11:26 Bone - Other Anaerobic Culture - Preliminary Checking for anaerobes, further studies to follow.
[2023-02-19] MEDS: oxyCODONE 5 MG Tablet PO (15:23)
[2023-02-19] MEDS: Acetaminophen 325 MG Tablet 650 MG PO (15:24)
[2023-02-19 15:30] VITALS: BP 162/66; PULSE 89; RESP 18; TEMP 36.9; O2SAT 99
[2023-02-19 16:45] LABS: Bedside Glucose 164 mg/dL (74-106)
--- NOTE | 2023-02-19 17:08 | PN_ITS ---
Subjective Subjective Patient was seen for follow up on right foot. She is resting comfortably, no new complaints. Objective Data Objective Data Vital Signs: Vital Signs Temp Pulse Resp BP Pulse Ox O2 Del Method 98.5 F 89 18 162/66 H 99 Room Air 02/19/23 15:30 02/19/23 15:30 02/19/23 15:30 02/19/23 15:30 02/19/23 15:30 02/19/23 15:30 Oxygen Delivery Method Room Air Weight: 129.092 kg Body Mass Index (BMI) 52.0 Intake & Output: Intake and Output for Last 24 Hours 02/17/23 02/18/23 02/19/23 23:59 23:59 23:59 Intake Total 935.5 / 935.5 961.5 / 961.5 397.75 / 397.75 Balance 935.5 / 935.5 961.5 / 961.5 397.75 / 397.75 Lab / Micro Data Result Diagrams: 02/17/23 05:44 02/17/23 05:44 Labs: Laboratory Results - last 24 hr 02/18/23 16:18: POC Glucose 141 H 02/18/23 21:29: POC Glucose 166 H 02/19/23 07:52: POC Glucose 159 H 02/19/23 11:44: POC Glucose 129 H 02/19/23 16:21: POC Glucose 164 H Micro: Microbiology 02/16/23 11:36 Implant - Other Gram Stain - Final 02/16/23 11:36 Implant - Other Wound Culture - Preliminary Proteus mirabilis Strep anginosus 02/16/23 11:29 Tissue - Right Foot Gram Stain - Final 02/16/23 11:29 Tissue - Right Foot Wound Culture - Preliminary Proteus mirabilis Strep anginosus 02/16/23 11:29 Tissue - Right Foot Anaerobic Culture - Preliminary Checking for anaerobes, further studies to follow. 02/16/23 11:26 Bone - Other Gram Stain - Final 02/16/23 11:26 Bone - Other Wound Culture - Preliminary Proteus mirabilis Strep anginosus 02/16/23 11:26 Bone - Other Anaerobic Culture - Preliminary Checking for anaerobes, further studies to follow. Physical Exam Narrative Right foot dressing is clean, dry and intact, no strikethrough present, CFT <2 seconds to all toes, sensation intact to toes and she is able to dorsiflex and plantarflex toes. 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 Noted positive bone cultures - proteus mirabilis, and GPC - staph, Unasyn has been started and ID consultation placed. Right now there is no evidence of acute infection. No weightbearing right foot. Keep right foot elevated. Keep dressing clean, dry and intact. Pain management - tylenol and oxyir. DVT Prophylaxis - Lovenox 40mg subc once daily. Diabetes and other chronic medical problems - consult placed to hospital medicine team - appreciate assistance. Patient would like to go to nursing rehab if possible.
[2023-02-19 21:50] VITALS: BP 127/50; PULSE 82; RESP 18; TEMP 36.9; O2SAT 98
[2023-02-19] MEDS: MELATONIN 10 MG TABLET 20 MG PO (21:51)
[2023-02-19] MEDS: Doxazosin 1 MG Tablet 1.5 MG PO (21:51)
[2023-02-19] MEDS: traZODone 100 MG Tablet PO (21:52)
[2023-02-19] MEDS: Pravastatin 40 MG Tablet PO (21:52)
[2023-02-19] MEDS: Insulin Glargine-YFGN 100 UNIT/ML Pen 25 UNIT SC (21:57)
[2023-02-19 22:21] LABS: Bedside Glucose 164 mg/dL (74-106)
[2023-02-20 00:36] VITALS: BP 131/72; PULSE 80; RESP 16; TEMP 36.1; O2SAT 95
[2023-02-20 05:42] VITALS: BP 142/57; PULSE 95; RESP 18; TEMP 36.6; O2SAT 96
[2023-02-20] MEDS: Acetaminophen 325 MG Tablet 650 MG PO ×2 (06:33→21:38)
[2023-02-20] MEDS: Insulin Lispro 100 UNIT/ML INSULN.PEN SC ×2 (07:45→21:39)
[2023-02-20] MEDS: Enoxaparin 40 MG/0.4 ML Syringe SC (07:46)
[2023-02-20] MEDS: Famotidine 20 MG Tablet PO (07:46)
[2023-02-20] MEDS: Venlafaxine XR 75 MG Capsule PO (07:46)
[2023-02-20] MEDS: Insulin Lispro 100 UNIT/ML INSULN.PEN 15 UNIT SC ×2 (07:46→11:26)
--- NOTE | 2023-02-20 08:14 | CASEMGMT ---
Discharge Planning Requested notes sent to [facility] via [facility]. Kim Bishop
[2023-02-20 09:05] LABS: Bedside Glucose 152 mg/dL (74-106)
[2023-02-20 09:50] VITALS: BP 115/60; PULSE 83; RESP 18; TEMP 36.3; O2SAT 98
--- NOTE | 2023-02-20 10:02 | PCM.PN.ID ---
Physical Exam Narrative Feeling better, no fever. Has chronic diarrhea. Const alert and no apparent distress General Appearance: cooperative Resp normal air movement and clear to auscultation bilaterally Cardio regular rate and regular rhythm GI soft to palpation, non-tender and non-distended Skin Skin Narrative: foot wrapped ID ID: Route of nutrition/ use of supplements: [] Nutritional Intake: [] IV Site: [] Sanchez Catheter: [] Assessment & Plan Assessment/Plan (1) Chronic osteomyelitis of right foot: PLAN: Hardware removed 02/16/[address] Jefferson. Surg cx with proteus and strep. On unasyn. Feeling well. Plan now that hardware is out is for 6 weeks (start date 02/16) of abx with po augmentin 875mg bid at discharge. ID followup in 3 weeks. Will follow
[2023-02-20] MEDS: Loperamide 2 MG Capsule PO (10:47)
[2023-02-20] MEDS: Insulin Glargine-YFGN 100 UNIT/ML Pen 25 UNIT SC ×2 (11:26→21:39)
[2023-02-20 11:51] LABS: Bedside Glucose 139 mg/dL (74-106)
--- NOTE | 2023-02-20 14:51 | PN_ITS ---
Subjective Subjective Patient was seen today for follow up on right foot. She is sitting in chair with foot elevated. Pain controlled. No new complaints. Objective Data Objective Data Vital Signs: Vital Signs Temp Pulse Resp BP Pulse Ox O2 Del Method 97.4 F L 83 18 115/60 98 Room Air 02/20/23 09:50 02/20/23 09:50 02/20/23 09:50 02/20/23 09:50 02/20/23 09:50 02/20/23 09:50 Oxygen Delivery Method Room Air Weight: 129.092 kg Body Mass Index (BMI) 52.0 Intake & Output: Intake and Output for Last 24 Hours 02/18/23 02/19/23 02/20/23 23:59 23:59 23:59 Intake Total 961.5 / 961.5 509.75 / 709.75 1023.75 / 1023.75 Balance 961.5 / 961.5 509.75 / 709.75 1023.75 / 1023.75 Lab / Micro Data Result Diagrams: 02/17/23 05:44 02/17/23 05:44 Labs: Laboratory Results - last 24 hr 02/19/23 16:21: POC Glucose 164 H 02/19/23 21:53: POC Glucose 164 H 02/20/23 07:43: POC Glucose 152 H 02/20/23 11:22: POC Glucose 139 H Micro: Microbiology 02/16/23 11:26 Bone - Other Gram Stain - Final 02/16/23 11:26 Bone - Other Wound Culture - Preliminary Proteus mirabilis Strep anginosus 02/16/23 11:26 Bone - Other Anaerobic Culture - Final No anaerobic bacteria isolated. 02/16/23 11:36 Implant - Other Gram Stain - Final 02/16/23 11:36 Implant - Other Wound Culture - Preliminary Proteus mirabilis Strep anginosus 02/16/23 11:36 Implant - Other Anaerobic Culture - Final No anaerobic bacteria isolated. 02/16/23 11:29 Tissue - Right Foot Gram Stain - Final 02/16/23 11:29 Tissue - Right Foot Wound Culture - Preliminary Proteus mirabilis Strep anginosus 02/16/23 11:29 Tissue - Right Foot Anaerobic Culture - Final No anaerobic bacteria isolated. Physical Exam Narrative Right foot dressing is clean, dry and intact, no strikethrough present, CFT <2 seconds to all toes, sensation intact to toes and she is able to dorsiflex and plantarflex toes. Dressing right foot was removed - incisions well coapted, no dehiscence, no drainage, no cellulitis, no fluctuance, no crepitus - sites healing very well with no evidence of complications. 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 Noted positive bone cultures - proteus mirabilis, and GPC - staph, she is on Unasyn and ID consultation placed who is following. Right now there is no evidence of acute infection. No weightbearing right foot. Keep right foot elevated. Changed dressing right foot - betadine soln, gauze, kerlix and choco dressing. Keep dressing clean, dry and intact. Pain management - tylenol and oxyir. DVT Prophylaxis - Lovenox 40mg subc once daily. Diabetes and other chronic medical problems - consult placed to hospital medicine team - appreciate assistance. Patient would like to go to nursing rehab if possible. Awaiting insurance approval.
[2023-02-20 15:12] VITALS: BP 115/51; PULSE 81; RESP 18; TEMP 36.3; O2SAT 97
--- NOTE | 2023-02-20 16:04 | PN.HOSP_ITS ---
Reason for Visit Reason for Visit: Diagnoses Type 2 diabetes mellitus with other specified complication (02/16/23) Other chronic osteomyelitis, right ankle and foot (02/16/23) Pseudarthrosis after fusion or arthrodesis (02/16/23) Subjective Subjective Patient was seen and examined today, we are currently awaiting approval for the patient to go to an extended care facility for inpatient rehab services. Patient's blood sugars have appeared under control. Objective Data Objective Data Vital Signs: Vital Signs Temp Pulse Resp BP Pulse Ox O2 Del Method 97.4 F L 81 18 115/51 L 97 Room Air 02/20/23 15:12 02/20/23 15:12 02/20/23 15:12 02/20/23 15:12 02/20/23 15:12 02/20/23 15:12 Oxygen Delivery Method Room Air Weight: 129.092 kg Body Mass Index (BMI) 52.0 Intake & Output: Intake and Output for Last 24 Hours 02/18/23 02/19/23 02/20/23 23:59 23:59 23:59 Intake Total 961.5 / 961.5 509.75 / 709.75 1023.75 / 1023.75 Balance 961.5 / 961.5 509.75 / 709.75 1023.75 / 1023.75 Lab / Micro Data Result Diagrams: 02/17/23 05:44 02/17/23 05:44 Labs: Laboratory Results - last 24 hr 02/19/23 16:21: POC Glucose 164 H 02/19/23 21:53: POC Glucose 164 H 02/20/23 07:43: POC Glucose 152 H 02/20/23 11:22: POC Glucose 139 H Micro: Microbiology 02/16/23 11:26 Bone - Other Gram Stain - Final 02/16/23 11:26 Bone - Other Wound Culture - Preliminary Proteus mirabilis Strep anginosus 02/16/23 11:26 Bone - Other Anaerobic Culture - Final No anaerobic bacteria isolated. 02/16/23 11:36 Implant - Other Gram Stain - Final 02/16/23 11:36 Implant - Other Wound Culture - Preliminary Proteus mirabilis Strep anginosus 02/16/23 11:36 Implant - Other Anaerobic Culture - Final No anaerobic bacteria isolated. 02/16/23 11:29 Tissue - Right Foot Gram Stain - Final 02/16/23 11:29 Tissue - Right Foot Wound Culture - Preliminary Proteus mirabilis Strep anginosus 02/16/23 11:29 Tissue - Right Foot Anaerobic Culture - Final No anaerobic bacteria isolated. Physical Exam Const alert, oriented x3 and no apparent distress Constitutional Narrative: Patient is morbidly obese General Appearance: cooperative, well kempt and well developed Orientation / Consciousness: awake, oriented to person, oriented to place and oriented to time HEENT normocephalic, head/scalp atraumatic and moist oral mucous membranes Eyes PERRL, EOMs intact bilaterally and conjunctivae normal Neck supple, no JVD, thyroid normal and no carotid bruits General: trachea midline Resp normal respiratory effort, no retractions, no use of accessory muscles and clear to auscultation bilaterally Auscultation: Negative for rales, rhonchi or wheezes Cardio regular rate, regular rhythm, S1 normal heart sound, S2 normal heart sound, no murmurs, no rub and no gallops GI normal to inspection, nondistended, normoactive bowel sounds, soft to palpation, non-tender and non-distended Extremity Extremity Narrative: Patient's right foot is wrapped with surgical dressing, this was not removed for evaluation of the area Skin no rashes or lesions noted General Skin Exam: no breakdown Neuro oriented x3, CN's II-XII intact bilaterally, moves all extremities, no focal motor deficits and no sensory deficits noted Sensorium / Orientation: awake, alert, oriented to person, oriented to place and oriented to time Speech: speech normal Psych affect normal Assessment & Plan Assessment/Plan (1) Chronic osteomyelitis of right foot: PLAN: Plan 1. Type 2 diabetes-continue present medication, monitor blood sugars, administer sliding scale insulin as needed #2 chronic anxiety and depression-patient remains on her current medications #3 morbid obesity-complicates care, medical course, recovery, and prognosis #4 osteomyelitis of the right foot-surgical cultures are positive for Proteus and strep, patient is on Unasyn, patient will need 6 weeks of Augmentin after discharge Total clinical time spent by myself addressing the patient's medical issues, reviewing all of her data, and collaborating with patient's care team: 35 m inutes Charges/Coding Visit Charges Inpatient E&M: 01231 Subs Hosp L2
[2023-02-20 17:10] LABS: Bedside Glucose 132 mg/dL (74-106)
[2023-02-20 21:32] VITALS: BP 121/72; PULSE 94; RESP 18; TEMP 36.9; O2SAT 98
[2023-02-20] MEDS: Doxazosin 1 MG Tablet 1.5 MG PO (21:42)
[2023-02-20] MEDS: traZODone 100 MG Tablet PO (21:42)
[2023-02-20] MEDS: Pravastatin 40 MG Tablet PO (21:42)
[2023-02-20] MEDS: MELATONIN 10 MG TABLET 20 MG PO (21:44)
[2023-02-20 22:16] LABS: Bedside Glucose 197 mg/dL (74-106)
[2023-02-21 00:01] VITALS: BP 117/52; PULSE 81; RESP 18; TEMP 36.6; O2SAT 96
[2023-02-21] MEDS: oxyCODONE 5 MG Tablet PO (04:16)
[2023-02-21] MEDS: Acetaminophen 325 MG Tablet 650 MG PO (04:16)
[2023-02-21] MEDS: 0.9% Saline Lock 10 ML Syringe IV (04:19)
[2023-02-21 06:32] LABS: Absolute Lymphocyte Count 1.51 X10^3/uL (0.83-4.51); Absolute Neutrophil Count 5.3 X10^3/uL (2.0-7.7); Basophil# 0.04 X10^3/uL; Basophil% 0.5 % (0-1); Eosinophil# 0.27 X10^3/uL; Eosinophils% 3.5 % (0-5); Hematocrit 36.5 % (37-47); Hemoglobin 11.6 g/dL (12.0-15.0); Lymphocyte # 1.51 X10^3/ul (0.83-4.51); Lymphocyte % 19.5 % (19-41); Mean Corp Hgb Conc 31.8 g/dL (32-36); Mean Corpuscular Hgb 28.9 pg (27.0-32.0); Monocyte# 0.54 X10^3/uL; NRBC Flagged by Analyzer 0 % (0-5); Neutrophil # 5.34 X10^3/uL (2.7-7.7); Neutrophil % 68.9 % (47-70); Platelet Count 355 K/mm3 (150-450); RBC Distribution Width SD 42.7 fl (35.1-43.9); Red Blood Count 4.01 M/mm3 (4.2-5.4); White Blood Count 7.8 K/mm3 (4.4-11.0)
[2023-02-21 06:57] VITALS: BP 130/57; PULSE 72; RESP 18; TEMP 36.5; O2SAT 95
[2023-02-21 07:00] LABS: ALB/GLOB Ratio 0.8 RATIO (0.9-2.4); AST(SGOT) 23 U/L (15-37); Alanine Aminotransfer ALT/SGPT 33 U/L (13-56); Albumin, Serum 2.9 g/dL (3.2-5.0); Alkaline Phosphatase 144 U/L (45-117); Anion Gap 5 (5-15); BUN 14 mg/dL (7-18); BUN/Creat Ratio 20.7 RATIO (10-20); Calcium,Total 8.8 mg/dL (8.5-10.1); Chloride 107 mmol/L (98-107); Creatinine, Serum 0.68 mg/dL (0.55-1.02); EST Glomerular Filtration Rate 98 mL/min (>60); Est Glom Filt Rate - Afr Amer 119 mL/min (>60); Estimated Creatinine Clearance 78.28 ml/min; Globulin 3.7 g/dL (2.2-4.2); Glucose 148 mg/dL (74-106); Potassium 3.8 mmol/L (3.5-5.1); Protein, Total 6.6 g/dL (6.4-8.2); Sodium Level 138 mmol/L (136-145)
[2023-02-21 08:04] VITALS: BP 112/53; PULSE 73; RESP 18; TEMP 36.7; O2SAT 96
[2023-02-21] MEDS: Enoxaparin 40 MG/0.4 ML Syringe SC (08:08)
[2023-02-21] MEDS: Famotidine 20 MG Tablet PO (08:08)
[2023-02-21] MEDS: Venlafaxine XR 75 MG Capsule PO (08:08)
[2023-02-21] MEDS: Insulin Lispro 100 UNIT/ML INSULN.PEN 15 UNIT SC ×2 (08:08→11:10)
--- NOTE | 2023-02-21 08:14 | CASEMGMT ---
Social Work SW received message from [facility]. Precert has been obtained. UZMA notified MD Jefferson via backline. PLAN: ELIEZER No
[2023-02-21] MEDS: Insulin Glargine-YFGN 100 UNIT/ML Pen 25 UNIT SC (11:08)
[2023-02-21] MEDS: Insulin Lispro 100 UNIT/ML INSULN.PEN SC (11:10)
[2023-02-21 11:20] LABS: Bedside Glucose 161 mg/dL (74-106)
--- NOTE | 2023-02-21 12:07 | PCM.TXEXTCAR ---
Diet Diet Order/Speech Therapy: 02/16/23 11:56 Diet: Consistent Carb - Calorie Controlled Food consistency:: Regular Liquid Consistency:: Regular/Thin How many daily calories?: 1800 calorie Routine Orders/Code Status Routine Lab Work: - (fingerstick blood sugars ACQHS, coverage with Humalog SQ per scale: 200-250: 5 u, 251-300: 8u, 301-350: 12u, 351-400: 15u) Code Status: Full Code Wound(s) RIGHT FOOT: Wound Type: Surgical Incision Therapies Weight Bearing: Non weight bearing Problem/Diagnosis (1) Chronic osteomyelitis of right foot: Status: Chronic Code(s): M86.671 - Other chronic osteomyelitis, right ankle and foot Plan 1. Type 2 diabetes-continue present medication, monitor blood sugars, administer sliding scale insulin as needed #2 chronic anxiety and depression-patient remains on her current medications #3 morbid obesity-complicates care, medical course, recovery, and prognosis #4 osteomyelitis of the right foot-surgical cultures are positive for Proteus and strep, patient is on Unasyn, patient will need 6 weeks of Augmentin after discharge Total clinical time spent by myself addressing the patient's medical issues, reviewing all of her data, and collaborating with patient's care team: 35 minutes Allergies/Procedures Done in Hospital Allergies azithromycin [From Zithromax Z-Matt] Allergy (Verified 02/16/23 09:54) Rash bupropion [From Wellbutrin] Allergy (Verified 02/16/23 09:54) Rash celecoxib [From Celebrex] Allergy (Verified 02/16/23 09:54) Rash diclofenac [From Voltaren] Allergy (Verified 02/16/23 09:54) Rash loratadine [From Claritin] Allergy (Verified 02/16/23 09:54) Rash Sulfa (Sulfonamide Antibiotics) Allergy (Verified 02/16/23 09:54) Itching, RASH Procedures: - (removal of hardware right subtalar joint, 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) Type of Care/Length of Stay Estimated LOS: Convalescent Care Less Than 30 days Type of Care Needed: Skilled Rehab Potential: Good Prognosis: Good Additional Orders/Day of Discharge H&P will serve as current which was dated: 02/16/23 Day of Discharge: 02/21/23 Dietary and Speech Recommendations Dietitian Recommendations/Changes: Continue 1800 CCD diet to manage blood glucose Discharge Plan Admission Admit Date/Time: 02/16/23 11:54 Primary Reason for Your Visit: chronic osteomylitis right foot Attending Provider: Andrew Jefferson Primary Care Provider: Fabricio Harry Consulting Providers: Mela Garcia ; Tawana Fisher ; Adriana Julian ; Keven Crawford ; Michael Haq ; Iveth Abbasi ; Tracey Marino NP ; Earle Humphries NP ; Radha Ball ; Radha Sorto ; Bryant Bernstein ; Travis Rodriguez ; Earle Rubin Discharge Orders/Prescriptions Prescriptions: New acetaminophen 325 mg Tablet 650 mg PO Q6H PRN PRN (Reason: Pain Score 1-10) Qty: 0 0RF insulin lispro [Humalog KwikPen Insulin] 100 unit/mL Insulin Pen 15 unit subcut TIDAC Qty: 0 0RF enoxaparin 40 mg/0.4 mL Syringe 40 mg subcut DAILY Qty: 0 0RF Rx Instructions: continue for three weeks acidophilus-pectin, citrus 25 million cell -100 mg Tablet 1 tab PO TID Qty: 0 0RF loperamide 2 mg Capsule 2 mg PO Q6H PRN PRN (Reason: DIARRHEA) Qty: 0 0RF insulin glargine-yfgn 100 unit/mL (3 mL) Insulin Pen 25 unit subcut 1100,2200 Qty: 0 0RF amoxicillin-pot clavulanate 875-125 mg tablet 1 tab PO BID Qty: 71 0RF Rx Instructions: stop date 03/30/23 oxycodone 5 mg Tablet 5 mg PO Q4H PRN PRN (Reason: Pain Score 6-10) 3 Days Qty: 10 0RF Continued multivitamin tablet 1 tab PO DAILY prazosin 1 mg capsule 2 mg PO QHS venlafaxine 75 mg capsule,extended release 24hr 75 mg PO DAILY Label Comments: TAKE 1 CAPSULE BY MOUTH EVERY MORNING trazodone 100 mg tablet 100 mg PO QHS pravastatin 40 MG tablet 40 mg PO QHS famotidine 20 MG tablet 20 mg PO DAILY melatonin 5 mg tablet 20 mg PO QHS cholecalciferol (vitamin D3) [Vitamin D3] 50 mcg (2,000 unit) Capsule 50 mcg PO DAILY Discontinued Zyrtec 10 mg capsule 10 mg PO DAILY PRN (Reason: seasonal allergies) insulin lispro [Humalog KwikPen Insulin] 100 unit/mL Insulin Pen See Protocol subcut ACHS Qty: 0 0RF Protocol: 3. Sliding Scale Insulin Med Dosing Condition: 150-189 mg/dl = 1 unit Condition: 190-229 mg/dl = 2 units Condition: 230-269 mg/dl = 3 units Condition: 270-309 mg/dl = 4 units Condition: 310-349 mg/dl = 5 units Condition: 350-399 mg/dl = 6 units Condition: 400-449 mg/dl = 7 units Condition: Greater than 449 call physician Protocol Text: - Use for Total Daily Dose of Insulin 37-55 units - Obsese, infected, or steroid patients MEDIUM DOSING ALGORITHIM insulin lispro [Humalog KwikPen Insulin] 100 unit/mL Insulin Pen 5 unit subcut TIDAC Qty: 0 0RF insulin glargine [Lantus Solostar U-100 Insulin] 100 unit/mL (3 mL) Insulin Pen 20 units subcut BID Qty: 0 0RF Referrals / Follow Up: Fabricio Harry MD [Primary Care Provider] - Travis Rodriguez MD [Med Staff - Active Staff] - See Referral Note (in 3 weeks-call to schedule appointment) Andrew Jefferson DPM [Med Staff - Active Staff] - See Referral Note (next week-call to schedule appointment) Disposition Disposition (needs filled in before D/C Order can be placed): [facility]
--- NOTE | 2023-02-21 12:35 | PN.HOSP_ITS ---
Reason for Visit Reason for Visit: Diagnoses Type 2 diabetes mellitus with other specified complication (02/16/23) Other chronic osteomyelitis, right ankle and foot (02/16/23) Pseudarthrosis after fusion or arthrodesis (02/16/23) Subjective Subjective Patient seen and examined today, we received confirmation that she has been accepted at a group home facility and approved by insurance, I talked briefly with podiatry about discharge planning today and the patient will be discharged to the extended care facility, I filled out paperwork at this time for the patient to be transferred there. Objective Data Objective Data Vital Signs: Vital Signs Temp Pulse Resp BP Pulse Ox O2 Del Method 98.0 F 73 18 112/53 L 96 Room Air 02/21/23 08:04 02/21/23 08:04 02/21/23 08:04 02/21/23 08:04 02/21/23 08:04 02/21/23 08:04 Oxygen Delivery Method Room Air Weight: 129.092 kg Body Mass Index (BMI) 52.0 Intake & Output: Intake and Output for Last 24 Hours 02/19/23 02/20/23 02/21/23 23:59 23:59 23:59 Intake Total 509.75 / 709.75 1585.75 / 1585.75 886 / 886 Balance 509.75 / 709.75 1585.75 / 1585.75 886 / 886 Lab / Micro Data Result Diagrams: 02/21/23 06:10 02/21/23 06:10 Labs: Laboratory Results - last 24 hr 02/20/23 16:41: POC Glucose 132 H 02/20/23 21:37: POC Glucose 197 H 02/21/23 06:10: WBC 7.8, RBC 4.01 L, Hgb 11.6 L, Hct 36.5 L, MCV 91.0, MCH 28.9, MCHC 31.8 L, RDW Std Deviation 42.7, RDW Coeff of Juliet 13.0, Plt Count 355, MPV 10.0, Immature Gran % (Auto) 0.600, Neut % (Auto) 68.9, Lymph % (Auto) 19.5, [place] % (Auto) 7.0, Eos % (Auto) 3.5, Baso % (Auto) 0.5, Absolute Neuts (auto) 5.3, Absolute Lymphs (auto) 1.51, Nucleated RBC % 0 02/21/23 06:10: Sodium 138, Potassium 3.8, Chloride 107, Carbon Dioxide 26.0, Anion Gap 5, BUN 14, Creatinine 0.68, Estim Creat Clear Calc 78.28, Est GFR (MDRD) Af Amer 119, Est GFR (MDRD) Non-Af 98, BUN/Creatinine Ratio 20.7 H, Glucose 148 H, Calcium 8.8, Total Bilirubin 0.60, AST 23, ALT 33, Alkaline Phosphatase 144 H, Total Protein 6.6, Albumin 2.9 L, Globulin 3.7, Albumin/Globulin Ratio 0.8 L 02/21/23 10:58: POC Glucose 161 H Micro: Microbiology 02/21/23 11:02 Nasal Secretion SARS-CoV-2 Antigen (Rapid) - Final 02/16/23 11:26 Bone - Other Gram Stain - Final 02/16/23 11:26 Bone - Other Wound Culture - Preliminary Proteus mirabilis Strep anginosus 02/16/23 11:26 Bone - Other Anaerobic Culture - Final No anaerobic bacteria isolated. 02/16/23 11:36 Implant - Other Gram Stain - Final 02/16/23 11:36 Implant - Other Wound Culture - Preliminary Proteus mirabilis Strep anginosus 02/16/23 11:36 Implant - Other Anaerobic Culture - Final No anaerobic bacteria isolated. 02/16/23 11:29 Tissue - Right Foot Gram Stain - Final 02/16/23 11:29 Tissue - Right Foot Wound Culture - Preliminary Proteus mirabilis Strep anginosus 02/16/23 11:29 Tissue - Right Foot Anaerobic Culture - Final No anaerobic bacteria isolated. Physical Exam Narrative alert, oriented x3 and no apparent distress Constitutional Narrative: Patient is morbidly obese General Appearance: cooperative, well kempt and well developed Orientation / Consciousness: awake, oriented to person, oriented to place and oriented to time HEENT normocephalic, head/scalp atraumatic and moist oral mucous membranes Eyes PERRL, EOMs intact bilaterally and conjunctivae normal Neck supple, no JVD, thyroid normal and no carotid bruits General: trachea midline Resp normal respiratory effort, no retractions, no use of accessory muscles and clear to auscultation bilaterally Auscultation: Negative for rales, rhonchi or wheezes Cardio regular rate, regular rhythm, S1 normal heart sound, S2 normal heart sound, no murmurs, no rub and no gallops GI normal to inspection, nondistended, normoactive bowel sounds, soft to palpation, non-tender and non-distended Extremity Extremity Narrative: Patient's right foot is wrapped with surgical dressing, this was not removed for evaluation of the area Skin no rashes or lesions noted General Skin Exam: no breakdown Neuro oriented x3, CN's II-XII intact bilaterally, moves all extremities, no focal motor deficits and no sensory deficits noted Sensorium / Orientation: awake, alert, oriented to person, oriented to place and oriented to time Speech: speech normal Psych affect normal Assessment & Plan Assessment/Plan (1) Chronic osteomyelitis of right foot: PLAN: Plan 1. Type 2 diabetes-patient will continue on her present medication at the group home facility #2 chronic anxiety and depression-patient will remain on her current psychiatric medications at the skilled facility #3 morbid obesity #4 osteomyelitis of the right foot with positive Proteus and strep-patient will need to take Augmentin until 03/30/2023 at the direction of infectious diseases, there will be follow-up with infectious diseases in 2 weeks. Total clinical time spent by myself addressing the patient's medical problems, reviewing all the data, and collaborating with patient's care team: 50 minutes Charges/Coding Visit Charges Inpatient E&M: 16717 Subs Hosp L3
--- NOTE | 2023-02-21 13:49 | CASEMGMT ---
Social Work? ?? UZMA met with pt and informed of discharge today. Pt declined for SW to call family and update on plan. Stated would call family on own. 7000 form completed in [employer] system and included with discharge orders.? UZMA set up wheelchair transport through [facility] for 3:00pm. UZMA sent all discharge orders to [place] via [employer] fax ([facility] not able to access [facility] at this time) UZMA called [place] at [facility] and notified of transport time. UZMA also notified pt nurse of transport time. UZMA made copies of discharge orders to place on pt chart and put originals in envelope to go with pt.? Disposition: [facility], skilled, convalescent level of care? ELIEZER Berrios?
[2023-02-21 14:07] VITALS: BP 152/74; PULSE 80; RESP 18; TEMP 36.7; O2SAT 98
--- NOTE | 2023-02-21 14:18 | PHA.DC.MR ---
Pharmacy Service has performed discharge medication reconciliation for this patient. The patient's discharge medication list was reviewed for discrepancies and discrepancies were resolved. Home Medications multivitamin 1 tab PO DAILY supplement 11/21/18 prazosin 1 mg capsule 2 mg PO QHS sleep 08/19/19 famotidine 20 mg tablet 20 mg PO DAILY GERD 09/02/19 pravastatin 40 mg tablet 40 mg PO QHS cholesterol 09/02/19 melatonin 5 mg tablet 20 mg PO QHS sleep 10/04/20 venlafaxine 75 mg capsule,extended release 24 hr 75 mg PO DAILY depression 10/04/20 cholecalciferol (vitamin D3) 50 mcg (2,000 unit) capsule (Vitamin D3) 50 mcg PO DAILY supplement 07/15/21 trazodone 100 mg tablet 100 mg PO QHS 12/23/21 acetaminophen 325 mg tablet 650 mg PO Q6H PRN PRN Pain Score 1-10 #0 tabs 02/21/23 acidophilus 25 million cell-pectin, citrus 100 mg tablet 1 tab PO TID #0 tabs 02/21/23 amoxicillin 875 mg-potassium clavulanate 125 mg tablet 1 tab PO BID #71 tabs 02/21/23 enoxaparin 40 mg/0.4 mL subcutaneous syringe 40 mg (0.4 mL) subcut DAILY #0 mL 02/21/23 insulin glargine-yfgn 100 unit/mL (3 mL) subcutaneous pen 25 unit (0.25 mL) subcut 1100,2200 #0 mL 02/21/23 insulin lispro 100 unit/mL subcutaneous pen (Humalog KwikPen (U-100) Insulin) 15 unit (0.15 mL) subcut TIDAC #0 mL 02/21/23 loperamide 2 mg capsule 2 mg PO Q6H PRN PRN DIARRHEA #0 caps 02/21/23 oxycodone 5 mg tablet 5 mg PO Q4H PRN PRN Pain Score 6-10 3 days #10 tabs 02/21/23
== END 2023-02-21 15:08 | disposition skilled nursing facility (03) | DRG 478 ==
LOC: SDC 12:26 → MS3 12:26
PROVIDERS: Family Medicine; Internal Medicine; Admitting Provider Podiatrist; PCP Family Medicine; Referring Provider Podiatrist; Visit Provider Podiatrist
PROC: 0QBL0ZX Excision of Right Tarsal, Open Approach, Diagnostic (ICD-10-PCS; principal; 2023-02-16 10:35)
DX: M86.671 Other chronic osteomyelitis, right ankle and foot (principal); T84.293A Other mechanical complication of internal fixation device of bones of foot and toes, initial encounter; Z68.43 Body mass index [BMI] 50.0-59.9, adult; E11.69 Type 2 diabetes mellitus with other specified complication; Z79.4 Long term (current) use of insulin; E66.01 Morbid (severe) obesity due to excess calories; I10 Essential (primary) hypertension; E78.00 Pure hypercholesterolemia, unspecified; F41.9 Anxiety disorder, unspecified; Z87.891 Personal history of nicotine dependence; F32.A Depression, unspecified
CPT/HCPCS: 36415; 73630; 76000; 80053; 80061; 82962; 83036; 85025; 87015; 87070; 87075; 87077; 87102; 87116; 87176; 87186; 87205; 87206; 87426; 88305; 88307; 88311; 94668; 97110; 97116; 97161; 97166; 97530; 97535; 99252; J7050; J7120; A4216; G0463; J0295; J2405

== ENCOUNTER → 2023-03-22 | Outpatient (CLI) | payer BC, SELFPAY ==
[2023-03-22 17:42] LABS: Absolute Lymphocyte Count 1.49 X10^3/uL (0.83-4.51); Absolute Neutrophil Count 5.6 X10^3/uL (2.0-7.7); Basophil# 0.04 X10^3/uL; Basophil% 0.5 % (0-1); Eosinophil# 0.18 X10^3/uL; Eosinophils% 2.3 % (0-5); Hematocrit 42.1 % (37-47); Hemoglobin 13.1 g/dL (12.0-15.0); Lymphocyte # 1.49 X10^3/ul (0.83-4.51); Mean Corp Hgb Conc 31.1 g/dL (32-36); Mean Corpuscular Hgb 28.5 pg (27.0-32.0); Mean Corpuscular Volume 91.7 fL (81-99); Mean Platelet Vol. 10.9 fl (6.2-12.0); Monocyte# 0.44 X10^3/uL; Monocyte% 5.6 % (0-10); NRBC Flagged by Analyzer 0 % (0-5); Neutrophil # 5.63 X10^3/uL (2.7-7.7); Neutrophil % 71.8 % (47-70); Platelet Count 361 K/mm3 (150-450); RBC Distribution Width CV 12.6 % (11.6-14.6); Red Blood Count 4.59 M/mm3 (4.2-5.4); White Blood Count 7.8 K/mm3 (4.4-11.0)
[2023-03-22 18:22] LABS: AST(SGOT) 15 U/L (15-37); Alanine Aminotransfer ALT/SGPT 28 U/L (13-56); Albumin, Serum 3.6 g/dL (3.2-5.0); Alkaline Phosphatase 183 U/L (45-117); Anion Gap 6 (5-15); BUN 12 mg/dL (7-18); BUN/Creat Ratio 17.1 RATIO (10-20); Calcium,Total 9.3 mg/dL (8.5-10.1); Chloride 103 mmol/L (98-107); Cholesterol 188 mg/dL (200); EST Glomerular Filtration Rate 94 mL/min (>60); Est Glom Filt Rate - Afr Amer 114 mL/min (>60); Globulin 3.6 g/dL (2.2-4.2); Glucose 91 mg/dL (74-106); High Density Lipoprotein 49 mg/dL; Protein, Total 7.2 g/dL (6.4-8.2); Sodium Level 140 mmol/L (136-145); Triglycerides 169 mg/dL; Very Low Density Lipoprotein 34 mg/dL (5-40)
[2023-03-22 18:23] LABS: Vitamin D,25 Hydroxy 43.4 ng/mL
[2023-03-22 18:25] LABS: Hemoglobin A1c 7.1 % (3.8-5.6)
[2023-03-22 18:28] LABS: Microalbumin,Random Urine 23.9 mg/L (NO RANGE EST.)
[2023-03-23 12:18] LABS: GGTP 54 U/L (5-55)
== END | disposition home or self-care (01) ==
LOC: MFPLAB 14:51
PROVIDERS: PCP Family Medicine; Visit Provider Family Medicine
DX: R74.8 Abnormal levels of other serum enzymes (principal); E11.9 Type 2 diabetes mellitus without complications; E55.9 Vitamin D deficiency, unspecified
CPT/HCPCS: 36415; 80053; 80061; 82043; 82306; 82570; 82977; 83036; 85025

== ENCOUNTER 2023-03-26 22:06 | Emergency (ER) | payer BC, SELFPAY ==
[2023-03-26 22:07] VITALS: BP 152/87; PULSE 84; RESP 18; TEMP 36.2; O2SAT 98
[2023-03-26 22:09] VITALS: BMI 53.3
--- NOTE | 2023-03-26 22:26 | EDS_ITS ---
HPI History of Present Illness Chief Complaint: Allergic Reaction Narrative Narrative: Patient is a 48-year-old female with past medical history of chronic osteomyelitis for almost 6 weeks as well as diabetes GERD and obesity. She states has been staying with her sister who has been washing her close in a different detergent but she has been exposed that detergent for the past 2 weeks. Other than the recurrent Augmentin and new laundry soap she denies any new exposures and states no one else has the rash. She denies any trouble breathing or swallowing but with the persistent nature of the rash despite taking [id number] medications she presents for evaluation. [facility] Medical History Ambulates with cane Anxiety Anxiety and depression Arthritis Blackout Depression Diabetes Dysphagia Easy bruising Former smoker Gastric reflux GERD (gastroesophageal reflux disease) High cholesterol History of back problems History of stress test Injury of back Insulin dependent diabetes mellitus Morbid obesity with body mass index (BMI) greater than or equal to 50 Obesity PTSD (post-traumatic stress disorder) Scoliosis Seasonal allergies Shortness of breath on exertion Wears glasses Home Medications multivitamin 1 tab PO DAILY supplement 11/21/18 [History Last Taken 02/15/23] prazosin 1 mg capsule 2 mg PO QHS sleep 08/19/19 [History Last Taken 02/15/23] famotidine 20 mg tablet 20 mg PO DAILY GERD 09/02/19 [History Last Taken 02/16/23] pravastatin 40 mg tablet 40 mg PO QHS cholesterol 09/02/19 [History Last Taken 02/15/23] melatonin 5 mg tablet 20 mg PO QHS sleep 10/04/20 [History Last Taken 02/15/23] venlafaxine 75 mg capsule,extended release 24 hr 75 mg PO DAILY depression 10/04/20 [History Last Taken 02/15/23] cholecalciferol (vitamin D3) 50 mcg (2,000 unit) capsule (Vitamin D3) 50 mcg PO DAILY supplement 07/15/21 [History Last Taken 02/15/23] trazodone 100 mg tablet 100 mg PO QHS 12/23/21 [History Last Taken 02/15/23] acetaminophen 325 mg tablet 650 mg PO Q6H PRN PRN Pain Score 1-10 #0 tabs 02/21/23 [Rx Last Taken Unknown] acidophilus 25 million cell-pectin, citrus 100 mg tablet 1 tab PO TID #0 tabs 02/21/23 [Rx Last Taken Unknown] amoxicillin 875 mg-potassium clavulanate 125 mg tablet 1 tab PO BID #71 tabs 02/21/23 [Rx Last Taken Unknown] enoxaparin 40 mg/0.4 mL subcutaneous syringe 40 mg (0.4 mL) subcut DAILY #0 mL 02/21/23 [Rx Last Taken Unknown] insulin glargine-yfgn 100 unit/mL (3 mL) subcutaneous pen 25 unit (0.25 mL) subcut 1100,2200 #0 mL 02/21/23 [Rx Last Taken Unknown] insulin lispro 100 unit/mL subcutaneous pen (Humalog KwikPen (U-100) Insulin) 15 unit (0.15 mL) subcut TIDAC #0 mL 02/21/23 [Rx Last Taken Unknown] loperamide 2 mg capsule 2 mg PO Q6H PRN PRN DIARRHEA #0 caps 02/21/23 [Rx Last Taken Unknown] oxycodone 5 mg tablet 5 mg PO Q4H PRN PRN Pain Score 6-10 3 days #10 tabs 02/21/23 [Rx Last Taken Unknown] desonide 0.05 % topical cream 1 applic topical TID PRN itching #60 grams 03/26/23 [Rx Last Taken Unknown] prednisone 20 mg tablet 40 mg PO DAILY 5 days #10 tabs 03/26/23 [Rx Last Taken Unknown] Allergy/AdvReac Type Severity Reaction Status Date / Time azithromycin Allergy Rash Verified 03/26/23 22:07 [From Zithromax Z-Matt] bupropion [From Wellbutrin] Allergy Rash Verified 03/26/23 22:07 celecoxib [From Celebrex] Allergy Rash Verified 03/26/23 22:07 diclofenac [From Voltaren] Allergy Rash Verified 03/26/23 22:07 loratadine [From Claritin] Allergy Rash Verified 03/26/23 22:07 Sulfa (Sulfonamide Allergy Itching, Verified 03/26/23 22:07 Antibiotics) RASH Family History Aunt Hypertension CVA (cerebral vascular accident) Father Heart disease Diabetes Cancer Parkinsons disease Aunt Myocardial infarction Surgical History History of ankle surgery History of carpal tunnel surgery of right wrist History of colonoscopy History of left knee surgery History of surgery of uterus History of tubal ligation Social History Smoking Status: Former smoker second hand exposure: Yes alcohol intake: never ROS ROS ED Constitutional Constitutional ED: Denies chills or fever(s) ENT ENT ED: Denies sore throat Cardiovascular Cardiovascular: Denies chest pain Respiratory/Chest Respiratory/Chest: Denies cough or dyspnea Gastrointestinal Gastrointestinal: Denies abdominal pain, diarrhea, nausea or vomiting Genitourinary Genitourinary ED: Denies dysuria Musculoskeletal Musculoskeletal: Denies myalgias Integumentary Reports rash Neurologic Neurologic: Denies headache(s) Hematologic/Lymphatic Hematologic/Lymphatic: Denies easy bleeding or easy bruising EXAM Physical Exam Const Vital Signs: 03/26/23 22:07 Temperature 97.2 F L Temperature Source Temporal Pulse Rate 84 Respiratory Rate 18 Blood Pressure 152/87 H Blood Pressure Mean 108 Pulse Ox 98 Oxygen Delivery Method Room Air Positive well nourished, well developed and obese General Appearance ED: well developed Nutritional Appearance: obese HEENT Reports moist mucous membranes HEENT Narrative: No tongue or lip swelling. No oral lesions no airway edema or compromise Eyes PERRL and EOMs intact bilaterally Neck supple Neck Narrative: No nuchal rigidity or meningeal signs present Resp normal respiratory effort and clear to auscultation bilaterally Resp Narrative: No nasal flaring retractions tachypnea or accessory muscle use Cardio regular rate and regular rhythm Extremity Extremity Narrative: Chronic changes to the right foot from previous surgery secondary to osteomyelitis Neuro oriented x3 and CN's II-XII intact bilaterally Sensorium / Orientation: alert Psych mental status grossly normal Skin Skin Narrative: Erythematous blanchable urticarial lesions across the bilateral arms the abdomen chest back neck and face as well as in her thighs and lower leg but no involvement of the palms or soles No vesicular or pustule changes noted MDM MDM MDM Narrative Medical decision making narrative: Patient presented to ER with stable vitals and in no acute respiratory distress. There is no tongue or lip swelling no airway compromise no difficulty with secretions or speaking and therefore there is no signs of anaphylaxis. Also patient does not have involvement of the palms or soles going against infectious process such as [id number]-mouth disease or secondary syphilis. At this time it is a possibility patient is having acute allergic reaction to Augmentin but she has been on this for almost 6 weeks and in theory should have reacted much earlier to the drug and she does not have any type of joint swelling or pain going against serum sickness. There is also potential that she is reacting to the laundry soap but has also been exposed to this for 2 weeks and it would be expected that this exposure would have resulted in an allergic reaction sooner as well. At this time over she has no signs of respiratory distress no signs of secondary infection causing the rash and therefore should be treated with IV Solu-Medrol Benadryl and Pepcid secondary to the acute allergic reaction. She was watched in the ER for roughly an hour and on reevaluation has had improvement of her rash and itch. She remains in no acute respiratory distress. Therefore at this time there is no need for further observation or admission and she is otherwise safe for discharge. History & Record Review Discussion w/independent historian: Patient and Friend Discharge Plan Triage Chief Complaint: Allergic Reaction ED Provider: Mike Olivas Dx/Rx/DC Orders Clinical Impression: Urticaria, Allergic reaction, Morbid obesity with body mass index (BMI) greater than or equal to 50, Chronic osteomyelitis of right foot, Diabetes Instructions: ED Hivmolly (Adult), Allergy Overview Prescriptions: New desonide 0.05 % cream 1 applic topical TID PRN (Reason: itching) Qty: 60 1RF prednisone 20 mg tablet 40 mg PO DAILY 5 Days Qty: 10 0RF No Action multivitamin tablet 1 tab PO DAILY prazosin 1 mg capsule 2 mg PO QHS venlafaxine 75 mg capsule,extended release 24hr 75 mg PO DAILY Label Comments: TAKE 1 CAPSULE BY MOUTH EVERY MORNING trazodone 100 mg tablet 100 mg PO QHS pravastatin 40 MG tablet 40 mg PO QHS famotidine 20 MG tablet 20 mg PO DAILY melatonin 5 mg tablet 20 mg PO QHS cholecalciferol (vitamin D3) [Vitamin D3] 50 mcg (2,000 unit) Capsule 50 mcg PO DAILY acetaminophen 325 mg Tablet 650 mg PO Q6H PRN PRN (Reason: Pain Score 1-10) Qty: 0 0RF insulin lispro [Humalog KwikPen Insulin] 100 unit/mL Insulin Pen 15 unit subcut TIDAC Qty: 0 0RF enoxaparin 40 mg/0.4 mL Syringe 40 mg subcut DAILY Qty: 0 0RF Rx Instructions: continue for three weeks acidophilus-pectin, citrus 25 million cell -100 mg Tablet 1 tab PO TID Qty: 0 0RF loperamide 2 mg Capsule 2 mg PO Q6H PRN PRN (Reason: DIARRHEA) Qty: 0 0RF insulin glargine-yfgn 100 unit/mL (3 mL) Insulin Pen 25 unit subcut 1100,2200 Qty: 0 0RF amoxicillin-pot clavulanate 875-125 mg tablet 1 tab PO BID Qty: 71 0RF Rx Instructions: stop date 03/30/23 oxycodone 5 mg Tablet 5 mg PO Q4H PRN PRN (Reason: Pain Score 6-10) 3 Days Qty: 10 0RF Primary Care Provider: Fabricio Harry Referrals: Fabricio Harry MD [Primary Care Provider] - Activity Restrictions/Additional Instructions: Please contact your campus wellness coordinator office tomorrow to inform them of your rash. I would hold off on taking the Augmentin until you speak with them as there is a possibility this is the cause of your rash. Take the oral steroid as directed to control further inflammation/rash and use the topical cream for itch control that has not improved with the oral medication. If you develop any difficulty breathing or swallowing return for repeat evaluation. You may also want to change her laundry detergent and rewash your clothes as there is a possibility that the laundry soap is the cause of your symptoms. Disposition Disposition: Home, Self Care
[2023-03-26] MEDS: DiphenhydrAMINE 50 MG/ML Syringe IV (22:32)
[2023-03-26] MEDS: MethylPREDNISolone 125 MG/2 ML Vial IV (22:35)
[2023-03-26] MEDS: Famotidine 200 MG/20 ML MDV 20 MG in 0.9% Normal Saline (Pres. free 8 ML 300 MG IV ×2 (22:38→22:40)
[2023-03-26 23:31] VITALS: PULSE 73; RESP 17; O2SAT 99
== END 2023-03-27 00:03 | disposition home or self-care (01) ==
PROVIDERS: Emergency Provider Emergency Medicine; PCP Family Medicine; Referring Provider Emergency Medicine; Visit Provider Emergency Medicine
DX: L50.9 Urticaria, unspecified (principal); M86.671 Other chronic osteomyelitis, right ankle and foot; E11.69 Type 2 diabetes mellitus with other specified complication; Z68.43 Body mass index [BMI] 50.0-59.9, adult; Z79.4 Long term (current) use of insulin; Z87.891 Personal history of nicotine dependence; E78.00 Pure hypercholesterolemia, unspecified; E66.9 Obesity, unspecified; T78.40XA Allergy, unspecified, initial encounter; Y92.89 Other specified places as the place of occurrence of the external cause; K21.9 Gastro-esophageal reflux disease without esophagitis; Z79.899 Other long term (current) drug therapy; F41.8 Other specified anxiety disorders; Z79.01 Long term (current) use of anticoagulants
CPT/HCPCS: 96374; 96375; 99283; A4216; J3490

== ENCOUNTER 2023-04-10 16:41 | Emergency (ER) | payer BC, SELFPAY ==
[2023-04-10 16:41] VITALS: BP 170/95; PULSE 94; RESP 18; TEMP 35.8; O2SAT 99
[2023-04-10 16:54] VITALS: BMI 53.5
--- NOTE | 2023-04-10 16:57 | CT_ITS ---
INDICATION: Pain EXAMINATION: CT BRAIN - CT Head or Brain W/O Contrast Injection TECHNIQUE: Multiple axial images were obtained of the head without intravenous contrast. A radiation dose optimization technique was used for this scan. CT imaging analyzed by [facility] to enable computer-assisted triage and notification to rapidly detect intracranial hemorrhage and shorten time to notification where appropriate and available. COMPARISON: No prior FINDINGS: BRAIN: There is hypodensity in the deep right frontal lobe surrounding the frontal horn and in the anterior limb of internal capsule. Remainder of the brain is normal. EXTRA-PARENCHYMAL: There is no mass effect, midline shift, herniation, extra-axial fluid collections or intracranial hemorrhage. Extra parenchymal fluid spaces are diminished. SKULL and FACE: The skull is intact. Upper facial soft tissues are normal. CT/Brain/Head without Contrast IMPRESSION: 1. No acute abnormality. 2. Mild to moderate chronic small vessel ischemic white matter disease. 3. Probably intracranial hypertension/pseudotumor cerebri. Electronically Signed: Ivanna Mckinney MD at 17:57 EDT ,
--- NOTE | 2023-04-10 17:14 | EX.ED.VIS.HA ---
HPI History of Present Illness Chief Complaint: Headache Informant: patient Narrative Narrative: Patient presents with migraine. This patient states she has had a migraine for about 3 weeks. It waxes and wanes but really does not go away. It started off mild. She does have a history of migraines but does not get them frequently. She states this headache is not as bad as her normal migraine but is typical pain which is from her temples across the top of her eyes on both sides. She is not having nausea and vomiting but normally does not. She has no neurologic symptoms. No trauma. She has tried Excedrin. This helps somewhat but does not really take it away. This is not the worst headache of her life nor is it sudden onset. It is just that its not going away. She does not have tearing or runny nose. No visual changes also. Of note, patient did have some infection of hardware in the right lower leg. She was on amoxicillin for this for a couple weeks but is now off of it. It is overall doing well. But this does bring into question if she has had reaction to medicine or is having headaches due to her overall illness. [facility] Medical History Ambulates with cane Anxiety Anxiety and depression Arthritis Blackout Depression Diabetes Dysphagia Easy bruising Former smoker Gastric reflux GERD (gastroesophageal reflux disease) High cholesterol History of back problems History of stress test Injury of back Insulin dependent diabetes mellitus Morbid obesity with body mass index (BMI) greater than or equal to 50 Obesity PTSD (post-traumatic stress disorder) Scoliosis Seasonal allergies Shortness of breath on exertion Wears glasses Home Medications multivitamin 1 tab PO DAILY supplement 11/21/18 [History Last Taken 02/15/23] prazosin 1 mg capsule 2 mg PO QHS sleep 08/19/19 [History Last Taken 02/15/23] famotidine 20 mg tablet 20 mg PO DAILY GERD 09/02/19 [History Last Taken 02/16/23] pravastatin 40 mg tablet 40 mg PO QHS cholesterol 09/02/19 [History Last Taken 02/15/23] melatonin 5 mg tablet 20 mg PO QHS sleep 10/04/20 [History Last Taken 02/15/23] venlafaxine 75 mg capsule,extended release 24 hr 75 mg PO DAILY depression 10/04/20 [History Last Taken 02/15/23] cholecalciferol (vitamin D3) 50 mcg (2,000 unit) capsule (Vitamin D3) 50 mcg PO DAILY supplement 07/15/21 [History Last Taken 02/15/23] trazodone 100 mg tablet 100 mg PO QHS 12/23/21 [History Last Taken 02/15/23] acetaminophen 325 mg tablet 650 mg PO Q6H PRN PRN Pain Score 1-10 #0 tabs 02/21/23 [Rx Last Taken Unknown] acidophilus 25 million cell-pectin, citrus 100 mg tablet 1 tab PO TID #0 tabs 02/21/23 [Rx Last Taken Unknown] amoxicillin 875 mg-potassium clavulanate 125 mg tablet 1 tab PO BID #71 tabs 02/21/23 [Rx Last Taken Unknown] enoxaparin 40 mg/0.4 mL subcutaneous syringe 40 mg (0.4 mL) subcut DAILY #0 mL 02/21/23 [Rx Last Taken Unknown] insulin glargine-yfgn 100 unit/mL (3 mL) subcutaneous pen 25 unit (0.25 mL) subcut 1100,2200 #0 mL 02/21/23 [Rx Last Taken Unknown] insulin lispro 100 unit/mL subcutaneous pen (Humalog KwikPen (U-100) Insulin) 15 unit (0.15 mL) subcut TIDAC #0 mL 02/21/23 [Rx Last Taken Unknown] loperamide 2 mg capsule 2 mg PO Q6H PRN PRN DIARRHEA #0 caps 02/21/23 [Rx Last Taken Unknown] oxycodone 5 mg tablet 5 mg PO Q4H PRN PRN Pain Score 6-10 3 days #10 tabs 02/21/23 [Rx Last Taken Unknown] desonide 0.05 % topical cream 1 applic topical TID PRN itching #60 grams 03/26/23 [Rx Last Taken Unknown] prednisone 20 mg tablet 40 mg PO DAILY 5 days #10 tabs 03/26/23 [Rx Last Taken Unknown] topiramate 25 mg tablet 25 mg PO DAILY #30 tabs 04/10/23 [Rx Last Taken Unknown] Allergy/AdvReac Type Severity Reaction Status Date / Time azithromycin Allergy Rash Verified 04/10/23 17:04 [From Zithromax Z-Matt] bupropion [From Wellbutrin] Allergy Rash Verified 04/10/23 17:04 celecoxib [From Celebrex] Allergy Rash Verified 04/10/23 17:04 diclofenac [From Voltaren] Allergy Rash Verified 04/10/23 17:04 loratadine [From Claritin] Allergy Rash Verified 04/10/23 17:04 Sulfa (Sulfonamide Allergy Itching, Verified 04/10/23 17:04 Antibiotics) RASH Family History Aunt Hypertension CVA (cerebral vascular accident) Father Heart disease Diabetes Cancer Parkinsons disease Aunt Myocardial infarction Surgical History History of ankle surgery History of carpal tunnel surgery of right wrist History of colonoscopy History of left knee surgery History of surgery of uterus History of tubal ligation Social History Smoking Status: Former smoker second hand exposure: Yes alcohol intake: never ROS ROS ED ROS Narrative A complete review of systems was performed and is negative except as documented in the history of present illness. Some specific details below. Constitutional: No recent fevers or chills. No rigors. Patient has not generally felt ill. She is healing from her recent ankle surgery as in history of present illness but it is doing well. EYE: No discharge, visual complaints, or pain. ENT: No difficulty swallowing. No swelling. No sinus pressure or pain. No nasal discharge. No change in hearing. No ear pain. CV: No chest pain, pressure or aching. No palpitations or irregular beats. Patient has not been presyncopal or syncopal. Respiratory: No trouble breathing. No cough. No wheezing. No sputum production. No pain with breathing. GI: No abdominal pain. No nausea vomiting diarrhea. No blood in stool. : No frequency dysuria or hematuria. Musculoskeletal: No recent trauma. No pains. No swelling. Skin: No rash. No diaphoresis. Neuro: No weakness or numbness. No difficulty with speaking. No difficulty understanding speech. No visual loss. Please see history of present illness also. Endocrine: No polyuria or polydipsia. EXAM Physical Exam Narrative Exam Narrative: CONSTITUTIONAL: Patient is nontoxic in appearance. The patient looks comfortable. HEENT: No notable trauma. Mucous membranes moist. No sinus tenderness. Tympanic membranes are normal. No temporal artery tenderness is noted. No facial rashes or swelling. EYES: No conjunctival injection. No proptosis. No pain with range of motion. Funduscopic exam shows no marked abnormalities. She really does not have photophobia. NECK: No meningismus. No JVD. Range of motion is normal looking up down left and right without discomfort. CARDIOVASCULAR: Regular rate. Regular rhythm. No notable murmur. No JVD. RESPIRATORY: No respiratory distress. Breathing is unlabored. No wheezes. No rhonchi. No rales. No pain with a deep breath. GASTROINTESTINAL: Not distended. Bowel sounds are normal. No tenderness. No guarding. No rebound. No palpable mass. No bruit. GENITOURINARY: No tenderness over the bladder. No CVA tenderness. MUSCULOSKELETAL: Atraumatic. No peripheral edema. No cord. No sign of infection NEUROLOGICAL: Patient is alert and oriented. No focal deficit noted. NIH stroke scale is 0. SKIN: No noted rashes. No diaphoresis. No vesicles noted. PSYCHIATRIC: Patient is calm. Mood is appropriate. Const Vital Signs: 04/10/23 16:41 Temperature 96.5 F L Temperature Source Temporal Pulse Rate 94 Respiratory Rate 18 Blood Pressure 170/95 H Blood Pressure Mean 120 Pulse Ox 99 Oxygen Delivery Method Room Air MDM MDM Radiography Diagnostic Testing: Clinical Impression(s) from Imaging Studies Brain CT 04/10/23 16:57 IMPRESSION: 1. No acute abnormality. 2. Mild to moderate chronic small vessel ischemic white matter disease. 3. Probably intracranial hypertension/pseudotumor cerebri. Electronically Signed: Ivanna Mckinney MD at 17:57 EDT , Discharge Plan Triage Chief Complaint: Headache ED Provider: Tobin Yañez Dx/Rx/DC Orders Clinical Impression: Pseudotumor cerebri, History of migraine Instructions: Understanding Headache Pain Prescriptions: New topiramate 25 mg tablet 25 mg PO DAILY Qty: 30 0RF No Action multivitamin tablet 1 tab PO DAILY prazosin 1 mg capsule 2 mg PO QHS venlafaxine 75 mg capsule,extended release 24hr 75 mg PO DAILY Label Comments: TAKE 1 CAPSULE BY MOUTH EVERY MORNING trazodone 100 mg tablet 100 mg PO QHS pravastatin 40 MG tablet 40 mg PO QHS famotidine 20 MG tablet 20 mg PO DAILY melatonin 5 mg tablet 20 mg PO QHS cholecalciferol (vitamin D3) [Vitamin D3] 50 mcg (2,000 unit) Capsule 50 mcg PO DAILY acetaminophen 325 mg Tablet 650 mg PO Q6H PRN PRN (Reason: Pain Score 1-10) Qty: 0 0RF insulin lispro [Humalog KwikPen Insulin] 100 unit/mL Insulin Pen 15 unit subcut TIDAC Qty: 0 0RF enoxaparin 40 mg/0.4 mL Syringe 40 mg subcut DAILY Qty: 0 0RF Rx Instructions: continue for three weeks acidophilus-pectin, citrus 25 million cell -100 mg Tablet 1 tab PO TID Qty: 0 0RF loperamide 2 mg Capsule 2 mg PO Q6H PRN PRN (Reason: DIARRHEA) Qty: 0 0RF insulin glargine-yfgn 100 unit/mL (3 mL) Insulin Pen 25 unit subcut 1100,2200 Qty: 0 0RF amoxicillin-pot clavulanate 875-125 mg tablet 1 tab PO BID Qty: 71 0RF Rx Instructions: stop date 03/30/23 oxycodone 5 mg Tablet 5 mg PO Q4H PRN PRN (Reason: Pain Score 6-10) 3 Days Qty: 10 0RF prednisone 20 mg tablet 40 mg PO DAILY 5 Days Qty: 10 0RF desonide 0.05 % cream 1 applic topical TID PRN (Reason: itching) Qty: 60 1RF Primary Care Provider: Fabricio Harry Referrals: Fabricio Harry MD [Primary Care Provider] - As soon as possible Enrrique Ho MD [Non-Staff -Ordering Privileges] - As soon as possible Disposition Disposition: Home, Self Care
[2023-04-10] MEDS: DiphenhydrAMINE 50 MG/ML Syringe 25 MG IV (17:19)
[2023-04-10] MEDS: 0.9% Normal Saline 1,000 ML 999 ML IV (17:19)
[2023-04-10] MEDS: proCHLORPERazine 10 MG/2 ML Vial IV (17:20)
== END 2023-04-10 18:45 | disposition home or self-care (01) ==
PROVIDERS: Emergency Provider Emergency Medicine; PCP Family Medicine; Visit Provider Emergency Medicine
DX: G93.2 Benign intracranial hypertension (principal); Z79.4 Long term (current) use of insulin; E11.9 Type 2 diabetes mellitus without complications; Z87.891 Personal history of nicotine dependence; G43.909 Migraine, unspecified, not intractable, without status migrainosus; E78.00 Pure hypercholesterolemia, unspecified; K21.9 Gastro-esophageal reflux disease without esophagitis; F41.8 Other specified anxiety disorders; Z79.899 Other long term (current) drug therapy
CPT/HCPCS: 70450; 96361; 96374; 96375; 99282; J7030

== ENCOUNTER → 2023-06-06 | Outpatient (CLI) | payer BC, SELFPAY ==
[2023-06-06 12:09] LABS: Hematocrit 43.3 % (37-47); Hemoglobin 13.9 g/dL (12.0-15.0); Mean Corp Hgb Conc 32.1 g/dL (32-36); Mean Corpuscular Hgb 29.1 pg (27.0-32.0); Mean Corpuscular Volume 90.8 fL (81-99); Mean Platelet Vol. 10.8 fl (6.2-12.0); Platelet Count 360 K/mm3 (150-450); RBC Distribution Width CV 12.3 % (11.6-14.6); RBC Distribution Width SD 40.7 fl (35.1-43.9); Red Blood Count 4.77 M/mm3 (4.2-5.4); White Blood Count 7.2 K/mm3 (4.4-11.0)
[2023-06-06 12:29] LABS: Vitamin B12 465 pg/mL (211-911)
[2023-06-06 12:38] LABS: ALB/GLOB Ratio 0.9 RATIO (0.9-2.4); AST(SGOT) 12 U/L (15-37); Alanine Aminotransfer ALT/SGPT 25 U/L (13-56); Albumin, Serum 3.4 g/dL (3.2-5.0); Alkaline Phosphatase 194 U/L (45-117); Anion Gap 8 (5-15); BUN 11 mg/dL (7-18); BUN/Creat Ratio 10.8 RATIO (10-20); Chloride 109 mmol/L (98-107); Creatinine, Serum 1.02 mg/dL (0.55-1.02); EST Glomerular Filtration Rate 61 mL/min (>60); Est Glom Filt Rate - Afr Amer 74 mL/min (>60); Globulin 3.9 g/dL (2.2-4.2); Glucose 225 mg/dL (74-106); Potassium 3.7 mmol/L (3.5-5.1); Protein, Total 7.3 g/dL (6.4-8.2); Sodium Level 142 mmol/L (136-145); Thyroid Stim Hormone (TSH) 1.37 uIU/mL (0.358-3.74)
== END | disposition home or self-care (01) ==
LOC: MTLAB 10:14
PROVIDERS: PCP Family Medicine; Referring Provider Psychiatry & Neurology Neurology; Visit Provider Psychiatry & Neurology Neurology
DX: G44.209 Tension-type headache, unspecified, not intractable (principal); G47.10 Hypersomnia, unspecified; R53.83 Other fatigue
CPT/HCPCS: 36415; 80053; 82607; 84443; 85027

== ENCOUNTER → 2023-06-20 | Outpatient (CLI) | payer BC, SELFPAY | END | disposition home or self-care (01) | LOC: SL 10:52 | PROVIDERS: PCP Family Medicine; Referring Provider Psychiatry & Neurology Neurology; Visit Provider Psychiatry & Neurology Neurology | DX: G47.10 Hypersomnia, unspecified (principal) | CPT/HCPCS: 95806 ==

== ENCOUNTER → 2023-07-06 | Outpatient (CLI) | payer BC, SELFPAY ==
--- NOTE | 2023-07-06 12:34 | RAD_ITS ---
EXAM: XR LUMBOSACRAL SPINE, 2 OR 3 VIEWS CLINICAL INDICATION: BACK PAIN TECHNIQUE: Frontal and lateral views of the lumbar spine and sacrum. COMPARISON: No relevant prior studies available. FINDINGS: VERTEBRAE: Multilevel endplate osteophytosis and facet arthrosis. [place] left scoliotic curvature of the lumbar spine. Preserved vertebral body height. No fracture. No distinct spondylolysis or spondylolisthesis. DISC SPACES: Multilevel intervertebral disc height loss. GASTROINTESTINAL TRACT: Normal as visualized. Included bowel gas pattern is non-obstructive. RAD/Lumbar Spine 2 or 3 Views IMPRESSION: 1. [place] left scoliotic curvature of the lumbar spine. 2. Multilevel degenerative changes. Electronically Signed: Toni Young DO at 20:43 EDT ,
--- NOTE | 2023-07-06 12:34 | RAD_ITS ---
EXAM: XR RIGHT KNEE, 3 VIEWS CLINICAL INDICATION: PAIN TECHNIQUE: Three views of the right knee. COMPARISON: No relevant prior studies available. FINDINGS: BONES/JOINTS: Marginal osteophytes and articular sclerosis. Patellar enthesophytes. Mild weightbearing compartment joint space narrowing. No acute fracture. No subluxation. Normal alignment. SOFT TISSUES: No significant abnormality. No soft tissue swelling or gas. No radiopaque foreign body. RAD/Knee 3 Views IMPRESSION: Degenerative changes. No acute osseous findings. Electronically Signed: Toni Young DO at 20:44 EDT ,
--- NOTE | 2023-07-06 12:34 | RAD_ITS ---
EXAM: XR LEFT KNEE, 3 VIEWS CLINICAL INDICATION: PAIN TECHNIQUE: Three views of the left knee. COMPARISON: No relevant prior studies available. FINDINGS: BONES/JOINTS: Osteophytosis, joint space narrowing, and articular sclerosis throughout the weightbearing and patellofemoral compartment with joint space narrowing worst in the medial weightbearing compartment. Mild varus angulation at the knee. Patellar enthesophytes. No acute fracture. SOFT TISSUES: No significant abnormality. No soft tissue swelling or gas. No radiopaque foreign body. RAD/Knee 3 Views IMPRESSION: Tricompartmental degenerative changes worse in the medial weightbearing compartment with varus angulation of the knee. No acute fracture. Electronically Signed: Toni Young DO at 20:44 EDT ,
[2023-07-06 15:31] LABS: Cholesterol 130 mg/dL (200); High Density Lipoprotein 47 mg/dL; Triglycerides 245 mg/dL; Very Low Density Lipoprotein 49 mg/dL (5-40)
[2023-07-06 15:42] LABS: Hemoglobin A1c 6.7 % (3.8-5.6)
[2023-07-06 16:01] LABS: Microalbumin,Random Urine 31.7 mg/L (NO RANGE EST.); Microalbumin:Creatinine Ratio 9.7 mg/g CRE (<30 mg/g CRE)
== END | disposition home or self-care (01) ==
PROVIDERS: PCP Family Medicine; Referring Provider Family Medicine; Visit Provider Family Medicine
DX: M25.561 Pain in right knee (principal); E11.9 Type 2 diabetes mellitus without complications; M25.562 Pain in left knee; M54.9 Dorsalgia, unspecified
CPT/HCPCS: 36415; 72100; 73562; 80061; 82043; 82570; 83036

== ENCOUNTER → 2023-07-11 | Outpatient (CLI) | payer BC, SELFPAY ==
--- NOTE | 2023-07-11 06:43 | MRI_ITS ---
HISTORY: Worsening headaches, possible pseudotumor cerebri - attention to the IACs. TECHNIQUE: Multiplanar and multisequence MR images of the brain and internal auditory canals were obtained before and after the intravenous administration of contrast. 418 images. COMPARISON: CT 04/10/2023. FINDINGS: BRAIN PARENCHYMA: Mild foci of increased T2 FLAIR signal in the bilateral cerebral white matter. No enhancing lesion in the brain parenchyma. No abnormal focus of restricted diffusion. No acute intracranial hemorrhage identified. INTERNAL AUDITORY CANALS: No cerebellopontine angle mass. Symmetric appearance of the bilateral fifth, seventh, and 8th cranial nerve complexes without enhancing lesion. CSF SPACES: Slitlike appearance of the lateral ventricles. Cerebral ventricles, cortical sulci, and other extra-axial CSF spaces otherwise within normal limits in size for age. No significant midline shift or other mass effect.No extra-axial fluid collection. Unremarkable sella and suprasellar region. No empty sella configuration. Normal position of the cerebellar tonsils. VASCULAR SYSTEM: Major intracranial flow voids are maintained. PARANASAL SINUSES AND MASTOID AIR CELLS: No significant air fluid levels. ORBITS: Symmetric contents. Mildly prominent CSF along the left optic nerve sheath with limited evaluation of the right due to slice selection. MRI/Brain W/WO Contrast IMPRESSION: Slitlike appearance of the lateral ventricles with mild optic nerve sheath CSF prominence, raising the possibility of idiopathic intracranial hypertension. Mild chronic white matter changes which can be seen with chronic small vessel ischemic gliosis, migraine related changes or other vascular etiology, or sequela of nonspecific demyelination or inflammation. No evidence for enhancing intracranial mass. Unremarkable internal auditory canals. Electronically Signed: Natividad Nix MD at 10:13 EDT ,
== END | disposition home or self-care (01) ==
LOC: MRI 06:29
PROVIDERS: PCP Family Medicine; Referring Provider Psychiatry & Neurology Neurology; Visit Provider Psychiatry & Neurology Neurology
DX: G44.209 Tension-type headache, unspecified, not intractable (principal); R42 Dizziness and giddiness
CPT/HCPCS: 70553; A9575

== ENCOUNTER 2023-07-12 11:00 | Outpatient (RCR) | payer BC, SELFPAY ==
--- NOTE | 2023-05-09 16:43 | HP.PTEVAL_ITS ---
Patient's Visit Information Visit Information Visit Information: AMELIA DAVENPORT is a 48 year old F referred to Physical Therapy by Dr. Andrew Jefferson DPM with a diagnosis of S/P STJ FUSION -HARDWARE INFECTION. Date of Evaluation: 05/09/23 Physical Therapist: Rancho José PT, Cert MDT, OCS Visit Plan Frequency: 2x /Week Duration: 8WEEKS Plan: * NO PROLONGED WEIGHT ON RIGHT FOOT* *MUST VWEAR CAM BOOT WITH ANT WB ON RIGHT FOOT* *NO IMPACT OR HEAVY LOADING ON RIGHT FOOT PATIENT IS NON COMPLIANT WITH CAM BOOT PT INTERVETIONS ROM ANKLE ,FLEXABILITY ,GAIT TRAINING ,STRENGTHENING EX'S AND FUNCTIONAL STRENGTHENING Subjective Subjective: This 48 y/o female presents to physical therapy with right s/p Subtalar joint fusion with hardware infection. Patient initially had surgery Jun 2021 ,patient had PT. Patient had pain in ankle seen DR Jefferson found that patient had bacterial bone infection when removed screws. Patient had bone biopsy showed infection. Patient had PT with NWB kneeling walking initially and IV antibiotics. Patient was in NH for ~ 2weeks d/c to home [facility]. Patient has orders must wear CAM boot with any weightbearing on right foot. No prolonged weight on right foot and no impact or heavy loads on right foot. Although ,patient is non compliant with CAM boot due to it is at friends home. Discussed with patient need CAM boot. Patient seen April 26 and did x-rays looked healing. Patient RTD end of month. Patient has some pain and edema. Patient has limitation with extended walking /standing impairs housework and ADL's. Patient denies paresthesia/tingling. Patient has difficulty sleeping. Patient condition affects QOL and function. Patient goals to walk normal and RTW. SOCIAL: single VOCATION: [employer] SOCIAL:Single Pain Right Ankle: Pain Intensity (Out of 10): 4 Pain Intensity Range: 10 Objective Objective: POSTURE: frontal plane mechanics( pes cavus) JOINT TRIMALLEOR: 52.5 CM FLEXABLITY: mod calf tightness AROM: dorsiflexion -10 degrees ,eversion 0 degrees inversion 3 degrees ,plantarflexion 60 degrees MMT: ( peak force) anterior tibialis 12.3,G-S 23.8 , posterior tibialis 10.8 , peroneus 12.0 GAIT: ambulate with with decrease stance time right leg with slow osito without CAM boot to PT dept due to patient forgot Balance/Special Test Scores Lower Extremity Functional Score: 14 Goals Goal 1:: Patient to be I with Aquatic therapy Goal Time Frame: 6-8 Weeks Goal 2:: Patient to be improve AROM ankle DF/PF/EV/PF by 5-10 degrees or > to improve gait Goal Time Frame: 6-8 Weeks Goal 3:: Patient to improve peak force ankle stabilizers by 5-10# to improve gait and function Goal Time Frame: 6-8 Weeks Goal 4:: Patient to improve LFES score by 10 points to improve QOL and function Goal Time Frame: 6-8 Weeks Goal 5:: Patient to improve gait 80% with improved gait pattern Goal Time Frame: 6-8 Weeks Goal 6:: Patient to demonstrate 50% improvement with less pain and improved function Goal Time Frame: 6-8 Weeks Rehabilitation Potential Physical Therapy Diagnosis: Patient had screws remove due to bacteria in bone and screws with decrease gait with patient non compliant with CAM boot ,decrease ROM ,strength ,stars impairs function and ADLS thus benefit from skilled PT Rehabilitation Potential: Good Anticipated Interventions Patient/Client Instruction: Educate patient on: Condition and Plan of Care For the Purpose of:: To decrease pain, To increase ROM, To improve muscle performance and motor function, To improve ability to perform ADL's, To increase tolerance to activity/condition/position, To improve performance and independence with ADL's, To improve ability of physical actions for home/c ommunity/work/leisure, To improve gait and locomotor functions, To improve health of tissue, To decrease soft tissue restriction, To increase flexibility/ROM, To improve endurance, To improve balance and To reduce risk of recurrence Therapeutic Exercise to Include: Strength training, Endurance training, Balance training, Postural training, Flexibilty training, Gait and locomotor training, In an aquatic setting, Passive ROM and Active ROM Comment: ANKLE /QUADS/HAMS/HIP For the Purpose of:: To decrease pain, To increase ROM, To improve muscle performance and motor function, To improve ability to perform ADL's, To increase tolerance to activity/condition/position, To improve ability of physical actions for home/community/work/leisure, To improve gait and locomotor functions, To improve health of tissue, To decrease soft tissue restriction, To increase flexibility/ROM, To improve endurance, To improve balance and To improve tolerance to ADL's Text: Thank you for the opportunity to evaluate your patient. For Medicare and Medicare HMO plans, please review the plan of care and approve it. It will need to be FAXED BACK to us at [phone] for Medicare purposes. For Medicare only, by signing this I certify the plan of care. Please let me know if there are questions or concerns regarding this plan of care. Physician Signature: Date:
--- NOTE | 2023-07-12 11:21 | HP.PTDCSUM ---
Discharge Summary D/C summary: It has been my pleasure to treat AMELIA DAVENPORT referred by Dr. Andrew Jefferson, FAWAD, with the diagnosis of S/P STJ FUSION -HARDWARE INFECTION for a total of 17 visit(s). Discharge Date: 07/12/23 Please see the following information for a summary of their discharge status. Subjective Subjective: Doing well ready for ankle But has other pain in knee and back Pain Right Ankle: Pain Intensity (Out of 10): 0 LBP: Pain Intensity (Out of 10): 3 RLE: Pain Intensity (Out of 10): 4 Overall Improvement % Improvement: 80 Objective Objective/Function: Objective: POSTURE: frontal plane mechanics( pes cavus) JOINT TRIMALLEOR: absent FLEXABLITY: mild calf tightness AROM: dorsiflexion 0 degrees ,eversion 3 degrees inversion 10 degrees ,plantarflexion 60 degrees MMT: ( peak force) anterior tibialis 24.3,G-S 23.8 , posterior tibialis 22.9 , peroneus 24.0 GAIT: ambulate with reciprocal pattern waddle type gait Goals Goal 1:: Patient to be I with Aquatic therapy Goal Progress: Progressing Goal 2:: Patient to be improve AROM ankle DF/PF/EV/PF by 5-10 degrees or > to improve gait Goal Progress: Goal Met Goal 3:: Patient to improve peak force ankle stabilizers by 5-10# to improve gait and function ( new goal) Goal Progress: Goal Met Goal 4:: Patient to improve LFES score by 10 points to improve QOL and function Goal Progress: Goal Met Goal 5:: Patient to improve gait 80% with improved gait pattern Goal Progress: Goal Met Goal 6:: Patient to demonstrate 70% improvement with less pain and improved function( new goal) Goal Progress: Goal Met Plan Plan: D/C D/C Information Discharge Comments: HEP d/c sentence: If there are questions or concerns regarding this patient's physical therapy, please feel free to call me at [phone]. Thank you for the referral of this patient. Sincerely, Rancho José, PT, Cert MDT, OCS Balance/Gait/Functional tests Balance/Special Test Scores Lower Extremity Functional Score: 53 Improvement % Improvement: 80
== END 2023-07-12 14:15 | disposition home or self-care (01) ==
LOC: PT 11:00
PROVIDERS: PCP Family Medicine; Referring Provider Podiatrist; Visit Provider Podiatrist
DX: M96.1 Postlaminectomy syndrome, not elsewhere classified (principal)
CPT/HCPCS: 97113; 97162; 97530

== ENCOUNTER → 2023-12-12 | Outpatient (CLI) | payer BC, SELFPAY ==
--- NOTE | 2023-12-12 14:47 | RAD_ITS ---
STUDY: X-RAY - RIGHT SHOULDER REASON FOR EXAM: Female, 48 years old. Pain, rotator cuff injury -- ORDER PUT IN BILATERAL TECHNIQUE: 4 view(s) of the shoulder. COMPARISON: None. FINDINGS: Normal glenohumeral articulation. There is degenerative arthrosis of the acromioclavicular joint without inferior osseous spur formation. Normal acromion. Normal humeral head and visualized proximal humerus. The soft tissue structures are unremarkable. Normal visualized pulmonary apex. 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 Electronically Signed: Paulo Delaney MD at 15:35 EST ,
--- NOTE | 2023-12-12 14:53 | RAD_ITS ---
STUDY: X-RAY - LEFT SHOULDER REASON FOR EXAM: Female, 48 years old. Shoulder pain. TECHNIQUE: 4 view(s) of the shoulder. COMPARISON: None. FINDINGS: Normal glenohumeral articulation. There is hypertrophic osteoarthrosis of the acromioclavicular joint with inferior osseous spur formation. Normal acromion. Normal humeral head and visualized proximal humerus. The soft tissue structures are unremarkable. Normal visualized pulmonary apex. RAD/Shoulder min 2 Views IMPRESSION: Arthrosis of the left acromioclavicular joint. Electronically Signed: Paulo Delaney MD at 15:18 EST ,
[2023-12-12 17:39] LABS: Absolute Lymphocyte Count 1.86 X10^3/uL (0.83-4.51); Absolute Neutrophil Count 7.9 X10^3/uL (2.0-7.7); Basophil# 0.08 X10^3/uL; Basophil% 0.8 % (0-1); Eosinophil# 0.21 X10^3/uL; Hematocrit 44.1 % (37-47); Hemoglobin 13.7 g/dL (12.0-15.0); Lymphocyte # 1.86 X10^3/ul (0.83-4.51); Lymphocyte % 17.5 % (19-41); Mean Corp Hgb Conc 31.1 g/dL (32-36); Mean Corpuscular Hgb 28.1 pg (27.0-32.0); Mean Corpuscular Volume 90.6 fL (81-99); Mean Platelet Vol. 11.1 fl (6.2-12.0); Monocyte# 0.54 X10^3/uL; Monocyte% 5.1 % (0-10); NRBC Flagged by Analyzer 0 % (0-5); Neutrophil # 7.91 X10^3/uL (2.7-7.7); Neutrophil % 74.1 % (47-70); Platelet Count 386 K/mm3 (150-450); RBC Distribution Width CV 12.5 % (11.6-14.6); RBC Distribution Width SD 41.2 fl (35.1-43.9); Red Blood Count 4.87 M/mm3 (4.2-5.4); White Blood Count 10.7 K/mm3 (4.4-11.0)
[2023-12-12 18:12] LABS: Microalbumin,Random Urine 42.6 mg/L (NO RANGE EST.); Microalbumin:Creatinine Ratio 14.5 mg/g CRE (<30 mg/g CRE)
[2023-12-12 18:13] LABS: ALB/GLOB Ratio 0.9 RATIO (0.9-2.4); AST(SGOT) 25 U/L (15-37); Alanine Aminotransfer ALT/SGPT 40 U/L (13-56); Albumin, Serum 3.5 g/dL (3.2-5.0); Alkaline Phosphatase 198 U/L (45-117); Anion Gap 6 (5-15); BUN 11 mg/dL (7-18); BUN/Creat Ratio 13.1 RATIO (10-20); Calcium,Total 9.2 mg/dL (8.5-10.1); Chloride 106 mmol/L (98-107); Cholesterol 147 mg/dL (200); Creatinine, Serum 0.84 mg/dL (0.55-1.02); EST Glomerular Filtration Rate 76 mL/min (>60); Est Glom Filt Rate - Afr Amer 92 mL/min (>60); Glucose 236 mg/dL (74-106); High Density Lipoprotein 48 mg/dL; Potassium 3.5 mmol/L (3.5-5.1); Protein, Total 7.5 g/dL (6.4-8.2); Sodium Level 140 mmol/L (136-145); Thyroid Stim Hormone (TSH) 0.98 uIU/mL (0.358-3.74); Triglycerides 299 mg/dL; Very Low Density Lipoprotein 60 mg/dL (5-40)
[2023-12-12 18:16] LABS: Hemoglobin A1c 9.3 % (3.8-5.6)
== END | disposition home or self-care (01) ==
LOC: MTRAD 14:46
PROVIDERS: PCP Family Medicine; Referring Provider Family Medicine; Visit Provider Family Medicine
DX: E11.9 Type 2 diabetes mellitus without complications (principal); M25.511 Pain in right shoulder
CPT/HCPCS: 36415; 73030; 80053; 80061; 82043; 82570; 83036; 84443; 85025

== ENCOUNTER → 2023-12-18 | Outpatient (CLI) | payer BC, OTHER, SELFPAY | END | disposition home or self-care (01) | LOC: SL 12:00 | PROVIDERS: PCP Family Medicine; Visit Provider Nurse Practitioner Acute Care | DX: G47.33 Obstructive sleep apnea (adult) (pediatric) (principal) ==

== ENCOUNTER → 2024-02-13 | Outpatient (CLI) | payer BC, SELFPAY ==
--- NOTE | 2024-02-13 13:19 | NEURO ---
NCS and/or EMG Patient Report Ordering Doctor: Andrew Jefferson DATE OF SERVICE: 02/13/24 Larissa presents for electrodiagnostic testing in the lower limbs. She primarily reports pain numbness and tingling around the right ankle. She has a history of right ankle surgery. She also has a history of diabetes. Electrodiagnostic findings: Right peroneal motor nerve demonstrates normal distal latency, amplitude and conduction velocity. Left peroneal motor nerve demonstrates normal distal latency, amplitude and conduction velocity. Tibial motor responses are within normal limits bilaterally. Normal peroneal and tibial F?waves. Sensory responses are within normal limits. Needle EMG testing was performed in the lower limbs. All muscles tested showed no evidence of denervation with normal motor unit action potentials. Electrodiagnostic impression: This is a normal electrodiagnostic study of the lower limbs. There is no electrodiagnostic evidence for lumbosacral radiculopathy or peripheral polyneuropathy. There is no electrodiagnostic evidence for tarsal tunnel syndrome. Multi Select Codes Neurology Neurology Interp Codes: 02464-68 Musc test done w/n test comp (interp) (2) and 24180-47 Nrv cndj test 9-10 studies (interp)
== END | disposition home or self-care (01) ==
PROVIDERS: PCP Family Medicine; Referring Provider Podiatrist; Visit Provider Podiatrist
DX: G62.9 Polyneuropathy, unspecified (principal); E11.42 Type 2 diabetes mellitus with diabetic polyneuropathy; G60.8 Other hereditary and idiopathic neuropathies
CPT/HCPCS: 95886; 95912

== ENCOUNTER → 2024-04-11 | Outpatient (CLI) | payer BC, SELFPAY ==
[2024-04-11 15:35] LABS: Red Blood Cells-Urine 0 SEEN /hpf (0-5); White Blood Cells 0 SEEN /hpf (0-5)
[2024-04-11 17:33] LABS: Absolute Lymphocyte Count 1.77 X10^3/uL (0.83-4.51); Absolute Neutrophil Count 4.9 X10^3/uL (2.0-7.7); Basophil# 0.05 X10^3/uL; Basophil% 0.7 % (0-1); Eosinophil# 0.18 X10^3/uL; Eosinophils% 2.4 % (0-5); Hematocrit 39.1 % (37-47); Hemoglobin 11.9 g/dL (12.0-15.0); Lymphocyte # 1.77 X10^3/ul (0.83-4.51); Lymphocyte % 23.9 % (19-41); Mean Corp Hgb Conc 30.4 g/dL (32-36); Mean Corpuscular Hgb 28.4 pg (27.0-32.0); Mean Corpuscular Volume 93.3 fL (81-99); Mean Platelet Vol. 11.6 fl (6.2-12.0); Monocyte# 0.47 X10^3/uL; Monocyte% 6.3 % (0-10); NRBC Flagged by Analyzer 0 % (0-5); Neutrophil # 4.91 X10^3/uL (2.7-7.7); Neutrophil % 66.2 % (47-70); Platelet Count 377 K/mm3 (150-450); RBC Distribution Width CV 12.9 % (11.6-14.6); RBC Distribution Width SD 43.8 fl (35.1-43.9); Red Blood Count 4.19 M/mm3 (4.2-5.4); White Blood Count 7.4 K/mm3 (4.4-11.0)
[2024-04-11 17:35] LABS: Color, Urine Yellow (Yellow); Glucose, Dipstick Normal (Normal); Ketone-Dipstick Negative (Negative); Leukocyte Esterase-Dipstick Negative /ul (Negative); Nitrite-Dipstick Negative (Negative); Occult Blood-Urine Negative /ul (Negative); Protein-Dipstick Negative (Negative); Urine Bilirubin Dipstick Negative (Negative); Urine Clarity Sl. Cloudy (Clear); Urine Urobilinogen Normal (Normal)
[2024-04-11 17:45] LABS: Bacteria 1+ /hpf (None Seen); Mucous, Urine 1+ /hpf (<or=2+); Squamous Epithelial Cells - UA 5-10 SEEN /hpf (5-10)
[2024-04-11 18:04] LABS: Microalbumin,Random Urine 27.9 mg/L (NO RANGE EST.); Microalbumin:Creatinine Ratio 15.5 mg/g CRE (<30 mg/g CRE)
[2024-04-11 20:38] LABS: Hemoglobin A1c 7.1 % (3.8-5.6)
[2024-04-12 02:10] LABS: AST(SGOT) 23 U/L (15-37); Alanine Aminotransfer ALT/SGPT 31 U/L (13-56); Albumin, Serum 3.5 g/dL (3.2-5.0); Alkaline Phosphatase 122 U/L (45-117); Anion Gap 9 (5-15); BUN 10 mg/dL (7-18); BUN/Creat Ratio 12.3 RATIO (10-20); Calcium,Total 8.9 mg/dL (8.5-10.1); Chloride 107 mmol/L (98-107); Cholesterol 122 mg/dL (200); Creatinine, Serum 0.81 mg/dL (0.55-1.02); EST Glomerular Filtration Rate 79 mL/min (>60); Est Glom Filt Rate - Afr Amer 95 mL/min (>60); Globulin 3.5 g/dL (2.2-4.2); Glucose 207 mg/dL (74-106); High Density Lipoprotein 38 mg/dL; Potassium 3.7 mmol/L (3.5-5.1); Sodium Level 140 mmol/L (136-145); Triglycerides 184 mg/dL; Very Low Density Lipoprotein 37 mg/dL (5-40)
== END | disposition home or self-care (01) ==
LOC: MFPLAB 15:34
PROVIDERS: PCP Family Medicine; Visit Provider Family Medicine
DX: E11.8 Type 2 diabetes mellitus with unspecified complications (principal)
CPT/HCPCS: 36415; 80053; 80061; 81001; 82043; 82570; 83036; 85025

== ENCOUNTER 2024-05-20 11:01 | Outpatient (RCR) | payer BC, SELFPAY ==
--- NOTE | 2024-05-20 13:19 | HP.OTEVAL_ITS ---
Patient's Visit Information Visit Information Visit Information: AMELIA DAVENPORT is a 49 year old F, referred to Occupational Therapy by Dr. Fabricio Harry MD, with a diagnosis of lymphedema. Date of Evaluation: 05/20/24 Occupational Therapist: STEVE Hernandez/Maria Alejandra, CHT Subjective Subjective: This 49 year old female was seen for OT eval with dx of LE lymphedema. Pt states she started having swelling about 8 weeks. Pt states her dr. put her on a water pill and this has helped. pt states she had right ankle sx and she was off work 14 months. Now she has returned to work and is having pain. 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 states mostly swollen by end of her shift. Pain Knees/hips/ankles/back: Current Pain Intensity: 4 Pain Intensity Range: 4 and 8 Lymphedema (Circumferential Measure) Mid-foot: right 22cm left 22cm Ankle: right 25cm left 24cm Lower calf: right 28.5cm left 27cm Largest calf: right 45cm left 45cm Below knee: right 40cm left 40cm Goals Goal: Patient will demonstrate a 20% reduction in edema by discharge: Yes Goal: Patient will demonstrate adequate knowledge of self-massage by the end of the second week.: Yes Goal: Patient will demonstrate adequate knowledge of skin care and precautions by the end of the first week.: Yes Goal: Patient will demonstrate adequate knowledge of therapeutic exercises by discharge.: Yes Goal: Patient will select an appropriate compression garment and demonstrate adequate knowledge of correct donning technique, care and wearing schedule by discharge.: Yes Goal: Patient will voice understanding of need to replace compression garment every four to six months by discharge.: Yes Rehabilitation General Assessment: pt demo with bilateral LE edema- demo need for ed. on life long mtg of lymphedema- Today therapist ed. pt on use of compression socks 15- 20mmHg, as well as ed. pt on lymph stimulation ex. and self lymph massage- pt was given handouts and demo understanding of ex- pt stated she would look into the compression sock but not sure she will tolerate them due to not liking tight fitting clothing- ( this is why I initiated compression of 15-20mmHg) pt to return in two weeks to give her time to get socks and initiate her ex. pt demo understanding and agrees to POC. Rehabilitation Potential: Questionable Anticipated Interventions Anticipated Interventions: Education re Diagnosis, Education re Life-long lymphedema Management, Education re Self-Bandaging Techniques, Education re Skin Care and Precautions, Education re Self Massage Techniques, Education re Correct Donning Tech,Care&Wearing Sched Comp Garments and Home Program Visit Plan General Plan: Today therapist ed. pt on need of compression socks- and lymph stimulation ex and self lymph massage. TEXT: Thank you for the opportunity to evaluate your patient. For Medicare and Medicare HMO plans, please review the plan of care and approve it. It will need to be FAXED BACK to us at [phone] for Medicare purposes. Please let me know if there are questions or concerns regarding this plan of care. Physician S ignature: Date:
--- NOTE | 2024-11-06 11:31 | HP.OT.NRP ---
Patient Information Patient Information: AMELIA DAVENPORT was seen in my office for initial evaluation on 05/20/24. The following Plan of Care was established for this patient: Anticipated Interventions Anticipated Interventions: Education re Diagnosis, Education re Life-long lymphedema Management, Education re Self-Bandaging Techniques, Education re Skin Care and Precautions, Education re Self Massage Techniques, Education re Correct Donning Tech,Care&Wearing Sched Comp Garments and Home Program Last Seen Last Seen: This patient was last seen in our office 05/20/24. Pertinent comments regarding their Occupational therapy will appear below: pt seen for OT eval only- no further apts scheduled at this time and due to lapse in time frame pt d/c. At this point I will be discontinuing this patient from occupational therapy. I would be happy to see this patient again in the future if found appropriate by the physician. Thank you! Florina Vizcaino, OTR/L, CHT
== END 2024-05-20 19:00 | disposition home or self-care (01) ==
LOC: OT 11:01
PROVIDERS: PCP Family Medicine; Referring Provider Family Medicine; Visit Provider Family Medicine
DX: I89.0 Lymphedema, not elsewhere classified (principal)
CPT/HCPCS: 97110; 97166; 97530

== ENCOUNTER → 2024-06-06 | Outpatient (CLI) | payer BC, SELFPAY ==
--- NOTE | 2024-06-06 06:47 | MRI_ITS ---
STUDY: MRI RIGHT ANKLE WITHOUT CONTRAST REASON FOR EXAM: Female, 49 years old. PAIN, OSTEOMYELITIS. TECHNIQUE: Standardized fat and water weighted pulse sequences were obtained in all 3 orthogonal planes. COMPARISON: Right ankle radiographs dated 07/31/2021. FINDINGS: There is a tubular tract in the talus and calcaneus from prior subtalar fusion screw removal. There is tibiotalar arthrosis with joint space narrowing, marginal osteophyte formation, chondral thinning, and subchondral edema/cyst formation in the anterior half of the joint. There is patchy marrow edema in the talar head, navicular, anterior calcaneus, proximal cuboid, lateral cuneiform, and proximal fourth metatarsal. There is no MRI evidence of osteomyelitis. Normal posterior tibialis tendon. Normal flexor digitorum longus tendon. Normal flexor hallucis longus tendon. Normal peroneus longus and brevis tendons. Normal tibialis anterior tendon. Normal extensor hallucis longus tendon. Normal extensor digitorum longus tendons. Normal Achilles tendon and teno-osseous insertion. Normal plantar fascia. Normal plantar calcaneal tubercles. Normal intrinsic muscles of the rearfoot. Normal distal tibiofibular syndesmotic ligamentous complex. Normal lateral ligamentous complex. Normal subtalar ligaments and sinus tarsi. Normal deltoid ligamentous complex. Normal plantar calcaneonavicular (spring) ligament. There is moderate subcutaneous soft tissue edema around the ankle and along the dorsum of the foot. MRI/Lower Ext Joint Only (Routine) IMPRESSION: Tibiotalar arthrosis. Patchy marrow edema in the talar head, navicular, anterior calcaneus, proximal cuboid, lateral cuneiform, and proximal fourth metatarsal. No MRI evidence of osteomyelitis. Moderate subcutaneous soft tissue edema around the ankle and along the dorsum of the foot. Electronically Signed: Isrrael Ledbetter MD at 14:47 EDT ,
== END | disposition home or self-care (01) ==
LOC: MRI 06:39
PROVIDERS: PCP Family Medicine; Referring Provider Podiatrist; Visit Provider Podiatrist
DX: M25.571 Pain in right ankle and joints of right foot (principal); M86.60 Other chronic osteomyelitis, unspecified site; S86.391D Other injury of muscle(s) and tendon(s) of peroneal muscle group at lower leg level, right leg, subsequent encounter
CPT/HCPCS: 73721

== ENCOUNTER 2024-08-19 15:27 | Emergency (ER) | payer MEDICAID, SELFPAY ==
[2024-08-19 15:27] VITALS: BP 164/94; PULSE 68; RESP 16; TEMP 36.6; O2SAT 99
[2024-08-19 15:50] VITALS: BMI 53.9
--- NOTE | 2024-08-19 16:25 | CT_ITS ---
STUDY: CT ABDOMEN AND PELVIS WITH CONTRAST REASON FOR EXAM: Female, 49 years old. Pain RADIATION DOSAGE (If Supplied By Facility): CTDIvol = ( 15.42 ) mGy, DLP = ( 1296.02 ) mGycm TECHNIQUE: Transaxial images were obtained from the dome of the diaphragm to the symphysis pubis without oral contrast. IV 100mL Isovue-300 was administered. Sagittal and coronal images were reconstructed. Individualized dose optimization techniques were used for this CT. COMPARISON: None. FINDINGS: The visualized lung bases are unremarkable. The visualized portions of the heart are within normal limits. Fatty liver. Normal gallbladder and extrahepatic biliary system. Normal spleen. Normal pancreas. Normal bilateral adrenal glands. Normal right kidney. Normal left kidney. Normal visualized stomach. Normal small intestine. Normal colon. The appendix is visualized and appears normal. Normal abdominal aorta. Normal inferior vena cava. Normal retroperitoneum. Normal urinary bladder. Small fatty umbilical hernia. Mild degenerative changes and scoliosis. CT/Abdomen/Pelvis W IV Cont ONLY IMPRESSION: Fatty liver. Small fatty umbilical hernia. Electronically Signed: Gavin Pandey DO at 17:34 EDT Reading Location ID and State: [facility] / [place] Tel [phone], Service support ,
--- NOTE | 2024-08-19 16:26 | EDS_ITS ---
HPI HPI - GI History of Present Illness Chief Complaint: Constipation Narrative Narrative: 49-year-old female past medical history of hypersomnia, diabetes, GERD, presents with 1 month of loose stool and constipation with abdominal pain. She had intermittent rectal bleeding as well. She states that she became ill about a month ago and got over the cold, but now whenever she has a bowel movement, she has rectal pain. In her words, she states it feels as if she is having anal sex. Yesterday, after having a bowel movement, she is not sure if she had a syncopal episode but states she mated to her bed and then was out. She also complains of right shoulder pain that she has had for the last few days. No fevers or chills, no nausea or vomiting. No exacerbating or alleviating factors. [facility] Medical History Injury of back Gastric reflux Seasonal allergies Ambulates with cane Insulin dependent diabetes mellitus Anxiety Depression Diabetes Wears glasses PTSD (post-traumatic stress disorder) High cholesterol Easy bruising Scoliosis Blackout Former smoker Shortness of breath on exertion History of stress test Morbid obesity with body mass index (BMI) greater than or equal to 50 GERD (gastroesophageal reflux disease) Anxiety and depression Arthritis History of back problems Dysphagia Obesity Home Medications ?Medication ?Instructions ?Recorded ?Last Taken ?Type prazosin 1 mg capsule 2 mg PO QHS sleep 08/19/19 02/15/23 History famotidine 20 mg tablet 20 mg PO DAILY GERD 09/02/19 02/16/23 History pravastatin 40 mg tablet 40 mg PO QHS cholesterol 09/02/19 02/15/23 History melatonin 5 mg tablet 20 mg PO QHS sleep 10/04/20 02/15/23 History venlafaxine 75 mg capsule,extended 75 mg PO DAILY depression 10/04/20 02/15/23 History release 24 hr cholecalciferol (vitamin D3) 50 50 mcg PO DAILY supplement 07/15/21 02/15/23 History mcg (2,000 unit) capsule (Vitamin D3) trazodone 100 mg tablet 100 mg PO QHS 12/23/21 02/15/23 History acetaminophen 325 mg tablet 650 mg (2 x 325 mg) PO Q6H PRN PRN 02/21/23 Unknown Rx Pain Score 1-10 #0 tabs loperamide 2 mg capsule 2 mg PO Q6H PRN PRN DIARRHEA #0 02/21/23 Unknown Rx caps desonide 0.05 % topical cream 1 applic topical TID PRN itching 03/26/23 Unknown Rx #60 grams insulin glargine 100 unit/mL (3 56 unit subcut DAILY 12/07/23 Unknown History mL) subcutaneous pen (Lantus Solostar U-100 Insulin) flurbiprofen 100 mg tablet 100 mg PO TID PRN headache #90 tabs 02/11/24 Unknown Rx nortriptyline 25 mg capsule 25 mg PO DAILY #30 caps 02/11/24 Unknown Rx Allergy/AdvReac Type Severity Reaction Status Date / Time azithromycin (From Zithromax Allergy Severe Rash Verified 08/19/24 15:28 Z-Matt) bupropion (From Wellbutrin) Allergy Severe Rash Verified 08/19/24 15:28 celecoxib (From Celebrex) Allergy Severe Rash Verified 08/19/24 15:28 diclofenac (From Voltaren) Allergy Severe Rash Verified 08/19/24 15:28 loratadine (From Claritin) Allergy Severe Rash Verified 08/19/24 15:28 Sulfa (Sulfonamide Allergy Severe Itching, Verified 08/19/24 15:28 Antibiotics) RASH Family History Aunt Hypertension CVA (cerebral vascular accident) Father Heart disease Diabetes Cancer Parkinsons disease Aunt Myocardial infarction Surgical History History of carpal tunnel surgery of right wrist History of surgery of uterus History of ankle surgery History of colonoscopy History of tubal ligation History of left knee surgery Social History Smoking Status: Former smoker second hand exposure: Yes alcohol intake: never ROS ROS ED ROS Narrative Constitutional: No fever, no chills. HEENT: No sore throat. No neck pain. No loss of vision. No rhinorrhea. Cardiovascular: No chest pain. No palpitations. No pedal edema. Respiratory: No cough, no shortness of breath. Abdominal: Positive abdominal pain. No nausea. No vomiting. Positive loose stool and constipation. Reported rectal bleeding. Genitourinary: No dysuria. No hematuria. Musculoskeletal: No myalgias. Right shoulder pain/arthralgias. Neurologic: No headaches. No dizziness. No lightheadedness. Questionable syn cope. Skin: No rash. No change in color. Psychiatric: No depression. No anxiety. EXAM Physical Exam Narrative Exam Narrative: Afebrile. Vital signs noted. HEENT: Normocephalic. Atraumatic. PERRL, EOMI. Neck soft and supple. No point tenderness or step off. Cardiovascular: Regular rate and rhythm. No murmurs, rubs, or gallops appreciated. Respiratory: No tachypnea. Lungs clear to auscultation bilaterally. Gastrointestinal: Abdomen soft, diffuse tenderness especially in bilateral lower quadrants with normoactive bowel sounds. No rebound or guarding. Neurological: Awake. Alert. Nonfocal, nonlateralizing. Skin: No rash. Normal color. No pallor. Musculoskeletal: No pedal edema. Full range of motion extremities. Range of motion right shoulder limited secondary to pain. No evidence of clinical dislocation. No crepitance of clavicle. Const Vital Signs: 08/19/24 15:27 08/19/24 17:27 08/19/24 19:00 Temperature 97.8 F Temperature Source Oral Pulse Rate 68 86 87 Respiratory Rate 16 18 16 Blood Pressure 164/94 H 146/71 H 141/68 H Blood Pressure Mean 117 96 92 Pulse Ox 99 96 95 Oxygen Delivery Method Room Air Room Air Room Air MDM MDM MDM Narrative Medical decision making narrative: Regarding her right shoulder pain, she states that she has history of bilateral rotator cuff tears, but they have not heard her in a while. Differential diagnosis includes but not limited to shoulder strain versus shoulder sprain, and clinically I have a low suspicion for fracture or dislocation. X-ray of this will be obtained to evaluate positioning and to ensure no fracture. Regarding her abdominal pain, differential diagnosis includes but not limited to diverticulitis versus colitis versus gastroenteritis. I do feel that imaging is indicated. Baseline laboratories will be obtained as well. I reviewed her laboratory work and she has normal white count 7.3, hemoglobin 13.9, hematocrit 43.7, platelet count normal at 342. CMP is grossly unremarkable except for glucose elevated at 373. However, she has normal anion gap of 8 so I doubt diabetic ketoacidosis. AST is slightly elevated at 52 which I think is nonspecific with alk phos of 168. Lipase is normal at 44 so I doubt pancreatitis. Urinalysis obtained and reviewed and is negative for infection. I reviewed and interpreted her right shoulder x-rays and see no evidence of an acute fracture or dislocation. I reviewed the radiology report which confirms my independent interpretation. I reviewed the radiology report of the CT of the abdomen and pelvis which shows a fatty liver and small fatty umbilical hernia. At this point in time, she is requesting to eat something or drink something in the emergency department. I feel she can be discharged safely home with follow- up. She states that she has been drinking electrolyte drinks and plenty of water. She should continue this. She will follow-up with her primary care provider. Return instructions to the emergency department were reviewed. Disposition is discharged home in stable condition. History & Record Review Discussion w/independent historian: Patient Additional record(s) reviewed:: Prior ED visit Lab Data Attestation: I reviewed the patient's lab results. Labs: Laboratory Results - last 24 hr 08/19/24 16:35 WBC 7.3 RBC 4.81 Hgb 13.9 Hct 43.7 MCV 90.9 MCH 28.9 MCHC 31.8 L RDW Std Deviation 44.0 H RDW Coeff of Juliet 13.4 Plt Count 342 MPV 11.2 Immature Gran % (Auto) 0.400 Neut % (Auto) 69.2 Lymph % (Auto) 20.6 Sherman % (Auto) 5.6 Eos % (Auto) 3.4 Baso % (Auto) 0.8 Absolute Neuts (auto) 5.1 Absolute Lymphs (auto) 1.51 Nucleated RBC % 0 Sodium 136 Potassium 3.7 Chloride 100 Carbon Dioxide 28.0 Anion Gap 8 BUN 9 Creatinine 0.96 Estim Creat Clear Calc 91.52 Est GFR (MDRD) Af Amer 79 Est GFR (MDRD) Non-Af 65 BUN/Creatinine Ratio 9.4 L Glucose 373 H Calcium 9.3 Total Bilirubin 0.90 AST 52 H ALT 51 Alkaline Phosphatase 168 H Total Protein 7.5 Albumin 3.5 Globulin 4.0 Albumin/Globulin Ratio 0.9 Lipase 44 Urine Color Yellow Urine Clarity Clear Urine pH 6.0 Ur Specific Eastman 1.015 Urine Protein 30 H Urine Glucose (UA) 1000 H Urine Ketones 50 H Urine Occult Blood Negative Urine Nitrite Negative Urine Bilirubin Negative Urine Urobilinogen Normal Ur Leukocyte Esterase Negative Urine RBC 0 SEEN Urine WBC 0 SEEN Ur Squamous Epith Cells 0-5 SEEN Urine Bacteria 0 SEEN Urine Mucus 0 SEEN Radiography Diagnostic Testing: Clinical Impression(s) from Imaging Studies Abdomen/Pelvis CT 08/19/24 16:25 IMPRESSION: Fatty liver. Small fatty umbilical hernia. Electronically Signed: Gavin Pandey at 17:34 EDT , Shoulder X-Ray 08/19/24 17:20 IMPRESSION: No acute bony injury. Electronically Signed: Gavindanica Pandey DO at 18:17 EDT , Discharge Plan Triage Chief Complaint: Constipation ED Provider: Nickolas Obando Dx/Rx/DC Orders Clinical Impression: Abdominal pain, Pain in right shoulder, Hyperglycemia Instructions: ED Abdominal Pain Unkn Cause Fem, ED Diabetic Hyperglycemia, ED Shoulder Pain, Uncertain Cause Prescriptions: No Action prazosin 1 mg capsule 2 mg PO QHS venlafaxine 75 mg capsule,extended release 24hr 75 mg PO DAILY Patient Comments: TAKE 1 CAPSULE BY MOUTH EVERY MORNING trazodone 100 mg tablet 100 mg PO QHS nortriptyline 25 mg capsule 25 mg PO DAILY Qty: 30 5RF flurbiprofen 100 mg tablet 100 mg PO TID PRN (Reason: headache) Qty: 90 5RF insulin glargine [Lantus Solostar U-100 Insulin] 100 unit/mL (3 mL) insulin pen 56 unit subcut DAILY Patient Comments: inject 56 units SUBCUTANEOUSLY DAILY pravastatin 40 MG tablet 40 mg PO QHS famotidine 20 MG tablet 20 mg PO DAILY melatonin 5 mg tablet 20 mg PO QHS cholecalciferol (vitamin D3) [Vitamin D3] 50 mcg (2,000 unit) Capsule 50 mcg PO DAILY acetaminophen 325 mg Tablet 650 mg PO Q6H PRN PRN (Reason: Pain Score 1-10) Qty: 0 0RF loperamide 2 mg Capsule 2 mg PO Q6H PRN PRN (Reason: DIARRHEA) Qty: 0 0RF desonide 0.05 % cream 1 applic topical TID PRN (Reason: itching) Qty: 60 1RF Primary Care Provider: Fabricio Harry Referrals: Fabricio Harry MD [Primary Care Provider] - 3-5 Days if not improving Activity Restrictions/Additional Instructions: Return to the emergency department with new or worsening symptoms. Print Language: German Disposition Disposition: Home, Self Care
[2024-08-19 16:46] LABS: Bacteria 0 SEEN /hpf (None Seen); Mucous, Urine 0 SEEN /hpf (<or=2+); Red Blood Cells-Urine 0 SEEN /hpf (0-5); White Blood Cells 0 SEEN /hpf (0-5)
[2024-08-19 16:50] LABS: Color, Urine Yellow (Yellow); Glucose, Dipstick 1000 mg/dl (Normal); Ketone-Dipstick 50 mg/dl (Negative); Leukocyte Esterase-Dipstick Negative /ul (Negative); Nitrite-Dipstick Negative (Negative); Occult Blood-Urine Negative /ul (Negative); Protein-Dipstick 30 mg/dl (Negative); Specific Gravity, Urine 1.015 (1.002-1.030); Urine Bilirubin Dipstick Negative (Negative); Urine Clarity Clear (Clear); Urine Urobilinogen Normal (Normal)
[2024-08-19 16:54] LABS: Absolute Lymphocyte Count 1.51 X10^3/uL (0.83-4.51); Absolute Neutrophil Count 5.1 X10^3/uL (2.0-7.7); Basophil# 0.06 X10^3/uL; Basophil% 0.8 % (0-1); Eosinophil# 0.25 X10^3/uL; Eosinophils% 3.4 % (0-5); Hematocrit 43.7 % (37-47); Hemoglobin 13.9 g/dL (12.0-15.0); Lymphocyte # 1.51 X10^3/ul (0.83-4.51); Lymphocyte % 20.6 % (19-41); Mean Corp Hgb Conc 31.8 g/dL (32-36); Mean Corpuscular Hgb 28.9 pg (27.0-32.0); Mean Corpuscular Volume 90.9 fL (81-99); Mean Platelet Vol. 11.2 fl (6.2-12.0); Monocyte# 0.41 X10^3/uL; Monocyte% 5.6 % (0-10); NRBC Flagged by Analyzer 0 % (0-5); Neutrophil # 5.07 X10^3/uL (2.7-7.7); Neutrophil % 69.2 % (47-70); Platelet Count 342 K/mm3 (150-450); RBC Distribution Width CV 13.4 % (11.6-14.6); Red Blood Count 4.81 M/mm3 (4.2-5.4); White Blood Count 7.3 K/mm3 (4.4-11.0)
[2024-08-19 16:57] LABS: Squamous Epithelial Cells - UA 0-5 SEEN /hpf (5-10)
[2024-08-19 17:04] LABS: ALB/GLOB Ratio 0.9 RATIO (0.9-2.4); AST(SGOT) 52 U/L (15-37); Alanine Aminotransfer ALT/SGPT 51 U/L (13-56); Albumin, Serum 3.5 g/dL (3.2-5.0); Alkaline Phosphatase 168 U/L (45-117); Anion Gap 8 (5-15); BUN 9 mg/dL (7-18); BUN/Creat Ratio 9.4 RATIO (10-20); Calcium,Total 9.3 mg/dL (8.5-10.1); Chloride 100 mmol/L (98-107); Creatinine, Serum 0.96 mg/dL (0.55-1.02); EST Glomerular Filtration Rate 65 mL/min (>60); Est Glom Filt Rate - Afr Amer 79 mL/min (>60); Estimated Creatinine Clearance 91.52 ml/min; Glucose 373 mg/dL (74-106); Lipase 44 U/L (13-75); Potassium 3.7 mmol/L (3.5-5.1); Protein, Total 7.5 g/dL (6.4-8.2); Sodium Level 136 mmol/L (136-145)
--- NOTE | 2024-08-19 17:20 | RAD_ITS ---
INDICATION: Pain EXAMINATION/TECHNIQUE: X-RAY - RIGHT XR Shoulder 4 VIEWS COMPARISON: FINDINGS: SOFT TISSUES: No soft tissue swelling or gas. No radiopaque foreign body. BONES/JOINTS: No acute fracture or subluxation.. Normal alignment. Degenerative hypertrophy at the acromioclavicular articulation.. No sclerotic or destructive changes observed. RAD/Shoulder min 2 Views IMPRESSION: No acute bony injury. Electronically Signed: Gavin Pandey DO at 18:17 EDT ,
[2024-08-19 17:27] VITALS: BP 146/71; PULSE 86; RESP 18; O2SAT 96
[2024-08-19 19:00] VITALS: BP 141/68; PULSE 87; RESP 16; O2SAT 95
[2024-08-19 19:46] VITALS: BP 142/77; PULSE 87; RESP 18; TEMP 36.4; O2SAT 95
[2024-08-19 19:57] LABS: Bedside Glucose 335 mg/dL (74-106)
== END 2024-08-19 19:55 | disposition home or self-care (01) ==
PROVIDERS: Emergency Provider Emergency Medicine; PCP Family Medicine; Visit Provider Emergency Medicine
DX: K59.00 Constipation, unspecified (principal); E11.65 Type 2 diabetes mellitus with hyperglycemia; Z79.4 Long term (current) use of insulin; Z87.891 Personal history of nicotine dependence; E78.00 Pure hypercholesterolemia, unspecified; K21.9 Gastro-esophageal reflux disease without esophagitis; Z79.899 Other long term (current) drug therapy; F32.A Depression, unspecified; Z98.51 Tubal ligation status; M25.511 Pain in right shoulder; R10.9 Unspecified abdominal pain
CPT/HCPCS: 73030; 74177; 80053; 81001; 82962; 83690; 85025; 99284; Q9967; A4216

== ENCOUNTER 2024-08-21 23:17 | Emergency (ER) | payer MEDICAID, SELFPAY ==
[2024-08-21 23:22] VITALS: BP 173/82; PULSE 101; RESP 18; TEMP 36.6; O2SAT 99; BMI 52.2
--- OUTSIDE RECORDS SUMMARY | 2024-08-22 00:28 | XMS RPT_ITS | CCD ---
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 is awake and in her room resting in bed. 0730 - Assessment completed per unit protocol. Patient rates her anxiety @ 1/10, depression @ 1/10, denies SI, HI, and AVH. Patient endorses 10/10 right foot pain but declines any intervention. Patient presents with a full affect. She is pleasant, cooperative and medication compliant. 0800 - Patient awake and in the day area eating breakfast, appetite is good. 0830 - Patient in to see Dr. Osamn. Patient to be discharged today. 0845 - Patient showered. 0927 - Patient awake and in her room resting in bed. 1100 - Patient awake and attending group 1210 - Patient up and in the day area eating lunch, appetite remains good. No distress or other needs noted. 1245 - Patient discharge information reviewed and understood, rx scripts sent to patient pharmacy, medications reviewed, patient left with no iv or patches present, all belongings returned to patient and signed for. Patient stable and ready for discharge. 1315 - Patient discharged off the floor. This note was completed by: Melinda Fuller [facility] NURSING PROG HNO ID: [id number] Author: Su Charlton RN Service: Nursing Author Type: Registered Nurse Type: Nursing Progress Note Filed: 10/09/2022 7:07 AM Note Text: Daily Note: 1900 Patient was seen socializing with peers at the start of shift. No complaints voiced. 2223 Patient was cooperative with medication. Accucheck 186 Patient was seen switching beds. She stated she had been told to by previous shift nurse because she saw drops of dried blood on the side of her bed. Three black spots seen on wooden part of bed, cleaned with sani-cloth. Patient was seen sleeping at 2258. 0235 Patient rang call light. Patient stated, I almost fell. I didn't fall, but I peed on the floor and I need a towel to clean it up. The floor was cleaned. 0600 Patient slept 7 hours. 0651 Patient was cooperative with medication after she came out of the bathroom. Patient was seen limping. She stated, It's my ankle. It's ten out of ten! Patient asked if she would like medication for her ankle. Patient rolled her eyes. Patient then walked towards her bed by hoping on her one foot while swinging her arms around. Patient assisted to bed. Patient provided with a wheelchair. [facility] NURSING PROGon 10-08-2022 NURSING PROG HNO ID: [id number] Author: Maliha Verduzco RN Service: Nursing Author Type: Registered Nurse Type: Nursing Progress Note Filed: 10/08/2022 12:24 PM Note Text: Nursing Progress Note Patient Name: Larissa Davenport Patient Location: [facility]- Daily Note:[id number] Patient resting quietly in room at beginning of shift. Out of room for breakfast, good appetite. Bright in conversation this morning. Patient rates anxiety at 0/10 and depression 0/10. No SI, thoughts of self harm, or wishes. Reports 4/10 R foot pain, but declines intervention. States that she did not sleep well last night because I'm a light sleeper and the girl across the rosario screamed out 2 or 3 times. States that she feels ready for discharge, but would rather not leave until Sunday, because I don't want to go to work on Sunday. Attended group therapy session today. Social with peers in day area throughout the afternoon. This note was completed by: Maliha Verduzco [facility] NURSING PROG HNO ID: [id number] Author: Ammon Burns RN Service: ? Author Type: Registered Nurse Type: Nursing Progress Note Filed: 10/08/2022 6:30 AM Note Text: Nursing Progress Note Patient Name: Larissa Davenport Patient Location: [address]- Daily Note: Patient observed asleep in bed beginning of shift supervisor rn. Patient slept throughout shift. No s/s of distress noted. 0600: Patient awoken for scheduled protonix. Patient reports sleeping well last night. Denies any needs. Patient returned to sleep. This note was completed by: Ammon Burns [facility] NURSING PROG HNO ID: [id number] Author: Ammon Burns RN Service: ? Author Type: Registered Nurse Type: Nursing Progress Note Filed: 10/07/2022 10:49 PM Note Text: Nursing Progress Note Patient Name: Larissa Davenport Patient Location: [facility] Daily Note: Patient playing board game with peers. Pleasant and social with peers and staff. Accucheck: 193. MIld right foot pain. Compliant with lantus 10 units, and 1 unit of insulin for glucose of 193. Patient requesting rest of HS medications around 2200. Offered and declined PRN for pain. Compliant with rest of HS medications. PRN trazodone for sleep. Denies any needs at this time. This note was completed by: Ammon Burns [facility] NURSING PROGon 10-07-2022 NURSING PROG HNO ID: [id number] Author: Maliha Verduzco RN Service: Nursing Author Type: Registered Nurse Type: Nursing Progress Note Filed: 10/08/2022 8:34 AM Note Text: Nursing Progress Note Patient Name: Larissa Davenport Patient Location: [facility] Daily Note: [id number] Patient resting quietly in room at beginning of shift. Out of room this morning, watching TV. Eats breakfast at table with peers, socializes appropriately. Rates depression 11/07, and anxiety /, 3/10 pain (declines intervention), when asked about mood states I'm fine. Compliant with scheduled medications. States that she slept well, enjoyed playing Monopoly with peers yesterday evening. Showered and performed ADLs this morning, rested in room and out for lunch. Remains out of room for majority of evening, playing cards and Monopoly with peers. Seen socializing appropriately. Safety maintained this shift. This note was completed by: Maliha Verduzco [facility] NURSING PROG HNO ID: [id number] Author: Ammon Burns RN Service: ? Author Type: Registered Nurse Type: Nursing Progress Note Filed: 10/07/2022 6:35 AM Note Text: Nursing Progress Note Patient Name: Larissa Davenport Patient Location: [facility] Daily Note: Patient playing board game with peers beginning of shift supervisor rn. After board game completed, patient returned to room. Observed asleep in bed at 0000. Patient slept rest of night. No s/s of distress noted. 0600: Patient compliant with protonix. Reports sleeping well last night. Denies any nightmares. Denies any needs. Patient returned to sleep. This note was completed by: Ammon Burns [facility] NURSING PROG HNO ID: [id number] Author: Ammon Burns RN Service: ? Author Type: Registered Nurse Type: Nursing Progress Note Filed: 10/06/2022 10:10 PM Note Text: Nursing Progress Note Patient Name: Larissa Davenport Patient Location: [facility]- Daily Note: Patient at dining room table playing board games with peers. Pleasant and social. Patient Denies SI/HI, AVH. Reports mild right foot pain, but declined PRN for pain. Accucheck: 197. 1 unit of insulin given, and 10 units of lantus given. Patient requesting rest of scheduled medications be given at 2200. 2200: patient compliant with rest of HS medications. PRN trazodone given for sleep. Denies any needs at this time. This note was completed by: [facility]mon [facility] CASE MANAGEMon 10-06-2022 CASE MANAGEM HNO ID: [id number] Author: ELIEZER Keene Service: Social Work Author Type: Banquet Set Up Person Type: Care Mgt Progress Note Filed: 10/06/2022 11:02 AM Note Text: BEHAVIORAL HEALTH SOCIAL WORK PROGRESS NOTE SERVICE DATE: 10/06/2022 SERVICE TIME: 10:58 AM Patient reviewed in treatment team; rates her depression and anxiety 11/07. However, appears to endorse sad/flat affect. Continues to be treatment and medication compliant. Attends group with active participation. SW introduced self and role to the patient at bedside who appears to be engaged in conversation. Patient reports current mood to be, okay, my foot hurts . SW provided active listening and emotional support. Mariela any current needs for her foot pain. SW and patient discussed OP f/u with [facility]. Patient is agreeable with the following f/u appointments, documented in the flowsheet. No further SW needs, questions, and or concerns are presented to this development writer. SW to follow. SIGNATURE: ELIEZER Keene PATIENT NAME: Larissa Davenport DATE: October 06, 2022 TIME: 10:58 AM [facility] CONSULT PROGon 10-06-2022 CONSULT PROG HNO ID: [id number] Author: Jg Jara MD Service: Endocrinology Author Type: Physician Type: Consult Progress Note Filed: 10/06/2022 1:24 PM Note Text: CONSULT PROGRESS NOTES PATIENT NAME: Larissa Davenport SERVICE DATE: 10/06/2022 SERVICE TIME: 1:23 PM CONSULTING SERVICE: Endocrinology ASSESSMENT AND PLAN Endocrinology only: DM Type 2 HbA1c = 6.9% and C peptide level elevated Blood glucose levels are controlled continue Lantus 10 units twice daily, before breakfast and bedtime Started Admelog option # 2 pre meals 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 INTERVAL HPI: blood glucose levels are controlled. MEDICATIONS: Current Facility-Administere d Medications Medication Dose Route Frequency LORazepam 2 mg (ATIVAN) 2 mg ORAL q 4 H PRN Or LORazepam 2 mg injection (ATIVAN) 2 mg INTRAMUSCULAR q 4 H PRN haloperidol 5 mg tab(s) (HALDOL) 5 mg ORAL q 4 H PRN Or haloperidol lactate 5 mg short-acting injection (HALDOL) 5 mg INTRAMUSCULAR q 4 H PRN melatonin 3 mg tab(s) 3 mg ORAL DAILY (8 PM) hydrOXYzine HCl 50 mg tab(s) (ATARAX) 50 mg ORAL q 4 H PRN benztropine 2 mg tab(s) (COGENTIN) 2 mg ORAL q 4 H PRN aluminum-magnesium hydroxide-simethicon e 200-200-20 mg/5 mL 30 mL (MAALOX,MYLANTA,MAG- AL PLUS) 30 mL ORAL q 4 H PRN magnesium hydroxide 400 mg/5 mL 30 mL (MOM) 30 mL ORAL DAILY PRN diphenhydrAMINE 50 mg injection (BENADRYL) 50 mg INTRAMUSCULAR q 30 MIN PRN nicotine polacrilex 2 mg gum (NICORETTE) 2 mg ORAL q [address] 20 mg tab(s) (PROTONIX) 20 mg ORAL DAILY (6 AM) dextrose 40 % 15 g 15 g ORAL PRN Or glucagon 1 mg injection 1 mg INTRAMUSCULAR PRN Or dextrose 10% iv bolus 12.5 g INTRAVENOUS PRN insulin lispro injection (rapid acting) (ADMELOG) SUBCUTANEOUS AT BEDTIME Patient Home Medications (stored in pharmacy) OTHER DAILY prazosin 1 mg cap(s) (MINIPRESS) 1 mg ORAL BID traZODone 50 mg tab(s) (DESYREL) 50 mg ORAL AT BEDTIME PRN insulin glargine 10 Units pen (long acting) (LANTUS SOLOSTAR, BASAGLAR KWIKPEN) 10 Units SUBCUTANEOUS BEFORE BREAKFAST DAILY insulin glargine 10 Units pen (long acting) (LANTUS SOLOSTAR, BASAGLAR KWIKPEN) 10 Units SUBCUTANEOUS AT BEDTIME insulin lispro injection (rapid acting) (ADMELOG) SUBCUTANEOUS w MEALS venlafaxine ER (EFFEXOR XR) cap(s) 187.5 mg 187.5 mg ORAL DAILY PHYSICAL EXAM: Patient Vitals for the past 24 hrs: BP Temp Temp src Pulse Resp SpO2 10/06/2215 133/53 36.6 ?C (97.9 ?F) Oral 79 16 94 % 10/05/222011 140/67 36.5 ?C (97.7 ?F) Oral 81 17 100 % Body mass index is 51.07 kg/m?. PE: reviewed and agree with primary care DATA: Diagnostic tests reviewed for today's visit: weight Hemoglobin A1C Date Value Ref Range Status 10/03/2022 6.9 (H) 4.3 - 5.6 % Final Comment: [place] [employer] guidelines indicate that patients with HgbA1c in the range 5.7-6.4% are at increased risk for development of diabetes, and intervention by lifestyle modification may be beneficial. HgbA1c greater or equal to 6.5% is considered diagnostic of diabetes. Glucose, Point of Care Date Value Ref Range Status 10/06/2022 166 (A) 74 - 99 mg/dL Final Comment: Location:[place] [address] The Accu-Chek Inform II glucose meter has not been approved for testing on patients receiving intensive medical intervention or therapy and results from this point of care glucose test should not be used for patient management decisions in these cases. Inaccurate results may also occur from other interfering factors, such as N-acetylcysteine (blood concentrations of greater than 5mg/dL), galactose, extremes of hematocrit (<10 or >65), or high doses of ascorbic acid (vitamin C) greater than 3mg/dL. Consider alternate testing mechanisms (e.g. core lab, blood gas instrument) in the above situations. 10/06/2022 159 (A) 74 - 99 mg/dL Final Comment: Location:[address], [facility] The Accu-Chek Inform II glucose meter has not been approved for testing on patients receiving intensive medical intervention or therapy and results from this point of care glucose test should not be used for patient management decisions in these cases. Inaccurate results may also occur from other interfering factors, such as N-acetylcysteine (blood concentrations of greater than 5mg/dL), galactose, extremes of hematocrit (<10 or >65), or high doses of ascorbic acid (vitamin C) greater than 3mg/dL. Consider alternate testing mechanisms (e.g. core lab, blood gas instrument) in the above situations. 10/05/2022 139 (A) 74 - 99 mg/dL Final Comment: Location:[facility], [address] [place] [address], [facility] The Accu-Chek Inform II glucose meter has not been approved for testing on patients receiving intensiv (more content not included)... [facility] NURSING PROGon 10-06-2022 NURSING PROG HNO ID: [id number] Author: Dawit Ridley RN Service: Nursing Author Type: Registered Nurse Type: Nursing Progress Note Filed: 10/06/2022 6:30 PM Note Text: 1100- patient awake attending group at the start of care social with peers pleasant per approach 1215 bgl 166 covered with insulin admelog 2 units s/q denies s/s of hypo and hyper glycemia remains visible on unit denies s/I h/I and hallucinations minimizing depression and anxiety 1700 bgl 158 covered with insulin admelog 2 units of insulin 1600 showered groomed in hospital gown denies any needs awaiting for foot boot 1830 remains in day area denies any needs at this time med compliant safety maintained [facility] NURSING PROG HNO ID: [id number] Author: Chelsea Hassan RN Service: ? Author Type: Registered Nurse Type: Nursing Progress Note Filed: 10/06/2022 6:17 AM Note Text: Nursing Progress Note Patient Name: Larissa Davenport Patient Location: [facility] 1900- Assumed care of pt. Pt observed in day area playing cards w peers. Pt rated anxiety and depression as 3/10. Stated now that I know my ex and I will be on different shifts and I thought about everything , I am feeling a little better. 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 Pt denied pain. Recent orthopedic surgery Right lower extremity, ambulating independently, but slowly. Denies SI, HI, AVH. Feels safe on unit. BGL 139, no coverage given. Pt compliant w meds. PRN Trazadone given for sleep. 2345- Pt observed in bed asleep. No signs of distress noted. Safety maintained. Will continue to monitor pt. 0600-Pt slept 6.5 hrs. This note was completed by: Chelsea Hassan [facility] CBC panel Auto (Bld)on 10-05 Erythrocyte distribution width (RBC) [Ratio] 12.5 % Normal 11.5-15.0 [facility] Comment on above: Order Comment: Speci men Type: BLOOD SPECIMENOrdering Facility: [facility] Address: [address] [place] [place] [address] Performed By: #### 5 8410-2 ####[facility] LABORATORYCLIA [id number] [place] [address] [place] Hematocrit (Bld) [Volume fraction] 38.4 % Normal 36.0-46.0 [facility] Comment on above: Order Comment: Speci men Type: BLOOD SPECIMENOrdering Facility: [facility] Address: [address] [place] [address] Performed By: #### 5 8410-2 ####[facility] LABORATORYCLIA [id number] [place] [address] [place] Hemoglobin (Bld) [Mass/Vol] 12.0 g/dL Normal 11.5-15.5 [facility] Comment on above: Order Comment: Speci men Type: BLOOD SPECIMENOrdering Facility: [facility] Address: [address] [place] [address] Performed By: #### 5 8410-2 ####[facility] LABORATORYCLIA [id number] [place] [address] [place] MCH (RBC) [Entitic mass] 29.1 pg Normal 26.0-34.0 [facility] Comment on above: Order Comment: Speci men Type: BLOOD SPECIMENOrdering Facility: [facility] Address: [address] [place] [address] Performed By: #### 5 8410-2 ####[facility] DAY LABORATORYCLIA [id number] [address] [place] [address] [place] MCHC (RBC) [Mass/Vol] 31.3 g/dL Normal 30.5-36.0 [facility] Comment on above: Order Comment: Speci men Type: BLOOD SPECIMENOrdering Facility: [facility] Address: [address] [place] [address] Performed By: #### 5 8410-2 ####[facility] LABORATORYCLIA [id number] [address] [place] [address] STATES [facility] MCV (RBC) [Entitic vol] 93.0 fL Normal 80.0-100.0 [facility] Comment on above: Order Comment: Speci men Type: BLOOD SPECIMENOrdering Facility: [facility] Address: [address] [place] [address] Performed By: #### 5 8410-2 ####[facility] LABORATORYCLIA [id number] [address] Nucleated RBC (Bld) [#/Vol] 10*3/uL Normal <0.01 [facility] Comment on above: Order Comment: Speci men Type: BLOOD SPECIMENOrdering Facility: [facility] Address: [address] [place] [address] Performed By: #### 5 8410-2 ####[facility] LABORATORYCLIA [id number] [address] [place] Platelet mean volume (Bld) [Entitic vol] 10.2 fL Normal 9.0-12.7 [facility] Comment on above: Order Comment: Speci men Type: BLOOD SPECIMENOrdering Facility: [facility] Address: [address] Performed By: #### 5 8410-2 ####[facility] DAY LABORATORYCLIA [id number] [place] [id number] [facility] Platelets (Bld) [#/Vol] 362 10*3/uL Normal 150-400 [facility] Comment on above: Order Comment: Speci men Type: BLOOD SPECIMENOrdering Facility: [facility] Address: [address] [place], [place] [address] Performed By: #### 5 8410-2 ####[facility] DAY LABORATORYCLIA [id number] [place] [id number] [place] RBC (Bld) [#/Vol] 4.13 10*6/uL Normal 3.90-5.20 [facility] Comment on above: Order Comment: Speci men Type: BLOOD SPECIMENOrdering Facility: [facility] Address: [address] [place], [place] [address] Performed By: #### 5 8410-2 ####[facility] DAY LABORATORYCLIA [id number] [place] [address] [facility] [place] WBC (Bld) [#/Vol] 6.91 10*3/uL Normal 3.70-11.00 [facility] Comment on above: Order Comment: Speci men Type: BLOOD SPECIMENOrdering Facility: [facility] Address: [address] [place], [place] [address] Performed By: #### 5 8410-2 ####[facility] DAY LABORATORYCLIA [id number] [place] [address] [facility] CRP SerPl-mCncon 10-05-2022 CRP [Mass/Vol] 1.6 mg/dL High <0.9 [facility] Comment on above: Order Comment: Speci men Type: BLOOD SPECIMENOrdering Facility: [facility] Address: [address] [place], [place] [address] Performed By: #### 2 43201-03, 1988-02 ####[facility] DAY LABORATORYCLIA [id number] [address] [place] [address] [place] [facility] Comprehensive metabolic 2000 panelon 10-05-2022 Albumin [Mass/Vol] 3.9 g/dL Normal 3.9-4.9 [facility] Comment on above: Order Comment: Speci men Type: BLOOD SPECIMENOrdering Facility: [facility] Address: [address] [place] [address] Performed By: #### 2 4323-05, 1988-02 ####[facility] DAY LABORATORYCLIA [id number] [address] [place], [place] [id number] [place] ALP [Catalytic activity/Vol] 137 U/L High 34-123 [facility] Comment on above: Order Comment: Speci men Type: BLOOD SPECIMENOrdering Facility: [facility] Address: [address] [place] [address] Performed By: #### 2 4323-05, 1988-02 ####[facility] DAY LABORATORYCLIA [id number] [address] [place], [place] [address] [place] ALT [Catalytic activity/Vol] 230 U/L High 7-38 [facility] Comment on above: Order Comment: Speci men Type: BLOOD SPECIMENOrdering Facility: [facility] Address: [address] [place] [address] Performed By: #### 2 4323-05, 1988-02 ####[facility] DAY LABORATORYCLIA [id number] [place] [id number] [place] Anion gap [Moles/Vol] 7 mmol/L Low 9-18 [facility] Comment on above: Order Comment: Speci men Type: BLOOD SPECIMENOrdering Facility: [facility] Address: [address] [place] [address] Performed By: #### 2 43201-03, 1988-02 ####[facility] DAY LABORATORYCLIA [id number] [place] [id number] [place] AST [Catalytic activity/Vol] 77 U/L High 13-35 [facility] Comment on above: Order Comment: Speci men Type: BLOOD SPECIMENOrdering Facility: [facility] Address: [address] [place], [place] [id number] Performed By: #### 2 43201-03, 1988-02 ####[facility] DAY LABORATORYCLIA [id number] [place] [address] [place] Bilirubin [Mass/Vol] 0.4 mg/dL Normal 0.2-1.3 [facility] Comment on above: Order Comment: Speci men Type: BLOOD SPECIMENOrdering Facility: [facility] Address: [address] [place], [place] [id number] Performed By: #### 2 43201-03, 1988-02 ####[facility] DAY LABORATORYCLIA [id number] [place] [id number] [place] Calcium [Mass/Vol] 8.9 mg/dL Normal 8.5-10.2 [facility] Comment on above: Order Comment: Speci men Type: BLOOD SPECIMENOrdering Facility: [facility] Address: [address] [place], [place] [id number] Performed By: #### 2 4323-05, 1988-02 ####[facility] DAY LABORATORYCLIA [id number] [place] [id number] [place] Chloride [Moles/Vol] 104 mmol/L Normal 97-105 [facility] Comment on above: Order Comment: Speci men Type: BLOOD SPECIMENOrdering Facility: [facility] Address: [address] [place] [address] Performed By: #### 2 43201-03, 1988-02 ####[facility] DAY LABORATORYCLIA [id number] [address] [address] [place] CO2 [Moles/Vol] 31 mmol/L High 22-30 [facility] Comment on above: Order Comment: Speci men Type: BLOOD SPECIMENOrdering Facility: [facility] Address: [place] [id number] Performed By: #### 2 4323-8, 1990-02 ####[facility] LABORATORYCLIA [id number] [place] [id number] [place] Creatinine [Mass/Vol] 0.73 mg/dL Normal 0.58-0.96 [facility] Comment on above: Order Comment: Kylah men Type: BLOOD SPECIMENOrdering Facility: [facility] Address: [place] [address] Performed By: #### 2 43238, 1990-02 ####[facility] DAY LABORATORYCLIA [id number] [place] [id number] [facility] OF [place] ESTIMATED GLOMERULAR FILTRATION RATE 101 mL/min/1.73m??? Normal >=60 [facility] Comment on above: Order Comment: Kylah men Type: BLOOD SPECIMENOrdering Facility: [facility] Address: [place] [address] Result Comment: Los mated Glomerular Filtration Rate (eGFR) is calculated using the 2020 CKD-EPI creatinine equation. This equation utilizes serum creatinine, sex, and age as parameters. The creatinine assay has traceable calibration to isotope dilution-mass spectrometry. Refer to KDIGO guidelines for clinical interpretation. In patients with unstable renal function, e.g. those with acute kidney injury, the eGFR may not accurately reflect actual GFR. Performed By: #### 2 43238, 1990-02 ####[facility] DAY LABORATORYCLIA [id number] [place] [id number] [place] Glucose [Mass/Vol] 168 mg/dL High 74-99 [facility] Comment on above: Order Comment: Kylah men Type: BLOOD SPECIMENOrdering Facility: [facility] Address: [place] [address] Result Comment: The [place] Diabetes [employer] (ADA) provides guidance for cutoff values for fasting glucose and random glucose. The ADA defines fasting as no caloric intake for at least 8 hours. Fasting plasma glucose results between 100 to 125 mg/dL indicate increased risk for diabetes (prediabetes). Fasting plasma glucose results greater than or equal to 126 mg/dL meet the criteria for diagnosis of diabetes. In the absence of unequivocal hyperglycemia, results should be confirmed by repeat testing. In a patient with classic symptoms of hyperglycemia or hyperglycemic crisis, random plasma glucose results greater than or equal to 200 mg/dL meet the criteria for diagnosis of diabetes. Reference: Standards of Medical Care in Diabetes 2016, [place] [employer]. Diabetes Care. 2016.39(Suppl 1). Performed By: #### 2 43201-03, 1990-02 ####[facility] DAY LABORATORYCLIA [id number] [address] [place], [place] [id number] [place] Potassium [Moles/Vol] 3.9 mmol/L Normal 3.7-5.1 [facility] Comment on above: Order Comment: Speci men Type: BLOOD SPECIMENOrdering Facility: [facility] Address: [address] [place] [place] [address] Performed By: #### 2 4323-05, 1990-02 ####[facility] DAY LABORATORYCLIA [id number] [address] [place] [address] [place] Protein [Mass/Vol] 6.5 g/dL Normal 6.3-8.0 [facility] Comment on above: Order Comment: Speci men Type: BLOOD SPECIMENOrdering Facility: [facility] Address: [address] [place] [address] Performed By: #### 2 4323-05, 1988-02 ####[facility] DAY LABORATORYCLIA [id number] [place] [id number] [place] Sodium [Moles/Vol] 142 mmol/L Normal 136-144 [facility] Comment on above: Order Comment: Speci men Type: BLOOD SPECIMENOrdering Facility: [facility] Address: [address] [place] [place] [address] Performed By: #### 2 43201-03, 1988-02 ####[facility] DAY LABORATORYCLIA [id number] [address] [place], [place] [address] [place] Urea nitrogen [Mass/Vol] 11 mg/dL Normal 7-21 [facility] Comment on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 MP #### [address] [address] HCO3 (Bld) [Moles/Vol] 29 mmol/L Normal 21 - 32 [facility] Comment on above: Performed By: #### C MP #### [address] [address] ALP [Catalytic activity/Vol] 137 U/L High 33 - 110 [facility] Work Phone: Comment on above: Performed By: #### C MP #### [address] [address] Anion gap [Moles/Vol] 11 mmol/L Normal 10 - 20 [facility] Work Phone: Comment on above: Performed By: #### C MP #### [address] [address] Bilirubin [Mass/Vol] 0.8 mg/dL Normal 0.0 - 1.2 [facility] Work Phone: Comment on above: Performed By: #### C MP #### [address] [address] Calcium [Mass/Vol] 9.5 mg/dL Normal 8.6 - 10.3 [facility] Work Phone: Comment on above: Performed By: #### C MP #### [address] [address] Chloride [Moles/Vol] 105 mmol/L Normal 98 - 107 [facility] Work Phone: Comment on above: Performed By: #### C MP #### [address] [address] Creatinine [Mass/Vol] 0.69 mg/dL Normal 0.50 - 1.05 [facility] Work Phone: Comment on above: Reference Range: 0.5 0 - 1.05 Performed By: #### C MP #### [address] [address] Glucose [Mass/Vol] 154 mg/dL High 74 - 99 [facility] Work Phone: Comment on above: Performed By: #### C MP #### [address] [address] Potassium [Moles/Vol] 4.1 mmol/L Normal 3.5 - 5.3 [facility] Work Phone: Comment on above: Performed By: #### C MP #### [address] [address] Protein [Mass/Vol] 6.8 g/dL Normal 6.4 - 8.2 [facility] Work Phone: Comment on above: Performed By: #### C MP #### [address] [address] Sodium [Moles/Vol] 141 mmol/L Normal 136 - 145 [facility] Work Phone: Comment on above: Performed By: #### C MP #### [address] [address] Urea nitrogen [Mass/Vol] 10 mg/dL Normal 6 - 23 [facility] Work Phone: Comment on above: Performed By: #### C MP #### [address] [address] HEMOGLOBIN A1Con 08-21-2022 Glucose [Mass/Vol] 166 mg/dL Normal [facility] Comment on above: Performed By: #### H BA1E #### [address] [address] HbA1c (Bld) [Mass fraction] 7.4 % Abnormal [facility] Comment on above: Result Comment: Diag nosis of Diabetes-Adults Non-Diabetic: < or = 5.6% Increased risk for developing diabetes: 5.7-6.4% Diagnostic of diabetes: > or = 6.5% . Monitoring of Diabetes Age (y) Therapeutic Goal (%) Adults: >18 <7.0 Pediatrics: 13-18 <7.5 7-12 <8.0 0- 6 7.5-8.5 [place] [employer]. Diabetes Care 33(S1), Oct 2009. Performed By: #### H BA1E #### [address] [address] Hemoglobin A1Con 08-21-2022 Glucose [Mass/Vol] 166 mg/dL [facility] Work Phone: HbA1c (Bld) [Mass fraction] 7.4 % Abnormal [facility] Work Phone: Comment on above: Diagnosis of Diabete s-Adults Non-Diabetic: < or = 5.6% Increased risk for developing diabetes: 5.7-6.4% Diagnostic of diabetes: > or = 6.5%. Monitoring of Diabetes Age (y) Therapeutic Goal (%) Adults: >18 <7.0 Pediatrics: 13-18 <7.5 7-12 <8.0 0- 6 7.5-8.5 [place] [employer]. Diabetes Care 33(S1), Oct 2009. Laboratory - Chemistry and C hemistry - challengeon 08-21-2022 Albumin BCP dye [Mass/Vol] 3.9 g/dL 3.4 - 5.0 [facility] Work Phone: ALT With P-5'-P [Catalytic activity/Vol] 18 U/L 7 - 45 [facility] Work Phone: Comment on above: Patients treated wit h Sulfasalazine may generate falsely decreased results for ALT. AST With P-5'-P [Catalytic activity/Vol] 16 U/L 9 - 39 [facility] Work Phone: CO2 [Moles/Vol] 29 mmol/L 21 - 32 [facility] Work Phone: No Panel Informationon 08-21 >90 >90 [facility] Work Phone: Comment on above: CALCULATIONS OF LOS MATED GFR ARE PERFORMED USING THE 2020 CKD-EPI STUDY REFIT EQUATION WITHOUT THE RACE VARIABLE FOR THE IDMS-TRACEABLE CREATININE METHODS.https://jasn.asnjournals.org/content/early/ASN .2157722521 IO EKG Electrocardiogram- 12 Leadon 08-09-2022 IO EKG Electrocardiogram- 12 [address] Document [facility] Work Phone: Office Visit (Internal Medic ine)on 08-09-2022 Follow-up visit Diagnoses/Problems Assessed Dizzy spells (780.4) (R42) BPPV (benign paroxysmal positional vertigo) (386.11) (H81.10) Type 2 diabetes mellitus without complication, without long-term current use of insulin (250.00) (E11.9) Morbid obesity with BMI of 50.0-59.9, adult (278.01,V85.43) (E66.01,Z68.43) Shoulder pain, left (719.41) (M25.512) Orders BPPV (benign paroxysmal positional vertigo) Start: Meclizine HCl - 25 MG Oral Tablet; TAKE 1 TABLET 3 TIMES DAILY NEEDED Rx By: Rd Mayer; Dispense: 10 Days ; #:30 Tablet; Refill: 0; For: BPPV (benign paroxysmal positional vertigo); TIEN = N; Verified Transmission to [employer]; Last Updated By: Rimma Ramirez; 08/09/2022 11:23:53 AM Dizzy spells IO EKG Electrocardiogram- 12 Lead; Status:Resulted - Requires Verification,Retrosp ective By Protocol Authorization; Done: 09Aug2022 11:02AM Performed:In Office; Due:07Nov2022; Last Updated By:Bella Crawford; 08/09/2022 11:02:51 AM;Ordered; For:Dizzy spells; Ordered By:Rd Mayer; Morbid obesity with BMI of 50.0-59.9, adult Bariatric Surgery Referral (BMI = 35 w/ comorbidities OR BMI = 40) Evaluation and Treatment Evaluate AND Treat Status: Complete Done: 09Aug2022 Ordered; For: Morbid obesity with BMI of 50.0-59.9, adult; Ordered By: Rd Mayer Performed: Due: 07Nov2022; Last Updated By: Faina De La Torre; 08/09/2022 11:37:01 AM INFORAMTION GIVEN TO PATIENT TO SET UP Comprehensive Weight Loss Referral (Diet/exercise/meds with [facility]. Surgical counseling if needed, gateway to all programs) Evaluation and Treatment Evaluate AND Treat Status: Hold For - Scheduling Requested for: 09Aug2022 Ordered; For: Morbid obesity with BMI of 50.0-59.9, adult; Ordered By: Rd Mayer Performed: Due: 07Nov2022; Last Updated By: Faina De La Torre; 08/09/2022 11:37:[address] MAN TO CALL BACK Patient Discussion/Summary F/U BEFORE LEFT SHOULDER XRAY FOR PAIN Provider Impressions STOP PRAZOSIN TRY ANTIVERT IF NOT BETTER MRI MDM 1) COMPLEXITY: 1 OR MORE CHRONIC CONDITION WITH EXACERBATION, OR PROGRESSION OR SIDE EFFECT OF TREATMENT ADDRESSED 2)DATA: TESTS INTERPRETED AND OR ORDERED, TOOK INDEPENDENT HISTORY OR RECORDS REVIEWED 3)RISK: MODERATE RISK DUE TO NATURE OF MEDICAL CONDITIONS/COMORBIDI TY OR MEDICATIONS ORDERED OR SURGICAL OR PROCEDURE REFERRAL, . Chief Complaint PT HERE TODAY IN OFFICE C/O DIZZY SPELLS. PT STATES SHE FEELS IT'S VERTIGO History of Present IllnessPT C/O VERTIGO FOR 1 MO SEVERITY: MODERATE AND SEVERE CHARACTERISTIC: INTERMITTENT EXACERBATION FACTOR: MOVING FAST OR BENDING RELIEVING FACTOR: NONE ASSOCIATED SYMPTOMS: NO NORIEGA NO NAUSEA NO VOMITING, NO EAR ISSUES, LEFT SHOULDER PAIN AND TENDERNESS, PAIN WITH USAEGE PRIOR [place]: NONE Review of Systems Constitutional: not feeling poorly, no fever, no recent weight gain and no recent weight loss. Eyes: no blurred vision and no diplopia. ENT: no hearing loss, no tinnitus, no earache, no sore throat, no hoarseness and no swollen glands in the neck. Cardiovascular: no chest pain, no tightness or heavy pressure, no shortness of breath, no palpitations and no lower extremity edema. Respiratory: no cough, not coughing up sputum and no wheezing that is consistent with asthma. Gastrointestinal: no change in bowel habits, no diarrhea, no constipation, no bloody stools, no nausea, no vomiting, no abdominal pain, no signs and symptoms of ulcer disease, no ale colored stools and no intolerance to fatty foods. Genitourinary: no urinary frequency, no dysuria, no burning sensation during urination and no hematuria. Musculoskeletal: arthralgias, but no joint stiffness, no muscle weakness, no back pain and no difficulty walking. Skin: no rashes, no change in skin color and pigmentation, no skin lesions and no skin lumps. Neurological: dizziness, but no headaches, no seizures, no tingling, no numbness, no signs and symptoms of stroke and no limb weakness. Psychiatric: no confusion, no memory lapses or loss, no depression and no sleep disturbances. Endocrine: no goiter, no thyroid disorder, no diabetes mellitus, no excessive thirst, no dry skin, no cold intolerance, no heat intolerance and no increased urinary frequency. Hematologic/Lymphati c: is not slow to heal, does not bleed easily, does not bruise easily, no thrombophlebitis, no anemia and no history of blood transfusion. All other systems have been reviewed and are negative for complaint. ALL OTHER SYSTEMS HAVE BEEN REVIEWED AND ARE NEGATIVE Active Problems Problems Abnormal mammogram (793.80) (R92.8) Cellulitis (682.9) (L03.90) Depression screening negative (V79.0) (Z13.31) Encounter for screening mammogram for malignant neoplasm of breast (V76.12) (Z12.31) Hypercholesterolemia (272.0) (E78.00) Insomnia (780.52) (G47.00) Morbid obesity with BMI of 50.0-59.9, adult (278.01,V85.43) (E66.01,Z68.43) Trigger fi (more content not included)... Normal [employer] Tobacco Screening.on 022 Fall risk assessment b) One or more fall s in the last year [facility] Work Phone: Tobacco use status [facility]PHS a) Yes [facility] Work Phone: Tobacco Screening. Yes [facility] Work Phone: COMPREHENSIVE PANELon 2021 Albumin [Mass/Vol] 4.1 g/dL Normal 3.4 - 5.0 [facility] Comment on above: Performed By: #### C MP #### [address] [address] ALP [Catalytic activity/Vol] 168 U/L High 33 - 110 [facility] Comment on above: Performed By: #### C MP #### [address] [address] ALT [Catalytic activity/Vol] 17 U/L Normal 7 - 45 [facility] Comment on above: Result Comment: Kari ents treated with Sulfasalazine may generate falsely decreased results for ALT. Performed By: #### C MP #### [address] [address] Anion gap [Moles/Vol] 12 mmol/L Normal 10 - 20 [facility] Comment on above: Performed By: #### C MP #### [address] [address] AST [Catalytic activity/Vol] 14 U/L Normal 9 - 39 [facility] Comment on above: Performed By: #### C MP #### [address] [address] Bilirubin [Mass/Vol] 0.5 mg/dL Normal 0.0 - 1.2 [facility] Comment on above: Performed By: #### C MP #### [address] [address] Calcium [Mass/Vol] 9.0 mg/dL Normal 8.6 - 10.3 [facility] Comment on above: Performed By: #### C MP #### [address] [address] Chloride [Moles/Vol] 102 mmol/L Normal 98 - 107 [facility] Comment on above: Performed By: #### C MP #### [address] [address] Creatinine [Mass/Vol] 0.70 mg/dL Normal 0.50 - 1.05 [facility] Comment on above: Performed By: #### C MP #### [address] [address] eGFR FEMALE >90 Normal >90 [facility] Comment on above: Result Comment: CALC ULATIONS OF ESTIMATED GFR ARE PERFORMED USING THE 2020 CKD-EPI STUDY REFIT EQUATION WITHOUT THE RACE VARIABLE FOR THE IDMS-TRACEABLE CREATININE METHODS. https://jasn.asnjournals.org/content/early/ASN.6833881 988 Performed By: #### C MP #### [address] [address] Glucose [Mass/Vol] 197 mg/dL High 74 - 99 [facility] Comment on above: Performed By: #### C MP #### [address] [address] HCO3 (Bld) [Moles/Vol] 31 mmol/L Normal 21 - 32 [facility] Comment on above: Performed By: #### C MP #### [address] [address] Potassium [Moles/Vol] 4.0 mmol/L Normal 3.5 - 5.3 [facility] Comment on above: Performed By: #### C MP #### [address] [address] Protein [Mass/Vol] 7.1 g/dL Normal 6.4 - 8.2 [facility] Comment on above: Performed By: #### C MP #### [address] [address] Sodium [Moles/Vol] 141 mmol/L Normal 136 - 145 [facility] Comment on above: Performed By: #### C MP #### [address] [address] Urea nitrogen [Mass/Vol] 16 mg/dL Normal 6 - 23 [facility] Comment on above: Performed By: #### C MP #### [address] [address] HEMOGLOBIN A1Con 04-18-2022 Glucose [Mass/Vol] 154 mg/dL Normal [facility] Comment on above: Performed By: #### H BA1E #### [address] [address] HbA1c (Bld) [Mass fraction] 7.0 % Abnormal [facility] Comment on above: Result Comment: Diag nosis of Diabetes-Adults Non-Diabetic: < or = 5.6% Increased risk for developing diabetes: 5.7-6.4% Diagnostic of diabetes: > or = 6.5% . Monitoring of Diabetes Age (y) Therapeutic Goal (%) Adults: >18 <7.0 Pediatrics: 13-18 <7.5 7-12 <8.0 0- 6 7.5-8.5 [place] [employer]. Diabetes Care 33(S1), Oct 2009. Performed By: #### H BA1E #### [facility] [address] [place] [address] Office Visit (Internal Medic ine)on 04-18-2022 Follow-up visit Diagnoses/Problems Assessed Type 2 diabetes mellitus without complication, without long-term current use of insulin (250.00) (E11.9) Morbid obesity with BMI of 50.0-59.9, adult (278.01,V85.43) (E66.01,Z68.43) Hypercholesterolemia (272.0) (E78.00) Orders Type 2 diabetes mellitus without complication, without long-term current use of insulin Changed: From Lantus SoloStar 100 UNIT/ML Subcutaneous Solution Pen-injector INJECT 20 UNIT Twice daily To Lantus SoloStar 100 UNIT/ML Subcutaneous Solution Pen-injector INJECT 22 UNIT Twice daily Rx By: Rd Mayer; Dispense: 0 Days ; #:3 X 5 x 3 ML Pen; Refill: 3;For: Type 2 diabetes mellitus without complication, without long-term current use of insulin; TIEN = N; Sent To: [facility] Patient Discussion/Summary F/U HGA1C CMP DISABILITY PLACARD Provider Impressions [address] HGA1C GOAL LESS THAN 7 LOSE WT EXERCISE DAILY MDM 1) COMPLEXITY: 1 OR MORE CHRONIC CONDITION WITH EXACERBATION, OR PROGRESSION OR SIDE EFFECT OF TREATMENT ADDRESSED 2)DATA: TESTS INTERPRETED AND OR ORDERED, TOOK INDEPENDENT HISTORY OR RECORDS REVIEWED 3)RISK: MODERATE RISK DUE TO NATURE OF MEDICAL CONDITIONS/COMORBIDI TY OR MEDICATIONS ORDERED OR SURGICAL OR PROCEDURE REFERRAL, . Chief Complaint 4 MONTH F/U LABS (DID LABS AT AT 1130AM TODAY) History of Present IllnessHERE FOR F/U WITH LABS FEELS FINE Review of Systems Constitutional: not feeling poorly, no fever, no recent weight gain and no recent weight loss. Eyes: no blurred vision and no diplopia. ENT: no hearing loss, no tinnitus, no earache, no sore throat, no hoarseness and no swollen glands in the neck. Cardiovascular: no chest pain, no tightness or heavy pressure, no shortness of breath, no palpitations and no lower extremity edema. Respiratory: no cough, not coughing up sputum and no wheezing that is consistent with asthma. Gastrointestinal: no change in bowel habits, no diarrhea, no constipation, no bloody stools, no nausea, no vomiting, no abdominal pain, no signs and symptoms of ulcer disease, no ale colored stools and no intolerance to fatty foods. Genitourinary: no urinary frequency, no dysuria, no burning sensation during urination and no hematuria. Musculoskeletal: no arthralgias, no joint stiffness, no muscle weakness, no back pain and no difficulty walking. Skin: no rashes, no change in skin color and pigmentation, no skin lesions and no skin lumps. Neurological: no headaches, no dizziness, no seizures, no tingling, no numbness, no signs and symptoms of stroke and no limb weakness. Psychiatric: no confusion, no memory lapses or loss, no depression and no sleep disturbances. Endocrine: no goiter, no thyroid disorder, no diabetes mellitus, no excessive thirst, no dry skin, no cold intolerance, no heat intolerance and no increased urinary frequency. Hematologic/Lymphati c: is not slow to heal, does not bleed easily, does not bruise easily, no thrombophlebitis, no anemia and no history of blood transfusion. All other systems have been reviewed and are negative for complaint. Active Problems Problems Abnormal mammogram (793.80) (R92.8) Cellulitis (682.9) (L03.90) Depression screening negative (V79.0) (Z13.31) Encounter for screening mammogram for malignant neoplasm of breast (V76.12) (Z12.31) Hypercholesterolemia (272.0) (E78.00) Insomnia (780.52) (G47.00) Morbid obesity with BMI of 50.0-59.9, adult (278.01,V85.43) (E66.01,Z68.43) Trigger finger (727.03) (M65.30) Type 2 diabetes mellitus without complication, without long-term current use of insulin (250.00) (E11.9) Yeast infection (112.9) (B37.9) Allergies Medication CeleXA TABS Recorded By: Florina Saenz; 11/03/2021 4:39:02 PM Claritin TABS Recorded By: Florina Saenz; 11/03/2021 4:39:02 PM Sulfa Drugs Recorded By: Florina Saenz; 11/03/2021 4:39:02 PM Voltaren GEL Recorded By: Florina Saenz; 11/03/2021 4:39:02 PM Wellbutrin Recorded By: Florina Saenz; 11/03/2021 4:39:02 PM Zithromax Recorded By: Florina Saenz; 11/03/2021 4:39:02 PM Current Meds Medication NameInstruction BD Pen Needle Short U/F 31G X 8 MMTO INJECT BID WITH LANTUS BD Pen Needle Short U/F 31G X 8 MMTO INJECT LANTUS BID AND HUAMOLOG QID ALONG WITH SLIDING SCALE Blood Sugar Balance Oral TabletOTC BLOOD SUGAR SUPPORT 850MG Famotidine 20 MG Oral TabletTAKE 1 TABLET DAILY DIRECTED. Elijah Root 550 MG Oral Capsule HumaLOG KwikPen 100 UNIT/ML Subcutaneous Solution Pen-injectorINJECT 5 UNIT 4 times daily ALONG WITH SLIDING SCALE Lantus SoloStar 100 UNIT/ML Subcutaneous Solution Pen-injectorINJECT 20 UNIT Twice daily Lantus SoloStar 100 UNIT/ML Subcutaneous Solution Pen-injectorINJECT 20 UNIT Twice daily Meloxicam 7.5 MG Oral TabletTake 1 tablet daily Nystatin 065948 UNIT/GM External Powderapply bid AND NEEDED Omeprazole 20 MG Oral Tablet Delayed Release1 TAB DAILY Pravastatin Sodium 40 MG Oral TabletTAKE 1 TABLET AT BEDTIME. (more content not included)... Normal [employer] Tobacco Screening.on 022 Fall risk assessment a) No falls within the last year [facility] Work Phone: Tobacco use status [facility] b) No [facility] Work Phone: ULTRASOUND LIMITED BREASTon 12-22-2021 ULTRASOUND LIMITED BREAST Patient Name: LARISSA DAVENPORT STUDY: BREAST ULTRASOUND; 12/22/2021 3:24 pm ACCESSION NUMBER(S): [id number] ORDERING CLINICIAN: RD MAYER INDICATION: cat 0 mammo ABNORMAL RIGHT BREAST MAMMO 12/16/21 R92.8: Abnormal mammogram. COMPARISON: Mammograms of 12/16/2021 FINDINGS: ULTRASOUND RIGHT BREAST-limited Ultrasound of the right breast was performed at 12 o'clock and 1 o'clock positions. At the 1 o'clock position an oval mass of uniform low grade echogenicity is seen 10 cm from the nipple measuring 7 x 4 x 7 mm in size with sonographic characteristics consistent with a fibroadenoma. At the 12 o'clock position 5 cm from the nipple, an ovoid nodule is seen, with low-grade echoes within it measuring 7 x 3 x 9 mm. This may be a cyst with debris, or a fibroadenoma. No spiculation of the margins or shadowing. IMPRESSION: Benign appearing mass lesions at the 12 and 1 o'clock position likely fibroadenomas. BI-RADS CATEGORY: Category: 2 - Benign. Recommendation: 1 Year Screening. For any future breast imaging appointments, please call [phone] ([phone]). Electronically signed by: BARB YING MD [facility] Ultrasound Limited Breaston 12-22-2021 MG Breast Screening Normal MP-Ca d [facility] Work Phone: DIGITAL MAMM SCREENING W/ TO Liriano 12-16-2021 DIGITAL MAMM SCREENING W/ DEEJAY Patient Name: LARISSA DAVENPORT STUDY: DIGITAL MAMM SCREENING W/ DEEJAY; 12/16/2021 3:46 pm ACCESSION NUMBER(S): [id number] ORDERING CLINICIAN: RD MAYER INDICATION: Screening. COMPARISON: None. FINDINGS: 2D and tomosynthesis images were reviewed at 1 mm slice thickness. The breast tissue is almost entirely fatty. No suspicious microcalcifications. There is a slightly lobulated density, seen in the right breast on the cc tomosynthesis scan 49/92 in the mid depth are seen in the upper portion of the breast on MLO tomosynthesis scan 75/116 about the 12 o'clock position. Ultrasound examination of the right breast in the upper portion at about 12 o'clock recommended in the mid depth. IMPRESSION: Nodule right breast for which ultrasound examination is recommended. BI-RADS CATEGORY: Category: 0 - Incomplete; Need Additional Imaging Evaluation and/or Prior Mammograms for Comparison. Recommendation: Ultrasound Recommended. For any future breast imaging appointments, please call [phone] ([phone]). Electronically signed by: BARB YING MD [facility] Mamm - Screening Mammogram w / Tomosynthesison 12-16-2021 MG Breast Screening Normal [facility] Internal [facility] Work Phone: Tobacco Screening.on 022 Adult depression screening assessment No [facility] Work Phone: Fall risk assessment a) No falls within the last year [facility] Work Phone: Tobacco use status [facility] b) No [facility] Work Phone: Complete Blood Count + Diffe rentialon 12-13-2021 Basophils/100 WBC (Bld) 0.6 % 0.0 - 2.0 [facility] Work Phone: Erythrocyte distribution width (RBC) [Ratio] 13.5 % See Below [facility] Work Phone: Comment on above: Reference Range: 11. 5 - 14.5 Hematocrit (Bld) [Volume fraction] 38.1 % See Below [facility] Work Phone: Comment on above: Reference Range: 36. 0 - 46.0 Hemoglobin (Bld) [Mass/Vol] 12.6 g/dL See Below [facility] Work Phone: Comment on above: Reference Range: 12. 0 - 16.0 Lymphocytes/100 WBC (Bld) 18.7 % See Below [facility] Work Phone: Comment on above: Reference Range: 13. 0 - 44.0 MCHC (RBC) [Mass/Vol] 33.0 g/dL See Below [facility] Work Phone: Comment on above: Reference Range: 32. 0 - 36.0 MCV (RBC) [Entitic vol] 86 fL 80 - 100 [facility] Work Phone: Monocytes/100 WBC (Bld) 5.7 % 2.0 - 10.0 [facility] Work Phone: Neutrophils/100 WBC (Bld) 72.4 % See Below [facility] Work Phone: Comment on above: Reference Range: 40. 0 - 80.0 Platelets (Bld) [#/Vol] 416 10*3/uL 150 - 450 [facility] Work Phone: RBC (Bld) [#/Vol] 4.41 {x10E12/L} See Below [facility] Work Phone: Comment on above: Reference Range: 4.0 0 - 5.20 WBC (Bld) [#/Vol] 6.9 10*3/uL 4.4 - 11.3 [facility] Work Phone: Complete Blood Count + Differential 0.00 {x10E9/L} See Below [facility] Work Phone: Comment on above: Reference Range: 0.0 0 - 0.10 Complete Blood Count + Differential 0.20 {x10E9/L} See Below [facility] Work Phone: Comment on above: Reference Range: 0.0 0 - 0.70 Complete Blood Count + Differential 0.40 {x10E9/L} See Below [facility] Work Phone: Comment on above: Reference Range: 0.1 0 - 1.00 Complete Blood Count + Differential 1.30 {x10E9/L} See Below [facility] Work Phone: Comment on above: Reference Range: 1.2 0 - 4.80 Complete Blood Count + Differential 5.00 {x10E9/L} See Below [facility] Work Phone: Comment on above: Reference Range: 1.2 0 - 7.70 Percent differential counts (%) should be interpreted in the context of the absolute cell counts (cells/L). Complete Blood Count + Differential 2.6 % 0.0 - 6.0 [facility] Work Phone: Hemoglobin A1Con 12-13-2021 Glucose [Mass/Vol] 154 mg/dL [facility] Work Phone: HbA1c (Bld) [Mass fraction] 7.0 % Abnormal [facility] Work Phone: Comment on above: Diagnosis of Diabete s-Adults Non-Diabetic: < or = 5.6% Increased risk for developing diabetes: 5.7-6.4% Diagnostic of diabetes: > or = 6.5%. Monitoring of Diabetes Age (y) Therapeutic Goal (%) Adults: >18 <7.0 Pediatrics: 13-18 <7.5 7-12 <8.0 0- 6 7.5-8.5 [place] [employer]. Diabetes Care 33(S1), Oct 2009. Lipid Panelon 12-13-2021 Cholesterol [Mass/Vol] 128 mg/dL 0 - 199 [facility] Work Phone: Comment on above: . AGE DESIRABLE BORD TONYA HIGH HIGH 0-19 Y 0 - 169 170 - 199 >/= 200 20-24 Y 0 - 189 190 - 224 >/= 225 >24 Y 0 - 199 200 - 239 >/= 240 All ranges are based on fasting samples. Specific therapeutic targets will vary based on patient-specific cardiac risk.. Pediatric guidelines reference:Pediatrics 2011, 128(S5). Adult guidelines reference: NCEP ATPIII Guidelines, KAT 2001, 258:2486-97. Venipuncture immediately after or during the administration of Metamizole may lead to falsely low results. Testing should be performed immediately prior to Metamizole dosing. Cholesterol in HDL [Mass/Vol] 51.0 mg/dL [facility] Work Phone: Comment on above: . AGE VERY LOW LOW N ORMAL HIGH 0-19 Y < 35 < 40 40-45 ---- 20- 24 Y ---- < 40 >45 ---- >24 Y ---- < 40 40-60 >60. Cholesterol in LDL [Mass/Vol] 56 mg/dL 0 - 99 [facility] Work Phone: Comment on above: . NEAR BORD AGE WILLIE RABLE OPTIMAL HIGH HIGH VERY HIGH 0-19 Y 0 - 109 --- 110-129 >/= 130 ---- 20-24 Y 0 - 119 --- 120-159 >/= 160 ---- >24 Y 0 - 99 100-129 130-159 160-189 >/=190. Cholesterol.total/Ch olesterol in HDL [Mass ratio] 2.5 {ratio} [facility] Work Phone: Comment on above: REF VALUESDESIRABLE < 3.4HIGH RISK > 5.0 Triglyceride [Mass/Vol] 104 mg/dL 0 - 149 [facility] Work Phone: Comment on above: . AGE DESIRABLE BORD TONYA HIGH HIGH VERY HIGH 0 D-90 D 19 - 174 ---- ---- ----91 D- 9 Y 0 - 74 75 - 99 >/= 100 ---- 10-19 Y 0 - 89 90 - 129 >/= 130 ---- 20-24 Y 0 - 114 115 - 149 >/= 150 ---- >24 Y 0 - 149 150 - 199 200- 499 >/= 500. Venipuncture immediately after or during the administration of Metamizole may lead to falsely low results. Testing should be performed immediately prior to Metamizole dosing. Lipid Panel 21 mg/dL 0 - 40 [facility] Work Phone: TSH - Thyroid Stimulating [facility], Serumon 12-13-2021 TSH Qn 1.99 m[IU]/L See Below [facility] Work Phone: Comment on above: Reference Range: 0.4 4 - 3.98 TSH testing is performed using different testing methodology at [facility] than at other [facility]. Direct result comparisons should only be made within the same method. Tobacco Screening.on 022 Fall risk assessment a) No falls within the last year [facility] Work Phone: Tobacco use status [facility] b) No [facility] Work Phone: Vital Signs Date Time Vital Sign Value Performing Clinician Pat moyer 08-09-2022 10:43-0400 Body height 157.[address] Mayer Work Phone: [facility] Work Phone: 10-12-2022 10:43-0400 Body mass index (BMI) [Ratio] 53.41 kg/m2 Rd Jason Tavallaee Work Phone: [facility] Work Phone: 08-09-2022 10:43-0400 Body surface area Derived from formula 2.[address] Jason Tavallaee Work Phone: [facility] Work Phone: 08-09-2022 10:43-0400 Body weight 132.[address] Jason Tavallaee Work Phone: [facility] Work Phone: 08-09-2022 10:43-0400 Diastolic blood pressure 80 mm[Hg] Rd Jason Tavallaee Work Phone: [facility] Work Phone: 08-09-2022 10:43-0400 Heart rate 90 /min Rd Jason Gastonallaee Work Phone: [facility] Work Phone: 08-09-2022 10:43-0400 SaO2% (BldA) [Mass fraction] 98 % Rd Jason Gastonallaee Work Phone: [facility] Work Phone: 08-09-2022 10:43-0400 Systolic blood pressure 138 mm[Hg] Rd Jason Tavallaee Work Phone: [facility] Work Phone: 04-18-2022 13:51-0400 Body height 157.[address] Jason Tavallaee Work Phone: [facility] Work Phone: 04-18-2022 13:51-0400 Body mass index (BMI) [Ratio] 52.49 kg/m2 Rd Jason Tavallaee Work Phone: [facility] Work Phone: 04-18-2022 13:51-0400 Body surface area Derived from formula 2.[address] Jason Tavallaee Work Phone: [facility] Work Phone: 04-18-2022 13:51-0400 Body weight 130.[address] Jsaon Tavallaee Work Phone: [facility] Work Phone: 04-18-2022 13:51-0400 Diastolic blood pressure 80 mm[Hg] Rd M Tavallaee Work Phone: [facility] Work Phone: 04-18-2022 13:51-0400 Heart rate 100 /min Rd M Tavallaee Work Phone: [facility] Work Phone: 04-18-2022 13:51-0400 SaO2% (BldA) [Mass fraction] 98 % Rd Jason Tavallaee Work Phone: [facility] Work Phone: 04-18-2022 13:51-0400 Systolic blood pressure 128 mm[Hg] Rd Jason Tavallaee Work Phone: [facility] Work Phone: 12-14-2021 10:48-0500 Body height 157.[address] M Tavallaee Work Phone: [facility] Work Phone: 12-14-2021 10:48-0500 Body mass index (BMI) [Ratio] 53.04 kg/m2 Rd M Tavallaee Work Phone: [facility] Work Phone: 12-14-2021 10:48-0500 Body surface area Derived from formula 2.[address] Powelle Work Phone: [facility] Work Phone: 12-14-2021 10:48-0500 Body weight 131.[address] M Tavallaee Work Phone: [facility] Work Phone: 12-14-2021 10:48-0500 Diastolic blood pressure 86 mm[Hg] Rd Jason Fawadaee Work Phone: [facility] Work Phone: 12-14-2021 10:48-0500 Heart rate 84 /min Rd Mayer Work Phone: [facility] Work Phone: 12-14-2021 10:48-0500 Systolic blood pressure 138 mm[Hg] Rd Celestinaee Work Phone: [facility] Work Phone: Encounters Encounter Date Encounter Type Care Provider Facility Start: 01-03-2023 End: 01-03-[address] [facility] Ambulatory Start: 12-28-[address] luke Work Phone: [facility] Work Phone: Start: 12-27-[address] Mazariegos llaee Work Phone: [facility] Work Phone: Start: 10-02-2022 End: 10-09-2022 Evaluation and management of inpatient SU CRISTINA Facility:[facility] Start: 10-02-2022 End: 10-02-2022 Emergency department patient visit RD MAYER Facility:[facility] Start: 08-22-2022 FUV, Provider: Rd Mayer, Status: Pen, Time: 11:[address] Tavallaee Work Phone: [facility] Work Phone: Start: 08-22-[address] Tavallaee Facil [id number] Start: 08-21-[address] Jason Tava llaee Work Phone: [facility] Work Phone: Start: 08-09-[address] Tavallaee Facil [id number] Start: 08-09-2022 Office outpatient vi sit [address] Tavallaee Work Phone: [facility] Work Phone: Start: 04-18-2022 Office outpatient vi sit [address] Jason Tavallaee Work Phone: [facility] Work Phone: Start: 04-18-[address] Tavallaee Facil [id number] Start: 02-14-[address] Jason Tava llaee Work Phone: [facility] Work Phone: Start: 01-24-[address] Jason Tava llaee Work Phone: [facility] Work Phone: Start: 12-27-[address] M Tava llaee Work Phone: [facility] Work Phone: Start: 12-20-[address] Jason Tava llaee Work Phone: [facility] Work Phone: Start: 12-14-2021 Office outpatient vi sit [address] Jason Tavallaee Work Phone: [facility] Work Phone: Start: 12-14-[address] luke Work Phone: [facility] Work Phone: Start: 12-07-2021 FUV, Provider: Rd Mayer, Status: Pen, Time: 1:15 PM Fabricio Harry Work Phone: [facility] Work Phone: Start: 12-01-2021 AUDIT Fabricio Goode r Work Phone: [facility] Work Phone: Start: 11-21-2021 AUDIT Fabricio Goode r Work Phone: [facility] Work Phone: Start: 11-03-2021 Office outpatient vi sit 15 minutes Fabricio Harry Work Phone: [facility] Work Phone: Start: 11-03-2021 Phys/qhp telephone evaluation 11-20 min Fabricoi Harry Work Phone: [facility] Work Phone: Start: 10-04-2021 Patient encounter procedure Fabricio Harry Work Phone: [facility] Work Phone: Start: 10-03-2021 Patient encounter procedure Fabricio Harry Work Phone: [facility] Work Phone: Start: 09-29-2021 Patient encounter procedure Fabricio Harry Work Phone: [facility] Work Phone: Start: 09-27-2021 Patient encounter procedure Fabricio Harry Work Phone: [facility] Work Phone: Start: 09-27-2021 Patient encounter procedure Fabricio Harry Work Phone: [facility] Work Phone: Start: 09-19-2021 Patient encounter procedure Fabricio Chaidez Piero Work Phone: [facility] Work Phone: Start: 09-15-2021 Patient encounter procedure Fabricio Chaidez Piero Work Phone: [facility] Work Phone: Start: 09-12-2021 Patient encounter procedure Fabricio Chaidez Piero Work Phone: [facility] Work Phone: Plan of Treatment Date Care Activity Detail Author Start: 08-22-2022 FUV, Provider: Rd Mayer, Status: Pen, Time: 11:15 AM FUV, Provider: Rd Mayer, Status: Pen, Time: 11:15 AM [facility] Work Phone: Start: 04-12-2022 FUV, Provider: Rd Mayer, Status: Pen, Time: 11:30 AM FUV, Provider: Rd Mayer, Status: Pen, Time: 11:30 AM [facility] Work Phone: Start: 12-07-2021 FUV, Provider: Rd Mayer, Status: Pen, Time: 1:15 PM FUV, Provider: Rd Mayer, Status: Pen, Time: 1:15 PM [facility] Work Phone: Immunizations Immunization Date Immunization Notes Care Provider Fa cili 08-22-2022 influenza, injectabl e, quadrivalent, preservative free; Translations: [Flulaval Quadrivalent 0.5 ML Intramuscular Suspension Prefilled Syringe] Rd Mayer Work Phone: [facility] Work Phone: Comment on above: Series: 03-01-2022 Moderna COVID-19 Vac cine 100 MCG/0.5ML Intramuscular Suspension Rd M Tavallaee Work Phone: [facility] Work Phone: 09-03-2021 influenza, seasonal, injectable, preservative free Fabricio Chaidez Piero Work Phone: [facility] Work Phone: 04-14-2021 Moderna COVID-19 Vac cine 100 MCG/0.5ML Intramuscular Suspension Fabrciio Chaidez Piero Work Phone: [facility] Work Phone: 03-17-2021 Moderna COVID-19 Vac cine 100 MCG/0.5ML Intramuscular Suspension Fabricio Chaidez Piero Work Phone: [facility] Medicine Work Phone: Payers Date Payer Category Payer Unknown [id number] 1975 Unknown [id number] 1975 Unknown [id number]. [id number] 1975 Unknown [id number]. [id number] 1973 Unknown [id number] Unknown Clinical Notes 07-22-2021 to 10-09-2022 Note Date & Type Note Facility 10-09-2022 Note HNO ID: [id number] Author: Andrew Buck RPh Service: Pharmacy Author Type: Pharmacist Type: Plan of Care Filed: 10/09/2022 11:20 AM Note Text: DISCHARGE MEDICATION REVIEW BY PHARMACY Patient Name: Larissa Davenport Account #: Data Unavailable Admission Date: 10/02/2022 Date of Contact: October 09, 2022 Time of Contact: 11:16 AM Medication list was reviewed by a Pharmacist for drug interactions or drug related problems:Yes Below is a summary of pharmacist recommendations discussed with LIP: No Recommendations at this time from Discharge Medication List. Andrew Buck RPh October 09, 2022 11:16 AM Pager: [phone] 10/09/2022 11:16 AM Medication List CHANGE how you take these medications insulin glargine 100 unit/mL (3 mL) Commonly known as: LANKEVIN LITTLEJOHN Inject 10 Units subcutaneously twice daily. What changed: how much to take when to take this prazosin 1 mg Cap Commonly known as: MINIPRESS Take 1 capsule by mouth twice daily. What changed: when to take this traZODone 50 mg tablet Commonly known as: DESYREL Take 1 tablet by mouth at bedtime as needed. What changed: medication strength how much to take when to take this reasons to take this * venlafaxine ER 150 mg 24 hr capsule Commonly known as: EFFEXOR XR What changed: Another medication with the same name was added. Make sure you understand how and when to take each. * venlafaxine ER 37.5 mg 24 hr capsule Commonly known as: EFFEXOR XR Take 1 capsule by mouth once daily. Take in addition to 150 mg capsule for a total of 187.5 mg daily. What changed: You were already taking a medication with the same name, and this prescription was added. Make sure you understand how and when to take each. * This list has 2 medication(s) that are the same as other medications prescribed for you. Read the directions carefully, and ask your doctor or other care provider to review them with you. CONTINUE taking these medications CENTRUM ADULT TABLET insulin lispro 100 unit/mL Commonly known as: HumaLOG Wale KwikPen nystatin powder Commonly known as: MYCOSTATIN omeprazole 20 mg capsule Commonly known as: PriLOSEC pravastatin 40 mg tablet Commonly known as: PRAVACHOL STOP taking these medications diphenhydrAMINE 25 mg capsule Commonly known as: BENADRYL famotidine 20 mg tablet Commonly known as: PEPCID Where to Get Your Medications These medications were sent to [id number] [place] [address] - [facility] - [phone] [place] [id number] prazosin 1 mg Cap venlafaxine ER 37.5 mg 24 hr capsule [facility] 10-09-2022 Note HNO ID: [id number] Author: SPENCER Carver Service: Care Management Author Type: Banquet Set Up Person Type: Care Mgt Progress Note Filed: 10/09/2022 2:11 PM Note Text: BEHAVIORAL HEALTH SOCIAL WORK DISCHARGE NOTE SERVICE DATE: 10/09/2022 SERVICE TIME: 12:30pm Discharge Information Row Name Admission (Current) from 10/02/[address] Psychiatry Follow-Up Appointment Psychiatrist Name This is an inital assessment with [facility] Address / Phone [phone] [place] [address] / / Appointment Date 11/03/22 Appointment Time 10:30AM Additional Instructions This is an in-person appointment. Psychiatry Follow-Up Appointment Provider Name Umesh [facility] Address [address] [facility], [place] [address] Appointment Date 11/06/22 Appointment Time 4PM Additional Instructions This is a [facility] appointment Counselor Follow-Up Appointment Counselor Name Rancho Leonarddebbi [facility] Address [address] [place] [address], [place] [address] Appointment Date 10/10/22 Appointment Time 3:00 pm Case Management Follow-Up Appointment Yeast Maker Name Yue Garcia [facility] Address [address] [facility], [place] [address] Patient/Food Products Sales Representative Agreeable With Discharge Plan: Yes FREEDOM OF CHOICE EXPLAINED? Yes. A list of appropriate referrals presented to/discussed with Patient on 10/09/22 at 12:30pm [facility]-owned/affiliated facilities and agencies have been identified Patient/Food Products Sales Representative Given/Explained Medicare Discharge Notice (IM letter): Not Applicable TRANSPORTATION ARRANGEMENTS: Taxi Cab Voucher PRESCRIPTIONS FILLED PRIOR TO DISCHARGE: Yes, faxed to outside pharmacy: e-scripted ADDITIONAL NOTES: Pt to be d/c'd home today. 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 Provided pt with emergency housing assistance contact number for [facility] to help her navigate emergency funding or housing resources (like residential) if needed. Pt was appreciative. She allowed me to contact her sister, Britney, to review d/c plans and advise her of discharge today, as well as potentially coordinate a ride home. Spoke with pt's sister, Britney, who indicates she is unable to pick pt up from the hospital. She states pt has lived with her off/on 3 different times since moving to [place]. She most recently moved out suddenly after getting in this current relationship. Pt does not have the ability to return back to her house, as Britney is unable to continue supporting her. She is aware of pt's plan as above and resources that will be provided to pt to pursue to determine more long-term housing plan, including residential if needed. Sister was understanding. Pt aware sister is unable to provide ride. She made calls to a couple of other friends who were unable to pick her up. She will need cabbed back to her prior residence where she will picker feeder her belongings and vehicle. She denied any additional needs/concerns at time of d/c. SIGNATURE: SPENCER Carver PATIENT NAME: Larissa Davenport DATE: October 09, 2022 TIME: 10:09 AM [facility] 10-07-2022 Note HNO ID: [id number] Author: Alessandra Foley APRN.DIPLOMA DENTAL ASSISTANT Service: Psychiatry Author Type: Nurse Specialist Type: Progress Notes Filed: 10/07/2022 1:21 PM Note Text: PROGRESS NOTE BEHAVIORAL HEALTH SERVICE DATE: 10/07/2022 SERVICE TIME: 12:30 PM The Interdisciplinary team met and reviewed treatment goals and discharge planning. Subjective The patient claims she is improving. Credits this admission, the group work, and just being able to talk with others. Voiced concern over the ankle. Scared to return to work. Objective PHYSICAL EXAM: BP 132/64 Pulse 94 Temp 36.7 ?C (98.1 ?F) (Oral) Resp 18 Ht 157.5 cm (5' 2 ) Wt 126.6 kg (279 lb 3.2 oz) SpO2 96% BMI 51.07 kg/m? MENTAL STATUS EXAMINATION: Appearance: In hospital gown Behavior: Appropriate Orientation: Person, Place, Time and Situation Speech/Language: The patient demonstrates appropriate tone, prosody, osito, phonetics, and syntax Mood/Affect: happier Thought Form: Coherent and Logical Thought Content: Coherent Suicidal Ideations: No suicidal ideation, intent or plan. Homicidal Ideations: No homicidal ideation, intent or plan. Insight: Fair Judgment: Fair Memory/Cognition: Intact Psychomotor: Psychomotor activity was normal, however walking with a limp due to ankle NEW PROBLEMS ON UNIT SINCE LAST ENCOUNTER: None Current Facility-Administered Medications Medication Dose Route Frequency LORazepam 2 mg (ATIVAN) 2 mg ORAL q 4 H PRN Or LORazepam 2 mg injection (ATIVAN) 2 mg INTRAMUSCULAR q 4 H PRN haloperidol 5 mg tab(s) (HALDOL) 5 mg ORAL q 4 H PRN Or haloperidol lactate 5 mg short-acting injection (HALDOL) 5 mg INTRAMUSCULAR q 4 H PRN melatonin 3 mg tab(s) 3 mg ORAL DAILY (8 PM) hydrOXYzine HCl 50 mg tab(s) (ATARAX) 50 mg ORAL q 4 H PRN benztropine 2 mg tab(s) (COGENTIN) 2 mg ORAL q 4 H PRN aluminum-magnesium hydroxide-simethicone 200-200-20 mg/5 mL 30 mL (MAALOX,MYLANTA,MAG-AL PLUS) 30 mL ORAL q 4 H PRN magnesium hydroxide 400 mg/5 mL 30 mL (MOM) 30 mL ORAL DAILY PRN diphenhydrAMINE 50 mg injection (BENADRYL) 50 mg INTRAMUSCULAR q 30 MIN PRN nicotine polacrilex 2 mg gum (NICORETTE) 2 mg ORAL q [address] 20 mg tab(s) (PROTONIX) 20 mg ORAL DAILY (6 AM) dextrose 40 % 15 g 15 g ORAL PRN Or glucagon 1 mg injection 1 mg INTRAMUSCULAR PRN Or dextrose 10% iv bolus 12.5 g INTRAVENOUS PRN insulin lispro injection (rapid acting) (ADMELOG) SUBCUTANEOUS AT BEDTIME Patient Home Medications (stored in pharmacy) OTHER DAILY prazosin 1 mg cap(s) (MINIPRESS) 1 mg ORAL BID traZODone 50 mg tab(s) (DESYREL) 50 mg ORAL AT BEDTIME PRN insulin glargine 10 Units pen (long acting) (LANTUS SOLOSTAR, BASAGLAR KWIKPEN) 10 Units SUBCUTANEOUS BEFORE BREAKFAST DAILY insulin glargine 10 Units pen (long acting) (LANTUS SOLOSTAR, BASAGLAR KWIKPEN) 10 Units SUBCUTANEOUS AT BEDTIME insulin lispro injection (rapid acting) (ADMELOG) SUBCUTANEOUS w MEALS venlafaxine ER (EFFEXOR XR) cap(s) 187.5 mg 187.5 mg ORAL DAILY DATA: Diagnostic tests reviewed for today's visit: No new labs Assessment/Plan DIAGNOSIS: MDD, recurrent, severe without psychotic features HILDA PTSD GAF: -50-41 Serious symptoms or any serious impairment in social, occupational or school functioning. RISK ASSESSMENT: Suicide: moderate Homicide: low Deliberate Self-Harm: low Aggression: low Imminent Physical Self Impairment: low INFORMED CONSENT: Yes, completed with the Patient. Discussed the risks, benefits and alternatives to the medication(s) recommended. Consent was given. INTERVENTION: Biological: Continue current medication regimen Psychological: Groups Social: Cope Milieu DISCHARGE PLANNING: TBD SIGNATURE: Alessandra Foley APRN.DIPLOMA DENTAL ASSISTANT PATIENT NAME: Larissa Davenport DATE: October 07, 2022 TIME: 12:45 PM [facility] 10-06-2022 Note HNO ID: [id number] Author: Rancho Meneses RN Service: Nursing Author Type: Registered Nurse Type: Progress Notes Filed: 10/06/2022 10:45 AM Note Text: Pt out for breakfast, ate well. Cooperative with meds. Refused offer of pain meds for her Rt ankle pain. States she has a high tolerance for pain. She is wearing an ankle brace. Given 2 units for a blood glucose of 159. Refused the morning group, stated she wanted to relax in her room. Affect blunted but improved. Seen social with peers at breakfast. IDTP pt states she has 1/10 depression, denies jennifer ideations. Claims 1/10 anxiety. Participating in some groups. [facility] 10-06-2022 Note HNO ID: [id number] Author: Vikas Osman MD Service: Psychiatry Author Type: Physician Type: Progress Notes Filed: 10/06/2022 11:19 AM Note Text: PROGRESS NOTE BEHAVIORAL HEALTH SERVICE DATE: 10/06/2022 SERVICE TIME: 11:07 AM The Interdisciplinary team met and reviewed treatment goals and discharge planning. Subjective Patient reports steady improvement. Depression and anxiety are improved. Frustrated with ankle pain but is not letting this get to her. She reports benefit from groups and appreciates attending. She reports improved appetite and sleep. Denies any side effects to medication. Feels well supported by boss and is not worried about work situation. She continues to have plan to stay in extended stay hotel with cats after discharge. Reportedly boss will help her financially with this. Objective PHYSICAL EXAM: BP 140/67 Pulse 81 Temp 36.5 ?C (97.7 ?F) (Oral) Resp 17 Ht 157.5 cm (5' 2 ) Wt 126.6 kg (279 lb 3.2 oz) SpO2 100% BMI 51.07 kg/m? MENTAL STATUS EXAMINATION: Appearance: Casually dressed Behavior: Withdrawn and Cooperative . Fair eye contact. Orientation: Person, Place, Time and Situation Speech/Language: The patient demonstrates appropriate tone, prosody, osito, phonetics, and syntax Mood/Affect: less depression and anxiety / Mood-congruent and reactive within a restricted range. Thought Form: Linear, coherent, organized Thought Content: Relevant to clinical discussion Suicidal Ideations: Denies any suicidal ideation, plan, or intent. Homicidal Ideations: No homicidal ideation, intent or plan. Insight: Fair Judgment: Fair Memory/Cognition: Grossly Intact Psychomotor: Gait impacted by ankle injury NEW PROBLEMS ON UNIT SINCE LAST ENCOUNTER: None Current Facility-Administered Medications Medication Dose Route Frequency LORazepam 2 mg (ATIVAN) 2 mg ORAL q 4 H PRN Or LORazepam 2 mg injection (ATIVAN) 2 mg INTRAMUSCULAR q 4 H PRN haloperidol 5 mg tab(s) (HALDOL) 5 mg ORAL q 4 H PRN Or haloperidol lactate 5 mg short-acting injection (HALDOL) 5 mg INTRAMUSCULAR q 4 H PRN melatonin 3 mg tab(s) 3 mg ORAL DAILY (8 PM) hydrOXYzine HCl 50 mg tab(s) (ATARAX) 50 mg ORAL q 4 H PRN benztropine 2 mg tab(s) (COGENTIN) 2 mg ORAL q 4 H PRN aluminum-magnesium hydroxide-simethicone 200-200-20 mg/5 mL 30 mL (MAALOX,MYLANTA,MAG-AL PLUS) 30 mL ORAL q 4 H PRN magnesium hydroxide 400 mg/5 mL 30 mL (MOM) 30 mL ORAL DAILY PRN diphenhydrAMINE 50 mg injection (BENADRYL) 50 mg INTRAMUSCULAR q 30 MIN PRN nicotine polacrilex 2 mg gum (NICORETTE) 2 mg ORAL q [address] 20 mg tab(s) (PROTONIX) 20 mg ORAL DAILY (6 AM) dextrose 40 % 15 g 15 g ORAL PRN Or glucagon 1 mg injection 1 mg INTRAMUSCULAR PRN Or dextrose 10% iv bolus 12.5 g INTRAVENOUS PRN insulin lispro injection (rapid acting) (ADMELOG) SUBCUTANEOUS AT BEDTIME Patient Home Medications (stored in pharmacy) OTHER DAILY prazosin 1 mg cap(s) (MINIPRESS) 1 mg ORAL BID traZODone 50 mg tab(s) (DESYREL) 50 mg ORAL AT BEDTIME PRN insulin glargine 10 Units pen (long acting) (LANTUS SOLOSTAR, BASAGLAR KWIKPEN) 10 Units SUBCUTANEOUS BEFORE BREAKFAST DAILY insulin glargine 10 Units pen (long acting) (LANTUS SOLOSTAR, BASAGLAR KWIKPEN) 10 Units SUBCUTANEOUS AT BEDTIME insulin lispro injection (rapid acting) (ADMELOG) SUBCUTANEOUS w MEALS venlafaxine ER (EFFEXOR XR) cap(s) 187.5 mg 187.5 mg ORAL DAILY DATA: Diagnostic tests reviewed for today's visit: Most recent labs Assessment/Plan DIAGNOSIS: MDD, recurrent, severe without psychotic features HILDA PTSD GAF: 45 -50-41 Serious symptoms or any serious impairment in social, occupational or school functioning. RISK ASSESSMENT: Suicide: moderate Homicide: low Deliberate Self-Harm: low Aggression: low Imminent Physical Self Impairment: low INFORMED CONSENT: Yes, completed with the Patient. Discussed the risks, benefits and alternatives to the medication(s) recommended. Consent was given. INTERVENTION: Biological: - Continue Effexor 187.5 mg daily. Will monitor BP. - Continue Prazosin 1 mg BID. Will monitor BP. - Continue Trazodone 50 mg qHS PRN with repeat 50 mg dose in one hour if needed for insomnia. - Endocrinology consult ordered for T2DM management with poor compliance with home insulin, recommendations appreciated. HgbA1C 6.9. - Appreciate orthopedics consultation, no acute surgical intervention needed, but they have recommended a CAM boot for her for comfort. Will ensure she gets this today. They recommended CRP which is increased to 1.6 and ESR which also is elevated at 29. Psychological: Groups, Insight, Supportive Social: Unit milieu DISCHARGE PLANNING: Anticipate discharge Sunday. SIGNATURE: Vikas Osman MD PATIENT NAME: Larissa Davenport DATE: October 06, 2022 TIME: 11:16 AM [facility] 10-05-2022 Note HNO ID: [id number] Author: SPENCER Carver Service: Care Management Author Type: Banquet Set Up Person Type: Care Mgt Progress Note Filed: 10/05/2022 3:56 PM Note Text: BEHAVIORAL HEALTH SOCIAL WORK PROGRESS NOTE SERVICE DATE: 10/05/2022 SERVICE TIME: 1:30pm Supervising SW and SW met with pt in conference room. Pt was conversational in nature and made appropriate eye contact. Explored pt's living arrangement plan upon d/c. Pt currently planning to stay in extended stay hotel that allows pets upon d/c. Explored more long-term, sustainable living options. Pt has spoken with manager field investigations at her work who is willing to assist pt with the cost of hotel and finding a place to live long-term. Pt not interested in staying with sister. There is a possibility that pt could stay with a previous co-worker. Pt prefers to continue care with her current therapy provider at [facility] in [place], but would prefer to be linked with a new psychiatric provider. Discussed [facility] as an option where pt could be linked with psychiatry and case management. SW will continue to follow. SIGNATURE: EDUIN Woodward PATIENT NAME: Larissa Roblero DATE: October 05, 2022 TIME: 3:36 PM Supervising Banquet Set Up Person Attestation I have reviewed the above documentation. I agree with the findings and plan with the following revisions and/or additions: Pt reports plans to remain in [facility] due to her job rather than returning back to [place] for now. Will link her with [facility] - message left for July (instructional technology coordinator @ [facility]) to arrange intake appointments. Pt declined to have sister involved in her care or to consider staying with her - she's a negative Tawana. She reports plans to try contact her son soon to involve him in her care. SW will continue to follow. SIGNATURE: SPENCER Carver PATIENT NAME: Larissa Ramos DATE: October 05, 2022 TIME: 3:54 PM [facility] 10-05-2022 Note HNO ID: [id number] Author: Vikas Osman MD Service: Psychiatry Author Type: Physician Type: Progress Notes Filed: 10/05/2022 10:46 AM Note Text: PROGRESS NOTE BEHAVIORAL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 failed to care for herself at home. Pt does have hardware in that area and cellulitis around the ankle. Concerns of avoiding infection in the hardware and is at at SNF for IV antibiotics through 10/16/21.Today, patient is doing well overall. She is tolerating the IV antibiotics. No CP no SOB, No diarrhea. -[facility] Work Phone: 07-22-2021 History of Present illness Narrative This is a 46 year old female with PMHX of noncompliance, obesity, depression, anxiety, DM2, GERD, who was recently in the hospital for a severe infection to the R lower leg. She did have a surgical intervention on 07/22/21 but then she failed to care for herself at home. Pt does have hardware in that area and cellulitis around the ankle. Concerns of avoiding infection in the hardware and is at at SNF for IV antibiotics through 10/16/21.Today, patient is doing well overall. She is tolerating the IV antibiotics. No CP no SOB, No diarrhea. She is c/o about some vaginal yeast infection. [facility] Work Phone: 07-22-2021 History of Present illness Narrative This is a 46 year old female with PMHX of noncompliance, obesity, depression, anxiety, DM2, GERD, who was recently in the hospital for a severe infection to the R lower leg. She did have a surgical intervention on 07/22/21 but then she failed to care for herself at home. Pt does have hardware in that area and cellulitis around the ankle. Concerns of avoiding infection in the hardware and is at at SNF for IV antibiotics through 10/16/21.Today, patient is doing well overall. She is tolerating the IV antibiotics. No CP no SOB, No diarrhea. The vaginal yeast infection seems to be better. [facility] Work Phone: 07-22-2021 History of Present illness Narrative This is a 46 year old female with PMHX of noncompliance, obesity, depression, anxiety, DM2, GERD, who was recently in the hospital for a severe infection to the R lower leg. She did have a surgical intervention on 07/22/21 but then she failed to care for herself at home. Pt does have hardware in that area and cellulitis around the ankle. Concerns of avoiding infection in the hardware and is at at SNF for IV antibiotics through 10/16/21.Today, patient is doing well overall. She is tolerating the IV antibiotics. No CP no SOB, No diarrhea. No new concerns per staff. [facility] Work Phone: 07-22-2021 History of Present illness Narrative This is a 46 year old female with PMHX of noncompliance, obesity, depression, anxiety, DM2, GERD, who was recently in the hospital for a severe infection to the R lower leg. She did have a surgical intervention on 07/22/21 but then she failed to care for herself at home. Pt does have hardware in that area and cellulitis around the ankle. Concerns of avoiding infection in the hardware and is at at SNF for IV antibiotics through 10/16/21.Today, patient is doing well overall. She is tolerating the IV antibiotics. No CP no SOB, No diarrhea. No new concerns per staff.Pt did have a f/u with ortho today and doing well. She now has a boot to wear. STill nonweight bearing. [facility] Work Phone: History of Present illness Narrative F/U AFTER D/C FOR [facility], FEELS FINE, FINISHED THE ABX, CELLULITIS OF THE RIGHT FOOT IMPROVING , HAS F/U KRISTIE WITH PODIATISRT [facility] [place] [facility] Work Phone: History of Present illness Narrative HERE FOR F/U WITH LABSDISCUSS BREAST REDUCTION SURGERY AND BARIATRIC SURGERYSKIN TAGS [facility] Work Phone: History of Present illness Narrative HERE FOR F/U WITH LABS FEELS FINE [facility] Work Phone: History of Present illness Narrative PT C/O VERTIGOFOR 1 MOSEVERITY: MODERATE AND SEVERECHARACTERISTIC: INTERMITTENTEXACERBATION FACTOR: MOVING FAST OR BENDINGRELIEVING FACTOR: NONEASSOCIATED SYMPTOMS: NO NORIEGA NO NAUSEA NO VOMITING, NO EAR ISSUES, LEFT SHOULDER PAIN AND TENDERNESS, PAIN WITH USAEGEPRIOR TX: NONE [facility] Work Phone: Chief Complaint ChiefComplaintFreeTextNoteForm_:* A telephone visit (audio only) between the patient (at the originating site) and the provider (at the distant site) was utilized to provide this telehealth service. * Verbal consent was requested and obtained from LARISSA DAVENPORT on this date, 11/03/2021 04:00 PM , for a telehealth visit. * TELEPHONE- NEW PATIENT D/C [facility] 1 MO FU LAB TODAY MAMMOGRAM NEEDS RESCHEDULED WANTS TO DISCUSS BREAST REDUCTION SURGERY LEFT THUMB TRIGGER AND WEIGHT LOSS SURGERY ALSO WANTS SKIN TAGS ALL OVER HER REMOVED4 MONTH F/U LABS (DID LABS AT AT 1130AM TODAY)PT HERE TODAY IN OFFICE C/O DIZZY SPELLS. PT STATES SHE FEELS IT'S VERTIGO Summary Purpose Family History No Family History Records FoundNo Family History Records FoundNo Family History Records FoundNo Family History Records FoundNo Family History Records FoundNo Family History Records Found Advance Directives No Advanced Directives Records FoundNo Advanced Directives Records FoundNo Advanced Directives Records FoundNo Advanced Directives Records FoundNo Advanced Directives Records FoundNo Advanced Directives Records Found Additional Source Comments INFORMATION SOURCE (unrecogn ized section and content) DATE CREATED AUTHOR 12/25/2021 [facility] DATE CREATED AUTHOR AUTHOR'S ORGANIZ ATION 10/04/2022 [facility] DATE CREATED AUTHOR AUTHOR'S ORGANIZ ATION 10/10/2022 [facility] DATE CREATED AUTHOR AUTHOR'S ORGANIZ ATION 12/28/2022 [facility] DATE CREATED AUTHOR AUTHOR'S ORGANIZ ATION 01/13/2023 [facility] DATE CREATED AUTHOR AUTHOR'S ORGANIZ ATION 04/10/2023 [employer] FOR RECORDS PERTAINING TO PATIENTS WHO ARE OR HAVE BEEN ENROLLED IN A CHEMICAL DEPENDENCY/SUBSTANCEABUSE PROGRAM, SOME INFORMATION MAY BE OMITTED. This clinical summary was aggregated from multiple sources. Caution should be exercised in using it in the provision of clinical care. This summary normalizes information from multiple sources, and as a consequence, information in this document may materially change the coding, format and clinical context of patient data. In addition, data may be omitted in some cases. CLINICAL DECISIONS SHOULD BE BASED ON THE PRIMARY CLINICAL RECORDS. [facility] [employer] provides no warranty or guarantee of the accuracy or completeness of information in this document.
== END 2024-08-21 23:18 | disposition left against medical advice (07) ==
PROVIDERS: PCP Family Medicine
DX: R73.9 Hyperglycemia, unspecified (principal)

== ENCOUNTER → 2024-08-22 | Outpatient (CLI) | payer MEDICAID, SELFPAY ==
--- OUTSIDE RECORDS SUMMARY | 2024-08-22 11:15 | XMS RPT_ITS | CCD ---
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 Name Role Phone Fabricio Harry Unavailable Unavailable Unavailable [place], [address] M Unavailable [phone] Unavailable Unavailable [place], RD M Primary Care [...] (15 sources) Azithromycin; Translations: [Zithromax] Drug Allergy [facility] Work Phone: (15 sources) buPROPion; Translations: [Wellbutrin] Drug Allergy [facility] Work Phone: (15 sources) Citalopram; Translations: [CeleXA TABS] Drug Allergy [facility] Work Phone: (15 sources) Diclofenac; Translations: [Voltaren GEL] Drug Allergy [facility] Work Phone: (15 sources) Loratadine; Translations: [Claritin TABS] Drug Allergy [facility] Work Phone: (15 sources) Sulfonamides (Antibiotic); Translations: [Sulfa Drugs] Allergy to drug (finding) [facility] Work Phone: (2 sources) buPROPion; Translations: [BUPROPION] Drug Allergy 2 [facility] Repository (2 sources) celecoxib; Translations: [CELECOXIB] Drug Allergy 2 [facility] Repository (3 sources) Diclofenac; Translations: [DICLOFENAC] Drug Allergy 2 [facility] Repository (2 sources) Azithromycin; Translations: [AZITHROMYCIN] Drug Allergy 2 [facility] Repository (2 sources) Loratadine; Translations: [LORATADINE] Drug Allergy 2 [facility] Repository (2 sources) Sulfonamides (Antibiotic); Translations: [SULFA (SULFONAMIDE ANTIBIOTICS)] Propensity to adverse reactions to drug (disorder) 2 [facility] Repository (1 source) buPROPion; Translations: [BUPROPION HCL] Drug Allergy 3 [facility] 3 Repository (1 source) Citalopram; Translations: [CITALOPRAM] Drug Allergy 3 [facility] 3 Repository Medications Completed/Discontinued Medications Medication Drug [...] (11 sources) Polyene Antifungal Start: 12-07-2021 Nystatin [id number] UNIT/GM External Powder apply bid AND NEEDED [...] A1Con 12-27-2022 Glucose [Mass/Vol] 260 mg/dL Normal [facility] Comment on above: Performed By: #### H BA1E #### [place] [address] HbA1c (Bld) [Mass fraction] 10.7 % Abnormal [facility]3] Comment on above: Result Comment: Diag nosis of Diabetes-Adults Non-Diabetic: < or = 5.6% Increased risk for developing diabetes: 5.7-6.4% Diagnostic of diabetes: > or = 6.5% . Monitoring of Diabetes Age (y) Therapeutic Goal (%) Adults: >18 <7.0 Pediatrics: 13-18 <7.5 7-12 <8.0 0- 6 7.5-8.5 [employer]. Diabetes Care 33(S1), Oct 2009. Performed By: #### H BA1E #### [place] [id number] COMPREHENSIVE PANELon 2022 Albumin [Mass/Vol] 3.9 g/dL Normal 3.4 - 5.0 [facility] Comment on above: Performed By: #### C MP #### [address] [place] [address] ALP [Catalytic activity/Vol] 144 U/L High 33 - 110 [facility]3] Comment on above: Performed By: #### C MP #### [address] [address] ALT [Catalytic activity/Vol] 49 U/L High 7 - 45 [facility]3] Comment on above: Result Comment: Kari ents treated with Sulfasalazine may generate falsely decreased results for ALT. Performed By: #### C MP #### [address] [address] Anion gap [Moles/Vol] 13 mmol/L Normal 10 - 20 [facility]3] Comment on above: Performed By: #### C MP #### [address] [address] AST [Catalytic activity/Vol] 74 U/L High 9 - 39 [facility]3] Comment on above: Performed By: #### C MP #### [address] [address] Bilirubin [Mass/Vol] 0.8 mg/dL Normal 0.0 - 1.2 [facility] Comment on above: Performed By: #### C MP #### [address] [address] Calcium [Mass/Vol] 9.0 mg/dL Normal 8.6 - 10.3 [facility] Comment on above: Performed By: #### C MP #### [address] [address] Chloride [Moles/Vol] 101 mmol/L Normal 98 - 107 [facility] Comment on above: Performed By: #### C MP #### [address] [address] Creatinine [Mass/Vol] 0.85 mg/dL Normal 0.50 - 1.05 [facility]3] Comment on above: Performed By: #### C MP #### [address] [address] GFR/1.73 sq M.predicted among non-blacks MDRD (S/P/Bld) [Vol rate/Area] 83 mL/min/{1.73_m2} Normal >90 [facility]3] Comment on above: Result Comment: CALC ULATIONS OF ESTIMATED GFR ARE PERFORMED USING THE 2020 CKD-EPI STUDY REFIT EQUATION WITHOUT THE RACE VARIABLE FOR THE IDMS-TRACEABLE CREATININE METHODS. https://jasn.asnjournals.org/content/early/ASN.0137304 988 Performed By: #### C MP #### [address] [address] Glucose [Mass/Vol] 257 mg/dL High 74 - 99 [facility] Comment on above: Performed By: #### C MP #### [address] [address] HCO3 (Bld) [Moles/Vol] 29 mmol/L Normal 21 - 32 [facility]3] Comment on above: Performed By: #### C MP #### [address] [address] Potassium [Moles/Vol] 3.6 mmol/L Normal 3.5 - 5.3 [facility]3] Comment on above: Performed By: #### C MP #### [address] [address] Protein [Mass/Vol] 6.6 g/dL Normal 6.4 - 8.2 [facility] Comment on above: Performed By: #### C MP #### [address] [address] Sodium [Moles/Vol] 139 mmol/L Normal 136 - 145 [facility] Comment on above: Performed By: #### C MP #### [address] [address] Urea nitrogen [Mass/Vol] 15 mg/dL Normal 6 - 23 [facility]3] Comment on above: Performed By: #### C MP #### [address] [address] Hemoglobin A1Con 12-26-2022 Glucose [Mass/Vol] 260 mg/dL -[facility] Work Phone: HbA1c (Bld) [Mass fraction] 10.7 % Abnormal -[facility] Work Phone: Comment on above: Diagnosis of Diabete s-Adults Non-Diabetic: < or = 5.6% Increased risk for developing diabetes: 5.7-6.4% Diagnostic of diabetes: > or = 6.5%. Monitoring of Diabetes Age (y) Therapeutic Goal (%) Adults: >18 <7.0 Pediatrics: 13-18 <7.5 7-12 <8.0 0- 6 7.5-8.5 [place]. Diabetes Care 33(S1), Oct 2009. LIPID PANEL (CORONARY RISK 2 )on 12-26-2022 Cholesterol [Mass/Vol] 99 mg/dL Normal 0 - 199 [facility]3] Comment on above: Result Comment: . AGE [...] dosing. Performed By: #### L IPID #### [address] [address] Cholesterol in HDL [Mass/Vol] 37.0 mg/dL Abnormal [facility]3] Comment on above: Result Comment: . AGE VERY LOW LOW NORMAL HIGH 0-19 Y < 35 < 40 40-45 ---- 20-24 Y ---- < 40 >45 ---- >24 Y ---- < 40 40-60 >60 . Performed By: #### L IPID #### [address] [address] Cholesterol in LDL [Mass/Vol] 37 mg/dL Normal 0 - 99 [facility]3] Comment on above: Result Comment: . NEAR BORD AGE DESIRABLE OPTIMAL HIGH HIGH VERY HIGH 0-19 Y 0 - 109 --- 110-129 >/= 130 ---- 20-24 Y 0 - 119 --- 120-159 >/= 160 ---- >24 Y 0 - 99 100-129 130-159 160-189 >/=190 . Performed By: #### L IPID #### [address] [address] Cholesterol in VLDL [Mass/Vol] 25 mg/dL Normal 0 - 40 [facility]3] Comment on above: Performed By: #### L IPID #### [address] [address] Cholesterol.total/Ch olesterol in HDL [Mass ratio] 2.7 {ratio} Normal [facility]3] Comment on above: Result Comment: REF VALUES DESIRABLE < 3.4 HIGH RISK > 5.0 Performed By: #### L IPID #### [address] [address] Triglyceride [Mass/Vol] 125 mg/dL Normal 0 - 149 [facility]3] Comment on above: Result Comment: . AGE [...] dosing. Performed By: #### L IPID #### [address] [address] Laboratory - Chemistry and C hemistry - challengeon 12-26-2022 Albumin BCP dye [Mass/Vol] 3.9 g/dL 3.4 - 5.0 [facility] Work Phone: ALP [Catalytic activity/Vol] 144 U/L above high threshold 33 - 110 [facility] Work Phone: ALT With P-5'-P [Catalytic activity/Vol] 49 U/L above high threshold 7 - 45 [facility] Medicine Work Phone: Comment on above: Patients treated wit h Sulfasalazine may generate falsely decreased results for ALT. Anion gap [Moles/Vol] 13 mmol/L 10 - 20 [facility] Work Phone: AST With P-5'-P [Catalytic activity/Vol] 74 U/L above high threshold 9 - 39 [facility] Work Phone: Bilirubin [Mass/Vol] 0.8 mg/dL 0.0 - 1.2 [facility] Internal [facility] Work Phone: Calcium [Mass/Vol] 9.0 mg/dL 8.6 - 10.3 [facility] Work Phone: Chloride [Moles/Vol] 101 mmol/L 98 - 107 [facility] Work Phone: CO2 [Moles/Vol] 29 mmol/L 21 - 32 [facility] Work Phone: Creatinine [Mass/Vol] 0.85 mg/dL See Below [facility] Work Phone: Comment on above: Reference Range: 0.5 0 - 1.05 Glucose [Mass/Vol] 257 mg/dL above high threshold 74 - 99 [facility] Work Phone: Potassium [Moles/Vol] 3.6 mmol/L 3.5 - 5.3 [facility] Work Phone: Protein [Mass/Vol] 6.6 g/dL 6.4 - 8.2 [facility] Work Phone: Sodium [Moles/Vol] 139 mmol/L 136 - 145 [facility] Work Phone: Urea nitrogen [Mass/Vol] 15 mg/dL 6 - 23 [facility] Work Phone: Lipid Panelon 12-26-2022 Cholesterol [Mass/Vol] 99 mg/dL 0 - 199 [facility] Work Phone: Comment on above: . AGE [...] Cholesterol in HDL [Mass/Vol] 37.0 mg/dL Abnormal [facility] Work Phone: Comment on above: . AGE VERY LOW LOW N ORMAL HIGH 0-19 Y < 35 < 40 40-45 ---- 20- 24 Y ---- < 40 >45 ---- >24 Y ---- < 40 40-60 >60. Cholesterol in LDL [Mass/Vol] 37 mg/dL 0 - 99 [facility] Work Phone: Comment on above: . NEAR BORD AGE WILLIE RABLE OPTIMAL HIGH HIGH VERY HIGH 0-19 Y 0 - 109 --- 110-129 >/= 130 ---- 20-24 Y 0 - 119 --- 120-159 >/= 160 ---- >24 Y 0 - 99 100-129 130-159 160-189 >/=190. Cholesterol.total/Ch olesterol in HDL [Mass ratio] 2.7 {ratio} [facility] Work Phone: Comment on above: REF VALUESDESIRABLE < 3.4HIGH RISK > 5.0 Triglyceride [Mass/Vol] 125 mg/dL 0 - 149 [facility] Work Phone: Comment on above: . AGE [...] Lipid Panel 25 mg/dL 0 - 40 [facility] Work Phone: No Panel Informationon 12-26 83 {mL/min/1.73m2} >90 [facility] Work Phone: Comment on above: CALCULATIONS OF LOS MATED GFR ARE PERFORMED USING THE 2020 CKD-EPI STUDY REFIT EQUATION WITHOUT THE RACE VARIABLE FOR THE IDMS-TRACEABLE CREATININE METHODS.https://jasn.asnjournals.org/content/early//ASN .7481606621 CNDSon 10-09-2022 [facility] HNO ID: [id number] Author: Vikas Osman MD Service: Psychiatry Author [...] with hardware lucency. HOSPITAL COURSE: Admitted to [address] Vikas Osman's supervision. Oriented [...] HILDA, and PTSD who was brought to [place] ED by ambulance for suicide attempt via ingestion of three handfuls of Tylenol. Patient was subsequently admitted to [address] Recent stressors included witnessing her now [...] and being revived. Once admitted to , [employer] Effexor 150 mg daily was titrated to 187.5 mg daily to address her anxiety and depression. [employer] Prazosin 1 mg qHS was increased to 1 mg BID to address her PTSD symptoms. [employer] Trazodone 100 mg qHS PRN for insomnia [...] admission, with A1C 6.9 on 10/03/22. Her [employer] insulin regimen was adjusted (see discharge medication list below), most notably with reduction in Lantus dose to 10 units twice daily Orthopedic surgery was consulted for patient's chronic and worsening right ankle pain with difficulty walking secondary to pain. She has history of right subtalar fusion at [place] in 2020, with surgical site infection 2020 [...] her outpatient foot and ankle surgeon at [place]. With the above interventions, patient saw improvement in her depression, anxiety, and PTSD s (more content not included)... [facility] NURSING PROGon 10-09-2022 NURSING PROG HNO ID: [id number] Author: Melinda Fuller, ALICIA Service: Nursing Author Type: Registered Nurse Type: Nursing Progress Note Filed: 10/09/2022 1:17 PM Note Text: Nursing Progress Note Patient Name: Larissa Davenport Patient Location: [address]- Daily Note: 10/09/22 0700 - 1930 [...] 0830 - Patient in to see Dr. Osman. Patient to be discharged today. 0845 - [...] This note was completed by: Melinda Fuller [facility] NURSING PROG HNO ID: [id number] Author: Su Charlton RN Service: Nursing Author [...] to bed. Patient provided with a wheelchair. [facility] NURSING PROGon 10-08-2022 NURSING PROG HNO ID: [id number] Author: Maliha Verduzco RN Service: Nursing Author Type: Registered Nurse Type: Nursing Progress Note Filed: 10/08/2022 12:24 PM Note Text: Nursing Progress Note Patient Name: Larissa Davenport Patient Location: [facility]- Daily Note:[id number] Patient resting quietly in room at beginning [...] This note was completed by: Maliha Verduzco [facility] NURSING PROG HNO ID: [id number] Author: Ammon Burns RN Service: ? Author Type: Registered Nurse Type: Nursing Progress Note Filed: 10/08/2022 6:30 AM Note Text: Nursing Progress Note Patient Name: Larissa Davenport Patient Location: [address]- Daily Note: Patient observed asleep in bed beginning of cook night. Patient slept throughout shift. No s/s of distress noted. 0600: Patient awoken for scheduled protonix. Patient reports sleeping well last night. Denies any needs. Patient returned to sleep. This note was completed by: Ammon Burns [facility] NURSING PROG HNO ID: [id number] Author: Ammon Burns RN Service: ? Author Type: Registered Nurse Type: Nursing Progress Note Filed: 10/07/2022 10:49 PM Note Text: Nursing Progress Note Patient Name: Larissa Davenport Patient Location: [facility] Daily Note: Patient playing board game with [...] This note was completed by: Ammon Burns [facility] NURSING PROGon 10-07-2022 NURSING PROG HNO ID: [id number] Author: Maliha Verduzco RN Service: Nursing Author Type: Registered Nurse Type: Nursing Progress Note Filed: 10/08/2022 8:34 AM Note Text: Nursing Progress Note Patient Name: Larissa Davenport Patient Location: [facility] Daily Note: [id number] Patient resting quietly in room at beginning [...] This note was completed by: Maliha Verduzco [facility] NURSING PROG HNO ID: [id number] Author: Ammon Burns RN Service: ? Author Type: Registered Nurse Type: Nursing Progress Note Filed: 10/07/2022 6:35 AM Note Text: Nursing Progress Note Patient Name: Larissa Davenport Patient Location: [facility] Daily Note: Patient playing board game with peers beginning of cook night. After board game completed, patient returned to room. Observed asleep in bed at 0000. Patient slept rest of night. No s/s of distress noted. 0600: Patient compliant with protonix. Reports sleeping well last night. Denies any nightmares. Denies any needs. Patient returned to sleep. This note was completed by: Ammon Burns [facility] NURSING PROG HNO ID: [id number] Author: Ammon Burns RN Service: ? Author Type: Registered Nurse Type: Nursing Progress Note Filed: 10/06/2022 10:10 PM Note Text: Nursing Progress Note Patient Name: Larissa Davenport Patient Location: [facility]- Daily Note: Patient at dining room table [...] time. This note was completed by: [facility] CASE MANAGEMon 10-06-2022 CASE MANAGEM HNO ID: [id number] Author: ELIEZER Keene Service: Social Work Author Type: Psychodramatist Type: Care Mgt Progress Note Filed: 10/06/2022 [...] and or concerns are presented to this property underwriter. SW to follow. SIGNATURE: ELIEZER Keene PATIENT NAME: Larissa Davenport DATE: October 06, 2022 TIME: 10:58 AM [facility] CONSULT PROGon 10-06-2022 CONSULT PROG HNO ID: [id number] Author: Jg Jara MD Service: Endocrinology Author [...] option # 2 pre meals Diabetic education Crystalizer Tender Allow patient to provide self care management [...] (H) 4.3 - 5.6 % Final Comment: [place] [employer] guidelines indicate that patients with HgbA1c in the range 5.7-6.4% are at increased risk for development of diabetes, and intervention by lifestyle modification may be beneficial. HgbA1c greater or equal to 6.5% is considered diagnostic of diabetes. Glucose, Point of Care Date Value Ref Range Status 10/06/2022 166 (A) 74 - 99 mg/dL Final Comment: Location:[place] [address] The Accu-Chek Inform II glucose meter has [...] (A) 74 - 99 mg/dL Final Comment: Location:[address], [facility] The Accu-Chek Inform II glucose meter has [...] (A) 74 - 99 mg/dL Final Comment: Location:[facility], [address] [place] [address], [facility] The Accu-Chek Inform II glucose meter has not been approved for testing on patients receiving intensiv (more content not included)... [facility] NURSING PROGon 10-06-2022 NURSING PROG HNO ID: [id number] Author: Dawit Ridley RN Service: Nursing Author [...] at this time med compliant safety maintained [facility] NURSING PROG HNO ID: [id number] Author: Chelsea Hassan RN Service: ? Author Type: Registered Nurse Type: Nursing Progress Note Filed: 10/06/2022 6:17 AM Note Text: Nursing Progress Note Patient Name: Larissa Davenport [facility] 1900- Assumed care [...] This note was completed by: Chelsea Hassan [facility] CBC panel Auto (Bld)on 10-05 Erythrocyte distribution width (RBC) [Ratio] 12.5 % Normal 11.5-15.0 [facility] Comment on above: Order Comment: Speci men Type: BLOOD SPECIMENOrdering Facility: [facility] Address: [address] [place] [address] Performed By: #### 5 8410-2 ####[facility] LABORATORYCLIA [id number] [place] [address] [place] Hematocrit (Bld) [Volume fraction] 38.4 % Normal 36.0-46.0 [facility] Comment on above: Order Comment: Speci men Type: BLOOD SPECIMENOrdering Facility: [facility] Address: [address] [place] [address] Performed By: #### 5 8410-2 ####[facility] LABORATORYCLIA [id number] [place] [address] [place] Hemoglobin (Bld) [Mass/Vol] 12.0 g/dL Normal 11.5-15.5 [facility] Comment on above: Order Comment: Speci men Type: BLOOD SPECIMENOrdering Facility: [facility] Address: [address] [place] [address] Performed By: #### 5 8410-2 ####[facility] LABORATORYCLIA [id number] [place] [address] [place] MCH (RBC) [Entitic mass] 29.1 pg Normal 26.0-34.0 [facility] Comment on above: Order Comment: Speci men Type: BLOOD SPECIMENOrdering Facility: [facility] Address: [address] [place] [address] Performed By: #### 5 8410-2 ####[facility] LABORATORYCLIA [id number] [address] [place] [address] [place] MCHC (RBC) [Mass/Vol] 31.3 g/dL Normal 30.5-36.0 [facility] Comment on above: Order Comment: Speci men Type: BLOOD SPECIMENOrdering Facility: [facility] Address: [address] [place] [address] Performed By: #### 5 8410-2 ####[facility] LABORATORYCLIA [id number] [address] [place] [address] [facility] MCV (RBC) [Entitic vol] 93.0 fL Normal 80.0-100.0 [facility] Comment on above: Order Comment: Speci men Type: BLOOD SPECIMENOrdering Facility: [facility] Address: [address] [place] [address] Performed By: #### 5 8410-2 ####[facility] LABORATORYCLIA [id number] [address] Nucleated RBC (Bld) [#/Vol] 10*3/uL Normal <0.01 [facility] Comment on above: Order Comment: Speci men Type: BLOOD SPECIMENOrdering Facility: [facility] Address: [address] [place] [address] Performed By: #### 5 8410-2 ####[facility] LABORATORYCLIA [id number] [address] [place] Platelet mean volume (Bld) [Entitic vol] 10.2 fL Normal 9.0-12.7 [facility] Comment on above: Order Comment: Speci men Type: BLOOD SPECIMENOrdering Facility: [facility] Address: [address] Performed By: #### 5 8410-2 ####[facility] LABORATORYCLIA [id number] [place] [id number] [facility] Platelets (Bld) [#/Vol] 362 10*3/uL Normal 150-400 [facility] Comment on above: Order Comment: Speci men Type: BLOOD SPECIMENOrdering Facility: [facility] Address: [address] [place], [place] [address] Performed By: #### 5 8410-2 ####[facility] LABORATORYCLIA [id number] [place] [id number] [place] RBC (Bld) [#/Vol] 4.13 10*6/uL Normal 3.90-5.20 [facility] Comment on above: Order Comment: Speci men Type: BLOOD SPECIMENOrdering Facility: [facility] Address: [address] [place], [place] [address] Performed By: #### 5 8410-2 ####[facility] LABORATORYCLIA [id number] [place] [id number] [facility] [place] WBC (Bld) [#/Vol] 6.91 10*3/uL Normal 3.70-11.00 [facility] Comment on above: Order Comment: Speci men Type: BLOOD SPECIMENOrdering Facility: [facility] Address: [address] [place], [place] [address] Performed By: #### 5 8410-2 ####[facility] LABORATORYCLIA [id number] [place] [id number] [facility] CRP SerPl-mCncon 10-05-2022 CRP [Mass/Vol] 1.6 mg/dL High <0.9 [facility] Comment on above: Order Comment: Speci men Type: BLOOD SPECIMENOrdering Facility: [facility] Address: [address] [place], [place] [address] Performed By: #### 2 [address]-03, 1988-02 ####[facility] LABORATORYCLIA [id number] [address] [place] [address] [address] [place] [facility] Comprehensive metabolic 2000 panelon 10-05-2022 Albumin [Mass/Vol] 3.9 g/dL Normal 3.9-4.9 [facility] Comment on above: Order Comment: Speci men Type: BLOOD SPECIMENOrdering Facility: [facility] Address: [address] [place] [address] Performed By: #### 2 4323-05, 1988-02 ####[facility] LABORATORYCLIA [id number] [address] [place], [place] [id number] [place] ALP [Catalytic activity/Vol] 137 U/L High 34-123 [facility] Comment on above: Order Comment: Speci men Type: BLOOD SPECIMENOrdering Facility: [facility] Address: [address] [place] [address] Performed By: #### 2 4323-05, 1988-02 ####[facility]ISM LABORATORYCLIA [id number] [address] [place], [place] [address] [place] ALT [Catalytic activity/Vol] 230 U/L High 7-38 [facility] Comment on above: Order Comment: Speci men Type: BLOOD SPECIMENOrdering Facility: [facility] Address: [address] [place] [address] Performed By: #### 2 4323-05, 1988-02 ####[facility] LABORATORYCLIA [id number] [place] [id number] [place] Anion gap [Moles/Vol] 7 mmol/L Low 9-18 [facility] Comment on above: Order Comment: Speci men Type: BLOOD SPECIMENOrdering Facility: [facility] Address: [address] [place] [address] Performed By: #### 2 43201-03, 1988-02 ####[facility] LABORATORYCLIA [id number] [place] [id number] [place] AST [Catalytic activity/Vol] 77 U/L High 13-35 [facility] Comment on above: Order Comment: Speci men Type: BLOOD SPECIMENOrdering Facility: [facility] Address: [address] [place], [place] [address] Performed By: #### 2 43201-03, 1988-02 ####[facility] LABORATORYCLIA [id number] [place] [id number] [place] Bilirubin [Mass/Vol] 0.4 mg/dL Normal 0.2-1.3 [facility] Comment on above: Order Comment: Speci men Type: BLOOD SPECIMENOrdering Facility: [facility] Address: [address] [place], [place] [address] Performed By: #### 2 43201-03, 1988-02 ####[facility] LABORATORYCLIA [id number] [place] [id number] [place] Calcium [Mass/Vol] 8.9 mg/dL Normal 8.5-10.2 [facility] Comment on above: Order Comment: Speci men Type: BLOOD SPECIMENOrdering Facility: [facility] Address: [address] [place], [place] [address] Performed By: #### 2 4323-05, 1988-02 ####[facility] LABORATORYCLIA [id number] [place] [id number] [place] Chloride [Moles/Vol] 104 mmol/L Normal 97-105 [facility] Comment on above: Order Comment: Speci men Type: BLOOD SPECIMENOrdering Facility: [facility] Address: [address] [place] [address] Performed By: #### 2 43201-03, 1988-02 ####[facility] LABORATORYCLIA [id number] [address] [address] [place] CO2 [Moles/Vol] 31 mmol/L High 22-30 [facility] Comment on above: Order Comment: Speci men Type: BLOOD SPECIMENOrdering Facility: [facility] Address: [address] [place] [phone] Performed By: #### 2 4323-8, 1988-02 ####[facility] LABORATORYCLIA [id number] [place] [address] [place] Creatinine [Mass/Vol] 0.73 mg/dL Normal 0.58-0.96 [facility] Comment on above: Order Comment: Kylah men Type: BLOOD SPECIMENOrdering Facility: [facility] Address: [place] [address] Performed By: #### 2 43238, 1988-02 ####[facility] LABORATORYCLIA [id number] [place] [address] [facility] OF [place] ESTIMATED GLOMERULAR FILTRATION RATE 101 mL/min/1.73m??? Normal >=60 [facility] Comment on above: Order Comment: Kylah men Type: BLOOD SPECIMENOrdering Facility: [facility] Address: [address] [place] [address] Result Comment: Los mated Glomerular Filtration Rate [...] GFR. Performed By: #### 2 43238, 1988-02 ####[facility] LABORATORYCLIA [id number] [place] [address] [place] Glucose [Mass/Vol] 168 mg/dL High 74-99 [facility] Comment on above: Order Comment: Kylah men Type: BLOOD SPECIMENOrdering Facility: [facility] Address: [place] [address] Result Comment: The [place] Diabetes Association (ADA) provides guidance for cutoff [...] Standards of Medical Care in Diabetes 2016, [place] [employer] Association. Diabetes Care. 2016.39(Suppl 1). Performed By: #### 2 43201-03, 1988-02 ####[facility] LABORATORYCLIA [id number] [address] [place], [place] [address] [place] Potassium [Moles/Vol] 3.9 mmol/L Normal 3.7-5.1 [facility] Comment on above: Order Comment: Speci men Type: BLOOD SPECIMENOrdering Facility: [facility] Address: [address] [place] [address] Performed By: #### 2 4323-05, 1988-02 ####[facility] LABORATORYCLIA [id number] [address] [place] [address] [place] Protein [Mass/Vol] 6.5 g/dL Normal 6.3-8.0 [facility] Comment on above: Order Comment: Speci men Type: BLOOD SPECIMENOrdering Facility: [facility] Address: [address] [place] [address] Performed By: #### 2 4323-05, 1988-02 ####[facility] LABORATORYCLIA [id number] [place] [address] [place] Sodium [Moles/Vol] 142 mmol/L Normal 136-144 [facility] Comment on above: Order Comment: Speci men Type: BLOOD SPECIMENOrdering Facility: [facility] Address: [address] [place] [address] Performed By: #### 2 43201-03, 1988-02 ####[facility] LABORATORYCLIA [id number] [address] [place], [place] [address] [place] Urea nitrogen [Mass/Vol] 11 mg/dL Normal 7-21 [facility] Comment on above: Order Comment: Speci men Type: BLOOD SPECIMENOrdering Facility: [facility] Address: [address] [place] [phone] Performed By: #### 2 4323-8, 1988-02 ####[facility] LABORATORYCLIA [id number] [address] [place] [address] [place] ESR Westergren method (Bld) [Velocity]on 10-05-2022 ESR (Bld) [Velocity] 29 mm/h High 0-20 [facility] Comment on above: Order Comment: Speci men Type: BLOOD SPECIMENOrdering Facility: [facility] Address: [address] [place] [phone] Performed By: #### 4 537-7 ####[facility] LABCLIA [id number] [place] [facility] [address] NURSING PROGon 10-05-2022 NURSING PROG HNO ID: [id number] Author: Dawit Ridley RN Service: Nursing Author [...] on unit remains to self working on [employer] puzzle 1655 bgl 162 covered with insulin admelog2 units denies s/I h/I and hallucinations Normal [facility] NURSING PROG HNO ID: [id number] Author: Florina Fisher RN Service: Nursing Author Type: Registered Nurse Type: Nursing Progress Note Filed: 10/05/2022 3:46 AM Note Text: Nursing Progress Note Patient Name: Larissa Davenport Patient Location: [address]/[id number] C-01 Daily Note: 1900- Assumed care of [...] This note was completed by: Flor[facility] HNO ID: [id number] Author: RT Suzette(Rayo) Service: Radiology Author Type: [...] RT Suzette(Rayo) October 04, 2022 11:35 AM [facility] CONSULTon 10-04-2022 CONSULT HNO ID: [id number] Author: Francia Spencer MD Service: General Internal [...] Parasitic Diseases C (more content not included)... [facility] CONSULT HNO ID: [id number] Author: Jose Enrique Fuller MD Service: Orthopaedic Surgery Author Type: Resident Type: Consults Filed: 10/04/2022 12:02 PM Note Text: Attestation signed by Melinda Do MD at 10/05/2022 5:46 PM Attending Note [...] psych admission. Patient underwent subtalar fusion in [place] in June of 2021, had subsequent surgical [...] with her foot and ankle surgeon at [place] Jose Enrique Fuller MD PGY-5 Orthopaedic Surgery Resident [facility] CONSULT PROGon 10-04-2022 CONSULT PROG HNO ID: [id number] Author: Jg Jara MD Service: Endocrinology Author [...] option # 2 pre meals Diabetic education Crystalizer Tender Allow patient to provide self care management [...] (H) 4.3 - 5.6 % Final Comment: [place] Diabetes Association guidelines indicate that patients with HgbA1c in the range 5.7-6.4% are at increased risk for development of diabetes, and intervention by lifestyle modification may be beneficial. HgbA1c greater or equal to 6.5% is considered diagnostic of diabetes. Glucose, Point of Care Date Value Ref Range Status 10/04/2022 183 (A) 74 - 99 mg/dL Final Comment: Location:[address], [facility] The Accu-Chek Inform II glucose meter has [...] (A) 74 - 99 mg/dL Final Comment: Location:[address], [facility] The Accu-Chek Inform II glucose meter has [...] (A) 74 - 99 mg/dL Final Comment: Location:[facility], [address] [place] [address], [facility] The Accu-Chek Inform II glucose meter (more content not included)... [facility] NURSING PROGon 10-04-2022 NURSING PROG HNO ID: [id number] Author: Aubree Roberts RN Service: Nursing Author Type: Registered Nurse Type: Nursing Progress Note Filed: 10/04/2022 7:14 PM Note Text: Nursing Progress Note Patient Name: Larissa Davenport Patient Location: [address]/[facility]- Daily Note: 1500 - 1900 Pt out in day area at beginning of shift. Making phone calls in hallway, then in shower. Sitting out in day area talking with peers and making art before dinner. Observed smiling and laughing with peers at times. Rates depression and anxiety 02/05. Silverioies SI, HI, A/VH. This note was completed by: Aubree Roberts [facility] NURSING PROG HNO ID: [id number] Author: Abby Wheeler RN Service: Nursing Author Type: Registered Nurse Type: Nursing Progress Note Filed: 10/04/2022 11:48 AM Note Text: RN was told by [facility] that pt best friend was on phone [...] invited Myra to call back any time. [facility] NURSING PROG HNO ID: [id number] Author: Fe Guillaume RN Service: ? Author Type: Registered Nurse Type: Nursing Progress Note Filed: 10/04/2022 10:02 AM Note Text: Other: Progress Note: Other: Progress Note: Assumed care of pt @ 5730. Pt guarded but cooperative with assessment. Reported [...] d/t limping and pain in rt ankle. [facility] XR ANKLE 3V AP/LAT/OBL RTon 10-04-2022 XR [...] talar calcaneal with. Hardware lucency, as described. Microbiology Instructor: ALE Transcribe Date/Time: Oct 04 2022 11:47A Dictated by : JOYCE JIMENEZ MD This examination was interpreted and the report reviewed and electronically signed by: JOYCE JIMENEZ MD on Oct 04 2022 11:49AM EST [id number] CN [facility] XR FOOT 3V AP/LAT/OBL RTon 1 12-05-2021 [...] talar calcaneal with. Hardware lucency, as described. Microbiology Instructor: [facility]ILLEAria Transcribe Date/Time: Oct 04 2022 11:47A Dictated by : JOYCE JIMENEZ MD This examination was interpreted and the report reviewed and electronically signed by: JOYCE JIMENEZ MD on Oct 04 2022 11:49AM EST [id number] CN [facility] XR TIBIA FIBULA 2V AP/LAT RT on [...] talar calcaneal with. Hardware lucency, as described. 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 Future: I want [...] October 03, 2022 TIME: 9:05 AM Normal [facility] C peptide SerPl-mCncon 10-03 C peptide [Mass/Vol] 6.20 ng/mL High 0.81-3.85 [facility] Comment on above: Order Comment: Speci men Type: BLOOD SPECIMENOrdering Facility: [facility] Address: [address] [place], [place] [address] Performed By: #### 1 986-9 ####[facility] LABCLIA [id number] [place] [address] [place] CBC W Auto Differential pane l (Bld)on 10-03-2022 Basophils (Bld) [#/Vol] 0.05 10*3/uL Normal <0.11 [facility] Comment on above: Order Comment: Speci men Type: BLOOD SPECIMENOrdering Facility: [facility] Address: [address] [place] [address] Performed By: #### 5 7021-8 ####[facility] LABORATORYCLIA [id number] [address] [place] [address] [place] Basophils/100 WBC (Bld) 0.5 % Normal [facility] Comment on above: Order Comment: Speci men Type: BLOOD SPECIMENOrdering Facility: [facility] Address: [address] [place] [address] Performed By: #### 5 7021-8 ####[facility] LABORATORYCLIA [id number] [address] [place] [address] [place] Differential cell count method Nom (Bld) Auto Normal [facility] Comment on above: Order Comment: Speci men Type: BLOOD SPECIMENOrdering Facility: [facility] Address: [address] [place] [address] Performed By: #### 5 7021-8 ####[facility] LABORATORYCLIA [id number] [place] [address] [place] Eosinophils (Bld) [#/Vol] 0.26 10*3/uL Normal <0.46 [facility] Comment on above: Order Comment: Speci men Type: BLOOD SPECIMENOrdering Facility: [facility] Address: [address] [place] [address] Performed By: #### 5 7021-8 ####[facility] LABORATORYCLIA [id number] [address] [place] Eosinophils/100 WBC (Bld) 2.8 % Normal [facility] Comment on above: Order Comment: Speci men Type: BLOOD SPECIMENOrdering Facility: [facility] Address: [address] Performed By: #### 5 7021-8 ####[facility] LABORATORYCLIA [id number] [place] [address] [place] Erythrocyte distribution width (RBC) [Ratio] 12.6 % Normal 11.5-15.0 [facility] Comment on above: Order Comment: Speci men Type: BLOOD SPECIMENOrdering Facility: [facility] Address: [address] [place], [place] [address] Performed By: #### 5 7021-8 ####[facility] LABORATORYCLIA [id number] [place] [address] [place] Hematocrit (Bld) [Volume fraction] 38.5 % Normal 36.0-46.0 [facility] Comment on above: Order Comment: Speci men Type: BLOOD SPECIMENOrdering Facility: [facility] Address: [address] [place] [address] Performed By: #### 5 7021-8 ####[facility] LABORATORYCLIA [id number] [address] [place] [address] [place] Hemoglobin (Bld) [Mass/Vol] 12.3 g/dL Normal 11.5-15.5 [facility] Comment on above: Order Comment: Speci men Type: BLOOD SPECIMENOrdering Facility: [facility] Address: [address] [place] [address] Performed By: #### 5 7021-8 ####[facility] LABORATORYCLIA [id number] [address] [place] Immature granulocytes (Bld) [#/Vol] 0.03 10*3/uL Normal <0.10 [facility] Comment on above: Order Comment: Speci men Type: BLOOD SPECIMENOrdering Facility: [facility] Address: [address] [place] [address] Performed By: #### 5 7021-8 ####[facility] LABORATORYCLIA [id number] [address] [place] [address] [place] Immature granulocytes/100 WBC (Bld) 0.3 % Normal [facility] Comment on above: Order Comment: Speci men Type: BLOOD SPECIMENOrdering Facility: [facility] Address: [address] [place] [address] Performed By: #### 5 7021-8 ####[facility] LABORATORYCLIA [id number] [address] [place] [address] [place] Lymphocytes (Bld) [#/Vol] 1.57 10*3/uL Normal 1.00-4.00 [facility] Comment on above: Order Comment: Speci men Type: BLOOD SPECIMENOrdering Facility: [facility] Address: [address] [place] [address] Performed By: #### 5 7021-8 ####[facility] LABORATORYCLIA [id number] [address] [place] [address] [place] Lymphocytes/100 WBC (Bld) 16.8 % Normal [facility] Comment on above: Order Comment: Speci men Type: BLOOD SPECIMENOrdering Facility: [facility] Address: [address] [place] [address] Performed By: #### 5 7021-8 ####[facility] LABORATORYCLIA [id number] [address] [place] MCH (RBC) [Entitic mass] 28.9 pg Normal 26.0-34.0 [facility] Comment on above: Order Comment: Speci men Type: BLOOD SPECIMENOrdering Facility: [facility] Address: [address] [place] [address] Performed By: #### 5 7021-8 ####[facility] LABORATORYCLIA [id number] [address] [place] MCHC (RBC) [Mass/Vol] 31.9 g/dL Normal 30.5-36.0 [facility] Comment on above: Order Comment: Speci men Type: BLOOD SPECIMENOrdering Facility: [facility] Address: [address] [place] [address] Performed By: #### 5 7021-8 ####[facility] LABORATORYCLIA [id number] [address] [facility] MCV (RBC) [Entitic vol] 90.4 fL Normal 80.0-100.0 [facility] Comment on above: Order Comment: Speci men Type: BLOOD SPECIMENOrdering Facility: [facility] Address: [address] [place] [address] Performed By: #### 5 7021-8 ####[facility] LABORATORYCLIA [id number] [address] [place], [place] [address] [place] Monocytes (Bld) [#/Vol] 0.34 10*3/uL Normal <0.87 [facility] Comment on above: Order Comment: Speci men Type: BLOOD SPECIMENOrdering Facility: [facility] Address: [address] [place] [address] Performed By: #### 5 7021-8 ####[facility] LABORATORYCLIA [id number] [address] [place] [address] [place] Monocytes/100 WBC (Bld) 3.6 % Normal [facility] Comment on above: Order Comment: Speci men Type: BLOOD SPECIMENOrdering Facility: [facility] Address: [address] [place] [address] Performed By: #### 5 7021-8 ####[facility] LABORATORYCLIA [id number] [address] [place] [address] [place] Neutrophils (Bld) [#/Vol] 7.09 10*3/uL Normal 1.45-7.50 [facility] Comment on above: Order Comment: Speci men Type: BLOOD SPECIMENOrdering Facility: [facility] Address: [address] [place] [address] Performed By: #### 5 7021-8 ####[facility] LABORATORYCLIA [id number] [address] [place], [place] [address] [place] Neutrophils/100 WBC (Bld) 76.0 % Normal [facility] Comment on above: Order Comment: Speci men Type: BLOOD SPECIMENOrdering Facility: [facility] Address: [address] [place] [address] Performed By: #### 5 7021-8 ####[facility] LABORATORYCLIA [id number] [address] [place], [place] [address] [place] Nucleated RBC (Bld) [#/Vol] 10*3/uL Normal <0.01 [facility] Comment on above: Order Comment: Speci men Type: BLOOD SPECIMENOrdering Facility: [facility] Address: [address] [place] [address] Performed By: #### 5 7021-8 ####[facility] LABORATORYCLIA [id number] [address] [place] [address] [place] Nucleated RBC/100 WBC (Bld) [Ratio] 0.0 /100 WBC Normal [facility] Comment on above: Order Comment: Speci men Type: BLOOD SPECIMENOrdering Facility: [facility] Address: [address] [place], [place] [address] Performed By: #### 5 7021-8 ####[facility] LABORATORYCLIA [id number] [address] [place] [address] [place] Platelet mean volume (Bld) [Entitic vol] 10.4 fL Normal 9.0-12.7 [facility] Comment on above: Order Comment: Speci men Type: BLOOD SPECIMENOrdering Facility: [facility] Address: [address] [place], [place] [address] Performed By: #### 5 7021-8 ####[facility] LABORATORYCLIA [id number] [address] [place] [address] [place] Platelets (Bld) [#/Vol] 356 10*3/uL Normal 150-400 [facility] Comment on above: Order Comment: Speci men Type: BLOOD SPECIMENOrdering Facility: [facility] Address: [address] [place], [place] [address] Performed By: #### 5 7021-8 ####[facility] LABORATORYCLIA [id number] [address] [place] [address] [place] RBC (Bld) [#/Vol] 4.26 10*6/uL Normal 3.90-5.20 [facility] Comment on above: Order Comment: Speci men Type: BLOOD SPECIMENOrdering Facility: [facility] Address: [place] [address] Performed By: #### 5 7021-8 ####[facility] LABORATORYCLIA [id number] [place] [id number] [facility] WBC (Bld) [#/Vol] 9.34 10*3/uL Normal 3.70-11.00 [facility] Comment on above: Order Comment: Speci men Type: BLOOD SPECIMENOrdering Facility: [facility] Address: [address] [place] [address] Performed By: #### 5 7021-8 ####[facility] LABORATORYCLIA [id number] [place] [id number] [facility] CONSULTon 10-03-2022 CONSULT HNO ID: [id number] Author: Jg Jara MD Service: Endocrinology Author [...] option # 2 pre meals Diabetic education Crystalizer Tender Allow patient to provide self care management [...] is 5 (more content not included)... Normal [facility] Comprehensive metabolic 2000 panelon 10-03-2022 Albumin [Mass/Vol] 3.9 g/dL Normal 3.9-4.9 [facility] Comment on above: Order Comment: Speci men Type: BLOOD SPECIMENOrdering Facility: [facility] Address: [address] [place] [address] Performed By: #### 2 4323-8, 47818-2 ####[facility] LABORATORYCLIA [id number] [address] [place], [place] [address] [place] ALP [Catalytic activity/Vol] 143 U/L High 34-123 [facility] Comment on above: Order Comment: Speci men Type: BLOOD SPECIMENOrdering Facility: [facility] Address: [address] [place] [address] Performed By: #### 2 4323-8, 98983-0 ####[facility] LABORATORYCLIA [id number] [address] [place] [address] [facility] ALT [Catalytic activity/Vol] 76 U/L High 7-38 [facility] Comment on above: Order Comment: Speci men Type: BLOOD SPECIMENOrdering Facility: [facility] Address: [address] [place] [address] Performed By: #### 2 4323-8, 12891-3 ####[facility] LABORATORYCLIA [id number] [address] [place], [place] [address] [place] Anion gap [Moles/Vol] 9 mmol/L Normal 9-18 [facility] Comment on above: Order Comment: Speci men Type: BLOOD SPECIMENOrdering Facility: [facility] Address: [address] [place] [address] Performed By: #### 2 4323-8, 48350-7 ####[facility] LABORATORYCLIA [id number] [address] [place], [place] [address] [place] AST [Catalytic activity/Vol] 82 U/L High 13-35 [facility] Comment on above: Order Comment: Speci men Type: BLOOD SPECIMENOrdering Facility: [facility] Address: [address] [address] Performed By: #### 2 4323-8, 89683-9 ####[facility] LABORATORYCLIA [id number] [place] [address] [place] Bilirubin [Mass/Vol] 0.9 mg/dL Normal 0.2-1.3 [facility] Comment on above: Order Comment: Speci men Type: BLOOD SPECIMENOrdering Facility: [facility] Address: [address] [address] Performed By: #### 2 4323-8, 73856-6 ####[facility] LABORATORYCLIA [id number] [place] [address] [place] Calcium [Mass/Vol] 8.8 mg/dL Normal 8.5-10.2 [facility] Comment on above: Order Comment: Speci men Type: BLOOD SPECIMENOrdering Facility: [facility] Address: [address] [address] Performed By: #### 2 4323-8, 55740-1 ####[facility] LABORATORYCLIA [id number] [place] [address] [place] Chloride [Moles/Vol] 106 mmol/L High 97-105 [facility] Comment on above: Order Comment: Speci men Type: BLOOD SPECIMENOrdering Facility: [facility] Address: [address] Performed By: #### 2 4323-8, 11089-8 ####[facility] LABORATORYCLIA [id number] [place] [id number] [place] CO2 [Moles/Vol] 27 mmol/L Normal 22-30 [facility] Comment on above: Order Comment: Speci men Type: BLOOD SPECIMENOrdering Facility: [facility] Address: [address] Performed By: #### 2 4323-8, 64648-4 ####CA[facility] LABORATORYCLIA [id number] [place] [id number] [place] [facility] Creatinine [Mass/Vol] 0.72 mg/dL Normal 0.58-0.96 [facility] Comment on above: Order Comment: Kylah [facility] Type: BLOOD SPECIMENOrdering Facility: [facility] Address: [address] [place] [address] Performed By: #### 2 4323-8, 77400-2 ####CA[facility]AISM LABORATORYCLIA [id number] [place] [id number] [place] ESTIMATED GLOMERULAR FILTRATION RATE 103 mL/min/1.73m??? Normal >=60 [facility] Comment on above: Order Comment: Kylah valdez Type: BLOOD SPECIMENOrdering Facility: [facility] Address: [address] [place] [address] Result Comment: Los mated Glomerular Filtration Rate [...] actual GFR. Performed By: #### 2 4323-8, 73566-9 ####CA[facility] LABORATORYCLIA [id number] [place] [id number] [place] Glucose [Mass/Vol] 167 mg/dL High 74-99 [facility] Comment on above: Order Comment: Kylah [facility] Type: BLOOD SPECIMENOrdering Facility: [facility] Address: [address] [place] [address] Result Comment: The [place] Diabetes Association (ADA) provides guidance for cutoff [...] Standards of Medical Care in Diabetes 2016, [place] Diabetes Association. Diabetes Care. 2016.39(Suppl 1). Performed By: #### 2 4323-8, 95886-4 ####CAODAISM LABORATORYCLIA [id number] [address] [place] [address] [place] Potassium [Moles/Vol] 3.8 mmol/L Normal 3.7-5.1 [facility] Comment on above: Order Comment: Kylah valdez Type: BLOOD SPECIMENOrdering Facility: [facility] Address: [address] [place] [address] Performed By: #### 2 4323-8, 94065-5 ####CAODAISM LABORATORYCLIA [id number] [place] [address] [place] Protein [Mass/Vol] 6.5 g/dL Normal 6.3-8.0 [facility] Comment on above: Order Comment: Kylah valdez Type: BLOOD SPECIMENOrdering Facility: [facility] Address: [address] [place] [address] Performed By: #### 2 4323-8, 29650-0 ####CAODAISM LABORATORYCLIA [id number] [place] [address] [place] Sodium [Moles/Vol] 142 mmol/L Normal 136-144 [facility] Comment on above: Order Comment: Kylah valdez Type: BLOOD SPECIMENOrdering Facility: [facility] Address: [address] [place] [address] Performed By: #### 2 4323-8, 81074-5 ####CAODAISM LABORATORYCLIA [id number] [place] [address] [place] Urea nitrogen [Mass/Vol] 10 mg/dL Normal 7-21 [facility] Comment on above: Order Comment: Speci men Type: BLOOD SPECIMENOrdering Facility: [facility] Address: [address] [address] Performed By: #### 2 4323-8, 65663-4 ####CAODAISM LABORATORYCLIA [id number] [address] [place] [address] [facility] HbA1c (Bld)on 10-03-2022 Average glucose Estimated from glycated hemoglobin (Bld) [Mass/Vol] 151 mg/dL Normal [facility] Comment on above: Order Comment: Kylah men Type: BLOOD SPECIMENOrdering Facility: [facility] Address: [address] [address] Result Comment: eAG: (Estimated average glucose) is a calculated value from HgbA1c and is aircraft sales representative of the average blood glucose level in the last 2-3 month period. Performed By: #### 5 5454-3 ####[facility] LABCLIA [id number] [address] STATES OF [facility] HbA1c (Bld) [Mass fraction] 6.9 % High 4.3-5.6 [facility] Comment on above: Order Comment: Ivánerick valdez Type: BLOOD SPECIMENOrdering Facility: [facility] Address: [address] [address] Result Comment: Amer ican Diabetes Association guidelines indicate that patients with HgbA1c in the range 5.7-6.4% are at increased risk for development of diabetes, and intervention by lifestyle modification may be beneficial. HgbA1c greater or equal to 6.5% is considered diagnostic of diabetes. Performed By: #### 5 5454-3 ####[facility] LABCLIA [id number] [address] [place] Lipid 1996 panelon 2 Cholesterol [Mass/Vol] 122 mg/dL Normal <200 [facility] Comment on above: Order Comment: Kylah valdez Type: BLOOD SPECIMENOrdering Facility: [facility] Address: [address] [address] Result Comment: <200 mg/dL, Desirable 200-239 mg/dL, Borderline high >239 mg/dL, High Performed By: #### 2 4323-8, 81537-3 ####[facility] LABORATORYCLIA [id number] [address] Cholesterol in HDL [Mass/Vol] 41 mg/dL Normal >39 [facility] Comment on above: Order Comment: Speci men Type: BLOOD SPECIMENOrdering Facility: [facility] Address: [address] [place] [address] Result Comment: 40-5 9 mg/dL, Acceptable >59 mg/dL, High: Negative risk factor for coronary heart disease <40 mg/dL, Low: Positive risk factor for coronary heart disease Performed By: #### 2 4323-8, 58952-2 ####[facility] LABORATORYCLIA [id number] [address] Cholesterol in LDL [Mass/Vol] 65 mg/dL Normal <100 [facility] Comment on above: Order Comment: Iváni josé miguel Type: BLOOD SPECIMENOrdering Facility: [facility] Address: [address] [place] [address] Result Comment: <100 mg/dL, Optimal 100-129 mg/dL, Near optimal/above optimal 130-159 mg/dL, Borderline high 160-189 mg/dL, High >189 mg/dL, Very high Secondary prevention optimal LDL Cholesterol levels are recommended to be < 70 mg/dL Performed By: #### 2 4323-8, 87966-9 ####CA[facility] LABORATORYCLIA [id number] [address] Cholesterol in LDL/Cholesterol in HDL [Mass ratio] 1.59 {ratio} Normal <2.54 [facility] Comment on above: Order Comment: Kylah valdez Type: BLOOD SPECIMENOrdering Facility: [facility] Address: [address] [place] [address] Result Comment: Refe rence: 1. National Cholesterol Education Program ATP III Guideline At-A-Glance Quick Desk Reference: National Heart, Lung, and Blood [place]. National Institutes of Health. 2001: NIH Publication No. 01-3305. 2. An International Atherosclerosis Society position paper: global recommendations for the management of dyslipidemia: executive summary, Atherosclerosis. 2014: 232(2):410-413. Performed By: #### 2 4323-8, 29237-6 ####CA[facility]AISM LABORATORYCLIA [id number] [address] [place], [place] [address] [place] Cholesterol in VLDL [Mass/Vol] 16 mg/dL Normal <30 [facility] Comment on above: Order Comment: Speci men Type: BLOOD SPECIMENOrdering Facility: [facility] Address: [address] [place] [address] Performed By: #### 2 4328, 42747-0 ####CA[facility]ISM LABORATORYCLIA [id number] [address] [place] Cholesterol non HDL [Mass/Vol] 81 mg/dL Normal <130 [facility] Comment on above: Order Comment: Iváni men Type: BLOOD SPECIMENOrdering Facility: [facility] Address: [address] [place] [address] Result Comment: <130 mg/dL, Optimal 130-159 mg/dL, Near optimal/above optimal 160-189 mg/dL, Borderline high 190-219 mg/dL, High >219 mg/dL, Very high Secondary prevention optimal non HDL Cholesterol levels are recommended to be <100 mg/dL Performed By: #### 2 4328, 59819-7 ####CA[facility]AISM LABORATORYCLIA [id number] [place] [address] [facility] Cholesterol.total/Ch olesterol in HDL [Mass ratio] 2.98 {ratio} Normal <5.10 [facility] Comment on above: Order Comment: Kylah valdez Type: BLOOD SPECIMENOrdering Facility: [facility] Address: [address] [address] Performed By: #### 2 4323-8, 01168-7 ####CA[facility]AISM LABORATORYCLIA [id number] [address] [place], [place] [address] [facility] [place] FASTING TIME Unknown Normal [facility] Comment on above: Order Comment: Speci men Type: BLOOD SPECIMENOrdering Facility: [facility] Address: [address] [place], [place] [address] Performed By: #### 2 4323-8, 27964-2 ####CA[facility]ISM LABORATORYCLIA [id number] [address] Triglyceride [Mass/Vol] 79 mg/dL Normal <150 [facility] Comment on above: Order Comment: Speci men Type: BLOOD SPECIMENOrdering Facility: [facility] Address: [address] [place], [place] [address] Result Comment: <150 mg/dL, Normal 150-199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 [address] [address] Performed By: #### 2 4356-8 ####INDIRATEJINDER [facility]ORATORYCLIA [id number] [place] [address] [place] Nitrite Ql (U) Negative Normal Negative [facility] Comment on above: Order Comment: Speci men Type: URINE SPECIMENOrdering Facility: [facility] Address: [address] [address] Performed By: #### 2 4356-8 ####ANRDA [facility]ORATORYIA [id number] [place] [address] [place] pH (U) 5.5 [pH] Normal 5.0-8.0 [facility] Comment on above: Order Comment: Speci men Type: URINE SPECIMENOrdering Facility: [facility] Address: [address] [place] [address] Performed By: #### 2 4356-8 ####ANDRA [facility] LABORATORYIA [id number] [place] [address] [place] Protein (U) [Mass/Vol] Trace Abnormal Negative [facility] Comment on above: Order Comment: Speci men Type: URINE SPECIMENOrdering Facility: [facility] Address: [address] [place] [address] Performed By: #### 2 4356-8 ####ANDRA [facility]ORATORYIA [id number] [place] [address] [place] RBC LM.HPF (Urine sed) [#/Area] 0-3 /HPF Normal 0-3 /HPF [facility] Comment on above: Order Comment: Speci men Type: URINE SPECIMENOrdering Facility: [facility] Address: [address] [place] [address] Performed By: #### 2 4356-8 ####ANDRA [facility]ORATORYCLIA [id number] [place] [address] [place] Specific gravity (U) [Rel density] 1.025 Normal 1.005-1.030 [facility] Comment on above: Order Comment: Speci men Type: URINE SPECIMENOrdering Facility: [facility] Address: [address] [place] [address] Performed By: #### 2 4356-8 ####ANDRA [facility] LABORATORYIA [id number] [address] [address] [place] [facility] Urobilinogen Ql (U) 0.2 EU/dL Normal 0.2-1.0 EU/dL [facility] Comment on above: Order Comment: Speci men Type: URINE SPECIMENOrdering Facility: [facility] Address: [address] [place] [address] Performed By: #### 2 4356-8 ####INDIRASHIN [facility]ORATORYIA [id number] [address] [facility] WBC LM.HPF (Urine sed) [#/Area] 0-5 /HPF Normal 0-5 /HPF [facility] Comment on above: Order Comment: Speci men Type: URINE SPECIMENOrdering Facility: [facility] Address: [address] [place] [address] Performed By: #### 2 4356-8 ####INDIRASHIN [facility] LABORATORYIA [id number] [address] [address] [place] Office Visit (Internal Medic [...] 20 M (more content not included)... Normal [facility] COMPREHENSIVE PANELon 2021 Albumin [Mass/Vol] 3.9 g/dL Normal 3.4 - 5.0 [facility] Comment on above: Performed By: #### C MP #### [address] [address] ALT [Catalytic activity/Vol] 18 U/L Normal 7 - 45 [facility]3] Comment on above: Result Comment: Kari ents treated with Sulfasalazine may generate falsely decreased results for ALT. Performed By: #### C MP #### [address] [address] AST [Catalytic activity/Vol] 16 U/L Normal 9 - 39 [facility]3] Comment on above: Performed By: #### C MP #### [address] [address] eGFR FEMALE >90 Normal >90 [facility]3] Comment on above: Result Comment: CALC ULATIONS OF ESTIMATED GFR ARE PERFORMED USING THE 2020 CKD-EPI STUDY REFIT EQUATION WITHOUT THE RACE VARIABLE FOR THE IDMS-TRACEABLE CREATININE METHODS. https://jasn.asnjournals.org/content//ASN.2661202 988 Performed By: #### C MP #### [address] [address] HCO3 (Bld) [Moles/Vol] 29 mmol/L Normal 21 - 32 [facility]3] Comment on above: Performed By: #### C MP #### [address] [address] ALP [Catalytic activity/Vol] 137 U/L High 33 - 110 [facility] Internal [facility] Work Phone: Comment on above: Performed By: #### C MP #### [address] [address] Anion gap [Moles/Vol] 11 mmol/L Normal 10 - 20 [facility] Internal [facility] Work Phone: Comment on above: Performed By: #### C MP #### [address] [address] Bilirubin [Mass/Vol] 0.8 mg/dL Normal 0.0 - 1.2 [facility] Internal [facility] Work Phone: Comment on above: Performed By: #### C MP #### [address] [address] Calcium [Mass/Vol] 9.5 mg/dL Normal 8.6 - 10.3 [facility] Work Phone: Comment on above: Performed By: #### C MP #### [address] [address] Chloride [Moles/Vol] 105 mmol/L Normal 98 - 107 [facility] Work Phone: Comment on above: Performed By: #### C MP #### [address] [address] Creatinine [Mass/Vol] 0.69 mg/dL Normal 0.50 - 1.05 [facility] Work Phone: Comment on above: Reference Range: 0.5 0 - 1.05 Performed By: #### C MP #### [address] [address] Glucose [Mass/Vol] 154 mg/dL High 74 - 99 [facility] Work Phone: Comment on above: Performed By: #### C MP #### [address] [address] Potassium [Moles/Vol] 4.1 mmol/L Normal 3.5 - 5.3 [facility] Work Phone: Comment on above: Performed By: #### C MP #### [address] [address] Protein [Mass/Vol] 6.8 g/dL Normal 6.4 - 8.2 [facility] Work Phone: Comment on above: Performed By: #### C MP #### [address] [address] Sodium [Moles/Vol] 141 mmol/L Normal 136 - 145 [facility] Work Phone: Comment on above: Performed By: #### C MP #### [address] [address] Urea nitrogen [Mass/Vol] 10 mg/dL Normal 6 - 23 [facility] Work Phone: Comment on above: Performed By: #### C MP #### [address] [address] HEMOGLOBIN A1Con 08-21-2022 Glucose [Mass/Vol] 166 mg/dL Normal [facility] Comment on above: Performed By: #### H BA1E #### [address] [address] HbA1c (Bld) [Mass fraction] 7.4 % Abnormal [facility]3] Comment on above: Result Comment: Diag nosis of Diabetes-Adults Non-Diabetic: < or = 5.6% Increased risk for developing diabetes: 5.7-6.4% Diagnostic of diabetes: > or = 6.5% . Monitoring of Diabetes Age (y) Therapeutic Goal (%) Adults: >18 <7.0 Pediatrics: 13-18 <7.5 7-12 <8.0 0- 6 7.5-8.5 [employer]. Diabetes Care 33(S1), Oct 2009. Performed By: #### H BA1E #### [address] [address] Hemoglobin A1Con 08-21-2022 Glucose [Mass/Vol] 166 mg/dL [facility] Work Phone: HbA1c (Bld) [Mass fraction] 7.4 % Abnormal [facility] Work Phone: Comment on above: Diagnosis of Diabete s-Adults Non-Diabetic: < or = 5.6% Increased risk for developing diabetes: 5.7-6.4% Diagnostic of diabetes: > or = 6.5%. Monitoring of Diabetes Age (y) Therapeutic Goal (%) Adults: >18 <7.0 Pediatrics: 13-18 <7.5 7-12 <8.0 0- 6 7.5-8.5 [employer]. Diabetes Care 33(S1), Oct 2009. Laboratory - Chemistry and C hemistry - challengeon 08-21-2022 Albumin BCP dye [Mass/Vol] 3.9 g/dL 3.4 - 5.0 [facility] Work Phone: ALT With P-5'-P [Catalytic activity/Vol] 18 U/L 7 - 45 [facility] Work Phone: Comment on above: Patients treated wit h Sulfasalazine may generate falsely decreased results for ALT. AST With P-5'-P [Catalytic activity/Vol] 16 U/L 9 - 39 [facility] Work Phone: CO2 [Moles/Vol] 29 mmol/L 21 - 32 [facility] Medicine Work Phone: No Panel Informationon 08-21 >90 >90 [facility] Work Phone: Comment on above: CALCULATIONS OF LOS MATED GFR ARE PERFORMED USING THE 2020 CKD-EPI STUDY REFIT EQUATION WITHOUT THE RACE VARIABLE FOR THE IDMS-TRACEABLE CREATININE METHODS.https://jasn.asnjournals.org/content/early/ASN .9012381315 IO EKG Electrocardiogram- 12 Leadon 08-09-2022 IO EKG Electrocardiogram- 12 Lead See Scanned Document [facility] Medicine Work Phone: Office Visit (Internal [...] vertigo); TIEN = N; Verified Transmission to [employer]; Last Updated By: Rimma Ramirez; 08/09/2022 [...] [place]; 08/09/2022 11:37:36 AM WAITING ON DATABASE ADMIN TO CALL BACK Patient Discussion/Summary F/U BEFORE [...] Trigger fi (more content not included)... Normal YOGASMOGA Tobacco Screening.on 022 Fall risk assessment b) One or more fall s in the last year [facility] Medicine Work Phone: Tobacco use status CPHS a) Yes [facility] Work Phone: Tobacco Screening. Yes [facility] Work Phone: COMPREHENSIVE PANELon 2021 Albumin [Mass/Vol] 4.1 g/dL Normal 3.4 - 5.0 [facility] Comment on above: Performed By: #### C MP #### [address] [address] ALP [Catalytic activity/Vol] 168 U/L High 33 - 110 [facility]3] Comment on above: Performed By: #### C MP #### [address] [address] ALT [Catalytic activity/Vol] 17 U/L Normal 7 - 45 [facility]3] Comment on above: Result Comment: Kari ents treated with Sulfasalazine may generate falsely decreased results for ALT. Performed By: #### C MP #### [address] [address] Anion gap [Moles/Vol] 12 mmol/L Normal 10 - 20 [facility]3] Comment on above: Performed By: #### C MP #### [address] [address] AST [Catalytic activity/Vol] 14 U/L Normal 9 - 39 [facility]3] Comment on above: Performed By: #### C MP #### [address] [address] Bilirubin [Mass/Vol] 0.5 mg/dL Normal 0.0 - 1.2 [facility] Comment on above: Performed By: #### C MP #### [address] [address] Calcium [Mass/Vol] 9.0 mg/dL Normal 8.6 - 10.3 [facility] Comment on above: Performed By: #### C MP #### [address] [address] Chloride [Moles/Vol] 102 mmol/L Normal 98 - 107 [facility] Comment on above: Performed By: #### C MP #### [address] [address] Creatinine [Mass/Vol] 0.70 mg/dL Normal 0.50 - 1.05 [facility]3] Comment on above: Performed By: #### C MP #### [address] [address] eGFR FEMALE >90 Normal >90 [facility]3] Comment on above: Result Comment: CALC ULATIONS OF ESTIMATED GFR ARE PERFORMED USING THE 2020 CKD-EPI STUDY REFIT EQUATION WITHOUT THE RACE VARIABLE FOR THE IDMS-TRACEABLE CREATININE METHODS. https://jasn.asnjournals.org/content/early/ASN.7257315 988 Performed By: #### C MP #### [address] [address] Glucose [Mass/Vol] 197 mg/dL High 74 - 99 [facility] Comment on above: Performed By: #### C MP #### [address] [address] HCO3 (Bld) [Moles/Vol] 31 mmol/L Normal 21 - 32 [facility]3] Comment on above: Performed By: #### C MP #### [address] [address] Potassium [Moles/Vol] 4.0 mmol/L Normal 3.5 - 5.3 [facility]3] Comment on above: Performed By: #### C MP #### [address] [address] Protein [Mass/Vol] 7.1 g/dL Normal 6.4 - 8.2 [facility] Comment on above: Performed By: #### C MP #### [address] [address] Sodium [Moles/Vol] 141 mmol/L Normal 136 - 145 [facility] Comment on above: Performed By: #### C MP #### [address] [address] Urea nitrogen [Mass/Vol] 16 mg/dL Normal 6 - 23 [facility]3] Comment on above: Performed By: #### C MP #### [address] [address] HEMOGLOBIN A1Con 04-18-2022 Glucose [Mass/Vol] 154 mg/dL Normal [facility] Comment on above: Performed By: #### H BA1E #### [address] [address] HbA1c (Bld) [Mass fraction] 7.0 % Abnormal [facility]3] Comment on above: Result Comment: Diag nosis of Diabetes-Adults Non-Diabetic: < or = 5.6% Increased risk for developing diabetes: 5.7-6.4% Diagnostic of diabetes: > or = 6.5% . Monitoring of Diabetes Age (y) Therapeutic Goal (%) Adults: >18 <7.0 Pediatrics: 13-18 <7.5 7-12 <8.0 0- 6 7.5-8.5 [employer] [employer]. Diabetes Care 33(S1), Oct 2009. Performed By: #### H BA1E #### [facility] [address] [place] [address] Office Visit (Internal Medic ine)on 04-18-2022 Follow-up [...] of insulin; TIEN = N; Sent To: [facility] Patient Discussion/Summary F/U HGA1C CMP [...] MG Oral TabletTake 1 tablet daily Nystatin 262620 UNIT/GM External Powderapply bid AND NEEDED Omeprazole 20 MG Oral Tablet Delayed Release1 TAB DAILY Pravastatin Sodium 40 MG Oral TabletTAKE 1 TABLET AT BEDTIME. (more content not included)... Normal YOGASMOGA Tobacco Screening.on 022 Fall risk assessment a) No falls within the last year [facility] Work Phone: Tobacco use status [facility] b) No [facility] Work Phone: ULTRASOUND LIMITED BREASTon 12-22-2021 ULTRASOUND LIMITED BREAST Patient Name: LARISSA DAVENPORT STUDY: BREAST ULTRASOUND; 12/22/2021 3:24 pm ACCESSION NUMBER(S): [id number] ORDERING CLINICIAN: RD MAYER INDICATION: cat 0 [...] any future breast imaging appointments, please call [phone] ([phone]). Electronically signed by: BARB YING MD [facility] Ultrasound Limited Breaston 12-22-2021 MG Breast Screening Normal [facility] Work Phone: DIGITAL MAMM SCREENING W/ TO Liriano 12-16-2021 DIGITAL MAMM SCREENING W/ DEEJAY Patient Name: LARISSA DAVENPORT STUDY: DIGITAL MAMM SCREENING W/ DEEJAY; 12/16/2021 3:46 pm ACCESSION NUMBER(S): [id number] ORDERING CLINICIAN: RD MAYER INDICATION: Screening. COMPARISON: [...] any future breast imaging appointments, please call [phone] ([phone]). Electronically signed by: BARB YIGN MD [facility] Mamm - Screening Mammogram w / Tomosynthesison 12-16-2021 MG Breast Screening Normal [facility] Internal [facility] Work Phone: Tobacco Screening.on 022 Adult depression screening assessment No [facility] Work Phone: Fall risk assessment a) No falls within the last year [facility] Work Phone: Tobacco use status CPHS b) No [facility] Work Phone: Complete Blood Count + Diffe rentialon 12-13-2021 Basophils/100 WBC (Bld) 0.6 % 0.0 - 2.0 [facility] Work Phone: Erythrocyte distribution width (RBC) [Ratio] 13.5 % See Below [facility] Work Phone: Comment on above: Reference Range: 11. 5 - 14.5 Hematocrit (Bld) [Volume fraction] 38.1 % See Below [facility] Work Phone: Comment on above: Reference Range: 36. 0 - 46.0 Hemoglobin (Bld) [Mass/Vol] 12.6 g/dL See Below [facility] Work Phone: Comment on above: Reference Range: 12. 0 - 16.0 Lymphocytes/100 WBC (Bld) 18.7 % See Below [facility] Work Phone: Comment on above: Reference Range: 13. 0 - 44.0 MCHC (RBC) [Mass/Vol] 33.0 g/dL See Below [facility] Work Phone: Comment on above: Reference Range: 32. 0 - 36.0 MCV (RBC) [Entitic vol] 86 fL 80 - 100 [facility] Work Phone: Monocytes/100 WBC (Bld) 5.7 % 2.0 - 10.0 [facility] Work Phone: Neutrophils/100 WBC (Bld) 72.4 % See Below [facility] Work Phone: Comment on above: Reference Range: 40. 0 - 80.0 Platelets (Bld) [#/Vol] 416 10*3/uL 150 - 450 [facility] Work Phone: RBC (Bld) [#/Vol] 4.41 {x10E12/L} See Below [facility] Work Phone: Comment on above: Reference Range: 4.0 0 - 5.20 WBC (Bld) [#/Vol] 6.9 10*3/uL 4.4 - 11.3 [facility] Work Phone: Complete Blood Count + Differential 0.00 {x10E9/L} See Below [facility] Work Phone: Comment on above: Reference Range: 0.0 0 - 0.10 Complete Blood Count + Differential 0.20 {x10E9/L} See Below [facility] Work Phone: Comment on above: Reference Range: 0.0 0 - 0.70 Complete Blood Count + Differential 0.40 {x10E9/L} See Below [facility] Work Phone: Comment on above: Reference Range: 0.1 0 - 1.00 Complete Blood Count + Differential 1.30 {x10E9/L} See Below [facility] Work Phone: Comment on above: Reference Range: 1.2 0 - 4.80 Complete Blood Count + Differential 5.00 {x10E9/L} See Below [facility] Work Phone: Comment on above: Reference Range: 1.2 0 - 7.70 Percent differential counts (%) should be interpreted in the context of the absolute cell counts (cells/L). Complete Blood Count + Differential 2.6 % 0.0 - 6.0 [facility] Work Phone: Hemoglobin A1Con 12-13-2021 Glucose [Mass/Vol] 154 mg/dL [facility] Work Phone: HbA1c (Bld) [Mass fraction] 7.0 % Abnormal [facility] Work Phone: Comment on above: Diagnosis of Diabete s-Adults Non-Diabetic: < or = 5.6% Increased risk for developing diabetes: 5.7-6.4% Diagnostic of diabetes: > or = 6.5%. Monitoring of Diabetes Age (y) Therapeutic Goal (%) Adults: >18 <7.0 Pediatrics: 13-18 <7.5 7-12 <8.0 0- 6 7.5-8.5 [place] [employer]. Diabetes Care 33(S1), Oct 2009. Lipid Panelon 12-13-2021 Cholesterol [Mass/Vol] 128 mg/dL 0 - 199 [facility] Work Phone: Comment on above: [...] dosing. Cholesterol in HDL [Mass/Vol] 51.0 mg/dL [facility] Medicine Work Phone: Comment on above: . AGE VERY LOW LOW N ORMAL HIGH 0-19 Y < 35 < 40 40-45 ---- 20- 24 Y ---- < 40 >45 ---- >24 Y ---- < 40 40-60 >60. Cholesterol in LDL [Mass/Vol] 56 mg/dL 0 - 99 [facility] Work Phone: Comment on above: . NEAR BORD AGE WILLIE RABLE OPTIMAL HIGH HIGH VERY HIGH 0-19 Y 0 - 109 --- 110-129 >/= 130 ---- 20-24 Y 0 - 119 --- 120-159 >/= 160 ---- >24 Y 0 - 99 100-129 130-159 160-189 >/=190. Cholesterol.total/Ch olesterol in HDL [Mass ratio] 2.5 {ratio} [facility] Work Phone: Comment on above: REF VALUESDESIRABLE < 3.4HIGH RISK > 5.0 Triglyceride [Mass/Vol] 104 mg/dL 0 - 149 [facility] Work Phone: Comment on above: . AGE [...] Lipid Panel 21 mg/dL 0 - 40 [facility] Work Phone: TSH - Thyroid Stimulating Ho [facility], Serumon 12-13-2021 TSH Qn 1.99 m[IU]/L See Below [facility] Work Phone: Comment on above: Reference Range: 0.4 4 - 3.98 TSH testing is performed using different testing methodology at [facility] than at other [facility]. Direct result comparisons should only be made within the same method. Tobacco Screening.on 022 Fall risk assessment a) No falls within the last year [facility] Work Phone: Tobacco use status CPHS b) No [facility] Work Phone: Vital Signs Date Time Vital Sign Value Performing Clinician Pat moyer 08-09-2022 10:43-0400 Body height 157.[address] Mayer Work Phone: [facility] Work Phone: 10-12-2022 10:43-0400 Body mass index (BMI) [Ratio] 53.41 kg/m2 Rd Jason Tavallaee Work Phone: [facility] Work Phone: 08-09-2022 10:43-0400 Body surface area Derived from formula 2.[address] Jason Tavallaee Work Phone: [facility] Work Phone: 08-09-2022 10:43-0400 Body weight 132.[address] Jason Tavallaee Work Phone: [facility] Work Phone: 08-09-2022 10:43-0400 Diastolic blood pressure 80 mm[Hg] Rd Jason Tavallaee Work Phone: [facility] Work Phone: 08-09-2022 10:43-0400 Heart rate 90 /min Rd Jason Gastonallaee Work Phone: [facility] Work Phone: 08-09-2022 10:43-0400 SaO2% (BldA) [Mass fraction] 98 % Rd Jason Gastonallaee Work Phone: [facility] Work Phone: 08-09-2022 10:43-0400 Systolic blood pressure 138 mm[Hg] Rd Jason Tavallaee Work Phone: [facility] Work Phone: 04-18-2022 13:51-0400 Body height 157.[address] Jason Tavallaee Work Phone: [facility] Work Phone: 04-18-2022 13:51-0400 Body mass index (BMI) [Ratio] 52.49 kg/m2 Rd Jason Tavallaee Work Phone: [facility] Work Phone: 04-18-2022 13:51-0400 Body surface area Derived from formula 2.[address] Jason Tavallaee Work Phone: [facility] Work Phone: 04-18-2022 13:51-0400 Body weight 130.[address] Jason Tavallaee Work Phone: [facility] Work Phone: 04-18-2022 13:51-0400 Diastolic blood pressure 80 mm[Hg] Rd M Tavallaee Work Phone: [facility] Work Phone: 04-18-2022 13:51-0400 Heart rate 100 /min Rd M Tavallaee Work Phone: [facility] Work Phone: 04-18-2022 13:51-0400 SaO2% (BldA) [Mass fraction] 98 % Rd Jason Tavallaee Work Phone: [facility] Work Phone: 04-18-2022 13:51-0400 Systolic blood pressure 128 mm[Hg] Rd Jason Tavallaee Work Phone: [facility] Work Phone: 12-14-2021 10:48-0500 Body height 157.[address] Tavallaee Work Phone: [facility] Work Phone: 12-14-2021 10:48-0500 Body mass index (BMI) [Ratio] 53.04 kg/m2 Rd M Tavallaee Work Phone: [facility] Work Phone: 12-14-2021 10:48-0500 Body surface area Derived from formula 2.[address] Powelle Work Phone: [facility] Work Phone: 12-14-2021 10:48-0500 Body weight 131.[address] M Tavallaee Work Phone: [facility] Work Phone: 12-14-2021 10:48-0500 Diastolic blood pressure 86 mm[Hg] Rd Jason Fawadaee Work Phone: [facility] Work Phone: 12-14-2021 10:48-0500 Heart rate 84 /min Rd Mayer Work Phone: [facility] Work Phone: 12-14-2021 10:48-0500 Systolic blood pressure 138 mm[Hg] Rd Celestinaee Work Phone: [facility] Medicine Work Phone: Encounters Encounter Date Encounter Type Care Provider Facility Start: 01-03-2023 End: 01-03-[address] [facility] Ambulatory Start: 12-28-[address] luke Work Phone: [facility] Work Phone: Start: 12-27-[address] Mazariegos llaee Work Phone: [facility] Work Phone: Start: 10-02-2022 End: 10-09-2022 Evaluation and management of inpatient SU CRISTINA Facility:[facility] Start: 10-02-2022 End: 10-02-2022 Emergency department patient visit RD MAYER Facility:[facility] Start: 08-22-2022 FUV, Provider: Rd Mayer, Status: Pen, Time: 11:[address] Tavallaee Work Phone: [facility] Work Phone: Start: 08-22-[address] Tavallaee Facil [id number] Start: 08-21-[address] Jason Tava llaee Work Phone: [facility] Work Phone: Start: 08-09-[address] Tavallaee Facil [id number] Start: 08-09-2022 Office outpatient vi sit [address] Tavallaee Work Phone: [facility] Work Phone: Start: 04-18-2022 Office outpatient vi sit [address] Tavallaee Work Phone: [facility] Work Phone: Start: 04-18-[address] Tavallaee Facil [id number] Start: 02-14-[address] Jason Tava llaee Work Phone: [facility] Work Phone: Start: 01-24-[address] Jason Tava llaee Work Phone: [facility] Work Phone: Start: 12-27-[address] M Tava llaee Work Phone: [facility] Work Phone: Start: 12-20-[address] Jason Tava llaee Work Phone: [facility] Work Phone: Start: 12-14-2021 Office outpatient vi sit [address] Jason Tavallaee Work Phone: [facility] Work Phone: Start: 12-14-[address] luke Work Phone: [facility] Work Phone: Start: 12-07-2021 FUV, Provider: Rd Mayer, Status: Pen, Time: 1:15 PM Fabricio Harry Work Phone: [facility] Work Phone: Start: 12-01-2021 AUDIT Fabricio Goode r Work Phone: [facility] Work Phone: Start: 11-21-2021 AUDIT Fabricio Goode r Work Phone: [facility] Work Phone: Start: 11-03-2021 Office outpatient vi sit 15 minutes Fabricio Harry Work Phone: [facility] Work Phone: Start: 11-03-2021 Phys/qhp telephone evaluation 11-20 min Fabricio Harry Work Phone: [facility] Work Phone: Start: 10-04-2021 Patient encounter procedure Fabricio Harry Work Phone: [facility] Work Phone: Start: 10-03-2021 Patient encounter procedure Fabricio Harry Work Phone: [facility] Work Phone: Start: 09-29-2021 Patient encounter procedure Fabricio Harry Work Phone: [facility] Work Phone: Start: 09-27-2021 Patient encounter procedure Fabricio Harry Work Phone: [facility] Work Phone: Start: 09-27-2021 Patient encounter procedure Fabricio Harry Work Phone: [facility] Work Phone: Start: 09-19-2021 Patient encounter procedure Fabricio Chaidez Piero Work Phone: [facility] Work Phone: Start: 09-15-2021 Patient encounter procedure Fabricio Chaidez Piero Work Phone: [facility] Work Phone: Start: 09-12-2021 Patient encounter procedure Fabricio Chaidez Piero Work Phone: [facility] Work Phone: Plan of Treatment Date Care Activity Detail Author Start: 08-22-2022 FUV, Provider: Rd Mayer, Status: Pen, Time: 11:15 AM FUV, Provider: Rd Mayer, Status: Pen, Time: 11:15 AM [facility] Work Phone: Start: 04-12-2022 FUV, Provider: Rd Mayer, Status: Pen, Time: 11:30 AM FUV, Provider: Rd Mayer, Status: Pen, Time: 11:30 AM [facility] Work Phone: Start: 12-07-2021 FUV, Provider: Rd Mayer, Status: Pen, Time: 1:15 PM FUV, Provider: Rd Mayer, Status: Pen, Time: 1:15 PM [facility] Work Phone: Immunizations Immunization Date Immunization Notes Care Provider Fa cili 08-22-2022 influenza, injectabl e, quadrivalent, preservative free; Translations: [Flulaval Quadrivalent 0.5 ML Intramuscular Suspension Prefilled Syringe] Rd Mayer Work Phone: [facility] Work Phone: Comment on above: Series: 03-01-2022 Moderna COVID-19 Vac cine 100 MCG/0.5ML Intramuscular Suspension Rd M Tavallaee Work Phone: [facility] Work Phone: 09-03-2021 influenza, seasonal, injectable, preservative free Fabricio Chaidez Piero Work Phone: [facility] Work Phone: 04-14-2021 Moderna COVID-19 Vac cine 100 MCG/0.5ML Intramuscular Suspension Fabricio Chaidez Piero Work Phone: [facility] Work Phone: 03-17-2021 Moderna COVID-19 Vac cine 100 MCG/0.5ML Intramuscular Suspension Fabricio Chaidez Piero Work Phone: [facility] Work Phone: Payers Date Payer Category Payer Unknown [id number] 1975 Unknown [id number] [id number] 1975 Unknown [id number] [id number] 1975 Unknown [id number] [id number] 1975 Unknown [id number] Unknown Clinical Notes 07-22-2021 to 10-09-2022 Note Date & Type Note Facility 10-09-2022 Note HNO ID: [id number] Author: Andrew Buck RPh Service: Pharmacy Author [...] RPh October 09, 2022 11:16 AM Pager: [phone] 10/09/2022 11:16 AM Medication List CHANGE how [...] Your Medications These medications were sent to [id number] [place] [address] - [facility] - [phone] [place] [id number] prazosin 1 mg Cap venlafaxine ER 37.5 mg 24 hr capsule [facility] 10-09-2022 Note HNO ID: [id number] Author: SPENCER Carver Service: Care Management Author Type: Psychodramatist Type: Care Mgt Progress Note Filed: 10/09/2022 2:11 PM Note Text: BEHAVIORAL HEALTH SOCIAL WORK DISCHARGE NOTE SERVICE DATE: 10/09/2022 SERVICE TIME: 12:30pm Discharge Information Row Name Admission (Current) from 10/02/[address] Psychiatry Follow-Up Appointment Psychiatrist Name This is an inital assessment with [facility] Address / Phone [address] [place] [address] / / Appointment Date 11/03/22 Appointment Time 10:30AM Additional Instructions This is an in-person appointment. Psychiatry Follow-Up Appointment Provider Name Umesh [facility] Address [address], [place] [address] Appointment Date 11/06/22 Appointment Time 4PM Additional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
[2024-08-22 12:31] LABS: Absolute Lymphocyte Count 1.42 X10^3/uL (0.83-4.51); Absolute Neutrophil Count 5.4 X10^3/uL (2.0-7.7); Basophil# 0.04 X10^3/uL; Basophil% 0.5 % (0-1); Eosinophil# 0.23 X10^3/uL; Hematocrit 42.1 % (37-47); Hemoglobin 13.5 g/dL (12.0-15.0); Lymphocyte # 1.42 X10^3/ul (0.83-4.51); Lymphocyte % 18.5 % (19-41); Mean Corp Hgb Conc 32.1 g/dL (32-36); Mean Corpuscular Hgb 28.9 pg (27.0-32.0); Mean Corpuscular Volume 90.1 fL (81-99); Mean Platelet Vol. 11.9 fl (6.2-12.0); Monocyte# 0.54 X10^3/uL; NRBC Flagged by Analyzer 0 % (0-5); Neutrophil # 5.41 X10^3/uL (2.7-7.7); Neutrophil % 70.3 % (47-70); Platelet Count 338 K/mm3 (150-450); RBC Distribution Width CV 13.5 % (11.6-14.6); RBC Distribution Width SD 43.8 fl (35.1-43.9); Red Blood Count 4.67 M/mm3 (4.2-5.4); White Blood Count 7.7 K/mm3 (4.4-11.0)
[2024-08-22 13:05] LABS: Cholesterol 156 mg/dL (200); High Density Lipoprotein 42 mg/dL; Triglycerides 280 mg/dL; Very Low Density Lipoprotein 56 mg/dL (5-40)
[2024-08-22 13:24] LABS: Microalbumin,Random Urine 16.9 mg/L (NO RANGE EST.); Microalbumin:Creatinine Ratio 31.3 mg/g CRE (<30 mg/g CRE)
[2024-08-22 14:11] LABS: Hemoglobin A1c 10.3 % (3.8-5.6)
== END | disposition home or self-care (01) ==
LOC: MFPLAB 10:51
PROVIDERS: PCP Family Medicine; Referring Provider Family Medicine; Visit Provider Family Medicine
DX: E11.8 Type 2 diabetes mellitus with unspecified complications (principal)
CPT/HCPCS: 36415; 80061; 82043; 82570; 83036; 85025

== ENCOUNTER → 2024-10-07 | Outpatient (CLI) | payer MEDICAID, SELFPAY ==
[2024-10-07 16:12] LABS: Red Blood Cells-Urine 0 SEEN /hpf (0-5)
[2024-10-07 18:10] LABS: Absolute Lymphocyte Count 1.96 X10^3/uL (0.83-4.51); Absolute Neutrophil Count 6.6 X10^3/uL (2.0-7.7); Basophil# 0.05 X10^3/uL; Basophil% 0.5 % (0-1); Eosinophil# 0.22 X10^3/uL; Eosinophils% 2.3 % (0-5); Hematocrit 41.3 % (37-47); Hemoglobin 12.7 g/dL (12.0-15.0); Lymphocyte # 1.96 X10^3/ul (0.83-4.51); Lymphocyte % 20.9 % (19-41); Mean Corp Hgb Conc 30.8 g/dL (32-36); Mean Corpuscular Hgb 28.3 pg (27.0-32.0); Mean Corpuscular Volume 92.2 fL (81-99); Mean Platelet Vol. 11.2 fl (6.2-12.0); Monocyte% 5.3 % (0-10); NRBC Flagged by Analyzer 0.2 % (0-5); Neutrophil # 6.62 X10^3/uL (2.7-7.7); Neutrophil % 70.5 % (47-70); Platelet Count 385 K/mm3 (150-450); RBC Distribution Width SD 43.8 fl (35.1-43.9); Red Blood Count 4.48 M/mm3 (4.2-5.4); White Blood Count 9.4 K/mm3 (4.4-11.0)
[2024-10-07 18:44] LABS: Color, Urine Yellow (Yellow); Glucose, Dipstick Normal (Normal); Ketone-Dipstick Negative (Negative); Leukocyte Esterase-Dipstick 25 /ul (Negative); Nitrite-Dipstick Negative (Negative); Occult Blood-Urine Negative /ul (Negative); Protein-Dipstick 30 mg/dl (Negative); Urine Bilirubin Dipstick Negative (Negative); Urine Clarity Sl. Cloudy (Clear); Urine Urobilinogen 1 mg/dl (Normal)
[2024-10-07 19:02] LABS: Hemoglobin A1c 8.8 % (3.8-5.6)
[2024-10-07 19:09] LABS: Bacteria 1+ /hpf (None Seen); Mucous, Urine 1+ /hpf (<or=2+); Squamous Epithelial Cells - UA 5-10 SEEN /hpf (5-10); White Blood Cells 0-5 SEEN /hpf (0-5)
[2024-10-07 19:21] LABS: ALB/GLOB Ratio 1.1 RATIO (0.9-2.4); AST(SGOT) 38 U/L (15-37); Alanine Aminotransfer ALT/SGPT 49 U/L (13-56); Albumin, Serum 3.9 g/dL (3.2-5.0); Alkaline Phosphatase 152 U/L (45-117); Anion Gap 4 (5-15); BUN 20 mg/dL (7-18); BUN/Creat Ratio 17.7 RATIO (10-20); Calcium,Total 9.6 mg/dL (8.5-10.1); Chloride 107 mmol/L (98-107); Cholesterol 126 mg/dL (200); Creatinine, Serum 1.13 mg/dL (0.55-1.02); EST Glomerular Filtration Rate 54 mL/min (>60); Est Glom Filt Rate - Afr Amer 65 mL/min (>60); Globulin 3.4 g/dL (2.2-4.2); Glucose 119 mg/dL (74-106); High Density Lipoprotein 51 mg/dL; Potassium 3.7 mmol/L (3.5-5.1); Protein, Total 7.3 g/dL (6.4-8.2); Sodium Level 143 mmol/L (136-145); Triglycerides 146 mg/dL; Very Low Density Lipoprotein 29 mg/dL (5-40)
[2024-10-07 19:44] LABS: Microalbumin,Random Urine 28.3 mg/L (NO RANGE EST.); Microalbumin:Creatinine Ratio 7.6 mg/g CRE (<30 mg/g CRE)
== END | disposition home or self-care (01) ==
LOC: MFPLAB 16:04
PROVIDERS: PCP Family Medicine; Visit Provider Family Medicine
DX: E11.69 Type 2 diabetes mellitus with other specified complication (principal)
CPT/HCPCS: 36415; 80053; 80061; 81001; 82043; 82570; 83036; 85025

== ENCOUNTER 2024-10-23 12:06 | Outpatient (CLI) | payer MEDICAID, SELFPAY ==
[2024-10-23 12:44] VITALS: BP 154/75; PULSE 84; RESP 18; TEMP 36.3; O2SAT 97; BMI 53.0
[2024-10-23 12:58] LABS: Platelet Count 382 K/mm3 (150-450)
[2024-10-23 13:07] LABS: Prothrombin Time (Protime)PT. 12.7 SECONDS (11.7-14.9)
[2024-10-23 13:08] LABS: Partial Thromboplast Time 24.7 Seconds (24.1-36.2)
[2024-10-23] MEDS: Lidocaine 2% (5ml sdv) 5 ML VIAL.MPF INFILT (13:10)
[2024-10-23 14:00] VITALS: BP 148/67; PULSE 82; RESP 18; O2SAT 99
[2024-10-23 14:09] LABS: Cytology, Body Fluid / CSF SEE PATHOLOGY REPORT
[2024-10-23 14:40] LABS: Appearance CSF (character) CLEAR (Clear); CSF Color COLORLESS (Colorless); Tested Tube # 2
[2024-10-23 14:41] LABS: RBC Count, Spinal Fluid 2 /mm-3 (None seen); White Count, CSF 1 /mm-3 (0 - 5)
[2024-10-23 14:49] LABS: Glucose Spinal Fluid 97 mg/dL (40-75)
[2024-10-23 14:59] VITALS: BP 136/67; PULSE 73; RESP 18; O2SAT 99
--- NOTE | 2024-10-23 15:11 | FLU_PTH ---
PATIENT: AMELIA DAVENPORT LOC: [facility] U#:[id number] AGE/SX: 49/F ROOM: RE10/23/[address]: Dr. Enrrique Ho MD : 1975 BED: DIS: 10/23/2024 SPEC #: [id number] RECD: 10/24/24 08:56 STATUS: GIA REAfia #: [id number] ZAINAB: 10/23/24 15:[address]: Enrrique Ho DEPT: CYTOLOGY RECD BY: Mariella Moreno ENTERED: 10/24/24 08:57 SP TYPE: Fluid OTHR DR: Dr. Fabricio Harry MD Tissues: Cerebrospinal Fluid Procedures: Special Stain Group II Surgery Specimen Level IV Cytospin Fluid HEADER OPERATION: Not noted PRE-OP DIAGNOSIS: Headaches TISSUE SUBMITTED: CSF DIAGNOSIS CYTOLOGY Cerebrospinal fluid for cytology (cytospin): Negative for malignant cells. See comment. MIGUEL 10/24/2024 COMMENT The specimen is paucicellular and consists of a few red blood cells and rare lymphocytes and monocytes. Correlation with clinical findings and appropriate follow up are necessary. CYTOLOGY STUDY Slides are reviewed. CYTOLOGY GROSS Received is 4 ml of clear colorless fluid labeled with the patient's name and and designated per the requisition as CSF. Submitted for cytology preparation. /SULEIMAN:lesley 10/24/24 TC:4 CPT: 36714
[2024-10-23 15:19] LABS: Lymphocytes,CSF 80 % (40 - 80); Monocytes,CSF 20 % (15 - 45)
--- NOTE | 2024-10-23 15:20 | OP.PCM_ITS ---
Problems Associated Problem List Diagnoses (1) Persistent headaches: Multi Select Codes Radiology Rad Xray Procedures: [address] [place] [address]-04 Fluoroscopic guidance for needle placement Operative Report (Standard) Operative Information Date of Procedure: 10/23/24 Pre-Operative Diagnosis: HEADACHES Post-Operative Diagnosis: HEADACHES Surgery/Procedure Performed: LUMBAR PUNCTURE front office clerk: No Type of Anesthesia: Local Procedure Start Time: 13:05 Procedure Stop Time: 13:50 Select all DRAINS/GRAFTS/IMPLANTS that apply: None Estimated Blood Loss: SCANT Specimen collected: Yes Description of specimen(s) removed: 16 ML CSF Description of surgery: PROCEDURE: Fluoroscopic guided Lumbar Puncture. ORDERING PROVIDER: Dr. Ho CLINICAL INDICATION: Female, 49 years old. Headaches. PROVIDER: BORIS Dowling MEDICATIONS: 2% lidocaine administered subcutaneously for local anesthesia ACCESS SITE: Lower posterior back. NEEDLE: 22-gauge spinal needle. SPECIMEN: Approximately 16 mL clear colored CSF fluid. COMPLICATIONS: None immediate. FLUOROSCOPY TIME (if supplied): 2 minutes/58 seconds. 79.5 mGy The risks, benefits, and alternatives to the procedure were explained to the patient. The specific risks of bleeding, infection, and neurovascular injury were detailed and accepted. Witnessed informed consent was obtained. The patient was placed on the fluoroscopic table in the prone position. The level for needle entry was determined and marked. The overlying skin was ginna aned with betadine and draped in the usual sterile fashion. 2% lidocaine was administered subcutaneously for local anesthesia. Under fluoroscopic guidance a 22-gauge spinal needle was advanced. The thecal sac was entered at the L 4-L 5 vertebral level. The inner stylet was removed. There was spontaneous flow of clear CSF fluid. Opening pressure was measured at 5 cm of water. The patient was placed in a reversed Trendelenburg position. Approximately 16 mL of cerebrospinal fluid was collected using gravity. The specimen was collected and submitted to the laboratory for further evaluation. The needle was withdrawn. Hemostasis was achieved and a sterile dressing placed. The patient tolerated the procedure well without any immediate complications. The patient was placed supine for nursing observation in the holding bay. IMPRESSION: Successful fluoroscopic-guided lumbar puncture. Surgical Findings: SUCCESSFUL LP Complications Complications: No
[2024-10-23 15:21] LABS: Body Fluid QC Type(s) BF1Q,BF2Q
[2024-10-24 11:33] LABS: Pathologist Review Reviewed
[2024-10-26 17:06] LABS: Heparin-Induced Plt Ab 0.042 OD (0.000-0.400)
== END 2024-10-23 23:59 | disposition home or self-care (01) ==
LOC: RAD 12:07
PROVIDERS: Nurse Practitioner Acute Care; PCP Family Medicine; Referring Provider Psychiatry & Neurology Neurology; Visit Provider Psychiatry & Neurology Neurology
DX: G44.209 Tension-type headache, unspecified, not intractable (principal); R53.83 Other fatigue
CPT/HCPCS: 62328; 36415; 82945; 84157; 85049; 85610; 85730; 86022; 87070; 87205; 88108; 88305; 88313; 89050; 89051

== ENCOUNTER 2024-11-16 14:56 | Emergency (ER) | payer MEDICAID, SELFPAY ==
[2024-11-16 14:57] VITALS: BP 159/99; PULSE 87; RESP 18; TEMP 36.8; BMI 54.2
--- NOTE | 2024-11-16 15:16 | EX.ED.UPPERE ---
HPI History of Present Illness Chief Complaint: Upper Extremity Injury Informant: patient Narrative Narrative: 49-year-old female presenting to the emergency room with right elbow pain. Patient states that she states and fell on ice striking her buttock back and right elbow in the process. She notes pain in the right elbow. Limited range of motion secondary to pain. Patient is not on any blood thinners. She denies any hand symptoms. [facility] Medical History Injury of back Gastric reflux Seasonal allergies Ambulates with cane Insulin dependent diabetes mellitus Anxiety Depression Diabetes Wears glasses PTSD (post-traumatic stress disorder) High cholesterol Easy bruising Scoliosis Blackout Former smoker Shortness of breath on exertion History of stress test Morbid obesity with body mass index (BMI) greater than or equal to 50 GERD (gastroesophageal reflux disease) Anxiety and depression Arthritis History of back problems Dysphagia Obesity Home Medications ?Medication ?Instructions ?Recorded ?Last Taken ?Type prazosin 1 mg capsule 2 mg PO QHS sleep 08/19/19 02/15/23 History famotidine 20 mg tablet 20 mg PO DAILY GERD 09/02/19 02/16/23 History pravastatin 40 mg tablet 40 mg PO QHS cholesterol 09/02/19 02/15/23 History venlafaxine 75 mg capsule,extended 75 mg PO DAILY depression 10/04/20 02/15/23 History release 24 hr cholecalciferol (vitamin D3) 50 50 mcg PO DAILY supplement 07/15/21 02/15/23 History mcg (2,000 unit) capsule (Vitamin D3) trazodone 100 mg tablet 100 mg PO QHS 12/23/21 02/15/23 History acetaminophen 325 mg tablet 650 mg (2 x 325 mg) PO Q6H PRN PRN 02/21/23 Unknown Rx Pain Score 1-10 #0 tabs desonide 0.05 % topical cream 1 applic topical TID PRN itching 03/26/23 Unknown Rx #60 grams insulin glargine 100 unit/mL (3 56 unit subcut DAILY 12/07/23 Unknown History mL) subcutaneous pen (Lantus Solostar U-100 Insulin) cyclobenzaprine 10 mg tablet 10 mg PO TID PRN muscle spasm 09/29/24 Unknown History dulaglutide 1.5 mg/0.5 mL 1.5 mg subcut QWEEK 09/29/24 Unknown History subcutaneous pen injector (Trulicity) furosemide 40 mg tablet 40 mg PO QDAY PRN edema 09/29/24 Unknown History insulin lispro 100 unit/mL 8 unit subcut TID 09/29/24 Unknown History subcutaneous pen (Humalog KwikPen (U-100) Insulin) loratadine 10 mg tablet 10 mg PO QDAY 09/29/24 Unknown History melatonin 5 mg tablet 30 mg PO QHS sleep 09/29/24 Unknown History multivitamin (Multiple Vitamins 2 tab PO QAM 09/29/24 Unknown History tablet) naproxen 500 mg tablet 500 mg PO BID PRN headache #60 tabs 09/29/24 Unknown Rx nortriptyline 25 mg capsule 25 mg PO DAILY #30 caps 09/29/24 Unknown Rx vibegron 75 mg tablet (Gemtesa) 75 mg PO QDAY 09/29/24 Unknown History vilazodone 20 mg tablet 20 mg PO QHS 09/29/24 Unknown History oxycodone-acetaminophen 5 mg-325 1 tab PO Q6H PRN PRN Pain 3 days 11/16/24 Unknown Rx mg tablet #12 TABLETS Allergy/AdvReac Type Severity Reaction Status Date / Time azithromycin (From Zithromax Allergy Severe Rash Verified 09/29/24 14:44 Z-Matt) bupropion (From Wellbutrin) Allergy Severe Rash Verified 09/29/24 14:44 celecoxib (From Celebrex) Allergy Severe Rash Verified 09/29/24 14:44 diclofenac (From Voltaren) Allergy Severe Rash Verified 09/29/24 14:44 loratadine (From Claritin) Allergy Severe Rash Verified 09/29/24 14:44 Sulfa (Sulfonamide Allergy Severe Itching, Verified 09/29/24 14:44 Antibiotics) RASH Family History Aunt Hypertension CVA (cerebral vascular accident) Father Heart disease Diabetes Cancer Parkinsons disease Aunt Myocardial infarction Surgical History History of carpal tunnel surgery of right wrist History of surgery of uterus History of ankle surgery History of colonoscopy History of tubal ligation History of left knee surgery Social History Smoking Status: Former smoker second hand exposure: Yes alcohol intake: never ROS ROS ED Constitutional Constitutional ED: Denies chills or weight loss Eyes Eyes: Denies change in vision or diplopia ENT ENT ED: Denies ear pain, rhinorrhea or sore throat Cardiovascular Cardiovascular: Denies chest pain, orthopnea, palpitations or racing heartbeat Respiratory/Chest Respiratory/Chest: Denies cough, dyspnea or orthopnea Gastrointestinal Gastrointestinal: Denies abdominal pain, diarrhea, nausea or vomiting Genitourinary Genitourinary ED: Denies dysuria, hematuria or urinary frequency Musculoskeletal Musculoskeletal: Reports other Details: Right elbow pain ; Denies arthralgias or myalgias Integumentary Denies abscess or rash Neurologic Neurologic: Denies headache(s) or weakness Psychiatric Psychiatric: Denies anxiety, depression, suicidal ideation or suicidal thoughts Endocrine Endocrinology: Denies polydipsia, polyphagia or polyuria Allergic/Immunologic Allergic/Immunologic ED: Denies mouth swelling, tongue swelling or urticaria EXAM Physical Exam Const Vital Signs: 11/16/24 14:57 Temperature 98.2 F Temperature Source Oral Pulse Rate 87 Respiratory Rate 18 Blood Pressure 159/99 H Blood Pressure Mean 119 Positive well nourished, well developed and obese General Appearance ED: well developed Nutritional Appearance: obese HEENT Reports normocephalic, head/scalp atraumatic and moist mucous membranes Eyes PERRL and EOMs intact bilaterally Neck no lymphadenopathy, supple and no JVD Resp normal respiratory effort and clear to auscultation bilaterally Cardio regular rate, regular rhythm and no murmurs GI normal to inspection, nondistended, normoactive bowel sounds and non-tender Palpation: soft Back/Spine no CVA tenderness and normal ROM Extremity Extremity Narrative: Patient has diffuse swelling over the lateral aspect of the right elbow. Tender to palpation over the radial head. There is no olecranon tenderness or swelling. Neurovascular appears intact distally. There is no mid forearm or hand pain. General Extremety ED: Negative for edema General Extremity: Negative for edema Neuro oriented x3 and CN's II-XII intact bilaterally Sensorium / Orientation: alert Motor Exam: strength 5/5 throughout Psych mental status grossly normal Mood & Affect: Negative for depressed or tearful Skin no rashes or lesions noted and no wounds MDM MDM MDM Narrative Medical decision making narrative: Differential diagnosis includes fracture dislocation contusion ligamentous injury tendon injury My independent interpretation of the plain films of the right elbow has an acute radial head fracture. Patient was placed in a sling. She was given pain medication. She has seen Dr. Wyman in the past and we will have her follow-up with him. Patient is comfortable with this plan. History & Record Review Discussion w/independent historian: Patient Discharge Plan Triage Chief Complaint: Upper Extremity Injury ED Provider: Farhat Kerr Dx/Rx/DC Orders Clinical Impression: Fall, Closed fracture of radial head Instructions: ED Radial Head Fracture Prescriptions: New oxycodone-acetaminophen 5-325 mg tablet 1 tab PO Q6H PRN PRN (Reason: Pain) 3 Days Qty: 12 0RF No Action prazosin 1 mg capsule 2 mg PO QHS venlafaxine 75 mg capsule,extended release 24hr 75 mg PO DAILY Patient Comments: TAKE 1 CAPSULE BY MOUTH EVERY MORNING trazodone 100 mg tablet 100 mg PO QHS insulin glargine [Lantus Solostar U-100 Insulin] 100 unit/mL (3 mL) insulin pen 56 unit subcut DAILY Patient Comments: inject 70 units SUBCUTANEOUSLY DAILY cyclobenzaprine 10 mg tablet 10 mg PO TID PRN (Reason: muscle spasm) furosemide 40 mg tablet 40 mg PO QDAY PRN (Reason: edema) insulin lispro [Humalog KwikPen Insulin] 100 unit/mL insulin pen 8 unit subcut TID vilazodone 20 mg tablet 20 mg PO QHS Rx Instructions: must administer with a meal/food Trulicity 1.5 mg/0.5 mL pen injector 1.5 mg subcut QWEEK Gemtesa 75 mg tablet 75 mg PO QDAY multivitamin [Multiple Vitamins] Tablet 2 tab PO QAM loratadine 10 mg tablet 10 mg PO QDAY nortriptyline 25 mg capsule 25 mg PO DAILY Qty: 30 5RF naproxen 500 mg tablet 500 mg PO BID PRN (Reason: headache) Qty: 60 4RF pravastatin 40 MG tablet 40 mg PO QHS famotidine 20 MG tablet 20 mg PO DAILY melatonin 5 mg tablet 30 mg PO QHS cholecalciferol (vitamin D3) [Vitamin D3] 50 mcg (2,000 unit) Capsule 50 mcg PO DAILY acetaminophen 325 mg Tablet 650 mg PO Q6H PRN PRN (Reason: Pain Score 1-10) Qty: 0 0RF desonide 0.05 % cream 1 applic topical TID PRN (Reason: itching) Qty: 60 1RF Primary Care Provider: Fabricio Harry Referrals: Vikas Alvarez DO [Med Staff - Active Staff] - As soon as possible Fabricio Harry MD [Primary Care Provider] - Print Language: Nauruan Disposition Disposition: Home, Self Care
--- NOTE | 2024-11-16 15:25 | RAD_ITS ---
STUDY: XR Elbow Min 3 Views REASON FOR EXAM: Female, 49 years old. PAIN injury TECHNIQUE: XR Elbow 4 Views RIGHT COMPARISON: None. FINDINGS: Normal visualized humerus, ulna. Normal radiocapitellar and ulnotrochlear articulations. Anterior humeral line and radiocapitellar line are preserved. Small anterior fat pad sign. Complex fracture of the radial head. Articular extension noted. RAD/Elbow min 3 Views IMPRESSION: Acute fracture of the radial head Electronically Signed: Olvin Krishnamurthy MD at 15:42 EST ,
[2024-11-16] MEDS: oxyCODONE 5 MG Tablet 10 MG PO (15:39)
[2024-11-16 16:01] VITALS: BP 135/74; PULSE 78; RESP 18; TEMP 36.4; O2SAT 98
== END 2024-11-16 16:07 | disposition home or self-care (01) ==
PROVIDERS: Emergency Provider Emergency Medicine; PCP Family Medicine; Visit Provider Emergency Medicine
DX: S52.124A Nondisplaced fracture of head of right radius, initial encounter for closed fracture (principal); Z79.4 Long term (current) use of insulin; E11.9 Type 2 diabetes mellitus without complications; E78.00 Pure hypercholesterolemia, unspecified; Z87.891 Personal history of nicotine dependence; W00.9XXA Unspecified fall due to ice and snow, initial encounter; K21.9 Gastro-esophageal reflux disease without esophagitis; Z79.899 Other long term (current) drug therapy; F32.A Depression, unspecified; Z79.85 Long-term (current) use of injectable non-insulin antidiabetic drugs; Z98.51 Tubal ligation status
CPT/HCPCS: 73080; 99284

== ENCOUNTER 2024-11-22 23:13 | Emergency (ER) | payer MEDICAID, SELFPAY ==
[2024-11-22 23:14] VITALS: BP 171/83; PULSE 99; RESP 18; TEMP 36.8; O2SAT 99; BMI 53.6
[2024-11-22] MEDS: Acetaminophen 325 MG Tablet 650 MG PO (23:48)
[2024-11-22] MEDS: HYDROmorphone 1 MG/ML Syringe IM (23:48)
--- NOTE | 2024-11-22 23:53 | EX.ED.UPPERE ---
HPI History of Present Illness Chief Complaint: Upper Extremity Injury Informant: patient Narrative Narrative: Patient is a 49-year-old female with history of recent radial head fracture on the right ([id number]) presenting with continued pain and significant swelling of her right forearm and hand. She is her fingers of felt cold since the injury. She initially followed up with Dr. Garza on Sunday (3 days ago) but was then referred to [facility] to follow-up with Dr. Cooper) and she has appointment this coming Sunday. She states she was told she did not need to wear the sling since her position of comfort is more extended and the flexion of the sling is too uncomfortable for her. She states she has oxycodone at home but is not really helping. She last took 1000 mg of Tylenol at 6 AM. She denies any new injuries. She notes that she is having a lot of bruising in her right forearm and also has had bruising over her right ribs now. She came in via EMS. [facility] Medical History Injury of back Gastric reflux Seasonal allergies Ambulates with cane Insulin dependent diabetes mellitus Anxiety Depression Diabetes Wears glasses PTSD (post-traumatic stress disorder) High cholesterol Easy bruising Scoliosis Blackout Former smoker Shortness of breath on exertion History of stress test Morbid obesity with body mass index (BMI) greater than or equal to 50 GERD (gastroesophageal reflux disease) Anxiety and depression Arthritis History of back problems Dysphagia Obesity Home Medications ?Medication ?Instructions ?Recorded ?Last Taken ?Type prazosin 1 mg capsule 2 mg PO QHS sleep 08/19/19 02/15/23 History famotidine 20 mg tablet 20 mg PO DAILY GERD 09/02/19 02/16/23 History pravastatin 40 mg tablet 40 mg PO QHS cholesterol 09/02/19 02/15/23 History cholecalciferol (vitamin D3) 50 50 mcg PO DAILY supplement 07/15/21 02/15/23 History mcg (2,000 unit) capsule (Vitamin D3) trazodone 100 mg tablet 100 mg PO QHS 12/23/21 02/15/23 History acetaminophen 325 mg tablet 650 mg (2 x 325 mg) PO Q6H PRN PRN 02/21/23 Unknown Rx Pain Score 1-10 #0 tabs desonide 0.05 % topical cream 1 applic topical TID PRN itching 03/26/23 Unknown Rx #60 grams insulin glargine 100 unit/mL (3 56 unit subcut DAILY 12/07/23 Unknown History mL) subcutaneous pen (Lantus Solostar U-100 Insulin) cyclobenzaprine 10 mg tablet 10 mg PO TID PRN muscle spasm 09/29/24 Unknown History dulaglutide 1.5 mg/0.5 mL 1.5 mg subcut QWEEK 09/29/24 Unknown History subcutaneous pen injector (Trulicity) furosemide 40 mg tablet 40 mg PO QDAY PRN edema 09/29/24 Unknown History insulin lispro 100 unit/mL 8 unit subcut TID 09/29/24 Unknown History subcutaneous pen (Humalog KwikPen (U-100) Insulin) loratadine 10 mg tablet 10 mg PO QDAY 09/29/24 Unknown History melatonin 5 mg tablet 30 mg PO QHS sleep 09/29/24 Unknown History multivitamin (Multiple Vitamins 2 tab PO QAM 09/29/24 Unknown History tablet) naproxen 500 mg tablet 500 mg PO BID PRN headache #60 tabs 09/29/24 Unknown Rx nortriptyline 25 mg capsule 25 mg PO DAILY #30 caps 09/29/24 Unknown Rx oxycodone-acetaminophen 5 mg-325 1 tab PO Q6H PRN PRN Pain 3 days 11/16/24 Unknown Rx mg tablet #12 TABLETS mirabegron 50 mg tablet,extended 50 mg PO QDAY 11/19/24 Unknown History release 24 hr (Myrbetriq) oxycodone 5 mg tablet 5 mg PO Q6H PRN pain 3 days #12 11/23/24 Unknown Rx tabs Allergy/AdvReac Type Severity Reaction Status Date / Time azithromycin (From Zithromax Allergy Severe Rash Verified 11/22/24 23:14 Z-Matt) bupropion (From Wellbutrin) Allergy Severe Rash Verified 11/22/24 23:14 celecoxib (From Celebrex) Allergy Severe Rash Verified 11/22/24 23:14 diclofenac (From Voltaren) Allergy Severe Rash Verified 11/22/24 23:14 loratadine (From Claritin) Allergy Severe Rash Verified 11/22/24 23:14 Sulfa (Sulfonamide Allergy Severe Itching, Verified 11/22/24 23:14 Antibiotics) RASH Family History Aunt Hypertension CVA (cerebral vascular accident) Father Heart disease Diabetes Cancer Parkinsons disease Aunt Myocardial infarction Surgical History History of carpal tunnel surgery of right wrist History of surgery of uterus History of ankle surgery History of colonoscopy History of tubal ligation History of left knee surgery Social History Smoking Status: Former smoker second hand exposure: Yes alcohol intake: never ROS ROS ED Constitutional Constitutional ED: Denies chills or fever(s) Cardiovascular Cardiovascular: Denies chest pain Respiratory/Chest Respiratory/Chest: Denies cough or dyspnea Gastrointestinal Gastrointestinal: Denies vomiting Musculoskeletal Musculoskeletal: Reports other Details: Right elbow and forearm pain. Integumentary Reports other Details: Bruising to the right chest and elbow/forearm Neurologic Neurologic: Reports paresthesias RUE; Denies weakness Hematologic/Lymphatic Hematologic/Lymphatic: Denies easy bleeding or easy bruising EXAM Physical Exam Const Vital Signs: 11/22/24 23:14 Temperature 98.3 F Temperature Source Oral Pulse Rate 99 Respiratory Rate 18 Blood Pressure 171/83 H Blood Pressure Mean 112 Pulse Ox 99 Oxygen Delivery Method Room Air Positive well nourished and well developed General Appearance ED: well developed and NAD HEENT Reports moist mucous membranes Neck supple Chest Wall inspection of chest normal and palpation of chest normal Resp normal respiratory effort and clear to auscultation bilaterally Cardio regular rate and regular rhythm Cardio Narrative: 2+ radial pulses. Brisk capillary refill present of the right fingers Extremity Extremity Narrative: Decreased ROM of the right elbow. TTP of the proximal right forearm. No significant elbow joint effusion present. Compartments are soft. There is significant soft tissue swelling noted to the forearm and hand with subsequent decreased range of motion of the hand but no obvious deformity or deficits. Neuro oriented x3 Sensorium / Orientation: alert Psych mental status grossly normal Skin Skin Narrative: Healing ecchymosis noted to the right forearm consistent with her injury a week ago. MDM MDM MDM Narrative Medical decision making narrative: Patient is evaluated for worsening right elbow pain after fracture with associated swelling and bruising. Denies any new injury. Does have a pretty complex radial head fracture with intra-articular extension. Patient has good distal pulses and compartments are soft. I do not think this is compartment syndrome. Low suspicion for secondary infection. Do not suspect an acute vascular occlusion. Patient given a dose of IM Dilaudid with significant pulmonary pain. Is given an Samir wrap to help with the swelling. I suspect a lot of this is dependent edema associate with her recent fracture/trauma. Patient is also given a dose of Tylenol in the emergency room. Will be given another prescription for oxycodone to get her through until she can follow-up with Ortho this coming Sunday. Given return precautions. Given reassurance. Counseled on elevating the extremity above the level of the heart to help with the swelling and wearing an Samir wrap. Discharge Plan Triage Chief Complaint: Upper Extremity Injury ED Provider: Laurie Hull Dx/Rx/DC Orders Clinical Impression: Localized swelling of right upper extremity, Fracture of head of right radius Instructions: ED Peripheral Edema, Unilateral, Fx Forearm Prescriptions: New oxycodone 5 mg tablet 5 mg PO Q6H PRN (Reason: pain) 3 Days Qty: 12 0RF No Action prazosin 1 mg capsule 2 mg PO QHS trazodone 100 mg tablet 100 mg PO QHS insulin glargine [Lantus Solostar U-100 Insulin] 100 unit/mL (3 mL) insulin pen 56 unit subcut DAILY Patient Comments: inject 70 units SUBCUTANEOUSLY DAILY cyclobenzaprine 10 mg tablet 10 mg PO TID PRN (Reason: muscle spasm) furosemide 40 mg tablet 40 mg PO QDAY PRN (Reason: edema) insulin lispro [Humalog KwikPen Insulin] 100 unit/mL insulin pen 8 unit subcut TID Trulicity 1.5 mg/0.5 mL pen injector 1.5 mg subcut QWEEK multivitamin [Multiple Vitamins] Tablet 2 tab PO QAM loratadine 10 mg tablet 10 mg PO QDAY nortriptyline 25 mg capsule 25 mg PO DAILY Qty: 30 5RF naproxen 500 mg tablet 500 mg PO BID PRN (Reason: headache) Qty: 60 4RF mirabegron [Myrbetriq] 50 mg tablet extended release 24 hr 50 mg PO QDAY pravastatin 40 MG tablet 40 mg PO QHS famotidine 20 MG tablet 20 mg PO DAILY melatonin 5 mg tablet 30 mg PO QHS cholecalciferol (vitamin D3) [Vitamin D3] 50 mcg (2,000 unit) Capsule 50 mcg PO DAILY acetaminophen 325 mg Tablet 650 mg PO Q6H PRN PRN (Reason: Pain Score 1-10) Qty: 0 0RF desonide 0.05 % cream 1 applic topical TID PRN (Reason: itching) Qty: 60 1RF oxycodone-acetaminophen 5-325 mg tablet 1 tab PO Q6H PRN PRN (Reason: Pain) 3 Days Qty: 12 0RF Primary Care Provider: Fabricio Harry Referrals: Fabricio Harry MD [Primary Care Provider] - Activity Restrictions/Additional Instructions: Try to elevate the arm above the level of the heart is much as possible to help with the swelling. This bruising and swelling is not uncommon after you this fracture. Please take regular Tylenol if you are not taking the pain medication prescribed today to help keep the pain under control. Print Language: [place] Disposition Disposition: Home, Self Care
== END 2024-11-23 00:51 | disposition home or self-care (01) ==
PROVIDERS: Emergency Provider Emergency Medicine; PCP Family Medicine; Visit Provider Emergency Medicine
DX: M79.89 Other specified soft tissue disorders (principal); Z79.4 Long term (current) use of insulin; E11.9 Type 2 diabetes mellitus without complications; Z87.891 Personal history of nicotine dependence; S52.121A Displaced fracture of head of right radius, initial encounter for closed fracture; S20.211A Contusion of right front wall of thorax, initial encounter; E78.00 Pure hypercholesterolemia, unspecified; Z98.51 Tubal ligation status; X58.XXXA Exposure to other specified factors, initial encounter
CPT/HCPCS: 96372; 99282

== ENCOUNTER → 2024-12-18 | Outpatient (CLI) | payer MEDICAID, SELFPAY ==
[2024-12-18 17:54] LABS: Absolute Lymphocyte Count 1.86 X10^3/uL (0.83-4.51); Absolute Neutrophil Count 6.2 X10^3/uL (2.0-7.7); Basophil# 0.03 X10^3/uL; Basophil% 0.3 % (0-1); Eosinophil# 0.21 X10^3/uL; Eosinophils% 2.4 % (0-5); Hemoglobin 12.6 g/dL (12.0-15.0); Lymphocyte # 1.86 X10^3/ul (0.83-4.51); Mean Corp Hgb Conc 30.7 g/dL (32-36); Mean Corpuscular Hgb 27.8 pg (27.0-32.0); Mean Corpuscular Volume 90.5 fL (81-99); Mean Platelet Vol. 10.3 fl (6.2-12.0); Monocyte# 0.48 X10^3/uL; Monocyte% 5.4 % (0-10); NRBC Flagged by Analyzer 0 % (0-5); Neutrophil # 6.23 X10^3/uL (2.7-7.7); Neutrophil % 70.4 % (47-70); Platelet Count 449 K/mm3 (150-450); RBC Distribution Width CV 12.6 % (11.6-14.6); RBC Distribution Width SD 41.1 fl (35.1-43.9); Red Blood Count 4.53 M/mm3 (4.2-5.4); White Blood Count 8.9 K/mm3 (4.4-11.0)
[2024-12-18 18:05] LABS: ALB/GLOB Ratio 0.8 RATIO (0.9-2.4); AST(SGOT) 21 U/L (15-37); Alanine Aminotransfer ALT/SGPT 30 U/L (13-56); Albumin, Serum 3.5 g/dL (3.2-5.0); Alkaline Phosphatase 164 U/L (45-117); Anion Gap 8 (5-15); BUN 12 mg/dL (7-18); BUN/Creat Ratio 14.5 RATIO (10-20); Calcium,Total 9.5 mg/dL (8.5-10.1); Chloride 103 mmol/L (98-107); Cholesterol 135 mg/dL (200); Creatinine, Serum 0.83 mg/dL (0.55-1.02); EST Glomerular Filtration Rate 77 mL/min (>60); Est Glom Filt Rate - Afr Amer 93 mL/min (>60); Globulin 4.2 g/dL (2.2-4.2); Glucose 86 mg/dL (74-106); High Density Lipoprotein 54 mg/dL; Potassium 3.7 mmol/L (3.5-5.1); Protein, Total 7.7 g/dL (6.4-8.2); Sodium Level 140 mmol/L (136-145); Triglycerides 113 mg/dL; Very Low Density Lipoprotein 23 mg/dL (5-40)
[2024-12-18 18:08] LABS: Hemoglobin A1c 6.9 % (3.8-5.6)
[2024-12-18 18:25] LABS: Microalbumin,Random Urine 8.6 mg/L (NO RANGE EST.); Microalbumin:Creatinine Ratio 4.8 mg/g CRE (<30 mg/g CRE)
[2024-12-21 08:07] LABS: GGTP 45 IU/L (0-60)
== END | disposition home or self-care (01) ==
LOC: MFPLAB 15:43
PROVIDERS: PCP Family Medicine; Referring Provider Family Medicine; Visit Provider Family Medicine
DX: E11.8 Type 2 diabetes mellitus with unspecified complications (principal)
CPT/HCPCS: 36415; 80053; 80061; 82043; 82570; 82977; 83036; 85025